=== PATIENT | female | born 1940 | race Caucasian/White ===

== ENCOUNTER 2020-05-12 09:59 | Outpatient (CLI) | payer MEDICARE, SELFPAY ==
--- NOTE | 2020-05-12 | ECG_ITS ---
Measurements Intervals [place] Rate: 66 P: 72 DE: 160 QRS: 68 QRSD: 89 T: 61 QT: 402 QTc: 423 Interpretive Statements SINUS RHYTHM WITH MARKED SINUS ARRHYTHMIA BASELINE ARTIFACT- I, II, AVR, AVL, AVF BORDERLINE ECG Electronically Signed On 05-12-2020 10:45:17 CDT by Domingo Chairez D.O.
== END 2020-05-12 10:00 | disposition home or self-care (01) ==
LOC: ANHLAB 10:06 → ANHCARD 10:06
PROVIDERS: PCP Internal Medicine
DX: G25.0 Essential tremor (principal); G20 Parkinson's disease
CPT/HCPCS: 93005

== ENCOUNTER 2020-07-19 22:09 | Emergency (ER) | payer MEDICARE, SELFPAY ==
[2020-07-19 22:12] VITALS: BP 148/67; PULSE 94; RESP 18; TEMP 36.7; O2SAT 98
[2020-07-19 22:59] LABS: Basophils Percent Auto 0.3 % (0.2-1.2); Eosinophils Absolute Auto 0.2 K/mm3 (0-0.3); Eosinophils Percent Auto 3.1 % (0-4.4); Hematocrit 36.3 % (37.0-47.0); Hemoglobin 11.8 g/dL (12.0-15.0); Immature Granulocyte Absolute 0.01 K/mm3 (0.00-0.031); Immature Granulocyte Percent A 0.1 % (0-0.5); Lymphocytes Absolute Auto 2.59 K/mm3 (0.9-3.2); Lymphocytes Percent Auto 38.8 % (18.3-44.2); Mean Corpuscular HGB Conc 32.5 g/dl (32-36); Mean Corpuscular Hemoglobin 31.4 pg (26-34); Mean Corpuscular Volume 96.5 fl (80-100); Mean Platelet Volume 9.8 fl (7.4-10.4); Monocytes Absolute Auto 0.7 K/mm3 (0.1-0.6); Monocytes Percent Auto 11.1 % (2.6-8.5); Neutrophils Absolute Auto 3.1 K/mm3 (1.3-6.7); Neutrophils Percent Auto 46.6 % (45.5-73.1); Platelet Count Result 225 k/mm3 (150-375); Red Blood Count 3.76 M/mm3 (4.2-5.4); Red Cell Distribution Width 12.9 % (11.5-14.5); White Blood Count 6.7 K/mm3 (4.5-10.0)
[2020-07-19 23:14] LABS: INR 1.1; Prothrombin Time 13.4 Seconds (11.1-14.7)
[2020-07-19 23:15] LABS: Anion Gap 6 mmol/L (8-16); Blood Urea Nitrogen 24 mg/dL (7-17); Carbon Dioxide 28 mmol/L (22-30); Chloride 104 mmol/L (98-107); Estimated CRCL calculation 38 ml/min; Estimated Glomerular Filt Rate 60; Glucose 109 mg/dL (65-105); Partial Thromboplastin Time 41.7 SECONDS (22.3-36.8); Potassium 4.4 mmol/L (3.4-5.0); Sodium 138 mmol/L (137-145)
[2020-07-19 23:20] LABS: CRP < 0.5 mg/dL (<1.0)
[2020-07-19 23:23] LABS: Erythrocyte Sedimentation Rate 21 mm/hr (0-20)
--- NOTE | 2020-07-19 23:53 | ED.SKABFB ---
HPI - Skin/Abscess/Foreign Bdy General Chief complaint: Skin/Abscess/Foreign Body Stated complaint: rash Time Seen by Provider: 07/19/20 22:18 Source: patient Mode of arrival: ambulatory Limitations: no limitations History of Present Illness HPI narrative: This patient is a 80 year old female who presents for evaluation of rash to her arms, legs and abdomen. She developed a red rash to her right upper arm 1 week ago. She reports this rash does not itch but it hall. She latered developed similar rash to right abdomen and left thigh. She also noticed some bruising to her hands. She denies fever, nausea, vomiting or abdominal pain. Related Data Home Medications Medication Instructions Recorded Confirmed cefdinir mg 11/02/19 estradiol [Estrace] VAGINAL 11/02/19 fosinopril 11/02/19 lovastatin mg 11/02/19 sertraline mg 11/02/19 aspirin 81 mg PO DAILY 11/04/19 hydroxychloroquine [Plaquenil] 200 mg PO DAILY 11/04/19 11/04/19 Allergies Allergy/AdvReac Type Severity Reaction Status Date / Time ciprofloxacin Allergy Mild Unknown Verified 11/04/19 15:14 gentamicin Allergy Mild Unknown Verified 11/04/19 15:14 losartan Allergy Unknown Unknown Verified 11/04/19 15:14 Sulfa (Sulfonamide Allergy Unknown Unknown Verified 11/04/19 15:14 Antibiotics) Review of Systems Review of Systems: All systems reviewed & are unremarkable except as noted in HPI and below Constitutional: Constitutional: Denies chills and Denies fever(s) Cardiovascular: Cardiovascular: Denies chest pain Respiratory: Respiratory: Denies cough and Denies dyspnea Gastrointestinal: Gastrointestinal: Denies abdominal pain, Denies nausea and Denies vomiting Genitourinary: Genitourinary: Denies hematuria Integumentary/Breasts: Skin/Breast: Reports rash Neurologic: Denies dizziness PMFSH Past Medical History Medical History Anxiety Arthritis Back pain Bowel obstruction CAD (coronary artery disease) Cataracts, bilateral Depression Fibromyalgia History of angina History of rectal polyps HLD (hyperlipidemia) HTN (hypertension) Neuropathy Pelvic abscess in female Raynaud's syndrome Systemic lupus erythematosus UTI (urinary tract infection) Surgical History Surgical History History of intestinal surgery History of left knee replacement Hx of appendectomy Hx of cardiac catheterization Hx of cataract surgery Hx of section Hx of cholecystectomy Hx of heart artery stent x3 Social History Social History (Updated 11/04/19 @ 15:56 by Vinicius Mamhood) Smoking status: Never smoker Gender identity (if verbalized by the patient): Female Exam Const: General: alert Orientation/consciousness: patient oriented x3 Eyes: Pupils: Equal, round and reactive pupils present EOM: EOMs intact bilaterally Neck: Neck: no lymphadenopathy Resp: Effort & Inspection: normal respiratory effort and no retractions Auscultation: clear to auscultation bilaterally Cardio: Rate: regular rate Rhythm: regular rhythm Heart sounds: no murmurs GI: GI Palp: Yes Soft to palpation, No Tenderness to palpation present (GI), No Guarding due to palpation present (GI) and No Rigid due to palpation Skin: General skin exam: no petechiae Other: to right arm - mostly singular flesh color papules with intermittent clusters, left inner thigh with similar lesions. Neuro: General: patient oriented x3 and moves all extremities Course Reevaluation(s) Reevaluation #1: I Discussed with patient labs are unremarkable. It does not appear to be drug or viral rash. This may be insect bites in vasculitis. She will follow up with pCP Date: 07/20/20 Time: 00:37 Vital Signs Vital signs: Vital Signs Temperature 98.1 F 07/19/20 22:12 Pulse Rate 94 07/19/20 22:12 Respiratory Rate 18 07/19/20 22:12 Blood Pressure 148/67 H 07/19/20 22
[2020-07-20 00:46] VITALS: BP 138/86; PULSE 84; RESP 16; TEMP 36.7; O2SAT 99
== END 2020-07-20 00:47 | disposition home or self-care (01) ==
PROVIDERS: Emergency Provider General Practice
DX: R21 Rash and other nonspecific skin eruption (principal); F41.9 Anxiety disorder, unspecified; M19.90 Unspecified osteoarthritis, unspecified site; I25.10 Atherosclerotic heart disease of native coronary artery without angina pectoris; F32.9 Major depressive disorder, single episode, unspecified; E78.5 Hyperlipidemia, unspecified; I10 Essential (primary) hypertension; G62.9 Polyneuropathy, unspecified; I73.00 Raynaud's syndrome without gangrene; M32.9 Systemic lupus erythematosus, unspecified; Z87.440 Personal history of urinary (tract) infections; Z98.42 Cataract extraction status, left eye; Z98.41 Cataract extraction status, right eye; Z96.652 Presence of left artificial knee joint; Z95.5 Presence of coronary angioplasty implant and graft; Z79.82 Long term (current) use of aspirin
CPT/HCPCS: 36415; 80048; 85025; 85610; 85652; 85730; 86140; 99283

== ENCOUNTER 2021-01-19 11:00 | Outpatient (RCR) | payer MEDICARE, SELFPAY ==
--- NOTE | 2020-12-15 11:13 | PTOPEVAL ---
PHYSICAL THERAPY EVALUATION AND PLAN OF CARE Thank you for referring Cheri Castaneda to [facility].? The patient is scheduled to be seen for therapy? 1x/week for 4 weeks. Please review, sign, date and return this plan of care DORINDA. I agree with and certify that the following plan of care is medically necessary. Referring Physician Date Attending Provider: Danyelle Brambila Evaluation Diagnosis neck pain Onset chronic Subjective Information Reports chronic neck pain. She Query Text:As Reported By Patient/ was treated for this same Family pain in the past with good success, but the last 3-4 months the pain in the neck increased significantly and she was having difficulty sleeping. States that more recently symptoms are somewhat less severe. Also reports that she is experiencing symptoms in middle back region which is different from her chronic lower back pain. Self Report Pain Assessment Bilateral Spine, Cervical Reported Pain Level 4 Pain Frequency Chronic Other Pain Description stiffness Pain Score Pain Score 4: Self Report Interventions Used Interventions Used By Clinicians Exercise Pain Relief Interventions Used By Exercise,Heat,Ice,Medication Patient Cervical and Lumbar ROM Cervical ROM Cervical Flexion (0-60) 45 Query Text:Active in Degrees Cervical Lateral Flexion Right (0-50) 10 Query Text:Passive in Degrees Cervical Lateral Flexion Left (0-50) 8 Query Text:Active in Degrees Cervical Rotation Right (0-90) 51 Query Text:Active in Degrees Cervical Rotation Left (0-90) 62 Query Text:Active in Degrees Lumbar ROM Lumbar Flexion Active Knee Query Text:Hands to: Lumbar Extension (0-40) 7 Query Text:Active in Degrees Upper Extremity Range of Motion General Upper Extremity Range of Motion Reason Not Measured WFL/Left,WFL/Right Upper Extremity Muscle Strength Testing Scapular/Shoulder Bilateral Shoulder Flexion Strength 4+ Good + Shoulder Extension Strength 4+ Good + Shoulder Abduction Strength 4+ Good + Shoulder Medial Rotation Strength 4+ Good + Shoulder Lateral Rotation Strength 4+ Good + Muscle Length Testing Muscle Length Testing Scalene Group Muscle Length (R) Mild Tightness,(L) Mild Query Text: Tightness Upper Trapezius Muscle Length (R) Severe Tightness,(L) Severe Tightness Pectoralis Johann
--- NOTE | 2021-01-19 11:22 | PCPTNOTE ---
PHYSICAL THERAPY DISCHARGE NOTE Admitting Provider: Attending Provider: Daynelle Brambila Patient:Cheri Castaneda Date of :1940 Cheri has not returned for any further treatments since 01/07/2021, therefore she will be discharged at this time. Patient?s initial visit was on 12/15/2020 10:00 and she has had a total of 3 visits. She rescheduled her re-evaluation from last week until today and she did not show up for today's re-evaluation. The goals have been partially met. Thank you for referring Cheri to [facility]. Please review, sign, date and return this discharge summary DORINDA. I have been updated about Cheri's current status and I agree with discharge from the above service at this time. Referring Physician Date
== END 2021-01-19 12:49 | disposition home or self-care (01) ==
LOC: ANHPT 11:00
DX: M54.2 Cervicalgia (principal)
CPT/HCPCS: 97110; 97140; 97162

== ENCOUNTER 2021-02-07 13:52 | Emergency (ER) | payer MEDICARE, SELFPAY ==
[2021-02-07 13:54] VITALS: BP 187/73; PULSE 91; RESP 20; TEMP 36.6; O2SAT 99
--- NOTE | 2021-02-07 15:06 | ED.GENADULT ---
HPI - General Adult General Chief complaint: Extremity Injury, Lower Stated complaint: tingling in legs and feet Time Seen by Provider: 02/07/21 13:59 Source: patient Mode of arrival: ambulatory Limitations: no limitations History of Present Illness HPI narrative: Patient is an 80-year-old female who presents to emergency department for evaluation of tingling to the bilateral feet plantar surface that began today patient notes on arrival minimal tingling denies any swelling injury or deformity. Patient notes she had cardiac catheterization at [facility] on . Access was in the right groin. Patient denies any pain in the right groin swelling or deformity. Patient presents per private vehicle in no distress with normal gait Related Data Home Medications Medication Instructions Recorded Confirmed cefdinir mg 11/02/19 estradiol [Estrace] VAGINAL 11/02/19 fosinopril 11/02/19 lovastatin mg 11/02/19 sertraline mg 11/02/19 aspirin 81 mg PO DAILY 11/04/19 hydroxychloroquine [Plaquenil] 200 mg PO DAILY 11/04/19 11/04/19 Allergies Allergy/AdvReac Type Severity Reaction Status Date / Time ciprofloxacin Allergy Mild Unknown Verified 02/07/21 13:57 gentamicin Allergy Mild Unknown Verified 02/07/21 13:57 losartan Allergy Unknown Unknown Verified 02/07/21 13:57 Sulfa (Sulfonamide Allergy Unknown Verified 02/07/21 14:15 Antibiotics) Review of Systems Review of Systems: All systems reviewed & are unremarkable except as noted in HPI and below PMFSH Past Medical History Medical History (Updated 02/07/21 @ 15:10 by Angelo Lee PA-C) Anxiety Arthritis Back pain Bowel obstruction CAD (coronary artery disease) Cataracts, bilateral Depression Fibromyalgia History of angina History of rectal polyps HLD (hyperlipidemia) HTN (hypertension) Neuropathy Pelvic abscess in female Raynaud's syndrome Systemic lupus erythematosus UTI (urinary tract infection) Surgical History Surgical History History of intestinal surgery History of left knee replacement Hx of appendectomy Hx of cardiac catheterization Hx of cataract surgery Hx of section Hx of cholecystectomy Hx of heart artery stent x3 Social History Social History Smoking status: Never smoker Gender identity (if verbalized by the patient): Female Exam Narrative: Exam Narrative: GENERAL: Well-appearing, well-nourished, and in no acute distress. HEAD: Normocephalic, atraumatic. EYES: PERRLA and EOMI. ENT: Nares clear, no rhinorrhea or epistaxis. Mucous membranes moist. CHEST: Clear to auscultation. No respiratory distress. No wheezes rales or rhonchi HEART: Regular rate and rhythm. No murmur heard. Normal peripheral pulses. ABDOMEN: Soft, nontender, nondistended EXTREMITIES: Normal range of motion. No edema. Slight bruising no swelling or other abnormality in the right groin SKIN: Warm, dry, no rash. NEURO: No focal deficits. Alert and oriented x3. Cranial nerves II through XII grossly intact. Normal speech and gait. Neurovascularly intact. Capillary refill less than 2 seconds PSYCH: Normal mood and affect. Course Course Emergency Course: Patient on arrival to emergency department notes that her symptoms are minimal at this time and is actually requesting to be discharged feeling as though she overreacted was offered further evaluation with potential for blood work or imaging however she does not wish for this and notes that she would like to be discharged and will follow with her specialist Vital Signs Vital signs: Vital Signs Temperature 97.9 F 02/07/21 13:54 Pulse Rate 91 02/07/21 13:54 Respiratory Rate 20 02/07/21 13:54 Blood Pressure 187/73 H 02/07/21 13:54 Pulse Oximetry 99 02/07/21 13:54 Temperature 97.9 F 02/07/21 13:54 Pulse Rate 91 02/07/21 13:54 Respiratory Rate 20 03
[2021-02-07 15:17] VITALS: BP 150/82; PULSE 99; RESP 20; O2SAT 97
== END 2021-02-07 15:19 | disposition home or self-care (01) ==
PROVIDERS: Emergency Provider Emergency Medicine
DX: R20.2 Paresthesia of skin (principal); I25.10 Atherosclerotic heart disease of native coronary artery without angina pectoris; E78.5 Hyperlipidemia, unspecified; I10 Essential (primary) hypertension; I73.00 Raynaud's syndrome without gangrene; M32.9 Systemic lupus erythematosus, unspecified; G62.9 Polyneuropathy, unspecified; M79.7 Fibromyalgia; M19.90 Unspecified osteoarthritis, unspecified site; F32.9 Major depressive disorder, single episode, unspecified; F41.9 Anxiety disorder, unspecified; Z87.19 Personal history of other diseases of the digestive system; Z98.42 Cataract extraction status, left eye; Z98.41 Cataract extraction status, right eye; Z96.652 Presence of left artificial knee joint; Z95.5 Presence of coronary angioplasty implant and graft; Z87.440 Personal history of urinary (tract) infections
CPT/HCPCS: 99283

== ENCOUNTER 2021-05-06 10:30 | Outpatient (RCR) | payer MEDICARE, SELFPAY ==
[2021-03-22 12:18] VITALS: PULSE 65
--- NOTE | 2021-04-12 09:12 | PCCPR ---
pt [facility] today due to having a rash. She has an apt tomorrow and plans to return wed.
--- NOTE | 2021-04-15 10:48 | PCCPR ---
Absent again today, Cheri stated that her rash was not clearing and did not feel comfortable coming in.
--- NOTE | 2021-05-10 13:45 | PCCPR ---
Absent due to low back pain Cheri called today states her low back has been bothering her. Encouraged her to rest and call her PCP and discuss more.
--- NOTE | 2021-06-30 16:23 | PCCPR ---
Spoke with Cheri today to discuss possibility of returning to cardiac rehab. She stated that her back was doing better but hesitant to start exercise again. Cheri requested discharge from program. Information given regarding [facility] Steps program at [facility].
== END 2021-06-30 16:39 | disposition home or self-care (01) ==
LOC: ANHCPREHAB 10:30
PROVIDERS: Visit Provider Internal Medicine Cardiovascular Disease
DX: Z95.5 Presence of coronary angioplasty implant and graft (principal)
CPT/HCPCS: 93798

== ENCOUNTER 2021-06-25 14:45 | Emergency (ER) | payer MEDICARE, SELFPAY ==
--- NOTE | ~2021-06-25 | CT_ITS ---
EXAMINATION: CT abdomen pelvis w con DATE: 06/25/2021 16:36 INDICATION: Abdominal pain for 4 months. Nausea. TECHNIQUE: Computed tomography (CT) of the abdomen and pelvis was performed with 100 cc Omnipaque 350 intravenous contrast. Automated exposure control and iterative reconstruction technique were employe d. Exam dose: 322.10 mGy-cm total exam DLP. COMPARISON: None. FINDINGS: There is minimal atelectasis or scarring at the lung bases. Heart size is upper limits of n ormal. No pericardial or pleural effusion. Approximately 7.5 mm hypoenhancing lesion is noted in the peripheral anterolateral right hepatic lobe (series 3 image 53). Some possible peripheral puddling of contrast suggest possible hemangioma. Ther e is some focal fatty change of the left hepatic lobe near the fissure for the ligamentum teres. The gallbladder is absent. No bile duct dilatation. No pancreatic mass lesion, calcification or ducta l dilatation. Normal splenic size. No adrenal mass lesion. Probable 7.5 mm upper pole left renal cyst. The kidneys otherwise are unremarkable. No urinary tract calculus or hydroureteronephrosis. The urinary bladder is unremarkable. Status post hysterectomy. There is atherosclerotic calcification of the abdominal aorta and origins of the renal arteries and c eliac artery. No abdominal aortic aneurysm. No intraperitoneal or retroperitoneal or pelvic mass lesi on or adenopathy or ascites. There are numerous diverticula of the sigmoid colon; no CT evidence of diverticulitis. No bowel obstr uction, bowel wall thickening, pneumatosis or intraperitoneal free air is detected. 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 IMPRESSION: Probable 7.5 mm hepatic hemangioma 7.5 mm probable cyst of the left renal upper pole Status post hysterectomy Diverticulosis of the colon; no CT evidence of diverticulitis Reviewed, dictated and finalized at [facility]. Reviewed, dictated and finalized at [facility].
[2021-06-25 14:47] VITALS: BP 153/74; PULSE 90; RESP 16; TEMP 37.2; O2SAT 100
[2021-06-25 15:13] LABS: Basophils Percent Auto 0.5 % (0.2-1.2); Eosinophils Absolute Auto 0.1 K/mm3 (0-0.3); Eosinophils Percent Auto 1.8 % (0-4.4); Hematocrit 39.4 % (37.0-47.0); Hemoglobin 12.4 g/dL (12.0-15.0); Immature Granulocyte Absolute 0.01 K/mm3 (0.00-0.031); Immature Granulocyte Percent A 0.2 % (0-0.5); Lymphocytes Absolute Auto 2.67 K/mm3 (0.9-3.2); Lymphocytes Percent Auto 40.6 % (18.3-44.2); Mean Corpuscular HGB Conc 31.5 g/dl (32-36); Mean Corpuscular Hemoglobin 30.8 pg (26-34); Mean Corpuscular Volume 97.8 fl (80-100); Mean Platelet Volume 9.6 fl (7.4-10.4); Monocytes Absolute Auto 0.7 K/mm3 (0.1-0.6); Monocytes Percent Auto 10.4 % (2.6-8.5); Neutrophils Absolute Auto 3.1 K/mm3 (1.3-6.7); Neutrophils Percent Auto 46.5 % (45.5-73.1); Platelet Count Result 233 k/mm3 (150-375); Red Blood Count 4.03 M/mm3 (4.2-5.4); Red Cell Distribution Width 12.9 % (11.5-14.5); White Blood Count 6.6 K/mm3 (4.5-10.0)
[2021-06-25 15:28] LABS: Alanine Aminotransferase 12 U/L (4-35); Albumin Level 4.9 g/dL (3.5-5.1); Alkaline Phosphatase 59 U/L (38-126); Anion Gap 11 mmol/L (8-16); Aspartate Amino Transferase 34 U/L (14-36); Bilirubin,Total 0.5 mg/dL (0.2-1.3); Blood Urea Nitrogen 17 mg/dL (7-17); Calcium 9.6 mg/dL (8.4-10.2); Carbon Dioxide 25 mmol/L (22-30); Chloride 103 mmol/L (98-107); Estimated CRCL calculation 41 ml/min; Estimated Glomerular Filt Rate > 60; Glucose 97 mg/dL (65-110); Lipase 119 U/L (23-300); Potassium 3.9 mmol/L (3.4-5.0); Sodium 139 mmol/L (137-145)
--- NOTE | 2021-06-25 15:45 | ED.GENADULT ---
HPI - General Adult General Chief complaint: Abdominal Pain Stated complaint: stomach pain, nausea Time Seen by Provider: 06/25/21 15:42 Source: RN notes reviewed History of Present Illness HPI narrative: Patient presents emergency department from home for abdominal pain. Patient states she has been having intermittent abdominal pain for the past 4 months worsened last night. The pain is located across the upper abdomen described as sharp and stabbing in nature is associated with nausea and vomiting and diarrhea. Patient denies having fever chills states she supposed to be having an appointment for evaluation next week was had no previous evaluation states the pain right now is aching but was more severe last night states she is taken no medication for the symptoms Related Data Home Medications Medication Instructions Recorded Confirmed estradiol [Estrace] VAGINAL 11/02/19 fosinopril 11/02/19 lovastatin mg 11/02/19 sertraline mg 11/02/19 aspirin 81 mg PO DAILY 11/04/19 hydroxychloroquine [Plaquenil] 200 mg PO DAILY 11/04/19 11/04/19 Restasis 03/22/21 carbidopa-levodopa 1 tablet PO TID 03/22/21 03/22/21 clopidogrel [Plavix] 03/22/21 methenamine hippurate 1 g PO 03/22/21 Allergies Allergy/AdvReac Type Severity Reaction Status Date / Time ciprofloxacin Allergy Mild Unknown Verified 02/07/21 13:57 gentamicin Allergy Mild Unknown Verified 02/07/21 13:57 losartan Allergy Unknown Unknown Verified 02/07/21 13:57 Sulfa (Sulfonamide Allergy Unknown Verified 02/07/21 14:15 Antibiotics) Review of Systems Review of Systems: Gen.: Denies fevers or chills ENT: Denies congestion Respiratory: Denies shortness of breath or cough CV: Denies chest pain or palpitations GI: See HPI denies burning, urgency, frequency or hematuria Musculoskeletal: Denies back pain or muscle pain Neuro: Denies numbness, tingling, weakness or focal weakness Skin: Denies rash Except as documented, all other systems reviewed and negative [facility] Past Medical History Medical History (Updated 06/25/21 @ 16:54 by Navjot Brito DO) Anxiety Arthritis Back pain Bowel obstruction CAD (coronary artery disease) Cataracts, bilateral Depression Fibromyalgia History of angina History of rectal polyps HLD (hyperlipidemia) HTN (hypertension) Neuropathy Pelvic abscess in female Raynaud's syndrome Systemic lupus erythematosus UTI (urinary tract infection) Surgical History Surgical History History of intestinal surgery History of left knee replacement Hx of appendectomy Hx of cardiac catheterization Hx of cataract surgery Hx of section Hx of cholecystectomy Hx of heart artery stent x3 Family History Family History (Updated 03/22/21 @ 12:04 by Tiffanie Arciniega RN) Sibling Coronary artery disease Hyperlipidemia Hypertension Diabetes mellitus Cancer Sibling Hypertension Cancer Social History Social History Smoking status: Never smoker Gender identity (if verbalized by the patient): Female Exam Narrative: APPEARANCE: No acute distress, nontoxic, resting in bed HEENT: Normocephalic, atraumatic, OMM RESPIRATORY: No respiratory distress, clear to auscultation bilaterally with no rhonchi wheezing or rales CARDIOVASCULAR: RRR s murmur ABDOMINAL: Soft nondistended tender palpation right upper quadrant no tenderness in right lower quadrant, left lower quadrant left upper quadrant no rebound or guarding MUSCULOSKELETAl: Moves all extremities. No clubbing, cyanosis or edema. NEURO: Awake and alert. Following commands, speech normal, no focal deficits SKIN:: Warm, dry. Normal Color PSYCHIATRIC: Normal affect/mood Course Course Emergency Course: Patient states that they are feeling much better at this time. States abdominal pain has resolved. Repeat abdominal exam shows the patient's abdomen to be
[2021-06-25 16:18] LABS: Add Urine Microscopic? YES; Appearance Urine Clear (Clear); Bilirubin Urine Negative (Negative); Blood Urine 1+ (Negative); Color Urine Yellow (Yellow); Glucose Urine UA Negative (Negative); Ketones Urine Negative (Negative); Leukocyte Esterase Ur 2+ LEU/UL (Negative); Mucus Urine Rare /lpf; Nitrate Urine Positive (Negative); Protein Urine Negative (Negative); RBC Urine 0-2 /hpf (0-2); Specific Grav Ur 1.012 (1.001-1.035); Squamous Epithelial Cell Urine Rare /hpf (Few); Urobilinogen Urine Negative mg/dL (<2.0)
[2021-06-25] MEDS: NITROFURANTOIN MONOHYD MACROCR 100 MG CAP PO (16:58)
[2021-06-25 17:15] VITALS: BP 132/59; PULSE 64; RESP 16; O2SAT 97
== END 2021-06-25 17:15 | disposition home or self-care (01) ==
PROVIDERS: Emergency Provider Emergency Medicine
DX: N39.0 Urinary tract infection, site not specified (principal); R10.10 Upper abdominal pain, unspecified; I25.10 Atherosclerotic heart disease of native coronary artery without angina pectoris; E78.5 Hyperlipidemia, unspecified; I10 Essential (primary) hypertension; I73.00 Raynaud's syndrome without gangrene; M32.9 Systemic lupus erythematosus, unspecified; G62.9 Polyneuropathy, unspecified; M79.7 Fibromyalgia; F41.9 Anxiety disorder, unspecified; F32.9 Major depressive disorder, single episode, unspecified; Z87.19 Personal history of other diseases of the digestive system; Z98.42 Cataract extraction status, left eye; Z98.41 Cataract extraction status, right eye; Z96.652 Presence of left artificial knee joint; Z95.5 Presence of coronary angioplasty implant and graft; Z79.82 Long term (current) use of aspirin; K57.90 Diverticulosis of intestine, part unspecified, without perforation or abscess without bleeding; R93.422 Abnormal radiologic findings on diagnostic imaging of left kidney; R93.2 Abnormal findings on diagnostic imaging of liver and biliary tract
CPT/HCPCS: 36415; 74177; 80053; 81001; 83690; 85025; 87077; 87086; 87186; 99284; A9270; Q9967

== ENCOUNTER 2021-11-08 11:59 | Emergency (ER) | payer MEDICARE, SELFPAY ==
[2021-11-08 12:18] VITALS: BP 151/82; PULSE 90; RESP 16; TEMP 36.4; O2SAT 98
== END 2021-11-09 04:07 | disposition left against medical advice (07) ==
DX: R51.9 Headache, unspecified (principal)
CPT/HCPCS: 99199

== ENCOUNTER 2021-11-30 00:41 | Emergency (ER) | payer MEDICARE, SELFPAY ==
--- NOTE | ~2021-11-30 | CT_ITS ---
EXAMINATION: CT brain wo con DATE: 11/30/2021 01:36 INDICATION: Frontal headache. TECHNIQUE: Computed tomography (CT) of the head was performed without intravenous contrast. The mA wa s adjusted according to patient size. Iterative reconstruction technique was employed. The dose-lengt h product was 681.00 mGy-cm. COMPARISON: Head CT 05/01/2017 FINDINGS: There are scattered areas of low attenuation in the cerebral white matter. There is no intr acranial hemorrhage, acute infarction, or abnormal intracranial mass lesion. The ventricles are zoila l in size. There are likely changes of ocular lens replacement surgeries. The paranasal sinuses are c lear. The mastoid air cells are normal. IMPRESSION: 1. Extensive nonspecific cerebral white matter disease with mild interval worsening, which likely rep resents chronic small vessel ischemic disease. Reviewed, dictated and finalized at location D. L GEOTECHNICAL ENGINEER IMPRESSION: 1. Extensive nonspecific cerebral white matter disease with mild interval worse angelina, which likely represents chronic small vessel ischemic disease.
--- NOTE | ~2021-11-30 | XR_ITS ---
EXAMINATION: XR chest 1V DATE: 11/30/2021 01:38 INDICATION: Hypertension TECHNIQUE: frontal view of the chest was obtained. COMPARISON: Chest radiograph dated 11/04/2019 FINDINGS: Calcified nodule at the right lower lung zones consistent with old granulomatous disease. No other ai rspace opacities, pulmonary edema, pleural effusion or pneumothorax. The cardiomediastinal silhouette is normal. Coronary artery stenting. Mild thoracic dextrocurvature. IMPRESSION: 1. No acute cardiopulmonary disease. Reviewed, dictated and finalized at location A. R REVERSE ENGINEER
[2021-11-30 01:17] VITALS: BP 170/86; PULSE 78; RESP 14; TEMP 36.8; O2SAT 100
--- NOTE | 2021-11-30 01:23 | ED.GENADULT ---
HPI - General Adult General Chief complaint: Headache Stated complaint: headache Time Seen by Provider: 11/30/21 01:16 History of Present Illness HPI narrative: Patient is a 81-year-old female who presents the emergency department with chief complaint of hypertension. The patient states she has been noticing her blood pressures been running on the higher side patient also reports that she has had chronic headaches for some time and states that tonight it got worse but by the time she is arrived to the emergency department her headache is mild currently the patient denies any focal neurological deficits denies vomiting does report that she had a little bit of nausea with this. The patient denies chest pain denies shortness of breath denies blood in her stool denies diarrhea. Related Data Home Medications Medication Instructions Recorded Confirmed estradiol [Estrace] VAGINAL 11/02/19 fosinopril 11/02/19 lovastatin mg 11/02/19 sertraline mg 11/02/19 aspirin 81 mg PO DAILY 11/04/19 hydroxychloroquine [Plaquenil] 200 mg PO DAILY 11/04/19 11/04/19 Restasis 03/22/21 carbidopa-levodopa 1 tablet PO TID 03/22/21 03/22/21 clopidogrel [Plavix] 03/22/21 methenamine hippurate 1 g PO 03/22/21 Allergies Allergy/AdvReac Type Severity Reaction Status Date / Time ciprofloxacin Allergy Mild Unknown Verified 11/30/21 01:46 gentamicin Allergy Mild Unknown Verified 11/30/21 01:46 losartan Allergy Unknown Unknown Verified 11/30/21 01:46 Sulfa (Sulfonamide Allergy Unknown Verified 11/30/21 01:46 Antibiotics) Review of Systems Review of Systems: A 10 system review of systems was completed on the patient and is negative except for what is stated in the HPI. Nursing and ancillary documentation was reviewed. [facility] Past Medical History Medical History (Updated 11/30/21 @ 02:08 by Filipe Ferguson MD) Anxiety Arthritis Back pain Bowel obstruction CAD (coronary artery disease) Cataracts, bilateral Depression Fibromyalgia History of angina History of rectal polyps HLD (hyperlipidemia) HTN (hypertension) Neuropathy Pelvic abscess in female Raynaud's syndrome Systemic lupus erythematosus UTI (urinary tract infection) Surgical History Surgical History History of intestinal surgery History of left knee replacement Hx of appendectomy Hx of cardiac catheterization Hx of cataract surgery Hx of section Hx of cholecystectomy Hx of heart artery stent x3 Family History Family History Sibling Coronary artery disease Hyperlipidemia Hypertension Diabetes mellitus Cancer Sibling Hypertension Cancer Social History Social History Smoking status: Never smoker Gender identity (if verbalized by the patient): Female Exam Narrative: GENERAL: Well-appearing, well-nourished, and in no acute distress. HEAD: Normocephalic, atraumatic. EYES: PERRLA and EOMI. ENT: Nares clear, no rhinorrhea or epistaxis. Mucous membranes moist. NECK: Supple. CHEST: Clear to auscultation. No respiratory distress. HEART: Regular rate and rhythm. No murmur heard. Normal peripheral pulses. ABDOMEN: Soft, nontender, nondistended, normal active bowel sounds. EXTREMITIES: Normal range of motion. No edema. SKIN: Warm, dry, no rash. NEURO: No focal deficits. Alert and oriented x3. PSYCH: Normal mood and affect. Course Course Emergency Course: Chest x-ray shows no evidence of focal infiltrate CT head shows no acute findings by stat rad EKG sinus rhythm rate of [address] elevation or ST depression Vital Signs Vital signs: Vital Signs Temperature 36.8 C 11/30/21 01:17 Pulse Rate 78 11/30/21 01:17 Respiratory Rate 14 11/30/21 01:17 Blood Pressure 170/86 H 11/30/21 01:17 Pulse Oximetry 100 11/30/21 01:17 Tem
--- NOTE | 2021-11-30 01:24 | ECG_ITS ---
Measurements Intervals [place] Rate: 63 P: 61 MA: 133 QRS: 53 QRSD: 91 T: 55 QT: 403 QTc: 415 Interpretive Statements SINUS RHYTHM BASELINE ARTIFACT- I, II, AVR, AVL, AVF, V5 NORMAL ECG Electronically Signed On 11-30-2021 6:02:12 [employer] by Domingo Chairez D.O.
--- NOTE | 2021-11-30 01:33 | PC.NURSE ---
Pt to CT scan at this time.
[2021-11-30] MEDS: ONDANSETRON INJ 4 MG/2 ML VIAL IV PUSH (01:47)
[2021-11-30 01:58] LABS: Basophils Percent Auto 0.6 % (0.2-1.2); Eosinophils Absolute Auto 0.2 K/mm3 (0-0.3); Eosinophils Percent Auto 3.2 % (0-4.4); Hematocrit 39.3 % (37.0-47.0); Hemoglobin 12.5 g/dL (12.0-15.0); Immature Granulocyte Absolute 0.01 K/mm3 (0.00-0.031); Immature Granulocyte Percent A 0.2 % (0-0.5); Lymphocytes Absolute Auto 2.78 K/mm3 (0.9-3.2); Lymphocytes Percent Auto 42.9 % (18.3-44.2); Mean Corpuscular HGB Conc 31.8 g/dl (32-36); Mean Corpuscular Hemoglobin 31.3 pg (26-34); Mean Corpuscular Volume 98.5 fl (80-100); Mean Platelet Volume 10.2 fl (7.4-10.4); Monocytes Absolute Auto 0.7 K/mm3 (0.1-0.6); Monocytes Percent Auto 11.1 % (2.6-8.5); Neutrophils Absolute Auto 2.7 K/mm3 (1.3-6.7); Platelet Count Result 223 k/mm3 (150-375); Red Blood Count 3.99 M/mm3 (4.2-5.4); Red Cell Distribution Width 12.8 % (11.5-14.5); White Blood Count 6.5 K/mm3 (4.5-10.0)
[2021-11-30 02:01] LABS: Alanine Aminotransferase 6 U/L (4-35); Albumin Level 4.4 g/dL (3.5-5.1); Alkaline Phosphatase 69 U/L (38-126); Anion Gap 9 mmol/L (8-16); Aspartate Amino Transferase 24 U/L (14-36); Bilirubin,Total 0.6 mg/dL (0.2-1.3); Blood Urea Nitrogen 18 mg/dL (7-17); Calcium 9.5 mg/dL (8.4-10.2); Carbon Dioxide 29 mmol/L (22-30); Chloride 99 mmol/L (98-107); Estimated Glomerular Filt Rate > 60; Glucose 107 mg/dL (65-110); Sodium 137 mmol/L (137-145)
[2021-11-30 02:07] LABS: Add Urine Microscopic? NO; Appearance Urine Clear (Clear); Bilirubin Urine Negative (Negative); Blood Urine Negative (Negative); Color Urine Yellow (Yellow); Glucose Urine UA Negative (Negative); Ketones Urine Negative (Negative); Leukocyte Esterase Ur Negative LEU/UL (Negative); Nitrate Urine Negative (Negative); Protein Urine Negative (Negative); Urobilinogen Urine Negative mg/dL (<2.0)
[2021-11-30 02:13] LABS: Specific Grav Ur 1.004 (1.001-1.035)
[2021-11-30 02:23] VITALS: BP 148/81; PULSE 91; RESP 23; O2SAT 100
[2021-11-30 02:24] VITALS: BP 148/81; PULSE 91; RESP 18; O2SAT 100
== END 2021-11-30 02:25 | disposition home or self-care (01) ==
PROVIDERS: Emergency Provider Emergency Medicine; PCP Internal Medicine
DX: I10 Essential (primary) hypertension (principal); R51.9 Headache, unspecified; I25.10 Atherosclerotic heart disease of native coronary artery without angina pectoris; M79.7 Fibromyalgia; E78.5 Hyperlipidemia, unspecified; G62.9 Polyneuropathy, unspecified; M32.9 Systemic lupus erythematosus, unspecified; Z87.19 Personal history of other diseases of the digestive system; Z87.442 Personal history of urinary calculi; Z98.49 Cataract extraction status, unspecified eye; Z96.652 Presence of left artificial knee joint; Z79.82 Long term (current) use of aspirin; R90.82 White matter disease, unspecified
CPT/HCPCS: 36415; 51701; 70450; 71045; 80053; 81003; 85025; 93005; 96374; 99284; J2405

== ENCOUNTER 2021-12-07 12:30 | Outpatient (RCR) | payer MEDICARE, SELFPAY ==
--- NOTE | 2021-11-09 15:43 | PTOPEVAL ---
Thank you for referring Cheri Castaneda to [facility].? The patient is scheduled to be seen for therapy? 2 x/week for 4-6 weeks. Please review, sign, date and return this plan of care DORINDA. I agree with and certify that the following plan of care is medically necessary. Referring Physician Date Attending Provider: Alvina Smith MD Neurological History Hx Migraine Yes Hx Parkinson's Disease Yes Hx Other Neurological Disorders Yes: NEUROPATHY HANDS/FEET Cardiovascular History Hx Cardiac Catheterization Yes: JANUARY 2021 Hx Coronary Artery Disease Yes Hx Coronary Stent Yes: X3 2004, X2 2020 Hx Hypercholesterolemia Yes Gastrointestinal History Hx Appendectomy Yes Hx Cholecystectomy Yes: 1971 Hx Gastroesophageal Reflux Disease Yes Hx Other Gastrointestinal Disorders Yes: O 2019 Genitourinary History Hx Urinary Tract Infection Yes: chronic uti Musculoskeletal History Hx Arthritis Yes Hx Back Pain Yes: BULGING DISC Hx Fibromyalgia Yes Hx Joint Replacement Yes: LEFT KNEE Endocrine History Hx Systemic Lupus Erythematosus Yes HEENT History Hx Cataracts Yes: REMOVED BOTH EYES Reproductive History Hx Section Yes: 1968 Hx Other Reproductive Disorders Yes Evaluation Information Problem Diagnosis chronic back and neck pain Additional Evaluation Detail Sits with legs crossed with trunk leaning to right side with twisted position Parkinson's disease- no HEP or group program attended Subjective Information She has had chronic back pain Query Text:As Reported By Patient/ with DDD. She reports Family limitations with bending, prolonged sitting/standing, grocery shopping. Reports limitations with sleeping, but is able to sleep 8 hr with stiffness in the morning. Reports her neck pain is intermittent with radiating pain from neck into head with c/o TREJO. c/o radiating symptoms into back of arms into hands. Increased pain with pain with prolonged neck flex position with reading or on the phone. C/o UE weakness, but she has not lift anything heavy for years. She does not perform her HEP
--- NOTE | 2021-11-25 07:51 | PCPTNOTE ---
Patient called & cancelled scheduled appointment this date due to going out of town.
--- NOTE | 2021-11-29 14:50 | PCPTNOTE ---
Patient did not show up for scheduled appointment this date; called reminded patient about missed appointment, with adjustments made to next appointment 12/01/2021 for 14:15.
--- NOTE | 2021-12-07 13:23 | PTOPEVAL ---
Physical Therapy Discharge Note Thank you for referring Cheri Castaneda to [facility] [place] [facility] [place] Cheri has received 6 therapy visits to address her chronic neck and back pain. She has improved symptoms, improved trunk motion and improved LE strength. She has been provided a HEP. She has partially achieved her therapy goals. She has reached maximal potential with skilled therapy services at this time. Will DC PT services. Please review, sign, date and return this discharge summary DORINDA. I agree with and certify that the following plan of care is medically necessary. Referring Physician Date Attending Provider: Alvina Smith Problem Diagnosis chronic back and neck pain Additional Evaluation Detail Sits with legs crossed with trunk leaning to right side with twisted position Parkinson's disease- no HEP or group program attended She has had chronic back pain with DDD. Subjective Information She feel her neck is better as Query Text:As Reported By Patient/ a result of therapy. Her back Family is slightly better. She is performing her HEP 2-3x/wk. She c/o tightness of neck with turning. Denies any radiating symptoms into UE, but radiating tightness into back of head. Improved diogo with talking on the phone. She has sharp pain with lifting at times and walking, but usually soreness with dull pain. She reports improved diogo with trunk bending. Reports sores with prolonged sitting/ standing. Intermittent radiating symptoms into LE, unable to note when symptoms increase. Pain Assessment Neck Reported Pain Level 3 Pain Description Aching,Pulling,Tightness Pain Frequency Continuous Lowest Pain Intensity 3 Greatest Pain Intensity 3 Pain Aggravating Factors Other Pain Aggravating Factors Other Pain Aggravating Factors neck movement Lower Back Reported Pain Level 4 Pain Description Dull,Sharp,Soreness Lowest Pain Intensity 3 Greatest Pain Intensity 5 Pain Aggravating Factors Lifting,Walking Cervical and Lumbar ROM Cervical ROM Cervical Flexion (0-60) 60:Active in Degrees Cervical Extension (0-70) 60:Active in Degrees
== END 2021-12-08 13:28 | disposition home or self-care (01) ==
LOC: ANHPT 12:30
DX: M54.16 Radiculopathy, lumbar region (principal); M54.2 Cervicalgia
CPT/HCPCS: 97110; 97162; 97530

== ENCOUNTER 2022-01-23 01:13 | Emergency (ER) | payer MEDICARE, SELFPAY ==
--- NOTE | ~2022-01-23 | CT_ITS ---
EXAMINATION: CT brain wo con DATE: 01/23/2022 02:17 INDICATION: Headache. Dizziness. TECHNIQUE: Computed tomography (CT) of the head was performed without intravenous contrast. The mA wa s adjusted according to patient size. Iterative reconstruction technique was employed. The dose-lengt h product was 605.33 mGy-cm. COMPARISON: Head CT 11/30/2021 FINDINGS: There are scattered areas of low attenuation in the cerebral white matter. There is no intr acranial hemorrhage, acute infarction, or abnormal intracranial mass lesion. The ventricles are zoila l in size. There is mild mucosal thickening in the ethmoid sinuses. The mastoid air cells are normal. IMPRESSION: 1. Stable extensive nonspecific cerebral white matter disease, which likely represents chronic small vessel ischemic disease. Reviewed, dictated and finalized at location A. OPERATOR IMPRESSION: 1. Stable extensive nonspecific cerebral white matter disease, which likely rep resents chronic small vessel ischemic disease.
--- NOTE | ~2022-01-23 | XR_ITS ---
EXAMINATION: XR chest 2V DATE: 01/23/2022 02:21 INDICATION: Headache. TECHNIQUE: Frontal and lateral views of the chest were obtained. COMPARISON: Chest single view 11/30/2021, CT abdomen and pelvis 06/25/2021 FINDINGS: A calcified right lung nodule is consistent with old granulomatous disease. There is mild s carring at the lung apices. No pleural effusion or pneumothorax. The heart size is normal. IMPRESSION: 1. Mild scarring at the lung apices. Reviewed, dictated and finalized at location A. STRIAL CLEANING TECHNICIAN
[2022-01-23 01:16] VITALS: BP 194/91; PULSE 87; RESP 19; TEMP 36.6; O2SAT 99
[2022-01-23 01:32] VITALS: BP 166/86
--- NOTE | 2022-01-23 02:02 | PC.NURSE ---
This RN attempted x2 for IV access. No success. 2nd RN to try
--- NOTE | 2022-01-23 02:05 | PC.NURSE ---
Pt to CT via stretcher at this time.
[2022-01-23 02:41] LABS: Basophils Percent Auto 0.6 % (0.2-1.2); Eosinophils Absolute Auto 0.2 K/mm3 (0-0.3); Eosinophils Percent Auto 3.1 % (0-4.4); Hematocrit 38.7 % (37.0-47.0); Hemoglobin 12.1 g/dL (12.0-15.0); Immature Granulocyte Absolute 0.01 K/mm3 (0.00-0.031); Immature Granulocyte Percent A 0.1 % (0-0.5); Lymphocytes Absolute Auto 2.56 K/mm3 (0.9-3.2); Lymphocytes Percent Auto 36.3 % (18.3-44.2); Mean Corpuscular HGB Conc 31.3 g/dl (32-36); Mean Corpuscular Hemoglobin 31.3 pg (26-34); Mean Platelet Volume 9.6 fl (7.4-10.4); Monocytes Absolute Auto 0.8 K/mm3 (0.1-0.6); Monocytes Percent Auto 11.3 % (2.6-8.5); Neutrophils Absolute Auto 3.4 K/mm3 (1.3-6.7); Neutrophils Percent Auto 48.6 % (45.5-73.1); Platelet Count Result 189 k/mm3 (150-375); Red Blood Count 3.87 M/mm3 (4.2-5.4); Red Cell Distribution Width 13.2 % (11.5-14.5); White Blood Count 7.1 K/mm3 (4.5-10.0)
[2022-01-23] MEDS: MORPHINE SULFATE (*CRX) 4 MG/ML INJ IM (02:41)
[2022-01-23 02:51] LABS: INR 1.1; Prothrombin Time 13.6 Seconds (11.1-14.7)
[2022-01-23 02:52] LABS: Partial Thromboplastin Time 48.4 SECONDS (22.3-36.8)
[2022-01-23 02:53] LABS: Anion Gap 6 mmol/L (8-16); Blood Urea Nitrogen 15 mg/dL (7-17); Carbon Dioxide 28 mmol/L (22-30); Chloride 104 mmol/L (98-107); Estimated CRCL calculation 54 ml/min; Estimated Glomerular Filt Rate > 60; Glucose 101 mg/dL (65-110); Potassium 3.8 mmol/L (3.4-5.0); Sodium 138 mmol/L (137-145)
[2022-01-23 03:05] LABS: Troponin I < 0.012 ng/mL (0.000-0.034)
[2022-01-23 03:09] VITALS: BP 145/67; PULSE 72; RESP 12; O2SAT 99
[2022-01-23 03:29] VITALS: BP 136/71
--- NOTE | 2022-01-23 04:14 | ED.GENADULT ---
HPI - General Adult General Chief complaint: Recheck/Abnormal Lab/Rx Stated complaint: High bp, visual change Time Seen by Provider: 01/23/22 01:34 History of Present Illness HPI narrative: Patient is an 81-year-old female who presents ER with reports of hypertension and headache. Patient has history of migraine headaches and underwent Botox injection to help treat headache in the last 24 hours. Patient keeps a blood pressure diary for which she often documents that she is having dizziness or headache. Blood pressures are not typically high. Patient woke up this evening and felt some lightheadedness and not to take her blood pressure and she reports her systolic pressure was in the 200s. She then opted to come to the ER for further evaluation. She reports no chest pain or chest pressure or difficulty breathing. She says she has some sensation that her left thigh is thick. She reports she also gets the same feeling anytime she is on her exercise bike. No difficulty with ambulation. Headache is generalized and throbbing. No thunderclap. Related Data Home Medications Medication Instructions Recorded Confirmed estradiol [Estrace] VAGINAL 11/02/19 fosinopril 11/02/19 lovastatin mg 11/02/19 sertraline mg 11/02/19 aspirin 81 mg PO DAILY 11/04/19 hydroxychloroquine [Plaquenil] 200 mg PO DAILY 11/04/19 11/04/19 Restasis 03/22/21 carbidopa-levodopa 1 tablet PO TID 03/22/21 03/22/21 clopidogrel [Plavix] 03/22/21 methenamine hippurate 1 g PO 03/22/21 Allergies Allergy/AdvReac Type Severity Reaction Status Date / Time ciprofloxacin Allergy Mild Unknown Verified 01/23/22 01:23 gentamicin Allergy Mild Unknown Verified 01/23/22 01:23 losartan Allergy Unknown Unknown Verified 01/23/22 01:23 Sulfa (Sulfonamide Allergy Unknown Verified 01/23/22 01:23 Antibiotics) Review of Systems Review of Systems: All systems reviewed & are unremarkable except as noted in HPI and below Constitutional: Constitutional: Denies chills, Denies fever(s) and Denies weakness ENT: Denies nasal congestion and Denies sore throat Cardiovascular: Cardiovascular: Denies chest pain, Denies rapid heart rate and Denies radiating jaw, neck or arm pain Respiratory: Respiratory: Denies cough and Denies dyspnea Gastrointestinal: Gastrointestinal: Denies abdominal pain, Denies nausea and Denies vomiting Musculoskeletal: Musculoskeletal: Denies arthralgias and Denies joint swelling Neurologic: Denies syncope, Reports headache(s), Denies focal weakness and Denies numbness PMFSH Past Medical History Medical History (Updated 01/23/22 @ 04:16 by Grabiel Calderon MD) Anxiety Arthritis Back pain Bowel obstruction CAD (coronary artery disease) Cataracts, bilateral Depression Fibromyalgia History of angina History of rectal polyps HLD (hyperlipidemia) HTN (hypertension) Neuropathy Pelvic abscess in female Raynaud's syndrome Systemic lupus erythematosus UTI (urinary tract infection) Surgical History Surgical History History of intestinal surgery History of left knee replacement Hx of appendectomy Hx of cardiac catheterization Hx of cataract surgery Hx of section Hx of cholecystectomy Hx of heart artery stent x3 Family History Family History Sibling Coronary artery disease Hyperlipidemia Hypertension Diabetes mellitus Cancer Sibling Hypertension Cancer Social History Social History Smoking status: Never smoker Gender identity (if verbalized by the patient): Female Exam Narrative: GENERAL: Well-appearing, well-nourished, and in no acute distress. HEAD: Normocephalic, atraumatic. EYES: PERRL and EOMI. NECK: Supple. CHEST: Clear to auscultation. No respiratory distress. HEART: Regular rate and rhythm. Normal periphera
== END 2022-01-23 04:25 | disposition home or self-care (01) ==
PROVIDERS: Emergency Provider Emergency Medicine
DX: I10 Essential (primary) hypertension (principal); R51.9 Headache, unspecified; F41.9 Anxiety disorder, unspecified; I25.10 Atherosclerotic heart disease of native coronary artery without angina pectoris; E78.5 Hyperlipidemia, unspecified; G62.9 Polyneuropathy, unspecified; I73.00 Raynaud's syndrome without gangrene; M32.9 Systemic lupus erythematosus, unspecified; M19.90 Unspecified osteoarthritis, unspecified site; M79.7 Fibromyalgia; F32.A Depression, unspecified; Z95.5 Presence of coronary angioplasty implant and graft; Z87.440 Personal history of urinary (tract) infections; Z96.652 Presence of left artificial knee joint; Z98.49 Cataract extraction status, unspecified eye; Z87.19 Personal history of other diseases of the digestive system; Z79.02 Long term (current) use of antithrombotics/antiplatelets; Z79.82 Long term (current) use of aspirin; R90.82 White matter disease, unspecified
CPT/HCPCS: 36415; 70450; 71046; 80048; 84484; 85025; 85610; 85730; 96374; 99284; J2270

== ENCOUNTER 2022-11-07 11:37 | Outpatient (CLI) | payer MEDICARE, SELFPAY ==
--- NOTE | ~2022-11-07 | CT_ITS ---
EXAMINATION: CT abdomen pelvis wo con DATE: 11/07/2022 12:09 INDICATION: Escherichia coli as cause of disease classified elsewhere. TECHNIQUE: Computed tomography (CT) of the abdomen and pelvis was performed without intravenous contr ast. Automated exposure control and iterative reconstruction technique were employed. The dose-length product was 225.89 mGy-cm. COMPARISON: CT abdomen and pelvis 06/25/2021 FINDINGS: The visualized portions of the lung bases demonstrate mild atelectasis. There is mild scarr ing in paraspinal right lower lobe. No pleural effusion. The heart size is normal. There are coronary artery calcifications. No pericardial effusion. There is a chronic 12 mm mass in the liver, likely b enign. The spleen is normal. There are changes of cholecystectomy. The pancreas, adrenal glands, and right kidney are normal. There is an 11 mm mass of fat in left kidney, consistent with an angiomyolip kapil. There is no urolithiasis. There is diverticulosis of the colon without evidence of diverticuliti s. There is a large volume of stool in the colon. The appendix is normal. There are no pathologically enlarged lymph nodes. There is no free intraperitoneal fluid. There is a chronic benign bone island in left femoral head. There is severe lumbar spondylosis. IMPRESSION: 1. No specific evidence of infection. Reviewed, dictated and finalized at location A. TY GLASS INSTALLER
--- NOTE | ~2022-11-07 | XR_ITS ---
Supine view of the abdomen Clinical history: Abdominal pain, Escherichia coli infection Findings: Bowel gas pattern is nonspecific. Large amount of stool present. No evidence for obstructio n or free air. No abnormal mass lesion or calcification is seen. Degenerative disc changes in the lum bar spine noted. Impression: Large amount of stool suggests constipation. Reviewed, dictated and finalized at location [] R BAG MAKING MACHINIST Impression: Large amount of stool suggests constipation.
== END 2022-11-07 11:38 | disposition home or self-care (01) ==
PROVIDERS: Visit Provider Nurse Practitioner Adult Health
DX: R10.9 Unspecified abdominal pain (principal); B96.20 Unspecified Escherichia coli [E. coli] as the cause of diseases classified elsewhere
CPT/HCPCS: 74018; 74176

== ENCOUNTER 2022-12-17 06:58 | Emergency (ER) | payer MEDICARE, SELFPAY ==
[2022-12-17] VITALS (21 sets, daily range): BP systolic 110–151; BP diastolic 59–87; PULSE 68–83; RESP 12–21; TEMP 36.6; O2SAT 95–100
--- NOTE | ~2022-12-17 | CT_ITS ---
EXAMINATION: CT brain wo con DATE: 12/17/2022 07:41 INDICATION: Headache TECHNIQUE: Computed tomography (CT) of the head was performed without intravenous contrast. The dose- length product was 605.33 mGy-cm. Automated exposure control and iterative reconstruction technique w ere employed. COMPARISON: CT dated 01/24/2020 FINDINGS: There are scattered moderate-severe periventricular and subcortical white matter changes, m ost likely related to small vessel ischemic disease (microangiopathy). No acute intracranial hemorrha ge, infarction, mass or mass effect. No ventriculomegaly or midline shift. Basilar cisterns are paten t. Paranasal sinuses and mastoids are pneumatized. No depressed skull fractures. IMPRESSION: 1. No acute intracranial abnormality. Reviewed, dictated and finalized at location A. ESTATE FINANCIAL ANALYST
--- NOTE | ~2022-12-17 | CT_ITS ---
EXAMINATION: CTA brain carotid DATE: 12/17/2022 08:51 NOVELTIES SALES REPRESENTATIVE INDICATION: CVA TECHNIQUE: Computed tomographic angiography (CTA) of the head was performed with 100 mL Omnipaque-350 intravenous contrast. CTA of the neck was performed with intravenous contrast. The dose-length produ ct was 1045.58 mGy-cm. Maximum intensity projection and volume rendered 3D-reconstructions were creat ed by the technologist on a separate workstation. COMPARISON: CT head dated 12/17/2022. FINDINGS: HEAD CTA: The anterior, middle and posterior cerebral arteries are symmetric without significant sten osis, occlusion or aneurysm. There is mild atherosclerosis of the cavernous segments of the carotid a rteries. NECK CTA: There is mild atherosclerosis of the carotid bifurcation bilaterally. No significant lumina l narrowing. Lung apices are unremarkable. Small subcentimeter hypodensities of the thyroid gland, mo st likely benign. No significant soft tissue abnormality. There is 0% stenosis of the proximal right internal carotid artery relative to normal distal artery l umen diameter (NASCET criteria). There is 0% stenosis of the proximal left internal carotid artery re lative to normal distal artery lumen diameter. IMPRESSION: 1.: No significant abnormality of the arteries of the head or neck. Reviewed, dictated and finalized at location A. LTIES SALES REPRESENTATIVE
--- NOTE | ~2022-12-17 | XR_ITS ---
EXAMINATION: XR chest 1V portable 12/17/2022 07:43 INDICATION: CVA. Left-sided weakness. History of hypertension. PROCEDURE: AP portable chest COMPARISON: 01/23/2022 FINDINGS: The lungs are clear. The cardiomediastinal silhouette is within normal limits. There are no pleural effusions. There is no pneumothorax suspected. There is a coronary artery stent. IMPRESSION: 1: NO ACUTE CARDIOPULMONARY DISEASE. Reviewed, dictated and finalized at location A. AL PRESIDENT
--- NOTE | 2022-12-17 07:26 | ECG_ITS ---
Measurements Intervals Tracy Rate: 70 P: 70 MS: 147 QRS: 56 QRSD: 93 T: 55 QT: 400 QTc: 433 Interpretive Statements SINUS RHYTHM WITH SINUS ARRHYTHMIA POSSIBLE LEFT ATRIAL ENLARGEMENT BASELINE ARTIFACT- I, II, AVR, AVL, AVF BORDERLINE ECG COMPARED TO ECG 11/30/2021 01:48:02 SINUS ARRHYTHMIA NOW PRESENT Electronically Signed On 12-17-2022 8:03:11 CUSHION INSTALLER by Domingo Chairez D.O.
[2022-12-17 07:46] LABS: Basophils Percent Auto 0.6 % (0.2-1.2); Eosinophils Absolute Auto 0.3 K/mm3 (0-0.3); Eosinophils Percent Auto 5.6 % (0-4.4); Hematocrit 40.4 % (37.0-47.0); Hemoglobin 13.1 g/dL (12.0-15.0); Immature Granulocyte Absolute 0.01 K/mm3 (0.00-0.031); Immature Granulocyte Percent A 0.2 % (0-0.5); Lymphocytes Absolute Auto 2.17 K/mm3 (0.9-3.2); Lymphocytes Percent Auto 40.3 % (18.3-44.2); Mean Corpuscular HGB Conc 32.4 g/dl (32-36); Mean Corpuscular Hemoglobin 30.8 pg (26-34); Mean Corpuscular Volume 94.8 fl (80-100); Mean Platelet Volume 9.6 fl (7.4-10.4); Monocytes Absolute Auto 0.8 K/mm3 (0.1-0.6); Monocytes Percent Auto 14.1 % (2.6-8.5); Neutrophils Absolute Auto 2.1 K/mm3 (1.3-6.7); Neutrophils Percent Auto 39.2 % (45.5-73.1); Platelet Count Result 245 k/mm3 (150-375); Red Blood Count 4.26 M/mm3 (4.2-5.4); White Blood Count 5.4 K/mm3 (4.5-10.0)
[2022-12-17 08:06] LABS: Alanine Aminotransferase 8 U/L (6-35); Albumin Level 4.3 g/dL (3.5-5.1); Alkaline Phosphatase 76 U/L (38-126); Anion Gap 7 mmol/L (8-16); Aspartate Amino Transferase 19 U/L (14-36); Bilirubin,Total 0.6 mg/dL (0.2-1.3); Blood Urea Nitrogen 18 mg/dL (7-17); Calcium 9.1 mg/dL (8.4-10.2); Carbon Dioxide 30 mmol/L (22-30); Chloride 102 mmol/L (98-107); Estimated CRCL calculation 33 ml/min; Estimated Glomerular Filt Rate 53; Glucose 89 mg/dL (65-110); Potassium 4.1 mmol/L (3.4-5.0); Sodium 139 mmol/L (137-145)
[2022-12-17 08:18] LABS: Troponin I < 0.012 ng/mL (0.000-0.034)
--- NOTE | 2022-12-17 08:24 | ED.GENADULT ---
HPI - General Adult General Chief complaint: Headache Stated complaint: headaches, changes in vision Time Seen by Provider: 12/17/22 07:11 Source: RN notes reviewed History of Present Illness HPI narrative: Patient presents emergency room from home for vision changes. Patient states approximately 3 days ago she had a pain in her left jewish states the pain is described as aching in nature and since resolved but just felt mildly achy in this region she states that then last night she had approximately 5-minute episode where the vision in her bilateral eyes became wavy states she was seeing a curtain and the curtain appeared wavy she states after 5 minutes that resolved and she is had no symptoms since that time she had no problem speaking during that time states she has had no unilateral numbness or weakness chest pain shortness of breath abdominal pain nausea vomiting or other symptoms. The patient does take a Plavix daily Related Data Home Medications Medication Instructions Recorded Confirmed estradiol 0.01% (0.1 mg/gram) vaginal 11/02/19 vaginal cream (Estrace) fosinopril 20 mg tablet 11/02/19 lovastatin 20 mg tablet mg 11/02/19 sertraline 50 mg tablet mg 11/02/19 aspirin 81 mg chewable tablet 81 mg PO DAILY 11/04/19 hydroxychloroquine 200 mg tablet 200 mg PO DAILY 11/04/19 11/04/19 (Plaquenil) Restasis 03/22/21 carbidopa 25 mg-levodopa 100 mg 1 tablet PO TID 03/22/21 03/22/21 tablet clopidogrel 75 mg tablet (Plavix) 03/22/21 methenamine hippurate 1 gram tablet 1 g PO 03/22/21 Allergies Allergy/AdvReac Type Severity Reaction Status Date / Time ciprofloxacin Allergy Mild Unknown Verified 01/23/22 01:23 gentamicin Allergy Mild Unknown Verified 01/23/22 01:23 losartan Allergy Unknown Unknown Verified 01/23/22 01:23 Sulfa (Sulfonamide Allergy Unknown Verified 01/23/22 01:23 Antibiotics) Review of Systems Review of Systems: Gen.: Denies fevers or chills Eyes: See HPI ENT: Denies congestion Respiratory: Denies shortness of breath or cough CV: Denies chest pain or palpitations GI: Denies abdominal pain nausea, emesis or diarrhea Musculoskeletal: Denies back pain or muscle pain Neuro: D reports headache now resolved Skin: Denies rash Except as documented, all other systems reviewed and negative [facility] Past Medical History Medical History (Updated 12/17/22 @ 10:28 by Navjot Brito DO) Anxiety Arthritis Back pain Bowel obstruction CAD (coronary artery disease) Cataracts, bilateral Depression Fibromyalgia History of angina History of rectal polyps HLD (hyperlipidemia) HTN (hypertension) Neuropathy Pelvic abscess in female Raynaud's syndrome Systemic lupus erythematosus UTI (urinary tract infection) Surgical History Surgical History History of intestinal surgery History of left knee replacement Hx of appendectomy Hx of cardiac catheterization Hx of cataract surgery Hx of section Hx of cholecystectomy Hx of heart artery stent x3 Family History Family History Sibling Coronary artery disease Hyperlipidemia Hypertension Diabetes mellitus Cancer Sibling Hypertension Cancer Social History Social History Smoking status: Never smoker Gender identity (if verbalized by the patient): Female Exam Narrative: APPEARANCE: No acute distress, nontoxic, resting in bed HEENT: Normocephalic, atraumatic, OMM, TMs clear bilaterally EYES: PERRL, EOMI no conjunctival erythema RESPIRATORY: No respiratory distress, clear to auscultation bilaterally with no rhonchi wheezing or rales CARDIOVASCULAR: RRR s murmur ABDOMINAL: Soft, nontender, nondistended MUSCULOSKELETAL: Moves all extremities. No clubbing, cyanosis or edema. NEURO: A and O ?3, following commands, speech normal, cranial nerves II
[2022-12-17 08:29] LABS: INR 1.1; Prothrombin Time 13.4 Seconds (11.1-14.7)
[2022-12-17 08:30] LABS: Partial Thromboplastin Time 51.1 SECONDS (22.3-36.8)
--- NOTE | 2022-12-17 09:34 | PC.NURSE ---
both eyes= 20/40 L eye= 20/40 R eye= 20/40
== END 2022-12-17 10:38 | disposition home or self-care (01) ==
PROVIDERS: Emergency Provider Emergency Medicine
DX: H53.8 Other visual disturbances (principal); R51.9 Headache, unspecified; I25.10 Atherosclerotic heart disease of native coronary artery without angina pectoris; E78.5 Hyperlipidemia, unspecified; I10 Essential (primary) hypertension; G62.9 Polyneuropathy, unspecified; I73.00 Raynaud's syndrome without gangrene; M79.7 Fibromyalgia; M32.9 Systemic lupus erythematosus, unspecified; F32.A Depression, unspecified; F41.9 Anxiety disorder, unspecified; Z95.5 Presence of coronary angioplasty implant and graft; Z96.652 Presence of left artificial knee joint; Z87.440 Personal history of urinary (tract) infections; Z87.19 Personal history of other diseases of the digestive system; Z98.49 Cataract extraction status, unspecified eye; Z79.02 Long term (current) use of antithrombotics/antiplatelets; Z79.82 Long term (current) use of aspirin; R94.31 Abnormal electrocardiogram [ECG] [EKG]
CPT/HCPCS: 36415; 70450; 70496; 70498; 71045; 80053; 84484; 85025; 85610; 85730; 93005; 99284; Q9967

== ENCOUNTER 2023-05-26 15:34 | Emergency (ER) | payer MEDICARE, SELFPAY ==
--- NOTE | 2023-05-26 15:43 | ED.GENADULT ---
HPI - General Adult General Chief complaint: Skin/Abscess/Foreign Body Stated complaint: Right Breast Pain Time Seen by Provider: 05/26/23 15:43 Source: patient Mode of arrival: ambulatory Limitations: no limitations History of Present Illness HPI narrative: Patient is an 82-year-old female who presents with right breast redness and pain since yesterday. Patient states breast was more red yesterday than it is today but is slide forming machine tender to touch. States last mammogram was within the last year. Patient was diagnosed with shingles 2 days ago and is currently taking antivirals. Patient denies any discharge from breast. Reports it is warm to touch and was swollen. Related Data Home Medications Medication Instructions Recorded Confirmed estradiol 0.01% (0.1 mg/gram) 1 applic vaginal DIRECTED 11/02/19 05/26/23 vaginal cream (Estrace) fosinopril 20 mg tablet 20 mg PO DIRECTED 11/02/19 05/26/23 lovastatin 20 mg tablet 20 mg PO DAILY 11/02/19 05/26/23 sertraline 50 mg tablet 50 mg PO DAILY 11/02/19 05/26/23 aspirin 81 mg chewable tablet 81 mg PO DAILY 11/04/19 05/26/23 hydroxychloroquine 200 mg tablet 200 mg PO DAILY 11/04/19 05/26/23 (Plaquenil) Restasis 1 amp ophthalmic (eye) DIRECTED 03/22/21 05/26/23 carbidopa 25 mg-levodopa 100 mg 1 tablet PO TID 03/22/21 05/26/23 tablet clopidogrel 75 mg tablet (Plavix) 75 mg PO DAILY 03/22/21 05/26/23 methenamine hippurate 1 gram tablet 1 g PO DIRECTED 03/22/21 05/26/23 valacyclovir 1 gram tablet 1,000 mg PO DIRECTED 05/26/23 05/26/23 Allergies Allergy/AdvReac Type Severity Reaction Status Date / Time ciprofloxacin Allergy Mild Unknown Verified 05/26/23 15:36 gentamicin Allergy Mild Unknown Verified 05/26/23 15:36 losartan Allergy Unknown Unknown Verified 05/26/23 15:36 Sulfa (Sulfonamide Allergy Unknown Verified 05/26/23 15:36 Antibiotics) Review of Systems Review of Systems: All systems reviewed & are unremarkable except as noted in HPI and below Constitutional: Constitutional: Denies body ache(s), Denies chills, Denies fatigue, Denies fever(s), Denies headache(s), Denies malaise and Denies weakness Eyes: Eyes: Denies blurry vision, Denies irritation and Denies loss of vision ENT: Denies otalgia, Denies headache(s), Denies nasal discharge, Denies sinus pain and Denies sore throat Cardiovascular: Cardiovascular: Denies chest pain, Denies irregular heart rhythm and Denies dyspnea Respiratory: Respiratory: Denies dyspnea Gastrointestinal: Gastrointestinal: Denies abdominal pain, Denies melena, Denies hematochezia, Denies diarrhea, Denies nausea and Denies vomiting Musculoskeletal: Musculoskeletal: Denies back pain, Denies myalgias and Denies arthralgias Integumentary/Breasts: Skin/Breast: Reports breast skin changes, Reports breast pain, Denies pruritus and Denies rash Neurologic: Denies headache(s), Denies loss of vision and Denies weakness Psychiatric: Psychiatric: Reports no additional psychiatric complaints Endocrine: Endocrine: Denies fatigue PMF Past Medical History Medical History (Updated 05/26/23 @ 16:10 by Mikaela Ash, GILBERTO) Anxiety Arthritis Back pain Bowel obstruction CAD (coronary artery disease) Cataracts, bilateral Depression Fibromyalgia History of angina History of rectal polyps HLD (hyperlipidemia) HTN (hypertension) Neuropathy Pelvic abscess in female Raynaud's syndrome Systemic lupus erythematosus UTI (urinary tract infection) Surgical History Surgical History History of intestinal surgery History of left knee replacement Hx of appendectomy Hx of cardiac catheterization Hx of cataract surgery Hx of section Hx of cholecystectomy Hx of heart artery stent x3 Family History Family History Sibling Coronary artery disease Hyperlipidemia Hypertension Diabetes mellitus Can
[2023-05-26 15:54] VITALS: BP 106/51; PULSE 88; RESP 18; TEMP 36.8; O2SAT 98
== END 2023-05-26 16:15 | disposition home or self-care (01) ==
PROVIDERS: Emergency Provider Nurse Practitioner Family
DX: L03.313 Cellulitis of chest wall (principal); M79.7 Fibromyalgia; I25.110 Atherosclerotic heart disease of native coronary artery with unstable angina pectoris; E78.5 Hyperlipidemia, unspecified; I10 Essential (primary) hypertension; I73.00 Raynaud's syndrome without gangrene; M32.9 Systemic lupus erythematosus, unspecified; Z96.652 Presence of left artificial knee joint; G62.9 Polyneuropathy, unspecified; M19.90 Unspecified osteoarthritis, unspecified site; Z95.5 Presence of coronary angioplasty implant and graft; F41.9 Anxiety disorder, unspecified; F32.A Depression, unspecified; Z79.82 Long term (current) use of aspirin
CPT/HCPCS: 99213; G0463

== ENCOUNTER 2023-11-10 19:09 | Emergency (ER) | payer MEDICARE, SELFPAY ==
[2023-11-10 19:26] VITALS: BP 133/63; PULSE 74; RESP 16; TEMP 36.9; O2SAT 100
--- NOTE | 2023-11-10 19:53 | ED.FEMALEGU ---
HPI - Female Genitourinary General Chief complaint: Urogenital-Female Stated complaint: UTI Time Seen by Provider: 11/10/23 19:37 Source: patient, RN notes reviewed and old records reviewed Mode of arrival: ambulatory Limitations: no limitations History of Present Illness HPI Narrative: Patient presents today complaining of 2 day history of dysuria, suprapubic pressure, and incontinence. Reports history of frequent UTIs. Per her pharmacy history she was on Augmentin in September and August, cefuroxime in October, and was placed on cephalexin 250 mg daily on 10/31/2023 by her PCP for for prophylaxis. She was also recently on fosfomycin in July. Patient does have a urologist, but states she does not feel that the listen to her. Denies nausea or vomiting, fever, back pain. Related Data Home Medications Medication Instructions Recorded Confirmed estradiol 0.01% (0.1 mg/gram) 1 applic vaginal DIRECTED 11/02/19 05/26/23 vaginal cream (Estrace) fosinopril 20 mg tablet 20 mg PO DIRECTED 11/02/19 05/26/23 lovastatin 20 mg tablet 20 mg PO DAILY 11/02/19 05/26/23 sertraline 50 mg tablet 50 mg PO DAILY 11/02/19 05/26/23 aspirin 81 mg chewable tablet 81 mg PO DAILY 11/04/19 05/26/23 hydroxychloroquine 200 mg tablet 200 mg PO DAILY 11/04/19 05/26/23 (Plaquenil) Restasis 1 amp ophthalmic (eye) DIRECTED 03/22/21 05/26/23 carbidopa 25 mg-levodopa 100 mg 1 tablet PO TID 03/22/21 05/26/23 tablet clopidogrel 75 mg tablet (Plavix) 75 mg PO DAILY 03/22/21 05/26/23 methenamine hippurate 1 gram tablet 1 g PO DIRECTED 03/22/21 05/26/23 valacyclovir 1 gram tablet 1,000 mg PO DIRECTED 05/26/23 05/26/23 Allergies Allergy/AdvReac Type Severity Reaction Status Date / Time ciprofloxacin Allergy Mild Unknown Verified 11/10/23 19:59 gentamicin Allergy Mild Unknown Verified 11/10/23 19:59 losartan Allergy Unknown Unknown Verified 11/10/23 19:59 Sulfa (Sulfonamide Allergy Unknown Verified 11/10/23 19:59 Antibiotics) Review of Systems Review of Systems: CONSTITUTIONAL: Denies body aches, fever, chills, or sweats. EYES: Denies visual changes, redness, or discharge. ENT: Denies rhinorrhea, congestion, sore throat, or otalgia. CARDIOVASCULAR: Denies chest pain, palpitations, or edema. RESPIRATORY: Denies cough or dyspnea. GASTROINTESTINAL: Denies abdominal pain, nausea, vomiting, or diarrhea. GENITOURINARY: + dysuria, suprapubic pressure, incontinence SKIN: Denies rash, itching, or wounds. MUSCULOSKELETAL: Denies back pain, joint pain, or myalgia. NEUROLOGIC: Denies headache, numbness, tingling, or weakness. PSYCH: Denies depression or anxiety. [facility] Past Medical History Medical History Anxiety Arthritis Back pain Bowel obstruction CAD (coronary artery disease) Cataracts, bilateral Depression Fibromyalgia History of angina History of rectal polyps HLD (hyperlipidemia) HTN (hypertension) Neuropathy Pelvic abscess in female Raynaud's syndrome Systemic lupus erythematosus UTI (urinary tract infection) Surgical History Surgical History History of intestinal surgery History of left knee replacement Hx of appendectomy Hx of cardiac catheterization Hx of cataract surgery Hx of section Hx of cholecystectomy Hx of heart artery stent x3 Family History Family History Sibling Coronary artery disease Hyperlipidemia Hypertension Diabetes mellitus Cancer Sibling Hypertension Cancer Social History Social History Smoking status: Never smoker Gender identity (if verbalized by the patient): Female Comments At time of signature, I have reviewed and agree with nursing past medical, surgical, social and family history unless otherwise noted. Jaimie
== END 2023-11-10 19:58 | disposition home or self-care (01) ==
PROVIDERS: Emergency Provider Nurse Practitioner
DX: N30.01 Acute cystitis with hematuria (principal); I25.10 Atherosclerotic heart disease of native coronary artery without angina pectoris; E78.5 Hyperlipidemia, unspecified; I10 Essential (primary) hypertension
CPT/HCPCS: 81003; 87086; 99213; G0463

== ENCOUNTER 2023-11-17 13:54 | Inpatient (IN) | payer MEDICARE, SELFPAY ==
[2023-11-17] VITALS (9 sets, daily range): BP systolic 123–189; BP diastolic 64–86; PULSE 70–88; RESP 16–20; TEMP 36.3–36.8; O2SAT 96–100
--- NOTE | ~2023-11-17 | XR_ITS ---
EXAMINATION: XR chest 2V DATE: 11/17/2023 16:30 INDICATION: Chest pain TECHNIQUE: Frontal and lateral views of the chest are obtained COMPARISON: 12/17/2022 FINDINGS: The lungs are free of acute opacities. No pleural effusion or pneumothorax. The cardiomedia stinal silhouette is normal. There is moderate thoracic spondylosis. A coronary artery stent is noted . IMPRESSION: 1. No acute cardiopulmonary abnormality. Reviewed, dictated and finalized at location B. RE ENGINEER
--- NOTE | ~2023-11-17 | CT_ITS ---
EXAMINATION: CT abdomen pelvis w con DATE: 11/17/2023 16:26 INDICATION: Lower abdominal pain and nausea TECHNIQUE: Computed tomography (CT) of the abdomen and pelvis was performed with 100 mL Omnipaque-350 intravenous contrast. Automated exposure control and iterative reconstruction technique were employe d. The dose-length product was 283.96 mGy-cm. COMPARISON: 11/07/2022 and 06/25/2021 FINDINGS: Lung bases are clear. Heart size is normal. No pericardial or pleural effusion. Gallbladder is not vi sualized and likely surgically absent. 9 mm avidly enhancing lesion in the inferior right hepatic lob e and 8 mm low-attenuation lesion in segment 3 of the liver, both which are unchanged in size since consistent with a benign etiology most likely a flash filling hemangioma and hepatic cyst respe ctively. Spleen, pancreas, bilateral adrenal glands and right kidney are normal. 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 There are multiple f luid-filled but not frankly dilated loops of small bowel in the right abdomen extending to a transiti on point with pseudo feces sign in the inferior right pelvis which could represent an early/partial s mall bowel obstruction or focal ileus. There are some associated mesenteric edema and small amount of ascites in the abdomen and pelvis. Edematous-appearing wall thickening along the sigmoid colon where there are numerous diverticula without focal infiltrate stranding surrounding any of the diverticula to suggest diverticulitis and this more likely related to a distal colitis. Normal appendix. The kely maegan is not identified and has likely been surgically resected. Bladder is unremarkable. No pathologic ally enlarged abdominal or pelvic lymphadenopathy. There is calcified atherosclerosis of the aorta an d many of the other arteries. No hemodynamically significant stenosis at the celiac, superior mesente robby or inferior mesenteric arteries. The superior mesenteric and inferior mesenteric veins are well o pacified with contrast. Severe lumbar spondylosis. IMPRESSION: 1. Wall thickening in the distal colon consistent with colitis which could be infectious, inflammator y or less likely ischemic in etiology. 2. Fluid-filled but not frankly dilated loops of small bowel in the right abdomen both pseudo feces s ign at a transition point in the right pelvis which could represent an early/partial small bowel obst ruction or localized ileus. 3. Likely reactive mild mesenteric edema and small amount of ascites. Reviewed, dictated and finalized at location A. BUCKER IMPRESSION: 1. Wall thickening in the distal colon consistent with colitis which could be i nfectious, inflammatory or less likely ischemic in etiology. 2. Fluid-filled but not frankly dilated loops of small bowel in the right abdom en both pseudo feces sign at a transition point in the right pelvis which could represent an early/partial small bowel obstruction or localized ileus. 3. Likely reactive mild mesenteric edema and small amount of ascites.
[2023-11-17 14:37] LABS: Basophils Percent Auto 0.4 % (0.2-1.2); Eosinophils Absolute Auto 0.2 K/mm3 (0-0.3); Eosinophils Percent Auto 2.1 % (0-4.4); Hemoglobin 13.4 g/dL (12.0-15.0); Immature Granulocyte Absolute 0.02 K/mm3 (0.00-0.031); Immature Granulocyte Percent A 0.3 % (0-0.5); Lymphocytes Absolute Auto 2.09 K/mm3 (0.9-3.2); Lymphocytes Percent Auto 26.4 % (18.3-44.2); Mean Corpuscular HGB Conc 31.2 g/dl (32-36); Mean Corpuscular Hemoglobin 30.9 pg (26-34); Mean Corpuscular Volume 99.1 fl (80-100); Mean Platelet Volume 9.8 fl (7.4-10.4); Monocytes Absolute Auto 0.6 K/mm3 (0.1-0.6); Monocytes Percent Auto 7.8 % (2.6-8.5); Platelet Count Result 228 k/mm3 (150-375); Red Blood Count 4.34 M/mm3 (4.2-5.4); Red Cell Distribution Width 12.7 % (11.5-14.5); White Blood Count 7.9 K/mm3 (4.5-10.0)
[2023-11-17 14:48] LABS: Alanine Aminotransferase 12 U/L (6-35); Albumin Level 4.5 g/dL (3.5-5.1); Alkaline Phosphatase 78 U/L (38-126); Anion Gap 10 mmol/L (8-16); Aspartate Amino Transferase 24 U/L (14-36); Bilirubin,Total 0.6 mg/dL (0.2-1.3); Blood Urea Nitrogen 14 mg/dL (7-17); Calcium 9.5 mg/dL (8.4-10.2); Carbon Dioxide 25 mmol/L (22-30); Chloride 101 mmol/L (98-107); Estimated CRCL calculation 45 ml/min; Estimated Glomerular Filt Rate > 60; Glucose 92 mg/dL (65-110); Lipase 80 U/L (23-300); Potassium 4.3 mmol/L (3.4-5.0); Sodium 136 mmol/L (137-145)
--- NOTE | 2023-11-17 15:28 | ED.ABDPAIN ---
HPI - Abdominal Pain General Chief Complaint: Abdominal Pain Stated Complaint: abdominal pain Time Seen by Provider: 11/17/23 15:28 History of Present Illness HPI narrative: Patient is an 83-year-old female with history of CAD status post PCI x5, multiple prior abdominal surgeries in the 1960s here with abdominal pain. She states that she began having some dysuria and increased urinary frequency about 1 week ago. She went into an urgent care and they prescribed her Keflex. She notes she has been taking this without any improvement of her urinary symptoms. This morning she woke up and started experiencing some periumbilical abdominal pain which then moved to her lower abdomen. She notes that she had a normal bowel movement yesterday with no blood in her stool. She does have some associated nausea, no episodes of vomiting. She is unsure when her last latching once was. She does note some associated abdominal distention and difficulty buttoning her pants. She denies any fever chills. Denies any cough or congestion. She endorses some vague diffuse chest pain which seems to be pressure from her abdomen pushing upwards, no diaphoresis or shortness of breath. Related Data Home Medications Medication Instructions Recorded Confirmed estradiol 0.01% (0.1 mg/gram) 1 applic vaginal DIRECTED 11/02/19 05/26/23 vaginal cream (Estrace) fosinopril 20 mg tablet 20 mg PO DIRECTED 11/02/19 05/26/23 lovastatin 20 mg tablet 20 mg PO DAILY 11/02/19 05/26/23 sertraline 50 mg tablet 50 mg PO DAILY 11/02/19 05/26/23 aspirin 81 mg chewable tablet 81 mg PO DAILY 11/04/19 11/17/23 hydroxychloroquine 200 mg tablet 200 mg PO DAILY 11/04/19 05/26/23 (Plaquenil) Restasis 1 amp ophthalmic (eye) DIRECTED 03/22/21 05/26/23 carbidopa 25 mg-levodopa 100 mg 1 tablet PO TID 03/22/21 11/17/23 tablet clopidogrel 75 mg tablet (Plavix) 75 mg PO DAILY 03/22/21 05/26/23 dicyclomine 20 mg tablet 20 mg PO TID Abdominal cramping 11/10/23 Allergies Allergy/AdvReac Type Severity Reaction Status Date / Time ciprofloxacin Allergy Mild Unknown Verified 11/17/23 13:54 gentamicin Allergy Mild Unknown Verified 11/17/23 13:54 losartan Allergy Unknown Unknown Verified 11/17/23 13:54 Sulfa (Sulfonamide Allergy Unknown Verified 11/17/23 13:54 Antibiotics) Review of Systems Review of Systems: All systems reviewed & are unremarkable except as noted in HPI and below PMFSH Past Medical History Medical History (Updated 11/17/23 @ 17:58 by Kim Soliman MD) Anxiety Arthritis Back pain Bowel obstruction CAD (coronary artery disease) Cataracts, bilateral Depression Fibromyalgia History of angina History of rectal polyps HLD (hyperlipidemia) HTN (hypertension) Neuropathy Pelvic abscess in female Raynaud's syndrome Systemic lupus erythematosus UTI (urinary tract infection) Surgical History Surgical History History of intestinal surgery History of left knee replacement Hx of appendectomy Hx of cardiac catheterization Hx of cataract surgery Hx of section Hx of cholecystectomy Hx of heart artery stent x3 Family History Family History Sibling Coronary artery disease Hyperlipidemia Hypertension Diabetes mellitus Cancer Sibling Hypertension Cancer Social History Social History Smoking status: Never smoker Gender identity (if verbalized by the patient): Female Exam Narrative: GENERAL: Well-appearing, well-nourished, and in no acute distress. HEAD: Normocephalic, atraumatic. EYES: PERRLA and EOMI. ENT: Nares clear. Mucous membranes moist. NECK: Supple. CHEST: Clear to auscultation. No respiratory distress. HEART: Regular rate and rhythm. Normal peripheral pulses. ABDOMEN: Soft, diffusely tender, voluntary guarding in the bilateral l
[2023-11-17 15:31] LABS: Appearance Urine Clear (Clear); Bacteria Urine None Seen /hpf; Bilirubin Urine Negative (Negative); Blood Urine Trace (Negative); Color Urine Yellow (Yellow); Glucose Urine UA Negative (Negative); Ketones Urine Negative (Negative); Leukocyte Esterase Ur 1+ LEU/UL (Negative); Nitrate Urine Negative (Negative); Non Pathogenic Casts 0-2; Protein Urine Negative (Negative); Specific Grav Ur 1.008 (1.001-1.035); Squamous Epithelial Cell Urine None seen /hpf (Few); Urobilinogen Urine 0.2 mg/dL (<2.0)
--- NOTE | 2023-11-17 15:40 | ECG_ITS ---
Measurements Intervals [place] Rate: 66 P: 74 WA: 154 QRS: 75 QRSD: 90 T: 75 QT: 401 QTc: 421 Interpretive Statements SINUS RHYTHM COMPARED TO ECG 12/17/2022 07:48:22 NO SIGNIFICANT CHANGES Electronically Signed On 11-17-2023 16:44:37 B[employer] M[employer] OPERATOR by Diann Alfaro M.D.
[2023-11-17 15:43] LABS: Add Urine Microscopic? YES
[2023-11-17 16:10] LABS: CRP < 0.5 mg/dL (<1.0)
[2023-11-17 16:18] LABS: NT Pro B Type Natriuretic Pept 310 pg/mL (19.9-100); Troponin I < 0.012 ng/mL (0.000-0.034)
[2023-11-17] MEDS: ONDANSETRON INJ 4 MG/2 ML VIAL IV PUSH ×2 (17:04→20:53)
[2023-11-17] MEDS: MORPHINE SULFATE (*CRX) 4 MG/ML INJ IV PUSH ×2 (17:05→20:53)
[2023-11-17 17:42] LABS: Lactic Acid Reflex 0.9 mmol/L (0.7-2.0)
--- NOTE | 2023-11-17 18:41 | PC.NURSE ---
pt reports electrodes to surveillance monitor cause her skin to break out
--- NOTE | 2023-11-17 19:14 | ECG_ITS ---
Measurements Intervals [place] Rate: 67 P: 71 AR: 148 QRS: 57 QRSD: 94 T: 72 QT: 398 QTc: 423 Interpretive Statements SINUS RHYTHM COMPARED TO ECG 11/17/2023 16:01:54 NO SIGNIFICANT CHANGES Electronically Signed On 11-19-2023 14:20:40 [employer] by Diann Alfaro M.D.
[2023-11-17 19:38] LABS: Troponin I < 0.012 ng/mL (0.000-0.034)
--- NOTE | 2023-11-17 22:25 | ADMGEN ---
This patient, Cheri Castaneda, was admitted to Medical Room 343-01. Patient/family oriented to hospital policies and general routines including ID bracelet, bed and alarms, visiting hours, pain management, procedures, bathroom and other care routines, personal items, smoking policy, room service/diet, and visiting hours. Information on how to activate the Rapid Response Team has been discussed. Patient/Family are encouraged to report perceived risks to care and to ask questions if they do not understand what they are told or what they should do.
[2023-11-17 23:36] LABS: Troponin I < 0.012 ng/mL (0.000-0.034)
[2023-11-18] VITALS (10 sets, daily range): BP systolic 124–129; BP diastolic 59–68; PULSE 69–90; RESP 16–18; TEMP 36.6–36.7; O2SAT 97–98
--- NOTE | 2023-11-18 00:16 | PM.IMHP ---
H&P: HPI History of Present Illness Date/Time: 11/18/23 00:16 Chief Complaint: Abdominal Pain Narrative: 83 y/o F presents here with abdominal pain, nausea, and vomiting with PMH of bowel obstruction (), CAD s/p PCI x5, HLD, HTN, SLE, Raynaud's, appendectomy, bowel surgery, and cholecystectomy. Patient presented here with lower abdominal pain with mild radiation into her back that started this morning (11/17) when she woke up. Reports the pain worsened throughout the day and began to extend into her upper abdomen in the began to wrap around to the sides of her abdomen. She described the pain as spasms and constant with intermittent periods of intensity/sharpness. patient reports her abdomen appeared distended and swollen . Abdominal discomfort was accompanied by mild to moderate nausea with 5 small episodes of emesis. reports hx of SBO post-op from appendectomy in the . Has had multiple abdominal surgeries previously. LBM was this morning - described it as small, loose, and darker brown . Was previously regular and stool was light colored then had one episode of hard stool yesterday preceding the loose stool today. Of note, was seen for dysuria on 11-10 and finishing course of Keflex. ED workup revealed normal WBC, no anemia, unremarkable chemistries, normal BNP for age, negative trop x3, UA showed leuks, RBCs, and WBCs. CT of abd/pelvis showed wall thickening of the distal colon consistent with colitis, fluid filled but not frankly dilated loops of small bowel with possible early /partial SBO or localized ileus, and likely reactive mild mesenteric edema and small amount of ascites. Review of Systems Review of Systems: All systems reviewed & are unremarkable except as noted in HPI and below [facility] Past Medical History Medical History (Updated 11/18/23 @ 01:17 by Eva Vaughan APRN) Anxiety Arthritis Back pain Bowel obstruction CAD (coronary artery disease) Cataracts, bilateral Dementia Depression Fibromyalgia History of angina History of rectal polyps HLD (hyperlipidemia) HTN (hypertension) Neuropathy Pelvic abscess in female Raynaud's syndrome Systemic lupus erythematosus UTI (urinary tract infection) Surgical History Surgical History History of intestinal surgery History of left knee replacement Hx of appendectomy Hx of cardiac catheterization Hx of cataract surgery Hx of section Hx of cholecystectomy Hx of heart artery stent x3 Family History Family History Sibling Coronary artery disease Hyperlipidemia Hypertension Diabetes mellitus Cancer Sibling Hypertension Cancer Social History Social History Smoking status: Never smoker Alcohol intake: never Substance use: never Do You Feel Safe in your Home?: Yes Lack of Transportation: No Lack of Food: Never True Current Housing: I Have Housing Concerned About Future Housing: No Difficulty Paying Gas/Electric Bills: No Difficulty Paying for Meds: No Currently Unemployed: No Education: High School Diploma/GED Difficulty w/ Childcare or Family Care: No Gender identity (if verbalized by the patient): Female Spiritual care concerns: No Meds Home Medications and Allergies Home Medications Medication Instructions Recorded Confirmed Type estradiol 0.01% (0.1 mg/gram) 1 applic vaginal DAILY 11/02/19 11/17/23 History vaginal cream (Estrace) sertraline 50 mg tablet 100 mg PO DAILY 11/02/19 11/17/23 History aspirin 81 mg chewable tablet 81 mg PO DAILY 11/04/19 11/17/23 History carbidopa 25 mg-levodopa 100 mg 2 tablet PO BID 03/22/21 11/17/23 History tablet clopidogrel 75 mg tablet (Plavix) 75 mg PO DAILY 03/22/21 11/17/23 History cephalexin 500 mg capsule 500 mg PO Q6H 7 days #28 caps 11/10/23 11/17/23 Rx rosuvastatin 40
[2023-11-18] MEDS: LACTATED RINGERS 1,000 ML 999 ML IV CONT (02:14)
[2023-11-18] MEDS: metroNIDAZOLE 500 MG/ISO 100ML 500 MG/100 ML BAG 100 MG IVPB ×4 (02:17→21:59)
[2023-11-18] MEDS: MORPHINE SULFATE (*CRX) 4 MG/ML INJ IV PUSH (02:21)
[2023-11-18] MEDS: LACTATED RINGERS 1,000 ML 100 ML IV CONT ×2 (04:14→17:18)
[2023-11-18 05:58] LABS: INR 1.1; Prothrombin Time 14.4 Seconds (11.1-14.7)
[2023-11-18 05:59] LABS: Partial Thromboplastin Time 48.1 SECONDS (22.3-36.8)
[2023-11-18 06:00] LABS: Basophils Percent Auto 0.2 % (0.2-1.2); Eosinophils Absolute Auto 0.1 K/mm3 (0-0.3); Eosinophils Percent Auto 0.7 % (0-4.4); Hematocrit 39.4 % (37.0-47.0); Hemoglobin 12.3 g/dL (12.0-15.0); Immature Granulocyte Absolute 0.05 K/mm3 (0.00-0.031); Immature Granulocyte Percent A 0.5 % (0-0.5); Lymphocytes Absolute Auto 1.76 K/mm3 (0.9-3.2); Lymphocytes Percent Auto 17.2 % (18.3-44.2); Mean Corpuscular HGB Conc 31.2 g/dl (32-36); Mean Corpuscular Hemoglobin 30.9 pg (26-34); Mean Platelet Volume 9.7 fl (7.4-10.4); Monocytes Absolute Auto 0.8 K/mm3 (0.1-0.6); Monocytes Percent Auto 8.1 % (2.6-8.5); Neutrophils Absolute Auto 7.5 K/mm3 (1.3-6.7); Neutrophils Percent Auto 73.3 % (45.5-73.1); Platelet Count Result 226 k/mm3 (150-375); Red Blood Count 3.98 M/mm3 (4.2-5.4); Red Cell Distribution Width 12.9 % (11.5-14.5); White Blood Count 10.2 K/mm3 (4.5-10.0)
[2023-11-18 06:14] LABS: Alanine Aminotransferase 11 U/L (6-35); Albumin Level 3.6 g/dL (3.5-5.1); Alkaline Phosphatase 63 U/L (38-126); Anion Gap 7 mmol/L (8-16); Aspartate Amino Transferase 21 U/L (14-36); Bilirubin,Total 0.5 mg/dL (0.2-1.3); Blood Urea Nitrogen 13 mg/dL (7-17); Calcium 8.5 mg/dL (8.4-10.2); Carbon Dioxide 26 mmol/L (22-30); Chloride 104 mmol/L (98-107); Estimated CRCL calculation 45 ml/min; Estimated Glomerular Filt Rate > 60; Glucose 105 mg/dL (65-110); Potassium 4.3 mmol/L (3.4-5.0); Sodium 137 mmol/L (137-145)
--- NOTE | 2023-11-18 10:48 | PM.CNGS ---
Assessment and Plan Assessment and plan (1) Partial bowel obstruction: Qualifiers: Intestinal obstruction type: unspecified Qualified Code(s): K56.600 - Partial intestinal obstruction, unspecified as to cause Code(s): K56.600 - Partial intestinal obstruction, unspecified as to cause Status: Acute Assessment and Plan: Exam this morning benign, we will start clear liquid diet, encourage patient to be out of bed (2) Colitis: Code(s): K52.9 - Noninfective gastroenteritis and colitis, unspecified Status: Acute Assessment and Plan: exam benign, continue antibiotics, serial exams and labs History of Present Illness Consult details Consult date: 11/18/23 Reason for consult: abdominal pain Requesting physician: Augusto Hoffman MD Narrative: The patient is a 83-year-old female presenting to the emergency department complaining of severe, diffuse abdominal pain. The patient reports the pain started yesterday morning and progressively worsened throughout the day. The patient reports the pain was diffuse in nature, and came in waves. The patient reports associated nausea and vomiting. The patient also reports abdominal bloating. Patient reports she has a remote history of surgery, including previous laparotomy for small bowel obstruction. The patient reports this morning she feels much improved. The patient reports that she some small bowel movements yesterday. Review of Systems Review of Systems: All systems reviewed & are unremarkable except as noted in HPI and below PMFSH Past Medical History Medical History Anxiety Arthritis Back pain Bowel obstruction CAD (coronary artery disease) Cataracts, bilateral Dementia Depression Fibromyalgia History of angina History of rectal polyps HLD (hyperlipidemia) HTN (hypertension) Neuropathy Pelvic abscess in female Raynaud's syndrome Systemic lupus erythematosus UTI (urinary tract infection) Surgical History Surgical History History of intestinal surgery History of left knee replacement Hx of appendectomy Hx of cardiac catheterization Hx of cataract surgery Hx of section Hx of cholecystectomy Hx of heart artery stent x3 Family History Family History Sibling Coronary artery disease Hyperlipidemia Hypertension Diabetes mellitus Cancer Sibling Hypertension Cancer Social History Social History Smoking status: Never smoker Alcohol intake: never Substance use: never Do You Feel Safe in your Home?: Yes Lack of Transportation: No Lack of Food: Never True Current Housing: I Have Housing Concerned About Future Housing: No Difficulty Paying Gas/Electric Bills: No Difficulty Paying for Meds: No Currently Unemployed: No Education: High School Diploma/GED Difficulty w/ Childcare or Family Care: No Gender identity (if verbalized by the patient): Female Spiritual care concerns: No Meds Home Medications and Allergies Home Medications Medication Instructions Recorded Confirmed Type estradiol 0.01% (0.1 mg/gram) 1 applic vaginal DAILY 11/02/19 11/17/23 History vaginal cream (Estrace) sertraline 50 mg tablet 100 mg PO DAILY 11/02/19 11/17/23 History aspirin 81 mg chewable tablet 81 mg PO DAILY 11/04/19 11/17/23 History carbidopa 25 mg-levodopa 100 mg 2 tablet PO BID 03/22/21 11/17/23 History tablet clopidogrel 75 mg tablet (Plavix) 75 mg PO DAILY 03/22/21 11/17/23 History cephalexin 500 mg capsule 500 mg PO Q6H 7 days #28 caps 11/10/23 11/17/23 Rx rosuvastatin 40 mg tablet 40 mg PO DAILY 11/17/23 11/17/23 History Allergies Allergy/AdvReac Type Severity Reaction Status Date / Time ciprofloxacin Allergy Mild Unknown Verified 11/17/23 13:54 gentamicin Allergy Mi
[2023-11-18] MEDS: CARBIDOPA/LEVODOPA 25/100 MG TABLET 2 TABLET PO ×2 (11:00→17:16)
[2023-11-18] MEDS: ROSUVASTATIN 20 MG TABLET 40 MG BY MOUTH (11:05)
[2023-11-18] MEDS: SERTRALINE HCL 50 MG TABLET 100 MG PO (11:05)
--- NOTE | 2023-11-18 18:14 | PM.IMPN ---
Progress Note: A&P Assessment and Plan (1) Partial bowel obstruction: Qualifiers: Intestinal obstruction type: unspecified Qualified Code(s): K56.600 - Partial intestinal obstruction, unspecified as to cause Code(s): K56.600 - Partial intestinal obstruction, unspecified as to cause Status: Acute Assessment and Plan: CT Abd/Pelvis: 1. Wall thickening in the distal colon consistent with colitis which could be infectious, inflammatory or less likely ischemic in etiology. 2. Fluid-filled but not frankly dilated loops of small bowel in the right abdomen both pseudo feces sign at a transition point in the right pelvis which could represent an early/partial small bowel obstruction or localized ileus. 3. Likely reactive mild mesenteric edema and small amount of ascites. Patient seen and evaluated by Cardiology Started patient on clear liquid diet Encouraged out of bed and ambulate by surgery Advance diet that tolerated DC planning once cleared by surgery (2) Colitis: Code(s): K52.9 - Noninfective gastroenteritis and colitis, unspecified Status: Acute Assessment and Plan: Patient started on IV Rocephin and Metronidazole ... Day #1 Monitor WBC count closely Patient would need close follow-up with GI as an outpatient Plan Home Meds/Chronic Conditions - hold aspirin and Plavix until further recs from General Surgery - continue Sinemet - continue estradiol cream - continue rosuvastatin - continue sertraline Diet: Clear liquids GI Prophylaxis: not currently indicated DVT Prophylaxis: SCDs, hold on pharmacological Lines: pIV Code Status: Full Code ? Patient seen and examined at bedside during my morning rounds ? Collaborated with patient's nurse at the bedside in detail and addressed all concerns ? Labs, electrolytes, radiology, investigations and test results reviewed ? Consult/Nursing/Ancilliary notes on the chart reviewed and appreciated ? Spoke with patient/ at the bedside and answered all the questions that they had Repeat labs in a.m. Electrolyte replacement as per protocol. Patient will be monitored very closely on the floor. Further recommendations as per the hospital course. Time Spent With Patient Time with patient: 25 - 35 minutes Subjective Date/time seen: 11/18/23 18:14 Interval history: Patient seen and evaluated at bedside. Patient started on clears by surgery. Abdominal pain is slowly improving. Review of Systems Review of Systems: 14 systems were reviewed with pertinent positives and negatives per HPI. Except as documented in the HPI/progress notes, all other systems were reviewed and are negative. All systems reviewed & are unremarkable except as noted in HPI and below Exam Narrative: PHYSICAL EXAMINATION: Vital signs: Please see the chart General physical exam: Patient lying in bed, pleasant cooperative, appears in no acute distress Head/eyes: Atraumatic, EOMI, PERRLA ENT: Moist mucous membranes, nasal passages clear Neck: Supple, full range of motion, trachea midline CVS: S1 + S2, regular rate and rhythm, no murmurs Respiratory: Bilaterally fair air entry in both lung vila, mild B/L crackles, symmetric chest expansion, no distress Abdomen: Soft, + mild tenderness on palpation, bowel sounds +ve, no organomegaly Extremities: No clubbing, no cyanosis, no edema, no calf tenderness Musculoskeletal: Moves all, adequate range of motion, no muscle spasms Skin: Warm, dry, no jaundice, no cyanosis Neurological: Awake, alert, oriented x 3, cranial nerves II-XII intact, no focal neurological deficits Psychiatric: Normal mood, non suicidal Objective Data Vital Signs Vital Signs: Vital Signs - 24 hr 11/17/23 18:40 11/17/23 20:54 11/17/23 22:26 Temperature 36.7 C Pulse Rate 72 88 72 Respiratory Rate 16 16 Blood Pressure 123/85 136/72 Pulse Oximetry 98 100 Oxygen Delivery 11/17/23 22:00 11/17/23 23:
[2023-11-18] MEDS: ACETAMINOPHEN 325 MG TABLET 650 MG PO (22:00)
[2023-11-19] VITALS (9 sets, daily range): BP systolic 136–167; BP diastolic 61–74; PULSE 67–81; RESP 16–20; TEMP 36.4–36.8; O2SAT 98–99
[2023-11-19] MEDS: LACTATED RINGERS 1,000 ML 100 ML IV CONT ×2 (04:07→14:40)
[2023-11-19] MEDS: metroNIDAZOLE 500 MG/ISO 100ML 500 MG/100 ML BAG 100 MG IVPB ×3 (05:32→20:42)
[2023-11-19 05:56] LABS: Basophils Percent Auto 0.4 % (0.2-1.2); Eosinophils Absolute Auto 0.2 K/mm3 (0-0.3); Eosinophils Percent Auto 4.6 % (0-4.4); Hematocrit 34.1 % (37.0-47.0); Hemoglobin 10.7 g/dL (12.0-15.0); Immature Granulocyte Absolute 0.01 K/mm3 (0.00-0.031); Immature Granulocyte Percent A 0.2 % (0-0.5); Lymphocytes Absolute Auto 2.11 K/mm3 (0.9-3.2); Lymphocytes Percent Auto 40.3 % (18.3-44.2); Mean Corpuscular HGB Conc 31.4 g/dl (32-36); Mean Corpuscular Hemoglobin 30.9 pg (26-34); Mean Corpuscular Volume 98.6 fl (80-100); Mean Platelet Volume 9.9 fl (7.4-10.4); Monocytes Absolute Auto 0.5 K/mm3 (0.1-0.6); Monocytes Percent Auto 10.1 % (2.6-8.5); Neutrophils Absolute Auto 2.3 K/mm3 (1.3-6.7); Neutrophils Percent Auto 44.4 % (45.5-73.1); Platelet Count Result 193 k/mm3 (150-375); Red Blood Count 3.46 M/mm3 (4.2-5.4); Red Cell Distribution Width 12.7 % (11.5-14.5); White Blood Count 5.2 K/mm3 (4.5-10.0)
[2023-11-19 06:24] LABS: Anion Gap 6 mmol/L (8-16); Blood Urea Nitrogen 9 mg/dL (7-17); Calcium 8.1 mg/dL (8.4-10.2); Carbon Dioxide 29 mmol/L (22-30); Chloride 104 mmol/L (98-107); Estimated CRCL calculation 52 ml/min; Estimated Glomerular Filt Rate > 60; Glucose 98 mg/dL (65-110); Magnesium 1.8 mg/dL (1.6-2.3); Phosphorus 3.3 mg/dL (2.5-4.5); Potassium 3.7 mmol/L (3.4-5.0); Sodium 139 mmol/L (137-145)
[2023-11-19] MEDS: CARBIDOPA/LEVODOPA 25/100 MG TABLET 2 TABLET PO ×2 (09:09→17:23)
[2023-11-19] MEDS: ROSUVASTATIN 20 MG TABLET 40 MG BY MOUTH (09:09)
[2023-11-19] MEDS: SERTRALINE HCL 50 MG TABLET 100 MG PO (09:09)
[2023-11-19] MEDS: CEFEPIME 1 GM/NS 50 ML 1 GM/50 ML BAG IVPB ×2 (09:10→20:42)
--- NOTE | 2023-11-19 10:48 | PM.PNGS ---
Progress Note: A&P Assessment and Plan (1) Partial bowel obstruction: Qualifiers: Intestinal obstruction type: unspecified Qualified Code(s): K56.600 - Partial intestinal obstruction, unspecified as to cause Code(s): K56.600 - Partial intestinal obstruction, unspecified as to cause Status: Acute Assessment and Plan: resolved, will ADAT, if diogo diet ok to dc home from surgical standpoint, no acute surgical issues will sign off (2) Colitis: Code(s): K52.9 - Noninfective gastroenteritis and colitis, unspecified Status: Acute Assessment and Plan: exam benign, cont abx Subjective Subjective Date/Time Seen: 11/19/23 10:48 Interval history: doing well, +bowel fxn, no further abd pain, diogo clears Review of Systems Review of Systems: All systems reviewed & are unremarkable except as noted in HPI and below Exam Const: General: cooperative, comfortable and no acute distress Resp: Auscultation: clear to auscultation bilaterally Cardio: Rate: regular rate Rhythm: regular rhythm GI: Inspection: normal to inspection and non-distended GI Palp: No abdominal tenderness, Yes Soft to palpation, No Tenderness to palpation present (GI), No Guarding due to palpation present (GI) and No Rigid due to palpation Objective Data Vital Signs Vital Signs: Vital Signs - 24 hr 11/18/23 12:00 11/18/23 14:00 11/18/23 16:00 Temperature 36.6 C Pulse Rate 90 79 70 Respiratory Rate 16 Blood Pressure 126/61 Pulse Oximetry 98 Oxygen Delivery 11/18/23 19:27 11/18/23 20:00 11/18/23 22:00 Temperature Pulse Rate 70 76 69 Respiratory Rate 16 18 Blood Pressure 129/68 Pulse Oximetry 98 97 Oxygen Delivery Room Air 11/19/23 00:00 11/19/23 04:00 11/19/23 05:33 Temperature 36.4 C L Pulse Rate 73 68 67 Respiratory Rate 16 Blood Pressure 147/74 H Pulse Oximetry 99 Oxygen Delivery 11/19/23 08:00 Temperature Pulse Rate 70 Respiratory Rate Blood Pressure Pulse Oximetry Oxygen Delivery Intake/Output Intake/Output: Intake & Output 11/16/23 11/17/23 11/18/23 11/19/23 23:59 23:59 23:59 23:59 Intake Total 4290 1240 Balance 4290 1240 Meds/Results Medications: Active Medications Generic Name Dose Route Start Last Admin Trade Name Lokeshq PRN Reason Stop Dose Admin Acetaminophen 650 mg 11/18/23 01:07 11/18/23 22:00 Acetaminophen 325 Mg Tablet PO 650 mg Q4H PRN Administration Mild Pain (1-3) or Fever Carbidopa/Levodopa 2 tablet 11/18/23 08:00 11/19/23 09:09 Carbidopa/Levodopa 25/100 Mg Tablet PO 2 tablet BIDWM MITRA Administration Estradiol 1 applic 11/20/23 21:00 Estradiol Vaginal Cream 42.5 Gm VAGINAL Mo@2100 MITRA Lactated Ringer's 1,000 mls @ 100 mls/hr 11/18/23 01:10 11/19/23 04:07 Lr - Lactated Ringers Iv IV CONT 100 mls/hr .Q10H MITRA Administration Metronidazole 500 mg in 100 mls @ 100 mls/hr 11/18/23 02:00 11/19/23 05:32 Flagyl 500 Mg/Iso Soln 100 Ml IVPB 100 mls/hr Q8HR MITRA Administration Cefepime HCl 1 gm in 50 mls @ 100 mls/hr 11/19/23 09:00 11/19/23 09:10 Maxipime 1 Gm/Ns 50 Ml IVPB 100 mls/hr Q12H MITRA Administration Morphine Sulfate 2 mg 11/18/23 01:07 Morphine Sulfate (*Crx) 2 Mg/Ml Inj IV PUSH Q4H PRN Pain Rated 4-6 Morphine Sulfate 4 mg 11/18/23 01:07 11/18/23 02:21 Morphine Sulfate (*Crx) 4 Mg/Ml Inj IV PUSH 4 mg Q4H PRN Administration Pain Rated 7-10 Rosuvastatin Calcium 40 mg 11/18/23 09:00 11/19/23 09:09 Rosuvastatin 20 Mg Tablet BY MOUTH 20 mg DAILY MITRA Administration Sertraline HCl 100 mg 11/18/23 09:00 11/19/23 09:09 Sertraline Hcl 50 Mg Tablet PO 100 mg DAILY MITRA Administration Radiology Results: ITS Impressions Abdomen/Pelvis CT 11/17/23 16:27 IMPRESSION: 1. Wall thickening in the distal colon consistent with colitis which could be infectious, inflammatory or less likel
--- NOTE | 2023-11-19 10:53 | PM.IMPN ---
Progress Note: A&P Assessment and Plan (1) Partial bowel obstruction: Qualifiers: Intestinal obstruction type: unspecified Qualified Code(s): K56.600 - Partial intestinal obstruction, unspecified as to cause Code(s): K56.600 - Partial intestinal obstruction, unspecified as to cause Status: Acute Assessment and Plan: CT Abd/Pelvis: 1. Wall thickening in the distal colon consistent with colitis which could be infectious, inflammatory or less likely ischemic in etiology. 2. Fluid-filled but not frankly dilated loops of small bowel in the right abdomen both pseudo feces sign at a transition point in the right pelvis which could represent an early/partial small bowel obstruction or localized ileus. 3. Likely reactive mild mesenteric edema and small amount of ascites. Nausea and abdominal cramps with solids 11/19/23 PRN anti-emetic Continue antibx, ivf, reassess in AM Consider discharge when diet tolerated (2) Colitis: Code(s): K52.9 - Noninfective gastroenteritis and colitis, unspecified Status: Acute Assessment and Plan: IV cephalosporin and metronidazole Day #2 WBC normalized (3) UTI (urinary tract infection): Code(s): N39.0 - Urinary tract infection, site not specified Status: Acute Assessment and Plan: Pseudomonas aeruginosa in urine 11/19/23 switched from IV ceftriaxone to cefepime (4) Parkinson disease: Code(s): G20.A1 - Parkinson's disease without dyskinesia, without mention of fluctuations Status: Acute Assessment and Plan: Continue carbidopa-levodopa (5) CAD (coronary artery disease): Code(s): I25.10 - Atherosclerotic heart disease of [place] coronary artery without angina pectoris Status: Acute Assessment and Plan: Resume clopidogrel Hold ASA due to nausea Subjective Date/time seen: 11/19/23 10:53 Review of Systems Review of Systems: All systems reviewed & are unremarkable except as noted in HPI and below Objective Data Vital Signs Vital Signs: Vital Signs - 24 hr 11/18/23 12:00 11/18/23 14:00 11/18/23 16:00 Temperature 97.9 F Pulse Rate 90 79 70 Respiratory Rate 16 Blood Pressure 126/61 Pulse Oximetry 98 Oxygen Delivery 11/18/23 19:27 11/18/23 20:00 11/18/23 22:00 Temperature Pulse Rate 70 76 69 Respiratory Rate 16 18 Blood Pressure 129/68 Pulse Oximetry 98 97 Oxygen Delivery Room Air 11/19/23 00:00 11/19/23 04:00 11/19/23 05:33 Temperature 97.5 F L Pulse Rate 73 68 67 Respiratory Rate 16 Blood Pressure 147/74 H Pulse Oximetry 99 Oxygen Delivery 11/19/23 08:00 Temperature Pulse Rate 70 Respiratory Rate Blood Pressure Pulse Oximetry Oxygen Delivery Intake/Output Intake/Output: Intake & Output 11/16/23 11/17/23 11/18/23 11/19/23 23:59 23:59 23:59 23:59 Intake Total 4290 1240 Balance 4290 1240 Meds/Results Medications: Active Medications Generic Name Dose Route Start Last Admin Trade Name Freq PRN Reason Stop Dose Admin Acetaminophen 650 mg 11/18/23 01:07 11/18/23 22:00 Acetaminophen 325 Mg Tablet PO 650 mg Q4H PRN Administration Mild Pain (1-3) or Fever Carbidopa/Levodopa 2 tablet 11/18/23 08:00 11/19/23 09:09 Carbidopa/Levodopa 25/100 Mg Tablet PO 2 tablet BIDWM MITRA Administration Estradiol 1 applic 11/20/23 21:00 Estradiol Vaginal Cream 42.5 Gm VAGINAL Mo@2100 MITRA Lactated Ringer's 1,000 mls @ 100 mls/hr 11/18/23 01:10 11/19/23 04:07 Lr - Lactated Ringers Iv IV CONT 100 mls/hr .Q10H MITRA Administration Metronidazole 500 mg in 100 mls @ 100 mls/hr 11/18/23 02:00 11/19/23 05:32 Flagyl 500 Mg/Iso Soln 100 Ml IVPB 100 mls/hr Q8HR MITRA Administration Cefepime HCl 1 gm in 50 mls @ 100 mls/hr 11/19/23 09:00 11/19/23 09:10 Maxipime 1 Gm/Ns 50 Ml IVPB 100 mls/hr Q12H MITRA Administration Morphine Sulfate 2 mg
[2023-11-19] MEDS: ONDANSETRON INJ 4 MG/2 ML VIAL IV PUSH (14:56)
[2023-11-20] VITALS: PULSE 66
[2023-11-20 04:00] VITALS: PULSE 72
[2023-11-20] MEDS: metroNIDAZOLE 500 MG/ISO 100ML 500 MG/100 ML BAG 100 MG IVPB ×3 (05:15→20:56)
[2023-11-20 05:46] LABS: Basophils Percent Auto 0.5 % (0.2-1.2); Eosinophils Absolute Auto 0.2 K/mm3 (0-0.3); Eosinophils Percent Auto 3.7 % (0-4.4); Hematocrit 33.7 % (37.0-47.0); Hemoglobin 10.7 g/dL (12.0-15.0); Immature Granulocyte Absolute 0.02 K/mm3 (0.00-0.031); Immature Granulocyte Percent A 0.3 % (0-0.5); Lymphocytes Absolute Auto 2.06 K/mm3 (0.9-3.2); Lymphocytes Percent Auto 32.8 % (18.3-44.2); Mean Corpuscular HGB Conc 31.8 g/dl (32-36); Mean Corpuscular Hemoglobin 31.2 pg (26-34); Mean Corpuscular Volume 98.3 fl (80-100); Mean Platelet Volume 9.9 fl (7.4-10.4); Monocytes Absolute Auto 0.7 K/mm3 (0.1-0.6); Monocytes Percent Auto 11.8 % (2.6-8.5); Neutrophils Absolute Auto 3.2 K/mm3 (1.3-6.7); Neutrophils Percent Auto 50.9 % (45.5-73.1); Platelet Count Result 189 k/mm3 (150-375); Red Blood Count 3.43 M/mm3 (4.2-5.4); Red Cell Distribution Width 12.5 % (11.5-14.5); White Blood Count 6.3 K/mm3 (4.5-10.0)
[2023-11-20 05:59] LABS: Anion Gap 4 mmol/L (8-16); Blood Urea Nitrogen 6 mg/dL (7-17); Calcium 8.8 mg/dL (8.4-10.2); Carbon Dioxide 29 mmol/L (22-30); Chloride 104 mmol/L (98-107); Estimated CRCL calculation 61 ml/min; Estimated Glomerular Filt Rate > 60; Glucose 98 mg/dL (65-110); Potassium 3.3 mmol/L (3.4-5.0); Sodium 137 mmol/L (137-145)
[2023-11-20 06:00] VITALS: BP 171/76; PULSE 80; RESP 20; TEMP 37; O2SAT 99
[2023-11-20 08:00] VITALS: PULSE 71
[2023-11-20] MEDS: CARBIDOPA/LEVODOPA 25/100 MG TABLET 2 TABLET PO ×2 (09:07→17:24)
[2023-11-20] MEDS: SERTRALINE HCL 50 MG TABLET 100 MG PO (09:07)
[2023-11-20] MEDS: ROSUVASTATIN 20 MG TABLET 40 MG BY MOUTH (09:07)
[2023-11-20] MEDS: CLOPIDOGREL BISULFATE 75 MG TABLET PO (09:08)
[2023-11-20] MEDS: CEFEPIME 1 GM/NS 50 ML 1 GM/50 ML BAG IVPB ×2 (09:08→20:55)
--- NOTE | 2023-11-20 11:10 | PM.DS ---
DS: Admitting Diagnosis Discharge Date 11/20/23 Admitting Diagnosis Colitis DS: Summary Time Spent with Patient Time attestation: Total time spent providing and/or coordinating discharge services: DS: Data Data Completed and Pending Labs on day of discharge: Labs from last 24 hours 11/20/23 05:20 WBC 6.3 RBC 3.43 L Hgb 10.7 L Hct 33.7 L MCV 98.3 MCH 31.2 MCHC 31.8 L RDW 12.5 Plt Count 189 MPV 9.9 Immature Gran % (Auto) 0.3 Neut % (Auto) 50.9 Lymph % (Auto) 32.8 [place] % (Auto) 11.8 H Eos % (Auto) 3.7 Baso % (Auto) 0.5 Lymph # (Auto) 2.06 [place] # (Auto) 0.7 H Eos # (Auto) 0.2 Baso # (Auto) 0.0 Abs Immat Gran (auto) 0.02 Absolute Neuts (auto) 3.2 Absolute Nucleated RBC 0.0 Nucleated RBC % 0.0 Sodium 137 Potassium 3.3 L Chloride 104 Carbon Dioxide 29 Anion Gap 4 L BUN 6 L Creatinine 0.50 L Estim Creat Clear Calc 61 Estimated GFR > 60 Glucose 98 Calcium 8.8 Discharge Plan Discharge Attending physician on discharge: Wendi Scherer Consulting providers: Piedad Rosenberg Discharging Clinician: Wendi Scherer Anticipated Discharge Date/Time: 11/20/23 11:08 Patient Disposition: Home, Self-Care Activity: as tolerated Diet: as tolerated Patient Instructions: Antibiotic Form, Clopidogrel (By mouth), Hypercoagulation (DC), Infectious Colitis (GEN), Colitis (ED) Stand Alone Forms: General Discharge Information Follow-up/Referrals: PHYSICIAN NOT ON STAFF,NONSTAFF [Primary Care Provider] - (f/u with PCP in 3-5 days ) Discharge Medications: New lisinopril 5 mg tablet 5 mg PO DAILY Qty: 30 1RF No Action estradiol [Estrace] 0.01 % (0.1 mg/gram) cream 1 applic VAGINAL DAILY sertraline 50 mg tablet 100 mg PO DAILY cephalexin 500 mg capsule 500 mg PO Q6H 7 Days Qty: 28 0RF Rx Instructions: STARTED 1 WEEK AGO, NEEDS 3 MORE DOSES rosuvastatin 40 mg tablet 40 mg PO DAILY aspirin 81 mg Tablet,Chewable 81 mg PO DAILY clopidogrel [Plavix] 75 mg Tablet 75 mg PO DAILY carbidopa-levodopa 25-100 mg Tablet 2 tablet PO BID Date of admission: 11/17/23 18:16 Primary Care Provider: PHYSICIAN NOT ON STAFF,NONSTAFF Admitting Provider: Augusto Hoffman Attending physician on admission: Augusto Hoffman Condition: Stable
--- NOTE | 2023-11-20 13:29 | PM.IMPN ---
Progress Note: A&P Assessment and Plan (1) Partial bowel obstruction: Qualifiers: Intestinal obstruction type: unspecified Qualified Code(s): K56.600 - Partial intestinal obstruction, unspecified as to cause Code(s): K56.600 - Partial intestinal obstruction, unspecified as to cause Status: Acute Assessment and Plan: CT Abd/Pelvis: 1. Wall thickening in the distal colon consistent with colitis which could be infectious, inflammatory or less likely ischemic in etiology. 2. Fluid-filled but not frankly dilated loops of small bowel in the right abdomen both pseudo feces sign at a transition point in the right pelvis which could represent an early/partial small bowel obstruction or localized ileus. 3. Likely reactive mild mesenteric edema and small amount of ascites. Nausea and abdominal cramps with solids 11/19/23 PRN anti-emetic Continue antibx, ivf, reassess in AM Consider discharge when diet tolerated (2) Colitis: Code(s): K52.9 - Noninfective gastroenteritis and colitis, unspecified Status: Acute Assessment and Plan: IV cefepime and metronidazole Day #2 WBC normalized (3) UTI (urinary tract infection): Code(s): N39.0 - Urinary tract infection, site not specified Status: Acute Assessment and Plan: Pseudomonas aeruginosa in urine 11/19/23 switched from IV ceftriaxone to cefepime Patient is allergic Cipro and thus has to complete abx IV inpatient (4) Parkinson disease: Code(s): G20.A1 - Parkinson's disease without dyskinesia, without mention of fluctuations Status: Acute Assessment and Plan: Continue carbidopa-levodopa (5) CAD (coronary artery disease): Code(s): I25.10 - Atherosclerotic heart disease of [place] coronary artery without angina pectoris Status: Acute Assessment and Plan: Resume clopidogrel Hold ASA due to nausea Subjective Date/time seen: 11/20/23 13:29 Interval history: Patient seen and evaluated at bedside. Patient started on clears by surgery. Abdominal pain is slowly improving. Review of Systems Review of Systems: 14 systems were reviewed with pertinent positives and negatives per HPI. Except as documented in the HPI/progress notes, all other systems were reviewed and are negative. All systems reviewed & are unremarkable except as noted in HPI and below Exam Narrative: PHYSICAL EXAMINATION: Vital signs: Please see the chart General physical exam: Patient lying in bed, pleasant cooperative, appears in no acute distress Head/eyes: Atraumatic, EOMI, PERRLA ENT: Moist mucous membranes, nasal passages clear Neck: Supple, full range of motion, trachea midline CVS: S1 + S2, regular rate and rhythm, no murmurs Respiratory: Bilaterally fair air entry in both lung vila, mild B/L crackles, symmetric chest expansion, no distress Abdomen: Soft, + mild tenderness on palpation, bowel sounds +ve, no organomegaly Extremities: No clubbing, no cyanosis, no edema, no calf tenderness Musculoskeletal: Moves all, adequate range of motion, no muscle spasms Skin: Warm, dry, no jaundice, no cyanosis Neurological: Awake, alert, oriented x 3, cranial nerves II-XII intact, no focal neurological deficits Psychiatric: Normal mood, non suicidal Const: General: comfortable and no acute distress HENMT: Face/Nose/Sinus: Normal nares present Mouth: Yes dry mucous membranes Eyes: General: appearance normal, both eyes and all related structures Sclera: sclerae normal Pupils: Equal, round and reactive pupils present EOM: EOMs intact bilaterally Resp: Effort & Inspection: normal respiratory effort Auscultation: clear to auscultation bilaterally Cardio: Rate: regular rate Rhythm: regular rhythm Other: S1-S2 present without murmur, rub, ectopy GI: Auscultation: normal bowel sounds Other: Nondistended, tenderness to mid lower quadrant and right lower quadrant primarily,
[2023-11-20 13:39] VITALS: BP 135/83; PULSE 81; RESP 16; TEMP 36.8; O2SAT 99
[2023-11-20 21:33] VITALS: BP 148/73; PULSE 70; RESP 20; TEMP 36.9; O2SAT 100
[2023-11-21 05:49] LABS: Basophils Percent Auto 0.5 % (0.2-1.2); Eosinophils Absolute Auto 0.2 K/mm3 (0-0.3); Eosinophils Percent Auto 3.9 % (0-4.4); Hematocrit 35.3 % (37.0-47.0); Hemoglobin 11.2 g/dL (12.0-15.0); Immature Granulocyte Absolute 0.02 K/mm3 (0.00-0.031); Immature Granulocyte Percent A 0.3 % (0-0.5); Lymphocytes Absolute Auto 2.13 K/mm3 (0.9-3.2); Mean Corpuscular HGB Conc 31.7 g/dl (32-36); Mean Corpuscular Hemoglobin 31.2 pg (26-34); Mean Corpuscular Volume 98.3 fl (80-100); Monocytes Absolute Auto 0.8 K/mm3 (0.1-0.6); Monocytes Percent Auto 13.9 % (2.6-8.5); Neutrophils Absolute Auto 2.7 K/mm3 (1.3-6.7); Neutrophils Percent Auto 45.4 % (45.5-73.1); Platelet Count Result 206 k/mm3 (150-375); Red Blood Count 3.59 M/mm3 (4.2-5.4); Red Cell Distribution Width 12.5 % (11.5-14.5); White Blood Count 5.9 K/mm3 (4.5-10.0)
[2023-11-21 05:59] LABS: Alanine Aminotransferase 8 U/L (6-35); Albumin Level 3.5 g/dL (3.5-5.1); Alkaline Phosphatase 57 U/L (38-126); Anion Gap 7 mmol/L (8-16); Aspartate Amino Transferase 23 U/L (14-36); Bilirubin,Total 0.5 mg/dL (0.2-1.3); Blood Urea Nitrogen 7 mg/dL (7-17); Calcium 8.8 mg/dL (8.4-10.2); Carbon Dioxide 28 mmol/L (22-30); Chloride 103 mmol/L (98-107); Estimated CRCL calculation 52 ml/min; Estimated Glomerular Filt Rate > 60; Glucose 96 mg/dL (65-110); Potassium 3.5 mmol/L (3.4-5.0); Sodium 138 mmol/L (137-145)
[2023-11-21 06:00] VITALS: BP 160/66; PULSE 68; RESP 18; TEMP 36.9; O2SAT 97
[2023-11-21] MEDS: metroNIDAZOLE 500 MG/ISO 100ML 500 MG/100 ML BAG 100 MG IVPB ×2 (06:33→13:31)
[2023-11-21] MEDS: CARBIDOPA/LEVODOPA 25/100 MG TABLET 2 TABLET PO (09:13)
[2023-11-21] MEDS: ROSUVASTATIN 20 MG TABLET 40 MG BY MOUTH (09:13)
[2023-11-21] MEDS: CLOPIDOGREL BISULFATE 75 MG TABLET PO (09:13)
[2023-11-21] MEDS: CEFEPIME 1 GM/NS 50 ML 1 GM/50 ML BAG IVPB ×2 (09:14→16:00)
[2023-11-21] MEDS: lisinopriL 5 MG TABLET PO (09:14)
[2023-11-21] MEDS: SERTRALINE HCL 50 MG TABLET 100 MG PO (09:25)
[2023-11-21] MEDS: ACETAMINOPHEN 325 MG TABLET 650 MG PO (09:25)
[2023-11-21] MEDS: polyethylene glycoL 3350 17 GM POWD.PACK PO (11:16)
[2023-11-21 13:54] VITALS: BP 121/66; PULSE 68; RESP 18; TEMP 36.8; O2SAT 100
--- NOTE | 2023-11-21 15:00 | PM.DS ---
DS: Admitting Diagnosis Discharge Date 11/21/23 Admitting Diagnosis Colitis Pseudoonas UTi DS: Discharge Diagnosis Discharge Diagnosis (1) Colitis: Code(s): K52.9 - Noninfective gastroenteritis and colitis, unspecified Status: Acute (2) UTI (urinary tract infection): Code(s): N39.0 - Urinary tract infection, site not specified Status: Acute DS: Summary Hospital Course Hospital Course: 83 y/o F presents here with abdominal pain, nausea, and vomiting with PMH of bowel obstruction (), CAD s/p PCI x5, HLD, HTN, SLE, Raynaud's, appendectomy, bowel surgery, and cholecystectomy. Patient presented here with lower abdominal pain with mild radiation into her back that started this morning (11/17) when she woke up. Reports the? pain worsened throughout the day and began to extend into her upper abdomen in the began to wrap around to the sides of her abdomen.? She described the pain as spasms and constant with intermittent periods of intensity/sharpness.? patient reports her abdomen appeared distended and swollen . Abdominal discomfort was accompanied by mild to moderate nausea with 5 small episodes of emesis.? reports hx of SBO post-op from appendectomy in the . Has had multiple abdominal surgeries previously. LBM was this morning - described it as small, loose, and darker brown . Was previously regular and stool was light colored then had one episode of hard stool yesterday preceding the loose stool today. Of note, was seen for dysuria on 11-10 and finishing course of Keflex. ED workup revealed normal WBC, no anemia, unremarkable chemistries, normal BNP for age, negative trop x3, UA showed leuks, RBCs, and WBCs. CT of abd/pelvis? showed wall thickening of the distal colon consistent with colitis, fluid filled but not frankly dilated loops of small bowel with possible early /partial SBO or localized ileus, and likely reactive mild mesenteric edema and small amount of ascites. Patient has not any diarrhea and she is tolerating PO intake. completed 3 days of Cefepime and flagyl, discharged on Omnicef adn flagyl for additional 4 days Urine culture positive for Pseudomonas sensitive to Cefepime, completed 3 days of Cefepime F/u with PCp in 3-5 days. Time Spent with Patient Time attestation: Total time spent providing and/or coordinating discharge services: DS: Data Data Completed and Pending Labs on day of discharge: Labs from last 24 hours 11/21/23 05:20 WBC 5.9 RBC 3.59 L Hgb 11.2 L Hct 35.3 L MCV 98.3 MCH 31.2 MCHC 31.7 L RDW 12.5 Plt Count 206 MPV 10.0 Immature Gran % (Auto) 0.3 Neut % (Auto) 45.4 L Lymph % (Auto) 36.0 [place] % (Auto) 13.9 H Eos % (Auto) 3.9 Baso % (Auto) 0.5 Lymph # (Auto) 2.13 [place] # (Auto) 0.8 H Eos # (Auto) 0.2 Baso # (Auto) 0.0 Abs Immat Gran (auto) 0.02 Absolute Neuts (auto) 2.7 Absolute Nucleated RBC 0.0 Nucleated RBC % 0.0 Sodium 138 Potassium 3.5 Chloride 103 Carbon Dioxide 28 Anion Gap 7 L BUN 7 Creatinine 0.60 L Estim Creat Clear Calc 52 Estimated GFR > 60 Glucose 96 Calcium 8.8 Total Bilirubin 0.5 AST 23 ALT 8 Alkaline Phosphatase 57 Total Protein 6.0 L Albumin 3.5 Discharge Plan Discharge Attending physician on discharge: Wendi Scherer Consulting providers: Piedad Rosenberg Discharging Clinician: Wendi Scherer Anticipated Discharge Date/Time: 11/20/23 11:08 Patient Disposition: Home, Self-Care Activity: as tolerated Diet: as tolerated Patient Instructions: Antibiotic Form, Clopidogrel (By mouth), Hypercoagulation (DC), Infectious Colitis (GEN), Colitis (ED) Stand Alone Forms: General Discharge Information Follow-up/Referrals: PHYSICIAN NOT ON STAFF,NONSTAFF [Primary Care Provider] - (f/u with PCP in 3-5 days ) Discharge Medications: New lisinopril 5 mg tablet 5 mg PO DAILY Qty: 30 1RF cefdinir 300 mg capsule 300 mg PO Q12H 4 Days Qty: 8 0RF metr
== END 2023-11-21 17:36 | disposition home or self-care (01) | DRG 389 ==
LOC: ANHED 21:38 → ANH3MED 21:42
PROVIDERS: Emergency Medicine; Student in an Organized Health Care Education/Training Program; Admitting Provider Family Medicine; Emergency Provider Student in an Organized Health Care Education/Training Program; Visit Provider Internal Medicine
DX: K56.600 Partial intestinal obstruction, unspecified as to cause (principal); N39.0 Urinary tract infection, site not specified; K52.9 Noninfective gastroenteritis and colitis, unspecified; I25.10 Atherosclerotic heart disease of native coronary artery without angina pectoris; E78.5 Hyperlipidemia, unspecified; I10 Essential (primary) hypertension; I73.00 Raynaud's syndrome without gangrene; M32.9 Systemic lupus erythematosus, unspecified; M79.7 Fibromyalgia; M19.90 Unspecified osteoarthritis, unspecified site; G62.9 Polyneuropathy, unspecified; F32.A Depression, unspecified; Z96.652 Presence of left artificial knee joint; Z79.02 Long term (current) use of antithrombotics/antiplatelets; Z95.5 Presence of coronary angioplasty implant and graft; Z79.82 Long term (current) use of aspirin; Z87.19 Personal history of other diseases of the digestive system; G20.A1 Parkinson's disease without dyskinesia, without mention of fluctuations
CPT/HCPCS: 36415; 71046; 74177; 80048; 80053; 81001; 83605; 83690; 83735; 83880; 84100; 84484; 85025; 85610; 85730; 86140; 87077; 87086; 87186; 93005; 96374; 96375; 99285; A9270; J0692; J0696; J1836; J2270; J2405; J7120; Q9967

== ENCOUNTER 2024-02-13 13:30 | Outpatient (RCR) | payer MEDICARE, SELFPAY ==
--- NOTE | 2023-12-07 10:23 | OPREHPOC ---
Outpatient Therapy Plan of Care This is a Multidisciplinary Plan of Care that may contain components documented by all disciplines (PT, OT, and ST.) PT Problem 1 PT Problem #1 Knowledge Deficit PT Goal 1 Goal 1* indep with HEP 2* good safety awareness with transfers and mobility PT Problem 2 PT Problem #2 Impaired Strength PT Goal 1 Goal improve strength of LE's to improve balance and mobility: 1* sitting ankle circles 20 reps R and L with good control 2* sit/stand transfer without use of UE's x 5 reps without use of UE's 3* standing bilateral ankle PF x 20 reps without use of UE and good control PT Problem 3 PT Problem #3 Impaired Functional Mobil PT Goal 1 Goal 1* 5 reps sit/stand time of 15 seconds 2* [place] balance/gait score of 52/56, to improve balance skills 3* alternate toe tap R/L x 10 reps without catch of toe 4* pt report NO falls 5* with walking 150'- pt walk straight path/ no veer R-L
--- NOTE | 2023-12-07 10:23 | PTOPEVAL1 ---
Assessment and note entered by Nadira Holden, PT Evaluation Information Assessment Status Evaluation Diagnosis Parkinson's Disease Onset May 2023 Subjective Information more problems with balance lately-- veer to side and wobbly; have fallen 1x in past 6 months, going down the stairs; have lightheadedness when going from sitting to standing; Activity: live with , she can do everything she needs to do OK but feel off balance with walking; have eccliptical machine at home, have not done for awhile; Reported Pain Level Pain Score Self Report Additional Pain Score Comments have pain in low back also pain L knee/previous TKR--to discuss with her general dr; surgeon has moved away. Assessment PT Clinical Summary Cheri has the diagnosis of Parkinson's Disease. She reports problems with balance and walking; has had one fall on stairs. At home, she has not been doing any exercises. Her medical history includes LBP, LE neuropathy, L knee pain, hand tremors, HTN, cardiac stents. She has dizziness with sit to stand transfer. With the evaluation: decreased BP with initial standing--educated on safety; [place] balance score of 46/56; 2 minute walking distance of 430'; with 5 reps sit/stand transfer, time was 18 sec with 3 loss of balance and plopping into chair. poor walking pattern; decreased standing LE exercise tolerance/balance, decreased ankle coordination and strength with ankle circles. Educated pt on safety with sit/stand transfer with dizziness, drop in BP and work on slow motion and control motions. Increase base of support with walking. Skilled PT services are indicated for therapeutic exercises to increase LE strength, gait and balance skills, to improve mobility and safety, with decreased risk for falls. Plan of Care Interventions Gait Training,Neuro Re-education,Patient Education,Therapeutic Activities,Therapeutic Exercise PT Services Indicated Yes
--- NOTE | 2023-12-14 11:11 | PCPTNOTE ---
Pt. cancelled scheduled physical therapy session this date.
--- NOTE | 2023-12-29 10:04 | PCPTNOTE ---
pt canceled today's reeval due to illness.
--- NOTE | 2024-01-15 13:48 | PTOPPROG ---
Assessment and note entered by Grady Velasquez, PT Evaluation Information Assessment Status Progress Diagnosis Parkinson's Disease Onset May 2023 Subjective Information Reports that overall she does feel she is doing better. She has noted improved walking but still feels a little hesitant with turning and long strides. Feels therapy has really helped and denies any falls since initiating therapy. Assessment PT Clinical Summary Patient has seen improvement in balance, strength, and gait speed with therapy. She has seen overall great progress with reduction in number of falls having none since starting therapy. Will continue to benefit form skilled intervention to address deficits and continue to promote functional strength. Plan of Care Interventions Gait Training,Neuro Re-education,Patient/Caregiver Educati,Therapeutic Activities,Therapeutic Exercise PT Services Indicated Yes Treatment Frequency and 1-2x/week for 8 visits Duration These treatments will address the objective and functional deficits as defined above. The patient will be advanced safely and appropriately in order for the patient to progress towards his/her prior level of function. Additional exercises will be introduced and as well as a comprehensive home exercise program upon discharge, if needed, ?to ensure carryover of functional gains achieved in the clinic. This treatment plan has been reviewed and agreement upon by the patient.
--- NOTE | 2024-01-15 13:48 | OPREHPOC ---
Outpatient Therapy Plan of Care This is a Multidisciplinary Plan of Care that may contain components documented by all disciplines (PT, OT, and ST.) PT Problem 1 PT Problem #1 Knowledge Deficit PT Goal 1 Goal 1* indep with HEP 2* good safety awareness with transfers and mobility Target Visit 13 Progress Met PT Problem 2 PT Problem #2 Impaired Strength PT Goal 1 Goal improve strength of LE's to improve balance and mobility: 1* sitting ankle circles 20 reps R and L with good control 2* sit/stand transfer without use of UE's x 5 reps without use of UE's 3* standing bilateral ankle PF x 20 reps without use of UE and good control Target Visit 13 Progress Partially Met PT Problem 3 PT Problem #3 Impaired Functional Mobil PT Goal 1 Goal 1* 5 reps sit/stand time of 15 seconds 2* [place] balance/gait score of 52/56, to improve balance skills 3* alternate toe tap R/L x 10 reps without catch of toe 4* pt report NO falls 5* with walking 150'- pt walk straight path/ no veer R-L Target Visit 13 Progress Partially Met
--- NOTE | 2024-01-29 14:41 | PCPTNOTE ---
pt called and canceled today's appt.
--- NOTE | 2024-02-21 14:00 | PCPTNOTE ---
Pt canceled appt. and did not give reason.
--- NOTE | 2024-05-08 08:40 | PCPTNOTE ---
DISCHARGE REPORT Mrs. Castaneda has received 8 PT sessions, from December 07 to February 12; she called and canceled 4 appointments, then stopped attending PT. She will be discharged. The goals were not addressed.
== END 2024-02-26 10:36 | disposition home or self-care (01) ==
LOC: ANHPT 13:30
DX: G20.A1 Parkinson's disease without dyskinesia, without mention of fluctuations (principal)
CPT/HCPCS: 97110; 97112; 97161; 97530

== ENCOUNTER 2024-02-23 21:02 | Emergency (ER) | payer MEDICARE, SELFPAY ==
--- NOTE | ~2024-02-23 | XR_ITS ---
EXAMINATION: XR chest 1V portable Exam Date/Time: 02/23/2024 22:00 CDT HISTORY: cough, chest pain, FEVER Comparison: 11/17/2023. RESULT: Lines, tubes, and devices: Coronary stent. Lungs and pleura: Clear. Granulomatous calcification. Cardiomediastinal silhouette: Stable. Other: No acute osseous or upper abdominal finding. IMPRESSION: No acute cardiopulmonary process. Reviewed, dictated and finalized at location K.
[2024-02-23 21:10] VITALS: BP 134/93; PULSE 101; RESP 17; TEMP 37.1; O2SAT 95
--- NOTE | 2024-02-23 21:54 | ECG_ITS ---
SEE SCANNED COPY FOR CONFIRMED REPORT MTDD
--- NOTE | 2024-02-23 21:55 | ED.FEVER ---
HPI - Fever General Chief Complaint: Fever <TRAV Pulido Last Filed: 02/24/24 02:19> Stated Complaint: fever, tested pos for covid yesterday <TRAV Pulido Last Filed: 02/24/24 02:19> Time Seen by Provider: 02/23/24 21:32 <TRAV Pulido Last Filed: 02/24/24 02:19> History of Present Illness HPI Narrative: 83 y/o F with ah hx of CAD presents to the ED for evaluation for chest tightness, cough, and fever that started yesterday. Pt states her tested positive for COVID recently and she tested positive for COVID yesterday. She is reporting chest tightness and points to the middle of her chest. She is also reporting pain to her left scapula and believes this is muscular. She reports a productive cough, states her fever was 101.5 earlier today. She then came to the ER and was found to be 98.8 upon arrival. She has not taken any antipyretics between now and then, however she does note that she took Tylenol earlier in the afternoon. She reports some shortness of breath. Denies history of asthma or COPD, denies lower extremity edema. Denies dysuria hematuria, abdominal pain, vomiting or diarrhea. She is endorsing some nausea. <Michelle Thornton PA-C - Last Filed: 02/24/24 02:19> Related Data Home Medications: Home Medications Medication Instructions Recorded Confirmed estradiol 0.01% (0.1 mg/gram) 1 applic vaginal DAILY 11/02/19 11/17/23 vaginal cream (Estrace) sertraline 50 mg tablet 100 mg PO DAILY 11/02/19 11/17/23 aspirin 81 mg chewable tablet 81 mg PO DAILY 11/04/19 11/17/23 carbidopa 25 mg-levodopa 100 mg 2 tablet PO BID 03/22/21 11/17/23 tablet clopidogrel 75 mg tablet (Plavix) 75 mg PO DAILY 03/22/21 11/17/23 rosuvastatin 40 mg tablet 40 mg PO DAILY 11/17/23 11/17/23 <TRAV Pulido Last Filed: 02/24/24 02:19> Allergies/Adverse Reactions: Allergies Allergy/AdvReac Type Severity Reaction Status Date / Time ciprofloxacin Allergy Mild Unknown Verified 02/23/24 21:03 gentamicin Allergy Mild Unknown Verified 02/23/24 21:03 losartan Allergy Unknown Unknown Verified 02/23/24 21:03 Sulfa (Sulfonamide Allergy Unknown Verified 02/23/24 21:03 Antibiotics) <Michelle Thornton PA-C - Last Filed: 02/24/24 02:19> Review of Systems Review of Systems: CONSTITUTIONAL: See HPI EYES: Denies visual changes, redness, or discharge. ENT: See HPI CARDIOVASCULAR: See HPI RESPIRATORY: See HPI GASTROINTESTINAL: Denies abdominal pain, nausea, vomiting, or diarrhea. GENITOURINARY: Denies dysuria or hematuria. SKIN: Denies rash or itching. MUSCULOSKELETAL: Denies back pain, joint pain, or myalgia. NEUROLOGIC: Denies headache, numbness, or weakness. PSYCHIATRIC: Denies anxiety or depression. <Michelle Thornton PA-C - Last Filed: 02/24/24 02:19> [facility] Past Medical History Medical History: Medical History Anxiety Arthritis Back pain Bowel obstruction CAD (coronary artery disease) Cataracts, bilateral Dementia Depression Fibromyalgia History of angina History of rectal polyps HLD (hyperlipidemia) HTN (hypertension) Neuropathy Pelvic abscess in female Raynaud's syndrome Systemic lupus erythematosus UTI (urinary tract infection) <Michelle Thornton PA-C - Last Filed: 02/24/24 02:19> Surgical History Surgical History: Surgical History History of intestinal surgery History of left knee replacement Hx of appendectomy Hx of cardiac catheterization Hx of cataract surgery Hx of section Hx of cholecystectomy Hx of heart artery stent x3 <Michelle Thornton PA-C - Last Filed: 02/24/24 02:19> Family History Family History: Family History Sibling Coronary artery disease Hyperlipidemia Hypertension Diabetes mellitus Cancer
[2024-02-23] MEDS: SODIUM CHLORIDE 0.9% IV 1,000 ML 999 ML IV CONT (22:20)
[2024-02-23] MEDS: ONDANSETRON INJ 4 MG/2 ML VIAL IV PUSH (22:20)
[2024-02-23 22:27] LABS: Basophils Percent Auto 0.3 % (0.2-1.2); Eosinophils Absolute Auto 0.1 K/mm3 (0-0.3); Eosinophils Percent Auto 1.6 % (0-4.4); Hematocrit 39.7 % (37.0-47.0); Hemoglobin 12.6 g/dL (12.0-15.0); Immature Granulocyte Absolute 0.02 K/mm3 (0.00-0.031); Immature Granulocyte Percent A 0.3 % (0-0.5); Lymphocytes Absolute Auto 1.08 K/mm3 (0.9-3.2); Lymphocytes Percent Auto 14.5 % (18.3-44.2); Mean Corpuscular HGB Conc 31.7 g/dl (32-36); Mean Corpuscular Volume 97.5 fl (80-100); Mean Platelet Volume 9.9 fl (7.4-10.4); Monocytes Absolute Auto 0.9 K/mm3 (0.1-0.6); Monocytes Percent Auto 11.4 % (2.6-8.5); Neutrophils Absolute Auto 5.3 K/mm3 (1.3-6.7); Neutrophils Percent Auto 71.9 % (45.5-73.1); Platelet Count Result 205 k/mm3 (150-375); Red Blood Count 4.07 M/mm3 (4.2-5.4); Red Cell Distribution Width 13.1 % (11.5-14.5); White Blood Count 7.4 K/mm3 (4.5-10.0)
[2024-02-23 22:38] LABS: Alanine Aminotransferase 12 U/L (6-35); Albumin Level 4.3 g/dL (3.5-5.1); Alkaline Phosphatase 70 U/L (38-126); Anion Gap 5 mmol/L (4-12); Aspartate Amino Transferase 16 U/L (14-36); Bilirubin,Total 0.6 mg/dL (0.2-1.3); Blood Urea Nitrogen 14 mg/dL (7-17); Carbon Dioxide 27 mmol/L (22-30); Chloride 104 mmol/L (98-107); Estimated CRCL calculation 47 ml/min; Estimated Glomerular Filt Rate > 60; Glucose 119 mg/dL (65-110); Potassium 4.1 mmol/L (3.4-5.0); Sodium 136 mmol/L (137-145)
[2024-02-23 22:42] LABS: INR 1.1; Prothrombin Time 14.6 Seconds (11.1-14.7)
[2024-02-23 22:43] LABS: Partial Thromboplastin Time 54.5 Seconds (22.3-36.8)
[2024-02-23 22:49] LABS: NT Pro B Type Natriuretic Pept 414 pg/mL (19.9-100); Troponin I < 0.012 ng/mL (0.000-0.034)
[2024-02-23 23:58] LABS: Appearance Urine Clear (Clear); Bilirubin Urine Negative (Negative); Blood Urine Negative (Negative); Color Urine Yellow (Yellow); Glucose Urine UA Negative (Negative); Ketones Urine Trace mg/dL (Negative); Leukocyte Esterase Ur Negative LEU/UL (Negative); Nitrate Urine Negative (Negative); Protein Urine Negative (Negative); Specific Grav Ur 1.009 (1.001-1.035); Urobilinogen Urine 0.2 mg/dL (<2.0); pH Urine 7.5 (5.0-9.0)
[2024-02-24] LABS: Add Urine Microscopic? NO
[2024-02-24 00:02] VITALS: RESP 16
[2024-02-24 00:50] LABS: Influenza A QL RT-PCR Negative (Negative); Influenza B QL RT-PCR Negative (Negative); RSV RNA, RT-PCR Negative (Negative); SARS-CoV-2 RNA PCR Positive (Negative)
[2024-02-24 01:36] LABS: Troponin I < 0.012 ng/mL (0.000-0.034)
[2024-02-24 02:11] VITALS: PULSE 97; RESP 17; O2SAT 95
[2024-02-24 02:39] VITALS: BP 140/76; PULSE 90; RESP 15; O2SAT 97
== END 2024-02-24 02:39 | disposition home or self-care (01) ==
PROVIDERS: Emergency Medicine; Emergency Provider Physician Assistant
DX: U07.1 COVID-19 (principal); I25.10 Atherosclerotic heart disease of native coronary artery without angina pectoris; F03.90 Unspecified dementia, unspecified severity, without behavioral disturbance, psychotic disturbance, mood disturbance, and anxiety; E78.5 Hyperlipidemia, unspecified; I10 Essential (primary) hypertension; M32.9 Systemic lupus erythematosus, unspecified
CPT/HCPCS: 36415; 71045; 80053; 81003; 83880; 84484; 85025; 85610; 85730; 87637; 93005; 96361; 96374; 99284; J2405; J7030

== ENCOUNTER 2024-03-07 12:43 | Outpatient (CLI) | payer MEDICARE, SELFPAY ==
--- NOTE | ~2024-03-07 | MR_ITS ---
MRI of the cervical spine Clinical History: Cervicalgia Technique: Axial T2-weighted and gradient images, and sagittal T1-weighted, T2-weighted, and STIR gege ges were acquired. Findings: There is no acute fracture or subluxation of cervical spine. Vertebral bodies maintain norm al height and alignment. No suspicious bone marrow signal abnormality seen. At C2-C3, there is no disc bulge or herniation. There is mild degenerative disc change. There is mild facet arthropathy. No central canal stenosis or cord compression. No definite neural foraminal narro wing. At C3-C4, there is degenerative disc narrowing with minimal disc osteophyte complex. There is severe left facet arthropathy and mild right facet arthropathy. There is mild canal stenosis without saw c ord compression. There is severe left neural foraminal narrowing. Right neural foramen preserved. At C4-C5, there is severe degenerative disc narrowing. There is mild disc osteophyte complex with can al stenosis and possible minimal ventral cord flattening. There is bilateral facet arthropathy, sever e in the right side, with mild bilateral neural foraminal narrowing. At C5-C6, there is severe degenerative disc narrowing. There is mild disc osteophyte complex, with mi ld canal stenosis but no saw cord compression. There is probable mild right neural foraminal narrow ing with bilateral facet arthropathy, right worse than left. At C6-C7, there is advanced degenerative disc narrowing. There is mild disc osteophyte complex, with minimal canal stenosis but no saw cord compression. Bilateral neural foramina appear preserved. No abnormal signal seen in the spinal cord. Paravertebral soft tissues are unremarkable. Impression: Moderate degenerative spondylosis, especially through the mid cervical spine, as detailed above. Reviewed, dictated and finalized at location M. Impression: Moderate degenerative spondylosis, especially through the mid cervical spine, a s detailed above.
== END 2024-03-07 12:44 ==
LOC: MICIMG 12:44
PROVIDERS: PCP Psychiatry & Neurology Neurology; Visit Provider Psychiatry & Neurology Neurology
DX: M54.2 Cervicalgia (principal); G44.86 Cervicogenic headache; M43.02 Spondylolysis, cervical region
CPT/HCPCS: 72141

== ENCOUNTER 2024-06-30 16:02 | Emergency (ER) | payer MEDICARE, SELFPAY ==
--- NOTE | 2024-06-30 16:05 | ED.SKABFB ---
HPI - Skin/Abscess/Foreign Bdy General Chief complaint: Skin/Abscess/Foreign Body Stated complaint: rash,swelling right cheek/right eye Time Seen by Provider: 06/30/24 16:04 Source: patient Mode of arrival: ambulatory Limitations: no limitations History of Present Illness HPI narrative: Cheri is an 84-year-old female patient presenting to the clinic today with complaints of right cheek swelling/itchy rash. She reports the area is now painful. This has been going on for the past 2-3 days. Thought initially she may have been bit by an insect when she was recently outside prior to developing a rash. Also reports a rash to the left anterior shoulder and left lower abdomen that her also itchy. She denies any fever, chills, or body aches. No visual changes-no obvious swelling around the eye. No environmental changes. Related Data Home Medications Medication Instructions Recorded Confirmed estradiol 0.01% (0.1 mg/gram) 1 applic vaginal DAILY 11/02/19 06/30/24 vaginal cream (Estrace) sertraline 50 mg tablet 100 mg PO DAILY 11/02/19 06/30/24 aspirin 81 mg chewable tablet 81 mg PO DAILY 11/04/19 06/30/24 carbidopa 25 mg-levodopa 100 mg 2 tablet PO BID 03/22/21 06/30/24 tablet clopidogrel 75 mg tablet (Plavix) 75 mg PO DAILY 03/22/21 06/30/24 rosuvastatin 40 mg tablet 40 mg PO DAILY 11/17/23 06/30/24 methenamine hippurate 1 gram tablet 1 g PO BID 06/30/24 06/30/24 Allergies Allergy/AdvReac Type Severity Reaction Status Date / Time ciprofloxacin Allergy Unknown Unknown Verified 06/30/24 16:07 gentamicin Allergy Unknown Unknown Verified 06/30/24 16:07 losartan Allergy Unknown Unknown Verified 06/30/24 16:07 Sulfa (Sulfonamide Allergy Unknown Unknown Verified 06/30/24 16:07 Antibiotics) Review of Systems Review of Systems: Pertinent positives per HPI. Patient denies any fever, chills, headache, visual changes, dizziness, cough, runny nose, sore throat, shortness of breath, chest pain, palpitations, nausea, vomiting, diarrhea, constipation, abdominal pain, or any urinary issues. [facility] Past Medical History Medical History Anxiety Arthritis Back pain Bowel obstruction CAD (coronary artery disease) Cataracts, bilateral Dementia Depression Fibromyalgia History of angina History of rectal polyps HLD (hyperlipidemia) HTN (hypertension) Neuropathy Pelvic abscess in female Raynaud's syndrome Systemic lupus erythematosus UTI (urinary tract infection) Surgical History Surgical History History of intestinal surgery History of left knee replacement Hx of appendectomy Hx of cardiac catheterization Hx of cataract surgery Hx of section Hx of cholecystectomy Hx of heart artery stent x3 Family History Family History Sibling Coronary artery disease Hyperlipidemia Hypertension Diabetes mellitus Cancer Sibling Hypertension Cancer Social History Social History Smoking status: Never smoker Alcohol intake: never Substance use: never Do You Feel Safe in your Home?: Yes Lack of Transportation: No Lack of Food: Never True Current Housing: I Have Housing Concerned About Future Housing: No Difficulty Paying Gas/Electric Bills: No Difficulty Paying for Meds: No Currently Unemployed: No Education: High School Diploma/GED Difficulty w/ Childcare or Family Care: No Gender identity (if verbalized by the patient): Female Spiritual care concerns: No Comments At the time of my signature, I reviewed and agree with the nursing past medical, surgical, social, and family history. There is no relevant family history pertinent to the patient complaint. Exam Narrative: General: Well-developed, well nourished, in no apparent distress Head: Norm
[2024-06-30 16:17] VITALS: BP 130/55; PULSE 80; RESP 16; TEMP 36.7; O2SAT 99
== END 2024-06-30 16:36 | disposition home or self-care (01) ==
PROVIDERS: Emergency Provider Nurse Practitioner Family
DX: L03.211 Cellulitis of face (principal); L25.9 Unspecified contact dermatitis, unspecified cause; F41.9 Anxiety disorder, unspecified; F32.A Depression, unspecified; F03.90 Unspecified dementia, unspecified severity, without behavioral disturbance, psychotic disturbance, mood disturbance, and anxiety; M79.7 Fibromyalgia; I25.110 Atherosclerotic heart disease of native coronary artery with unstable angina pectoris; E78.5 Hyperlipidemia, unspecified; I10 Essential (primary) hypertension; G62.9 Polyneuropathy, unspecified; I73.00 Raynaud's syndrome without gangrene; M32.9 Systemic lupus erythematosus, unspecified; Z96.652 Presence of left artificial knee joint; Z95.5 Presence of coronary angioplasty implant and graft
CPT/HCPCS: 99213; G0463

== ENCOUNTER 2024-10-10 10:22 | Outpatient (CLI) | payer MEDICARE, SELFPAY ==
--- NOTE | ~2024-10-10 | XR_ITS ---
Left Hand Technique: PA, oblique, and lateral views were obtained. Clinical History: Injury Findings: No acute fracture or dislocation is seen. There is advanced degenerative change of the seco nd and third DIP joints, with moderate degenerative change in the remainder of the interphalangeal babak ints of the fingers. There is also advanced degenerative change of the interphalangeal joint of the t humb.. Soft tissues are unremarkable. 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 Reviewed, dictated and finalized at location M. 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
== END 2024-10-10 10:23 | disposition home or self-care (01) ==
PROVIDERS: PCP Physician Assistant; Visit Provider Physician Assistant
DX: M19.042 Primary osteoarthritis, left hand (principal); S69.92XA Unspecified injury of left wrist, hand and finger(s), initial encounter; X58.XXXA Exposure to other specified factors, initial encounter
CPT/HCPCS: 73130

== ENCOUNTER 2024-10-18 16:50 | Emergency (ER) | payer MEDICARE, SELFPAY ==
[2024-10-18 17:08] VITALS: BP 149/66; PULSE 101; RESP 16; TEMP 36; O2SAT 97
[2024-10-18 17:11] LABS: EDUAAPPEAR Clear; EDUABILI Negative (Negative); EDUABLOOD Trace (Negative); EDUACOLOR1 Yellow; EDUAGLUCOSE Negative (Negative); EDUAKETONE Negative (Negative); EDUALEUKO 3+ (Negative); EDUANITRATE Positive (Negative); EDUAPROTEIN Negative (Negative); EDUASPGRAVITY 1.015; EDUAUROBILI 0.2
--- NOTE | 2024-10-18 17:58 | ED_ITS ---
HPI - Female Genitourinary General Chief complaint: Urogenital-Female Stated complaint: Urinary Problems Time Seen by Provider: 10/18/24 17:58 Source: patient, RN notes reviewed and old records reviewed Mode of arrival: ambulatory Limitations: no limitations History of Present Illness HPI Narrative: The patient presents with complaints urinary frequency and burning that has been present for about 1 week. She does report some mild back pain. She denies any injury or trauma. She denies any fever, chills, sweats. She denies any abdominal pain. She voices no other concerns or complaints at this time. Related Data Home Medications Medication Instructions Recorded Confirmed estradiol 0.01% (0.1 mg/gram) 1 applic vaginal DAILY 11/02/19 06/30/24 vaginal cream (Estrace) sertraline 50 mg tablet 100 mg PO DAILY 11/02/19 06/30/24 aspirin 81 mg chewable tablet 81 mg PO DAILY 11/04/19 06/30/24 carbidopa 25 mg-levodopa 100 mg 2 tablet PO BID 03/22/21 06/30/24 tablet clopidogrel 75 mg tablet (Plavix) 75 mg PO DAILY 03/22/21 06/30/24 rosuvastatin 40 mg tablet 40 mg PO DAILY 11/17/23 06/30/24 methenamine hippurate 1 gram tablet 1 g PO BID 06/30/24 06/30/24 Allergies Allergy/AdvReac Type Severity Reaction Status Date / Time ciprofloxacin Allergy Unknown Unknown Verified 10/18/24 16:52 gentamicin Allergy Unknown Unknown Verified 10/18/24 16:52 losartan Allergy Unknown Unknown Verified 10/18/24 16:52 Sulfa (Sulfonamide Allergy Unknown Unknown Verified 10/18/24 16:52 Antibiotics) Review of Systems Review of Systems: All systems reviewed & are unremarkable except as noted in HPI and below Constitutional: Constitutional: Reports no additional constitutional complaints ENT: Reports system reviewed and no additional complaints, except as documented Cardiovascular: Cardiovascular: Reports no additional cardiovascular complaints Respiratory: Respiratory: Reports no additional respiratory complaints Gastrointestinal: Gastrointestinal: Reports no additional gastrointestinal complaints Genitourinary: Genitourinary: Reports no additional female genitourinary complaints, Reports as per HPI, Reports dysuria and Reports urinary urgency PMFSH Past Medical History Medical History Anxiety Arthritis Back pain Bowel obstruction CAD (coronary artery disease) Cataracts, bilateral Dementia Depression Fibromyalgia History of angina History of rectal polyps HLD (hyperlipidemia) HTN (hypertension) Neuropathy Pelvic abscess in female Raynaud's syndrome Systemic lupus erythematosus UTI (urinary tract infection) Surgical History Surgical History History of intestinal surgery History of left knee replacement Hx of appendectomy Hx of cardiac catheterization Hx of cataract surgery Hx of section Hx of cholecystectomy Hx of heart artery stent x3 Family History Family History Sibling Coronary artery disease Hyperlipidemia Hypertension Diabetes mellitus Cancer Sibling Hypertension Cancer Social History Social History Smoking status: Never smoker Alcohol intake: never Substance use: never Do You Feel Safe in your Home?: Yes Lack of Transportation: No Lack of Food: Never True Current Housing: I Have Housing Concerned About Future Housing: No Difficulty Paying Gas/Electric Bills: No Difficulty Paying for Meds: No Currently Unemployed: No Education: High School Diploma/GED Difficulty w/ Childcare or Family Care: No Gender identity (if verbalized by the patient): Female Spiritual care concerns: No Comments At the time of my signature, I reviewed and agree with the nursing past medical, surgical, social, and family history. There is no relevant family h istory pertinent to the patient complaint. Exam Const: General: cooperative, no acute distress, alert and awake Orientation/consciousness: oriented to person, oriented to place and oriented to time HENMT: Head: normal to inspection Resp: Effort & Inspection: normal respiratory effort and able to speak in complete sentences Auscultation: clear to auscultation bilaterally, no crackles, no rales, no rhonchi and no wheezes Cardio: Palpation: normal PMI Rate: regular rate Rhythm: regular rhythm Heart sounds: S1 normal heart sound present and S2 normal heart sound present : General: Yes bladder normal to palpation and Yes no CVA tenderness Back/Spine/Pelvis: Back: no CVA tenderness Neuro: General: oriented to person, oriented to place and oriented to time Cranial nerves: Yes CN's II-XII intact bilaterally Psych: Appearance: grossly normal Thought process: Normal thought process present Insight: Good insight present (Psych) Judgement: Good judgement present (Psych) Course Course Level of Care: Express Care Visit Vital Signs Vital signs: Vital Signs Temperature 96.8 F L 10/18/24 17:08 Pulse Rate 101 H 10/18/24 17:08 Respiratory Rate 16 10/18/24 17:08 Blood Pressure 149/66 H 10/18/24 17:08 Pulse Oximetry 97 10/18/24 17:08 Oxygen Delivery Room Air 10/18/24 17:08 Temperature 96.8 F L 10/18/24 17:08 Pulse Rate 101 H 10/18/24 17:08 Respiratory Rate 16 10/18/24 17:08 Blood Pressure 149/66 H 10/18/24 17:08 Pulse Oximetry 97 10/18/24 17:08 Oxygen Delivery Room Air 10/18/24 17:08 Reviewed MDM - Female Genitourinary MDM Narrative Medical decision making narrative: UA, history, exam consistent with UTI. Treated same. Culture sent. Patient advised to follow with primary care provider. Emergency department for any new or worse symptoms. Discharge instructions reviewed with patient, as well as provided in writing per nursing staff. The instructions also include specific and strict return/GO TO THE ER as well as f/u information. All questions have been answered, and the patient deny any further questions with discharge and discharge plan. Some parts of this dictation were generated by voice recognition software and may contain typographical and/or grammatical inaccuracies. Differential Diagnosis Differential diagnosis: Likely urinary tract infection and cystitis Medical Records Attestation: I reviewed the patient's medical records. Lab Data Attestation: I reviewed the patient's lab results. Labs: Lab Results 10/18/24 Range/Units 17:08 POC Urine Color Yellow POC Urine Clarity Clear POC Urine pH 7.0 POC Ur Specif [place] 1.015 POC Urine Protein Negative (Negative) POC Ur Glucose (UA) Negative (Negative) POC Urine Ketones Negative (Negative) POC Urine Blood Trace (Negative) POC Urine Nitrite Positive (Negative) POC Urine Bilirubin Negative (Negative) POC Urine Urobilinogen 0.2 POC U Leukocyte Esteras 3+ (Negative) Discharge Plan Discharge Clinical Impression: UTI (urinary tract infection) Qualifiers: Urinary tract infection type: site unspecified Hematuria presence: with hematuria Qualified Code(s): N39.0 - Urinary tract infection, site not specified Patient Disposition: Home, Self-Care Condition: Stable Instructions: Antibiotic Form, Urinary Tract Infection in Women (ED) Additional Instructions: One take medications as prescribed. Follow-up with primary care provider. Emergency department for any new or worse symptoms Patient Language: Iranian Prescriptions: New nitrofurantoin monohyd/m-cryst [Macrobid] 100 mg capsule 100 mg PO Q12H 5 Days Qty: 10 0RF Rx Instructions: must administer with a meal/food No Action estradiol [Estrace] 0.01 % (0.1 mg/gram) cream 1 applic VAGINAL DAILY sertraline 50 mg tablet 100 mg PO DAILY methenamine hippurate 1 gram tablet 1 g PO BID doxycycline monohydrate 100 mg capsule 100 mg PO BID 7 Days Qty: 14 0RF cephalexin 500 mg capsule 500 mg PO Q8H 7 Days Qty: 21 0RF rosuvastatin 40 mg tablet 40 mg PO DAILY lisinopril 5 mg tablet 5 mg PO DAILY Qty: 30 1RF aspirin 81 mg Tablet,Chewable 81 mg PO DAILY clopidogrel [Plavix] 75 mg Tablet 75 mg PO DAILY carbidopa-levodopa 25-100 mg Tablet 2 tablet PO BID Follow-up/Referrals: Miko,TRAV Bone [Primary Care Provider] - 1 Week Time of Disposition: 18:08
== END 2024-10-18 18:10 | disposition home or self-care (01) ==
PROVIDERS: Emergency Provider Nurse Practitioner Family; PCP Physician Assistant
DX: N39.0 Urinary tract infection, site not specified (principal); B96.20 Unspecified Escherichia coli [E. coli] as the cause of diseases classified elsewhere; I25.110 Atherosclerotic heart disease of native coronary artery with unstable angina pectoris; F03.90 Unspecified dementia, unspecified severity, without behavioral disturbance, psychotic disturbance, mood disturbance, and anxiety; M79.7 Fibromyalgia; I10 Essential (primary) hypertension; E78.5 Hyperlipidemia, unspecified; M32.9 Systemic lupus erythematosus, unspecified; I73.00 Raynaud's syndrome without gangrene; G62.9 Polyneuropathy, unspecified; F41.9 Anxiety disorder, unspecified; F32.A Depression, unspecified; Z96.652 Presence of left artificial knee joint; Z95.5 Presence of coronary angioplasty implant and graft; Z79.82 Long term (current) use of aspirin; Z79.01 Long term (current) use of anticoagulants
CPT/HCPCS: 81003; 87077; 87086; 87186; 99213; G0463

== ENCOUNTER 2024-11-22 15:30 | Outpatient (CLI) | payer MEDICARE, SELFPAY ==
--- NOTE | ~2024-11-22 | XR_ITS ---
XR abdomen/kub 1V Ordering provider: Smitha Crouch, TRAV History: . Constipation . Comparison: None. FINDINGS: BOWEL: Fecal material seen in the right and left side of the colon. Nonobstructive bowel gas pattern. ORGANOMEGALY: None. SIGNIFICANT PATHOLOGIC CALCIFICATIONS: None. OTHER: No free air is seen under the diaphragm. Degenerative the spine. Bilateral hip osteoarthritic changes. IMPRESSION: NO ACUTE ABDOMINAL FINDINGS. Constipation. Reviewed, dictated and finalized at location A. EAR CONTROL OPERATOR
--- NOTE | ~2024-11-22 | XR_ITS ---
XR knee LT min 4V Ordering provider: Smitha Crouch, TRAV History: . Pain in left knee . Comparison: None. FINDINGS: BONES: No acute fracture or dislocation. JOINT SPACES: Total knee arthroplasty. SOFT TISSUES: Normal. IMPRESSION: No acute osseous abnormality left knee. Total knee arthroplasty. Reviewed, dictated and finalized at location A. 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
== END 2024-11-22 15:31 | disposition home or self-care (01) ==
LOC: MICIMG 15:32
PROVIDERS: PCP Physician Assistant; Visit Provider Physician Assistant
DX: R19.7 Diarrhea, unspecified (principal); Z96.652 Presence of left artificial knee joint; K59.00 Constipation, unspecified; M25.562 Pain in left knee
CPT/HCPCS: 73564; 74018

== ENCOUNTER 2025-05-19 09:53 | Outpatient (CLI) | payer MEDICARE, SELFPAY ==
[2025-05-19 10:34] LABS: Basophils Percent Auto 0.5 % (0.2-1.2); Eosinophils Absolute Auto 0.3 K/mm3 (0-0.3); Eosinophils Percent Auto 4.5 % (0-4.4); Hematocrit 40.4 % (37.0-47.0); Hemoglobin 12.7 g/dL (12.0-15.0); Immature Granulocyte Absolute 0.02 K/mm3 (0.00-0.031); Immature Granulocyte Percent A 0.4 % (0-0.5); Lymphocytes Absolute Auto 1.93 K/mm3 (0.9-3.2); Lymphocytes Percent Auto 34.8 % (18.3-44.2); Mean Corpuscular HGB Conc 31.4 g/dl (32-36); Mean Corpuscular Hemoglobin 30.8 pg (26-34); Mean Corpuscular Volume 97.8 fl (80-100); Mean Platelet Volume 10.3 fl (7.4-10.4); Monocytes Absolute Auto 0.5 K/mm3 (0.1-0.6); Monocytes Percent Auto 9.7 % (2.6-8.5); Neutrophils Absolute Auto 2.8 K/mm3 (1.3-6.7); Neutrophils Percent Auto 50.1 % (45.5-73.1); Platelet Count Result 240 k/mm3 (150-375); Red Blood Count 4.13 M/mm3 (4.2-5.4); Red Cell Distribution Width 13.2 % (11.5-14.5); White Blood Count 5.5 K/mm3 (4.5-10.0)
[2025-05-19 10:41] LABS: Add Urine Microscopic? YES; Appearance Urine Clear (Clear); Bacteria Urine None Seen /hpf; Bilirubin Urine Negative (Negative); Blood Urine Negative (Negative); Color Urine Yellow (Yellow); Glucose Urine UA Negative (Negative); Ketones Urine Negative (Negative); Leukocyte Esterase Ur Trace LEU/UL (Negative); Nitrate Urine Negative (Negative); Non Pathogenic Casts 0-2; Protein Urine Negative (Negative); RBC Urine 0-2 /hpf (0-2); Specific Grav Ur 1.012 (1.001-1.035); Squamous Epithelial Cell Urine None Seen /hpf (Few); Urobilinogen Urine 0.2 mg/dL (<2.0); WBC Urine 0-5 /hpf (0-3)
[2025-05-19 10:50] LABS: Alanine Aminotransferase 11 U/L (6-35); Albumin Level 4.5 g/dL (3.5-5.1); Alkaline Phosphatase 65 U/L (38-126); Amylase 145 U/L (30-110); Anion Gap 6 mmol/L (4-12); Aspartate Amino Transferase 20 U/L (14-36); Bilirubin,Total 0.6 mg/dL (0.2-1.3); Blood Urea Nitrogen 13 mg/dL (7-17); Calcium 9.5 mg/dL (8.4-10.2); Carbon Dioxide 32 mmol/L (22-30); Chloride 105 mmol/L (98-107); Estimated Glomerular Filt Rate > 60; Glucose 95 mg/dL (65-110); Lipase 472 U/L (23-300); Potassium 4.4 mmol/L (3.4-5.0); Sodium 143 mmol/L (137-145); Total Protein 7.9 g/dL (6.3-8.2)
== END 2025-05-19 09:54 | disposition home or self-care (01) ==
LOC: ANHLAB 09:57
PROVIDERS: PCP Physician Assistant; Visit Provider Physician Assistant
DX: R10.13 Epigastric pain (principal)
CPT/HCPCS: 36415; 80048; 80076; 81001; 82150; 83690; 85025; 87086

== ENCOUNTER 2025-05-19 11:10 | Outpatient (CLI) | payer MEDICARE, SELFPAY ==
--- NOTE | ~2025-05-19 | XR_ITS ---
EXAMINATION: XR UGIAC wo kub DATE: 05/19/2025 12:11 INDICATION: Epigastric pain TECHNIQUE: The patient drank thick barium, gas-producing crystals, and thin barium. A total of 663 fl uoroscopic images of the esophagus, stomach, and proximal small bowel were obtained. Fluoroscopy expo sure time was 2.0 minutes. Total DAP was 3.688 Gycm^2. COMPARISON: None. FINDINGS: The esophagus is normal without mass or stricture. Esophageal motility is normal. There is no hiatal hernia. There was no gastroesophageal reflux with provocative maneuvers. The stomach and pr oximal small bowel are normal. Incidentally noted is recurrent laryngeal penetration with one episode of silent aspiration which was cleared within a prompted cough. IMPRESSION: 1. Laryngeal penetration with one episode of silent aspiration. With consider further evaluation with dedicated modified swallow study performed by the department of speech pathology. 2. Otherwise unremarkable upper GI study with no hiatal hernia or evident gastroesophageal reflux wit h provocative maneuvers. Reviewed, dictated and finalized at location B. IMPRESSION: 1. Laryngeal penetration with one episode of silent aspiration. With consider f urther evaluation with dedicated modified swallow study performed by the depart ment of speech pathology. 2. Otherwise unremarkable upper GI study with no hiatal hernia or evident gastr oesophageal reflux with provocative maneuvers.
== END 2025-05-19 11:11 | disposition home or self-care (01) ==
LOC: MICIMG 11:11
PROVIDERS: PCP Physician Assistant; Visit Provider Physician Assistant
DX: R10.13 Epigastric pain (principal)
CPT/HCPCS: 74246

== ENCOUNTER 2025-05-26 16:39 | Emergency (ER) | payer MEDICARE, SELFPAY ==
--- NOTE | ~2025-05-26 | CT_ITS ---
EXAMINATION: CT abdomen pelvis w con DATE: 05/26/2025 21:19 INDICATION: abd pain generalized x 2 weeks TECHNIQUE: Computed tomography (CT) of the abdomen and pelvis was performed with 100 mL Omnipaque-350 intravenous contrast. Automated exposure control and iterative reconstruction technique were employe d. The dose-length product was 225.41 mGy-cm. COMPARISON: 11/17/2023. FINDINGS: Lower thorax: Bibasilar scar/atelectasis. Coronary calcifications. Liver: Subcentimeter left lobe cyst. Subcentimeter right lobe hemangioma. Biliary/Gallbladder: Gallbladder is absent. Mild intra and extrahepatic bile duct dilation, presumabl y secondary to cholecystectomy. Pancreas: No mass or duct dilation. Spleen: Normal. Adrenals:No mass. Kidneys: No suspicious mass, obstructing stone, or hydronephrosis. Multiple subcentimeter hypodensiti es in the left kidney, too small to characterize but most likely represent cysts. GI tract: Moderate distal esophageal and gastric wall edema. No small or large bowel dilation. Append ix not confidently visualized. Severe diverticulosis without diverticulitis. Mesentery/Peritoneum: No ascites, mass, or free air. Retroperitoneum: No mass. Atherosclerotic calcifications of intra-abdominal arterial vessels. Pelvis: Mild urinary bladder wall thickening. Absent uterus. Bilateral ovaries not confidently identi fied. Soft Tissues: Soft tissues and body wall unremarkable. Bones: No acute osseous finding. IMPRESSION: Moderate esophagitis/gastritis. Bladder wall thickening as can be seen with cystitis. Reviewed, dictated and finalized at location K.
[2025-05-26 16:40] VITALS: BP 168/62; PULSE 70; RESP 18; TEMP 36.5; O2SAT 97
--- NOTE | 2025-05-26 16:41 | ED_ITS ---
HPI - Abdominal Pain General Chief Complaint: Abdominal Pain <Izzy Valenzuela PA-C - Last Filed: 05/27/25 12:31> Stated Complaint: possible pancreatitis <Izzy Valenzuela PA-C - Last Filed: 05/27/25 12:31> Time Seen by Provider: 05/26/25 16:42 <Izzy Valenzuela PA-C - Last Filed: 05/27/25 12:31> Focused HPI: This is a 84 year old female that presents to the ER for abdominal pain, nausea. Ongoing over the last several weeks. She believes she may have pancreatitis. GENERAL: Elderly, well-nourished, and in no acute distress. HEAD: Normocephalic, atraumatic. CHEST: Clear to auscultation. ?No respiratory distress. HEART: Regular rate and rhythm.? NEURO: ?Alert and oriented x3. Patient screened in triage and initial orders placed.? ?Additional care and disposition to be based upon?diagnostic testing and treatment. <Izzy Valenzuela PA-C - Last Filed: 05/27/25 12:31> Focused HPI: This is a 84 year old female that presents to the ER for abdominal pain, nausea. Ongoing over the last several weeks. She believes she may have pancreatitis. GENERAL: Elderly, well-nourished, and in no acute distress. HEAD: Normocephalic, atraumatic. CHEST: Clear to auscultation. ?No respiratory distress. HEART: Regular rate and rhythm.? NEURO: ?Alert and oriented x3. Patient screened in triage and initial orders placed.? ?Additional care and disposition to be based upon?diagnostic testing and treatment. Agree with triage assessment. Patient states that the pain has actually been going on for 6 months but has been worsening for the past month. She has not seen a physician regarding this pain. Has been having regular bowel movements and passing gas. Admits to mild nausea but denies any vomiting episodes, denies any constipation or diarrhea. Noted the symptoms or concerns at this time. <Donnell Kennedy MD - Last Filed: 05/26/25 21:46> Related Data Home Medications: Home Medications ?Medication ?Instructions ?Recorded ?Confirmed ?Last Taken ?Type estradiol 0.01% (0.1 mg/gram) 1 applic vaginal DAILY 11/02/19 06/30/24 Unknown History vaginal cream (Estrace) sertraline 50 mg tablet 100 mg PO DAILY 11/02/19 06/30/24 03/22/21 History aspirin 81 mg chewable tablet 81 mg PO DAILY 11/04/19 06/30/24 03/22/21 History carbidopa 25 mg-levodopa 100 mg 2 tablet PO BID 03/22/21 06/30/24 03/22/21 History tablet clopidogrel 75 mg tablet (Plavix) 75 mg PO DAILY 03/22/21 06/30/24 03/22/21 History rosuvastatin 40 mg tablet 40 mg PO DAILY 11/17/23 06/30/24 Unknown History methenamine hippurate 1 gram tablet 1 g PO BID 06/30/24 06/30/24 Unknown History <Izzy Valenzuela PA-C - Last Filed: 05/27/25 12:31> Allergies/Adverse Reactions: Allergies Allergy/AdvReac Type Severity Reaction Status Date / Time ciprofloxacin Allergy Unknown Unknown Verified 05/26/25 16:44 gentamicin Allergy Unknown Unknown Verified 05/26/25 16:44 losartan Allergy Unknown Unknown Verified 05/26/25 16:44 Sulfa (Sulfonamide Allergy Unknown Unknown Verified 05/26/25 16:44 Antibiotics) <Izzy Valenzuela PA-C - Last Filed: 05/27/25 12:31> Review of Systems 2 Review of Systems: All systems are reviewed and are negative unless stated otherwise in the HPI. <Donnell Kennedy MD - Last Filed: 05/26/25 21:46> PMFSH Past Medical History Medical History: Medical History Dementia Pelvic abscess in female Bowel obstruction Depression Anxiety Systemic lupus erythematosus Back pain Arthritis Fibromyalgia UTI (urinary tract infection) History of rectal polyps HTN (hypertension) HLD (hyperlipidemia) CAD (coronary artery disease) Raynaud's syndrome Neuropathy History of angina Cataracts, bilateral <Izzy Valenzuela PA-C - Last Filed: 05/27/25 12:31> Surgical History Surgical History: Surgical History History of left knee replacement Hx of section Hx of cholecystectomy Hx of appendectomy History of intestinal surgery Hx of heart artery stent x3 Hx of cardiac catheterization Hx of cataract surgery <Izzy Valenzuela PA-C - Last Filed: 05/27/25 12:31> Family History Family History: Family History Sibling Coronary artery disease Hyperlipidemia Hypertension Diabetes mellitus Cancer Sibling Hypertension Cancer <Izzy Valenzuela PA-C - Last Filed: 05/27/25 12:31> Social History Social History: Social History Smoking status: Never smoker Alcohol intake: never Substance use: never Do You Feel Safe in your Home?: Yes Lack of Transportation: No Lack of Food: Never True Current Housing: I Have Housing Concerned About Future Housing: No Difficulty Paying Gas/Electric Bills: No Difficulty Paying for Meds: No Currently Unemployed: No Education: High School Diploma/GED Difficulty w/ Childcare or Family Care: No Gender identity (if verbalized by the patient): Female Spiritual care concerns: No <Izzy Valenzuela PA-C - Last Filed: 05/27/25 12:31> Exam 2 Narrative: General: Alert, awake, afebrile, in no acute distress. HEENT: PERRL, no rhinorrhea, no post nasal drip, oropharynx clear. Neck: Trachea midline, no JVD, no lymphadenopathy. Cardiovascular: Regular rate and rhythm, no murmurs, rubs or gallops, no peripheral edema. Respiratory: Clear to auscultation bilaterally, no tachypnea, no wheezing, no rhonchi, no rubs, no respiratory distress. Abdomen: Soft, nontender, nondistended, no rebound, no guarding, no peritoneal signs. Musculoskeletal: No joint swelling or deformity, normal muscle tone. Skin: No rashes or petechia, no signs of infection. Psychiatric: Alert and oriented, normal behavior and judgment for situation. Neurological: Alert and oriented to person, place, and time. Follows all commands. No focal deficits, speech is clear and fluent. <Donnell Kennedy MD - Last Filed: 05/26/25 21:46> Course Vital Signs Vital signs: Vital Signs Temperature 97.7 F 05/26/25 16:40 Pulse Rate 70 05/26/25 16:40 Respiratory Rate 18 05/26/25 16:40 Blood Pressure 168/62 H 05/26/25 16:40 Pulse Oximetry 97 05/26/25 16:40 Oxygen Delivery Room Air 05/26/25 16:40 Temperature 97.9 F 05/26/25 18:30 Pulse Rate 69 05/26/25 22:39 Respiratory Rate 16 05/26/25 22:39 Blood Pressure 132/80 05/26/25 22:39 Pulse Oximetry 99 05/26/25 22:39 Oxygen Delivery Room Air 05/26/25 16:40 <Izzy Valenzuela PA-C - Last Filed: 05/27/25 12:31> Vital Signs Temperature 97.7 F 05/26/25 16:40 Pulse Rate 70 05/26/25 16:40 Respiratory Rate 18 05/26/25 16:40 Blood Pressure 168/62 H 05/26/25 16:40 Pulse Oximetry 97 05/26/25 16:40 Oxygen Delivery Room Air 05/26/25 16:40 Temperature 97.9 F 05/26/25 18:30 Pulse Rate 69 05/26/25 22:39 Respiratory Rate 16 05/26/25 22:39 Blood Pressure 132/80 05/26/25 22:39 Pulse Oximetry 99 05/26/25 22:39 Oxygen Delivery Room Air 05/26/25 16:40 <Donnell Kennedy MD - Last Filed: 05/26/25 21:46> MDM - Abdominal Pain MDM Narrative Medical decision making narrative: The patient was evaluated by myself in the emergency department. History is obtained from patient who is an independent historian and physical exam was performed. External medical records were reviewed at this time. IV was established and pertinent tests were ordered. Patient was administered 20 mg of IV Pepcid and 1 L IV fluid bolus with normal saline. Laboratory results obtained revealing no acute process. Urinalysis unremarkable. Imaging studies obtained included CT abdomen pelvis with IV contrast which was independently interpreted by me revealing: IMPRESSION: Moderate esophagitis/gastritis. Bladder wall thickening as can be seen with cystitis. Differential diagnosis considerations include peptic ulcer disease, gastritis, pancreatitis, constipation. Comorbidities impacting this visit include none. I have evaluated and discussed social determinants of health with the patient that could potentially impact subsequent diagnosis and treatment plans. On repeat assessment of the patient, reevaluation revealed that the patient is doing well and is in no acute distress. Patient symptoms have improved since she arrived to our emergency department. Repeat vital signs were all reviewed and noted to be stable. Differential diagnosis and treatment plan were discussed with the patient at bedside. Patient agrees with discussion and after shared medical decision making agrees with discharge. All questions were answered to the patient's satisfaction. Patient will follow up with GI in 3-5 days. Patient was provided with strict return precautions and instructed to return to the emergency department if any new or worsening symptoms develop. The patient was discharged in stable condition. <Donnell Kennedy MD - Last Filed: 05/26/25 21:46> Lab Data Result diagrams: 05/26/25 19:48 05/26/25 19:48 <Izzy Valenzuela PA-C - Last Filed: 05/27/25 12:31> Labs: Lab Results 05/26/25 05/26/25 Range/Units 19:48 20:51 WBC 6.1 (4.5-10.0) K/mm3 RBC 3.99 L (4.2-5.4) M/mm3 Hgb 12.3 (12.0-15.0) g/dL Hct 38.9 (37.0-47.0) % MCV 97.5 (80-100) fl MCH 30.8 (26-34) pg MCHC 31.6 L (32-36) g/dl RDW 13.1 (11.5-14.5) % Plt Count 210 (150-375) k/mm3 MPV 9.9 (7.4-10.4) fl Immature Gran % (Auto) 0.2 (0-0.5) % Neut % (Auto) 41.4 L (45.5-73.1) % Lymph % (Auto) 41.6 (18.3-44.2) % [place] % (Auto) 11.2 H (2.6-8.5) % Eos % (Auto) 4.9 H (0-4.4) % Baso % (Auto) 0.7 (0.2-1.2) % Lymph # (Auto) 2.53 (0.9-3.2) K/mm3 [place] # (Auto) 0.7 H (0.1-0.6) K/mm3 Eos # (Auto) 0.3 (0-0.3) K/mm3 Baso # (Auto) 0.0 (0.0-0.1) K/mm3 Abs Immat Gran (auto) 0.01 (0.00-0.031) K/mm3 Absolute Neuts (auto) 2.5 (1.3-6.7) K/mm3 Absolute Nucleated RBC 0.000 (0.0-0.012) K/mm3 Nucleated RBC % 0.0 (0.0-0.2) % Sodium 141 (137-145) mmol/L Potassium 4.3 (3.4-5.0) mmol/L Chloride 103 (98-107) mmol/L Carbon Dioxide 32 H (22-30) mmol/L Anion Gap 6 (4-12) mmol/L BUN 15 (7-17) mg/dL Creatinine 0.70 (0.7-1.0) mg/dL Estim Creat Clear Calc 45 ml/min Estimated GFR > 60 (59 - ) Glucose 89 (65-110) mg/dL Calcium 9.4 (8.4-10.2) mg/dL Total Bilirubin 0.3 (0.2-1.3) mg/dL AST 15 (14-36) U/L ALT 12 (6-35) U/L Alkaline Phosphatase 68 (38-126) U/L Total Protein 7.8 (6.3-8.2) g/dL Albumin 4.5 (3.5-5.1) g/dL Lipase 161 (23-300) U/L Urine Color Yellow (Yellow) Urine Appearance Clear (Clear) Urine pH 6.5 (5.0-9.0) Ur Specific [place] 1.007 (1.001-1.035) Urine Protein Negative (Negative) mg/dL Urine Glucose (UA) Negative (Negative) mg/dL Urine Ketones Negative (Negative) mg/dL Ur Blood (Man) Negative (Negative) Urine Nitrate Negative (Negative) Urine Bilirubin Negative (Negative) Urine Urobilinogen 0.2 (<2.0) mg/dL Leukocyte Esterase Rfl Trace H (Negative) TONG/UL Urine RBC 0-2 (0-2) /hpf Urine WBC 0-5 (0-3) /hpf Ur Squamous Epith Cells None seen (Few) /hpf Urine Bacteria None seen /hpf Urine Casts 0-2 <Izzy Valenzuela PA-C - Last Filed: 05/27/25 12:31> Lab Results 05/26/25 05/26/25 Range/Units 19:48 20:51 WBC 6.1 (4.5-10.0) K/mm3 RBC 3.99 L (4.2-5.4) M/mm3 Hgb 12.3 (12.0-15.0) g/dL Hct 38.9 (37.0-47.0) % MCV 97.5 (80-100) fl MCH 30.8 (26-34) pg MCHC 31.6 L (32-36) g/dl RDW 13.1 (11.5-14.5) % Plt Count 210 (150-375) k/mm3 MPV 9.9 (7.4-10.4) fl Immature Gran % (Auto) 0.2 (0-0.5) % Neut % (Auto) 41.4 L (45.5-73.1) % Lymph % (Auto) 41.6 (18.3-44.2) % [place] % (Auto) 11.2 H (2.6-8.5) % Eos % (Auto) 4.9 H (0-4.4) % Baso % (Auto) 0.7 (0.2-1.2) % Lymph # (Auto) 2.53 (0.9-3.2) K/mm3 [place] # (Auto) 0.7 H (0.1-0.6) K/mm3 Eos # (Auto) 0.3 (0-0.3) K/mm3 Baso # (Auto) 0.0 (0.0-0.1) K/mm3 Abs Immat Gran (auto) 0.01 (0.00-0.031) K/mm3 Absolute Neuts (auto) 2.5 (1.3-6.7) K/mm3 Absolute Nucleated RBC 0.000 (0.0-0.012) K/mm3 Nucleated RBC % 0.0 (0.0-0.2) % Sodium 141 (137-145) mmol/L Potassium 4.3 (3.4-5.0) mmol/L Chloride 103 (98-107) mmol/L Carbon Dioxide 32 H (22-30) mmol/L Anion Gap 6 (4-12) mmol/L BUN 15 (7-17) mg/dL Creatinine 0.70 (0.7-1.0) mg/dL Estim Creat Clear Calc 45 ml/min Estimated GFR > 60 (59 - ) Glucose 89 (65-110) mg/dL Calcium 9.4 (8.4-10.2) mg/dL Total Bilirubin 0.3 (0.2-1.3) mg/dL AST 15 (14-36) U/L ALT 12 (6-35) U/L Alkaline Phosphatase 68 (38-126) U/L Total Protein 7.8 (6.3-8.2) g/dL Albumin 4.5 (3.5-5.1) g/dL Lipase 161 (23-300) U/L Urine Color Yellow (Yellow) Urine Appearance Clear (Clear) Urine pH 6.5 (5.0-9.0) Ur Specific [place] 1.007 (1.001-1.035) Urine Protein Negative (Negative) mg/dL Urine Glucose (UA) Negative (Negative) mg/dL Urine Ketones Negative (Negative) mg/dL Ur Blood (Man) Negative (Negative) Urine Nitrate Negative (Negative) Urine Bilirubin Negative (Negative) Urine Urobilinogen 0.2 (<2.0) mg/dL Leukocyte Esterase Rfl Trace H (Negative) TONG/UL Urine RBC 0-2 (0-2) /hpf Urine WBC 0-5 (0-3) /hpf Ur Squamous Epith Cells None seen (Few) /hpf Urine Bacteria None seen /hpf Urine Casts 0-2 <Donnell Kennedy MD - Last Filed: 05/26/25 21:46> Imaging Data Radiologist's impression: ITS Impressions Abdomen/Pelvis CT 05/26/25 21:30 IMPRESSION: Moderate esophagitis/gastritis. Bladder wall thickening as can be seen with cystitis. <Izzy Valenzuela PA-C - Last Filed: 05/27/25 12:31> ITS Impressions Abdomen/Pelvis CT 05/26/25 21:30 IMPRESSION: Moderate esophagitis/gastritis. Bladder wall thickening as can be seen with cystitis. <Donnell Kennedy MD - Last Filed: 05/26/25 21:46> Discharge Plan Discharge Clinical Impression: Abdominal pain, chronic, epigastric Gastritis Qualifiers: Gastritis type: unspecified gastritis Chronicity: acute Gastritis bleeding: w ithout bleeding Qualified Code(s): K29.00 - Acute gastritis without bleeding <Izzy Valenzuela PA-C - Last Filed: 05/27/25 12:31> Patient Disposition: Home <Izzy Valenzuela PA-C - Last Filed: 05/27/25 12:31> Condition: Improved <Izzy Valenzuela PA-C - Last Filed: 05/27/25 12:31> Instructions: Antibiotic Form, Gastritis (DC), Abdominal Pain (ED) <Izzy Valenzuela PA-C - Last Filed: 05/27/25 12:31> Additional Instructions: Please follow-up with the GI doctor you were provided with today within the next 3 to 5 days. Return to the emergency department if any new or worsening symptoms develop. <Izzy Valenzuela PA-C - Last Filed: 05/27/25 12:31> Patient Language: Brazilian <Izzy Valenzuela PA-C - Last Filed: 05/27/25 12:31> Prescriptions: No Action estradiol [Estrace] 0.01 % (0.1 mg/gram) cream 1 applic VAGINAL DAILY sertraline 50 mg tablet 100 mg PO DAILY methenamine hippurate 1 gram tablet 1 g PO BID doxycycline monohydrate 100 mg capsule 100 mg PO BID 7 Days Qty: 14 0RF cephalexin 500 mg capsule 500 mg PO Q8H 7 Days Qty: 21 0RF nitrofurantoin monohyd/m-cryst [Macrobid] 100 mg capsule 100 mg PO Q12H 5 Days Qty: 10 0RF Rx Instructions: must administer with a meal/food rosuvastatin 40 mg tablet 40 mg PO DAILY lisinopril 5 mg tablet 5 mg PO DAILY Qty: 30 1RF aspirin 81 mg Tablet,Chewable 81 mg PO DAILY clopidogrel [Plavix] 75 mg Tablet 75 mg PO DAILY carbidopa-levodopa 25-100 mg Tablet 2 tablet PO BID <Izzy Valenzuela PA-C - Last Filed: 05/27/25 12:31> Follow-up/Referrals: Amadai,TRAV Bone [Primary Care Provider] - Robel Mitchell MD [Physician] - 3 Days <Izzy Valenzuela PA-C - Last Filed: 05/27/25 12:31> Time of Disposition: 21:45 <Izzy Valenzuela PA-C - Last Filed: 05/27/25 12:31> 21:45 <Donnell Kennedy MD - Last Filed: 05/26/25 21:46>
--- OUTSIDE RECORDS SUMMARY | 2025-05-26 16:42 | XMS_ITS | Encounter Summary ---
Author Organization [facility] Address [address] [place] [address] Phone Care Team Providers Care Maintenance And Engineering Manager Name Role Phone Henrique Bah MD Primary Care Provider Tosha Small MD Unavailable Grabiel Carolina MD Unavailable [phone] Richard Fontaine MD Unavailable Navjot Barron MD Unavailable [phone] La Nena Leyva MD Unavailable [phone] Goldie Suh MD Unavailable Kaleb Carrillo MD Unavailable [phone] Danyelle Brambila MD Primary Care Provi makayla Danyell Alford BENCH PRESS OPERATOR Unavailable [phone] Brenda Bhat MD Unavailable [phone] SonIsrael DPT Unavailable [phone] Odalis Palmer ACCOUNTANCY PROFESSOR Unavailable [phone] Bill Paris MD Primary Care Provider + Ssui Magaña BENCH PRESS OPERATOR Unavailable [phone] Danyelle Brambila MD Unavailable [phone] Smitha Crouch Primary Care Pr [facility] Encounter Details Date Type Department Care Team (Latest Contact Info) Description 05/12/2020 Orders Only PRAJAPATI NL MOVEMENT Scanning, Provider Social History Tobacco Use Types Packs/Day Years Used Date Smoking Tobacco: Never Smokeless Tobacco: Never Alcohol Use Standard Drinks/Week Comments No 0 (1 standard drink = 0.6 oz pur e alcohol) PHQ-2 Answer Date Recorded PHQ-2 Total Score (If total score is 3 or more points, staff should administer the PHQ-9) 0 05/14/2020 Comments Unknown Sex and Gender Information Value Date Recorded Sex Assigned at Not on file 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 Gender Identity Not on file Sexual Orientation Not on file 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 Not on file Not on file documented as of this encounter Plan of Treatment Not on file documented as of this encounter Procedures Procedure Name Priority Date/Time Associated Diagnosis Comments CARDIOLOGY DOCUMENT SCAN 05/12/2020 documented in this encounter Results * SCAN - CARDIOLOGY (05/12/2020) Anatomical Region Laterality Modality Other Provider Scanning CV CARDIAC SERVICES PROCEDURES Final Result documented in this encounter Visit Diagnoses Not on filedocumented in this encounter Additional Health Concerns Infection Onset Date Last Indicated Resolved Time COVID: Suspected 06/06/2022 06/06/2022 06/06/2022 6:31 PM CDT documented as of this encounter Care Teams Maintenance And Engineering Manager Relationship Specialty Start Date End Date Henrique Bah MD PCP - General 01/18/17 05/13/20 Danyelle Brambila MD [address] [place] [address] PCP - General Internal Medicine 05/14/20 09/19/22 Bill Paris MD [facility] [address] Carolee MATAMOROS [address] [place] [id number] PCP - General Internal Medicine 09/20/22 10/01/24 Smihta Crouch PA [address] [place] [address] PCP - General Physician Investigator 10/02/24 Tosha Small MD Referring Physician Dermatology 04/11/19 05/16/21 Grabiel Carolina MD Referring Physician Cardiology 04/11/19 Richard Fontaine MD Surgeon Orthopedic Surgery 04/11/19 Navjot Barron MD Surgeon Orthopedic Surgery 04/11/19 05/16/21 La Nena Leyva MD Consulting Physician Rheumatology 04/11/19 Goldie Suh MD Consulting Physician Urology 04/11/19 Kaleb Carrillo MD [address] [place] [address] Referring Physician Ophthalmology 04/11/19 Danyell Alford SLP [address] [place] [address] Speech Language Pathologist Speech Therapy 11/21/20 11/23/20 Brenda Bhat MD [address] [place] [address] Referring Physician Dermatology 05/17/21 SonIsrael, DPT [address] [place] [address] Physical Therapist Physical Therapy 03/28/22 Odalis Palmer, ACCOUNTANCY PROFESSOR [address] [facility] [address] [place] [address] Superintendent Stations 06/09/22 06/09/22 Susi Magaña, ALBINA [address] [facility] [address] [facility] [address] [place] [address] Speech Language Pathologist Speech Therapy 10/04/22 12/28/22 Danyelle Brambila MD [address] [facility], [facility] [address] [place] [address] Consulting Physician Internal Medicine 11/23/22 05/23/23 documented as of this encounter
--- OUTSIDE RECORDS SUMMARY | 2025-05-26 16:42 | XMS_ITS | Data Portability ---
Author Organization [facility] HETALAugie Address [address] [place] [address] Care Team Providers Care Interventional Neuroradiologist Name Role Phone CESAR FORTE Primary Care Provider Unavailab le Assessment No assessment recorded. Plan of Treatment Reminders Order Date Submit Date Provider Last Modified By Organization Details Last Modified Time Details Appointments ANY 15 2024 10:30A M EVELYN Blackmon Not available Not available Not available Lab amylas e + lipase , serum 2024 025 DOM[place] Labdagoberto, [address], [place], [address], 05/22/2025 17:03:48 CBC w/ auto diff 2024 025 DOM[place] Kumar, [address]22 [address], [place], [address], 05/16/2025 17:09:49 hepati c functi on panel, serum 2024 025 [place] Kumar, [address], [address], [place], [address], 05/16/2025 17:09:48 BMP, serum or plasma 2024 025 DOMINGO Kumar, 2022 [address], [address], [place], [address], 05/16/2025 17:09:48 cultur e, urine 2024 025 DOMINGO Kumar, 2022 [address], [address], [place], [address], 05/16/2025 17:10:35 urinal ysis, comple te 2024 025 [place] Joshua, [address]22 [address], [place], [address], 05/16/2025 17:10:36 CBC w/ auto diff 2024 025 [facility], [address]22 Russ [address], [address], [place], [address], 11/23/2024 09:07:53 hepati c functi on panel, serum 2024 025 [place] [facility], [address], [address], [place], [address], 11/23/2024 09:07:50 BMP, serum or plasma 2024 025 [facility], [address], [address], [place], [address], 11/23/2024 09:07:51 unlist ed lab - T4, free 2024 025 [place] Joshua, 20[address], [address], [place], [address], 11/23/2024 09:07:49 TSH, ultra- sensit charleen, serum 2024 025 [facility], [address], [address], [place], [address], 11/23/2024 09:07:52 Referral None record ed. Procedures None record ed. Surgeries None record ed. Imaging RF, upper gastro intest inal tract, w/ contra st PO 2024 025 [facility], [address], [address], [place], [address], 05/26/2025 04:16:33 CT, abdome n + pelvis , w/ contra st 2024 025 [facility], [address], [address], [place], [address], 05/26/2025 04:16:32 MAMMO, screen ing, digita l, bilate ral 2024 025 [email or web address] [facility] ([facility]), [address] [place], [address], 05/14/2025 15:01:26 XR, knee 2024 025 nimisha [facility], [address], [address], [place], [address], 11/27/2024 14:55:17 XR, abdome n 2024 025 [facility], [address], [facility] [address], [place], [address], 11/23/2024 09:12:08 Medication Orders famoti dine 20 mg tablet 2024 025 [place] [id number], [address] , [place], [place], [id number], 05/16/2025 17:09:47 Linzes s 145 mcg capsul e 2024 025 [place] [id number], [address] , [place], [place], [id number], 04/07/2025 18:29:23 memant ine 5 mg tablet 2023 025 [place] [id number], [address] , [place], [place], [id number], 03/19/2025 12:00:56 Patient TargetsNo targets recorded. Patient InstructionsNo instructions recorded. Reason for Referral None Reported. Results Created Date Observation Date Name Description Value Unit Range Abnormal Flag Note LastModifiedBy Organization Detail LastModifiedTime 11/22/1911/23/2024 T4, FREE T4,free(dire ct) 0.98 NG/dL 0.82-1 .77 Not Available [facility] ([facility]) [address] [place], [address], 11/23/2024 09:07:49 11/22/1911/23/2024 HEPAT IC FUNCT ION PANEL (7) protein, total 6.8 g/dL 6.0-8. 5 Not Available [facility] ([facility]) [address] [place], [address], 11/23/2024 09:07:50 11/22/1911/23/2024 HEPAT IC FUNCT ION PANEL (7) albumin 4.5 g/dL 3.7-4. 7 Not Available [facility] ([facility]) [address] [place] [place], [address], 11/23/2024 09:07:50 11/22/1911/23/2024 HEPAT IC FUNCT ION PANEL (7) bilirubin, total 0.4 mg/dL 0.0-1. 2 Not Available [facility] ([facility]) [address] [place], [address], 11/23/2024 09:07:50 11/22/1911/23/2024 HEPAT IC FUNCT ION PANEL (7) bilirubin, direct 0.16 mg/dL 0.00-0 .40 Not Available [facility] ([facility]) [address] [place], [address], 11/23/2024 09:07:50 11/22/1911/23/2024 HEPAT IC FUNCT ION PANEL (7) alkaline phosphatase 81 IU/L 44-121 Not Available [facility] ([facility]) [address] [place], [address], 11/23/2024 09:07:50 11/22/19 25 11/23/2024 HEPAT IC FUNCT ION PANEL (7) AST (SGOT) 6 IU/L 0-40 Not Available [facility] ([facility]) [address] [place], [address], 11/23/2024 09:07:50 11/22/19 25 11/23/2024 HEPAT IC FUNCT ION PANEL (7) ALT (SGPT) 4 IU/L 0-32 Not Available [facility] ([facility]) [address] [place], [address], 11/23/2024 09:07:50 11/22/19 25 11/23/2024 BMP7+ EGFR glucose 85 mg/dL 70-99 Not Available [facility] ([facility]) [address] [place], [address], 11/23/2024 09:07:51 11/22/19 25 11/23/2024 BMP7+ EGFR BUN 14 mg/dL 8-27 Not Available [facility] ([facility]) [address] [place], [address], 11/23/2024 09:07:51 11/22/19 25 11/23/2024 BMP7+ EGFR creatinine 0.80 mg/dL 0.57-1 .00 Not Available [facility] ([facility]) [address] [place], [address], 11/23/2024 09:07:51 11/22/19 25 11/23/2024 BMP7+ EGFR eGFR 73 mL/mi n/1.7 3 >59 Not Available [facility] ([facility]) [address] [place] [place], [address], 11/23/2024 09:07:51 11/22/19 25 11/23/2024 BMP7+ EGFR sodium 145 mmol/ L 134-14 4 above high normal Not Available [facility] ([facility]) [address] [facility], [place], [address], 11/23/2024 09:07:51 11/22/19 25 11/23/2024 BMP7+ EGFR potassium 4.6 mmol/ L 3.5-5. 2 Not Available [facility] ([facility]) [address] [facility], [place], [address], 11/23/2024 09:07:51 11/22/19 25 11/23/2024 BMP7+ EGFR chloride 106 mmol/ L 96-106 Not Available [facility] ([facility]) [address] [facility], [place], [address], 11/23/2024 09:07:51 11/22/19 25 11/23/2024 BMP7+ EGFR carbon dioxide, total 27 mmol/ L 20-29 Not Available [facility] ([facility]) [address] [facility], [place], [address], 11/23/2024 09:07:51 11/22/1911/23/2024 TSH TSH 1.430 uIU/m L 0.450- 4.500 Not Available [facility] ([facility]) [address] [facility], [place], [address], 11/23/2024 09:07:52 11/22/19 25 11/23/2024 CBC WITH DIFFE RENTI AL/PL ATELE T WBC 5.2 x10e3 /uL 3.4-10 .8 Not Available [facility] ([facility]) [address] [facility], [place], [address], 11/23/2024 09:07:53 11/22/1911/23/2024 CBC WITH DIFFE RENTI AL/PL ATELE T RBC 4.04 x10e6 /uL 3.77-5 .28 Not Available [facility] ([facility]) [address] [facility] [place], [address], 11/23/2024 09:07:53 01/03/20 25 11/23/2024 CBC WITH DIFFE RENTI AL/PL ATELE T hemoglobin 12.8 g/dL 11.1-1 5.9 Not Available [facility] ([facility]) [address] [facility], [place], [address], 11/23/2024 09:07:53 11/22/1911/23/2024 CBC WITH DIFFE RENTI AL/PL ATELE T hematocrit 39.1 % 34.0-4 6.6 Not Available [facility] ([facility]) [address] [facility], [place], [address], 11/23/2024 09:07:53 11/22/1911/23/2024 CBC WITH DIFFE RENTI AL/PL ATELE T MCV 97 fL 79-97 Not Available [facility] ([facility]) [address] [facility], [place], [address], 11/23/2024 09:07:53 11/22/1911/23/2024 CBC WITH DIFFE RENTI AL/PL ATELE T MCH 31.7 pg 26.6-3 3.0 Not Available [facility] ([facility]) [address] [facility], [place], [address], 11/23/2024 09:07:53 11/22/1911/23/2024 CBC WITH DIFFE RENTI AL/PL ATELE T MCHC 32.7 g/dL 31.5-3 5.7 Not Available [facility] ([facility]) [address] [facility], [place], [address], 11/23/2024 09:07:53 11/22/1911/23/2024 CBC WITH DIFFE RENTI AL/PL ATELE T RDW 11.8 % 11.7-1 5.4 Not Available [facility] ([facility]) [address] [place], [address], 11/23/2024 09:07:53 11/22/19 25 11/23/2024 CBC WITH DIFFE RENTI AL/PL ATELE T platelets 236 x10e3 /uL 150-45 0 Not Available [facility] ([facility]) [address] [facility], [place], [address], 11/23/2024 09:07:53 11/22/19 25 11/23/2024 CBC WITH DIFFE RENTI AL/PL ATELE T neutrophils 45 % notest ab. Not Available [facility] ([facility]) [address] [facility], [place], [address], 11/23/2024 09:07:53 11/22/19 25 11/23/2024 CBC WITH DIFFE RENTI AL/PL ATELE T lymphs 37 % notest ab. Not Available [facility] ([facility]) [address] [facility], [place], [address], 11/23/2024 09:07:53 11/22/19 25 11/23/2024 CBC WITH DIFFE RENTI AL/PL ATELE T monocytes 11 % notest ab. Not Available [facility] ([facility]) [address] [facility], [place], [address], 11/23/2024 09:07:53 11/22/19 25 11/23/2024 CBC WITH DIFFE RENTI AL/PL ATELE T eos 6 % notest ab. Not Available [facility] ([facility]) [address] [facility], [place], [address], 11/23/2024 09:07:53 11/22/19 25 11/23/2024 CBC WITH DIFFE RENTI AL/PL ATELE T basos 1 % notest ab. Not Available [facility] ([facility]) [address] [facility], [place], [address], 11/23/2024 09:07:53 11/22/19 25 11/23/2024 CBC WITH DIFFE RENTI AL/PL ATELE T neutrophils (absolute) 2.4 x10e3 /uL 1.4-7. 0 Not Available [facility] ([facility]) [address] [facility], [place], [address], 11/23/2024 09:07:53 11/22/19 25 11/23/2024 CBC WITH DIFFE RENTI AL/PL ATELE T lymphs (absolute) 1.9 x10e3 /uL 0.7-3. 1 Not Available [facility] ([facility]) [address] [facility], [place], [address], 11/23/2024 09:07:53 11/22/1911/23/2024 CBC WITH DIFFE RENTI AL/PL ATELE T monocytes(ab solute) 0.6 x10e3 /uL 0.1-0. 9 Not Available [facility] ([facility]) [address] [facility], [place], [address], 11/23/2024 09:07:53 11/22/1911/23/2024 CBC WITH DIFFE RENTI AL/PL ATELE T eos (absolute) 0.3 x10e3 /uL 0.0-0. 4 Not Available [facility] ([facility]) [address] [facility], [place], [address], 11/23/2024 09:07:53 11/22/1911/23/2024 CBC WITH DIFFE RENTI AL/PL ATELE T baso (absolute) 0.0 x10e3 /uL 0.0-0. 2 Not Available [facility] ([facility]) [address] [facility], [place], [address], 11/23/2024 09:07:53 11/22/1911/23/2024 CBC WITH DIFFE RENTI AL/PL ATELE T immature granulocytes 0 % notest ab. Not Available [facility] ([facility]) [address] [facility], [place], [address], 11/23/2024 09:07:53 11/22/19 25 11/23/2024 CBC WITH DIFFE RENTI AL/PL ATELE T immature grans (abs) 0.0 x10e3 /uL 0.0-0. 1 Not Available [facility] ([facility]) [address] [facility], [place], [address], 11/23/2024 09:07:53 10/10/20 24 10/10/2024 XR, hand, 3 or more view No observ ation record ed. [facility] [address], [place], [address], 10/10/2024 18:04:47 11/23/19 25 11/22/2024 XR, abdom en No observ ation record ed. [facility] [address], [place], [address], 11/27/2024 14:55:05 05/19/20 25 05/19/2025 XR, abdom en No observ ation record ed. [facility] [address], [place], [address], 05/22/2025 10:42:32 Result Notes None recorded. Problems Name Problem SNOMED Code Status Onset Date Resolution Date Notes Provider Name and Address Organization Details Recorded Time Body mass index 20-24 - normal 812508886 Active 2023 Edna Rowe [place] null, [place] - [facility] 4 10:24:00 Parkinson's disease 39275897 Active 2023 EVELYN Blackmon Attn: Nico g,[address] [facility], [place], [address], [place] [facility] 4 10:33:01 Hyperlipide jacqueline 98886918 Active 2023 EVELYN Blackmon Attn: Nico g,[address] [facility], [place], [address], [place] [facility] 4 10:33:01 Coronary atheroscler osis 588533362 Active 2023 EVELYN Blackmon Attn: Accountin g,[address] [facility], [place], [place], [address] [place] [address] 2, [place] [facility] 4 10:33:02 Long-term drug therapy Active 2023 EVELYN Blackmon Attn: Accountin g,[address] [facility], [place], [place], [address] [place] [address] 2, [place] [facility] 4 10:33:04 Overactive urinary bladder 339992410 Active 2023 EVELYN Blackmon Attn: Accountin g,[address] [facility], [place], [place], [address] [place] [address] 2, [place] [facility] 4 10:33:24 Stented coronary artery 059744161 Active 2023 EVELYN Blackmon Attn: Accountin g,[address] [facility], [place], [place], [address] [place] [address] 2, [place] [facility] 4 10:36:30 Generalized anxiety disorder 96254463 Active 2023 EVELYN Blackmon Attn: Accountin g,[address] 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, [place], [place], [address] [place] [address] 2, [place] [facility] 4 10:37:32 Chronic headache disorder 550376435 Active 2023 EVELYN Blackmon Attn: Accountin g,[address] [place], [place], [address] [place] [address] 2, [place] - [facility] 4 10:39:37 Raynaud's disease 961900608 Active 2023 Mar[place], [place] [facility] 4 10:39:56 Neuropathy 132251268 Active 2023 hands/ feet Mara [place] [facility] 4 10:40:22 Fibromyalgi a 668740394 Active 2023 Mar[place] [facility] 4 10:40:44 Postural orthostatic tachycardia syndrome 561791478 Active 2023 Mar[place] [facility] 4 10:41:41 Poor short-term memory 296523402 Active 2023 EVELYN Blackmon Attn: Nico carver,[address] [place], [address], [place] [facility] 4 10:59:38 Constipatio n 25652857 Active 2024 EVELYN Blackmon Attn: Accountin g,[address] [place], [address], [place] [facility] 5 19:49:19 Pain of left knee joint 4536755929372 07 Active 2024 EVELYN Blackmon Attn: Accountin g,[address] [place], [address], [place] [facility] 5 19:50:02 Irritable bowel syndrome characteriz ed by constipterrence n 316345263 Active 2024 EVELYN Blackmon Attn: Accountin g,[address] [place], [address], [place] [facility] 5 00:52:06 Problem Notes None recorded. Procedures Surgical History Date Name Laterality Status Provider Name and Address Organization Details Recorded Time 11/20/19 22 colonoscopy completed Mara Gonzalez [place] [facility] 09/18/2024 10:42:28 09/16/20 13 Knee Surgery [place] Mara [place] [facility] 09/18/2024 10:42:46 06/04/20 08 [address] Mara Gonzalez [facility] 09/18/2024 10:44:05 11/20/18 [address] [facility] 09/18/2024 10:43:22 11/20/18 71 [address]ole[address]ectomy [address] Gonzalez [facility] 09/18/2024 10:43:34 Angioplasty With Stent completed Mara Gonzalez [facility] 09/18/2024 10:39:32 Imaging Results None recorded. Procedure Notes None recorded. Medical Equipment None Reported. Allergies Allergen ID Allergen Name Allergen Category Reaction Reaction Severity Criticality Documentation Date Start Date Code Code System Note Provider Name and Address Organization Details Recorded Time Cipro medicatio n Not available Not available Not available 09/18/202481598 3 RxNorm BENSON Fernandes, [facility] 10:17:10 [id number] Substance with sulfonami de structure and antibacte rial mechanism of action (substanc e) medicatio n Not available Not available Not available 09/18/2024 30583 8003 SNOMED BENSON [place]es, [place] - [facility] 10:17:15 Medications Name Sig Start Date Stop Date Status Note LastModified by Organization Details LastModified Time cephalexi n 250 mg capsule TAKE 1 CAPSULE BY MOUTH DAILY 09/18 completed Not Available Not Available Not Available donepezil 10 mg tablet Take by oral route for 90 days. active 1.2 half tab for the first week Not Available Not Available Not Available sertralin e 100 mg tablet Take 1 tablet every day by oral route. active pt is taking 50 mg now, not 100 Not Available Not Available Not Available metronida zole 500 mg tablet TAKE 1 TABLET BY MOUTH EVERY 8 HOURS FOR 4 DAYS 09/18 completed Not Available Not Available Not Available Plavix 75 mg tablet Take 1 tablet every day by oral route. active Not Available Not Available No t Available methenami ne hippurate 1 gram tablet Take 1 tablet twice a day by oral route for 30 days. active Not Available Not Available No t Available famotidin e 20 mg tablet TAKE 1 TABLET BY MOUTH TWICE DAILY WITH MEALS 2024 active Not Available Not Available Not Avai lable doxycycli ne monohydra te 100 mg capsule TAKE 1 CAPSULE BY MOUTH TWICE DAILY FOR 7 DAYS 09/18 completed Not Available Not Available Not Available cephalexi n 500 mg capsule TAKE 1 CAPSULE BY MOUTH EVERY 8 HOURS FOR 7 DAYS 09/18 completed Not Available Not Available Not Available triamcino lone acetonide 0.1 % topical ointment APPLY TOPICALL Y TO THE AFFECTED AREA TWICE DAILY active Not Available Not Available No t Available fluoromet holone 0.1 % eye drops,jazmin pension INSTILL 1 DROP INTO BOTH EYES TWICE DAILY FOR 2 WEEKS THEN ONCE A DAY FOR 1 WEEK. active Not Available Not Available No t Available cefuroxim e axetil 500 mg tablet TAKE 1 TABLET BY MOUTH EVERY 12 HOURS FOR 7 DAYS 09/18 completed Not Available Not Available Not Available methylpre dnisolone 4 mg tablets in a dose pack FOLLOW PACKAGE DIRECTIO NS 09/18 completed Not Available Not Available Not Available carbidopa 25 mg-levodo pa 100 mg tablet Take 2 tablets twice a day by oral route for 100 days. active 6x a day Not Available Not Available No t Available cefdinir 300 mg capsule TAKE 1 CAPSULE BY MOUTH TWICE DAILY 09/18 completed Not Available Not Available Not Available amoxicill in 875 mg-potass ium clavulana te 125 mg tablet TAKE 1 TABLET BY MOUTH TWICE DAILY UNTIL ALL TAKEN 09/18 completed Not Available Not Available Not Available amoxicill in 500 mg-potass ium clavulana te 125 mg tablet TAKE 1 TABLET BY MOUTH TWICE DAILY 09/18 completed Not Available Not Available Not Available Restasis 0.05 % eye drops in a dropperet te INSTILL 1 DROP BOTH EYES TWICE DAILY active Not Available Not Available No t Available rosuvasta tin 40 mg tablet TAKE 1 TABLET EVERY DAY BY ORAL ROUTE 2024 active Not Available Not Available Not Avai lable memantine 5 mg tablet TAKE 1 TABLET BY MOUTH TWICE DAILY FOR MEMORY 03/19 completed Not Available Not Available Not Available nitrofura ntoin monohydra te/macroc rystals 100 mg capsule TAKE 1 CAPSULE BY MOUTH TWICE DAILY 09/18 completed Not Available Not Available Not Available magnesium 05/16 completed otc Not Available Not Available Not Available Vitamin C 05/16 completed Not Available Not Available Not Available calcium 05/16 completed otc Not Available Not Available Not Available Fish Oil 05/16 completed Not Available Not Available Not Available Vitamin D3 05/16 completed pt stopped Not Available Not Available Not Available Zyrtec active Not Available Not Availa ble Not Available butalbita l-acetami nophen-ca ffeine 50 mg-300 mg-40 mg capsule 09/18 completed Not Available Not Available Not Available Myrbetriq 25 mg tablet,ex tended release TAKE 1 TABLET BY MOUTH DAILY 09/18 completed Not Available Not Available Not Available Linzess 145 mcg capsule TAKE 1 CAPSULE BY MOUTH EVERY DAY 04/07 completed Not Available Not Available Not Available Linzess 72 mcg capsule TAKE 1 CAPSULE BY MOUTH EVERY DAY 05/16 completed Not Available Not Available Not Available Miebo (PF) 100 % eye drops INSTILL 1 DROP INTO AFFECTED EYE(S) BY OPHTHALM IC ROUTE 4 TIMES PER DAY active Not Available Not Available No t Available Vitals Date Recorded Body height Body mass index (BMI) Body weight Respiratory rate Heart rate Systolic And Diastolic Provider Name and Address Organization Details Last Updated DateTime 162.56 cm 22 kg/m2 13301.8 2 g 20 /min 72 /min 126/82 mm[Hg] Edna Rowe MA [facility] 5 15:48:31 Date Recorded Oxygen saturation Oxygen saturation in Arterial blood by Pulse oximetry Heart rate Systolic And Diastolic Provider Name and Address Organization Details Last Updated DateTime 03/19/2025 97 % 97 % 78 /min 128/84 mm[Hg] EVELYN Blackmon Attn: Accounting ,[address] [place], [address] , [place] - [facility] 5 12:06:37 Date Recorded Body height Body mass index (BMI) Body weight Respiratory rate Systolic And Diastolic Provider Name and Address Organization Details Last Updated DateTime 03/19/2025 162.56 cm 21.3 kg/m2 08788.4 5 g 20 /min 142/82 mm[Hg] Edna Rowe MA [facility] 5 11:46:21 Date Recorded Systolic And Diastolic Provider Name and Address Organization Details Last Updated DateTime 05/16/2025 110/80 mm[Hg] EVELYN Blackmon Attn: Accounting,[address] [place], [address], [facility] 05/16/2025 17:10:10 Date Recorded Body height Body mass index (BMI) Body weight Heart rate Respiratory rate Systolic And Diastolic Provider Name and Address Organization Details Last Updated DateTime 5 162.56 cm 20.9 kg/m2 36648.2 7 g 63 /min 20 /min 136/82 mm[Hg] Edna Rowe MA [facility] 5 16:51:26 Date Recorded Oxygen saturation Oxygen saturation in Arterial blood by Pulse oximetry Heart rate Systolic And Diastolic Provider Name and Address Organization Details Last Updated DateTime 09/18/2024 97 % 97 % 67 /min 144/80 mm[Hg] EVELYN Blackmon Attn: Accounting ,[address] [place], [address] , [facility] 4 10:58:07 Date Recorded Body height Body mass index (BMI) Body weight Respiratory rate Heart rate Oxygen saturation Oxygen saturation in Arterial blood by Pulse oximetry Systolic And Diastolic Provider Name and Address Organization Details Last Updated DateTime 4 162.56 cm 21.3 kg/m2 87369.4 5 g 20 /min 79 /min 73 % 73 % 140/82 mm[Hg] Edna Rowe MA [facility] 4 10:29:09 Social History Question Answer Notes LastModified by Organizat ion Details LastModified Time Tobacco Smoking Status Never Smoker Edna Rowe MA null, [facility] 11/22/2024 15:39:37 Do You Have An Advance Directive? Yes Information not available 09/18/2024 Are You Blind Or Do You Have Difficulty Seeing? No Information not available 09/18/2024 What Is Your Level Of Caffeine Consumption? Occasional Tea/decaf Information not available 09/18/2024 In The 14 Days Before Symptom Onset, Have You Had Close Contact With A Laboratory-confir med COVID-19 While That Case Was Ill? No Information not available 09/18/2024 In The 14 Days Before Symptom Onset, Have You Had Close Contact With A Person Who Is Under Investigation For COVID-19 While That Person Was Ill? No Information not available 09/18/2024 Have You Been To An Area Known To Be High Risk For COVID-19? No Information not available 09/18/2024 Are You Deaf Or Do You Have Serious Difficulty Hearing? No Information not available 09/18/2024 What Type Of Diet Are You Following? REGULAR Information not available 09/18/2024 Are There Any Guns Present In Your Home? No Information not available 09/18/2024 What Was The Date Of Your Most Recent Tobacco Screening? 05/16/2025 Information not available 05/16/2025 What Is Your Relationship Status? Information not available 09/18/2024 Do You Use Your Seat Belt Or Car Seat Routinely? Yes Information not available 09/18/2024 Do You Have Smoke And Carbon Monoxide Detectors In Your Home? Yes Information not available 09/18/2024 Do You Use Sunscreen Routinely? No Sometimes Information not available 09/18/2024 Has Tobacco Cessation Counseling Been Provided? No Information not available 11/22/2024 Sex: Female Functional Status Question Answer Note LastModified by Organizat ion Details LastModified Time Do you use any illicit or recreational drugs? No Information not available 09/18/2024 Do you or have you ever used any other forms of tobacco or nicotine? No Information not available 11/22/2024 What is your level of alcohol consumption? None Information not available 03/19/2025 Are you currently employed? No Information not available 09/18/2024 Are you able to care for yourself? Yes Information n ot available 09/18/2024 What is your exercise level? Occasional Information not available 09/18/2024 Mental Status Question Answer Note LastModified by Organization D etails LastModified Time Do you feel stressed (tense, restless, nervous, or anxious, or unable to sleep at night)? [id number] Information not available 09/18/2024 Family History Nothing Reported. Medical History Condition Response Coronary Artery Disease Y Other Gynecological History Statement/Question Response Menses Monthly N Current Control Method None Obstetrics History GPAL:G 0 P 0 0 0 0 Immunizations Vaccine Type Date Status Note Provider Nam e and Address Organization Details Recorded Time Influenza, recombinant, quadrivalent, PF 9 completed Edna Row[place], [place] [facility] 09/18/2024 10:18:15 zoster recombinant 2 completed Edna Row[place] [facility] 09/18/2024 10:18:15 zoster recombinant 2 completed Edna Row[place] [facility] 09/18/2024 10:18:15 Influenza, high-dose, quadrivalent, PF 0 completed Edna Row[place] [facility] 09/18/2024 10:18:15 Influenza, adjuvanted, quadrivalent, PF 3 completed Edna Row[place] [facility] 09/18/2024 10:18:15 COVID-19, mRNA, LNP-S, PF, 30 mcg/0.3 mL dose 1 completed Edna [place] [facility] 09/18/2024 10:18:15 COVID-19, mRNA, LNP-S, PF, 30 mcg/0.3 mL dose 1 [place] Edna Row[place] [facility] 09/18/2024 10:18:15 COVID-19, mRNA, LNP-S, PF, 30 mcg/0.3 mL dose 1 completed Edna [place] [facility] 09/18/2024 10:18:15 COVID-19, mRNA, LNP-S, PF, 30 mcg/0.3 mL dose, radha-sucrose 2 completed Edna [place] [facility] 09/18/2024 10:18:15 COVID-19, mRNA, LNP-S, bivalent, PF, 30 mcg/0.3 mL dose 2 completed BENSON [place] [facility] 09/18/2024 10:18:15 RSV, recombinant, protein subunit RSVpreF, adjuvant reconstituted, 0.5 mL, PF 3 [place] B[place] [facility] 09/18/2024 10:18:15 COVID-19, mRNA, LNP-S, PF, radha-sucrose, 30 mcg/0.3 mL 3 [place] [facility] 09/18/2024 10:18:15 Tdap 3 [place] [facility] 09/18/2024 10:18:15 Pneumococcal conjugate PCV 13 8 [place] [facility] 09/18/2024 10:18:15 Influenza, high-dose, trivalent, PF 8 [place] [facility] 09/18/2024 10:18:15 Influenza, split virus, trivalent, PF 5 [place] [facility] 09/18/2024 10:18:15 COVID-19, mRNA, LNP-S, PF, 50 mcg/0.5 mL 4 completed Not Available [facility] 05/16/2025 16:28:00 Influenza, high-dose, trivalent, PF 4 completed Not Available [facility] 05/16/2025 16:28:00 Past Encounters Encounter ID Performer Location Encounter Start Date Encounter Closed Date Diagnosis/Indication Diagnosis SNOMED-CT Code Diagnosis ICD10 Code Diagnosis Note [id number] Kaleb Cabello MD [facility] [place] [address] [place] [address] 09/18/2024 09:45:30 09/18/2024 11:12:55 Body mass index 20-24 - normal 331669822 Z68.21 BMI is 21.3 Parkinson's disease [address] Lukasz Rodriguez. Hyperlipidemia 91800009 E78.5 stable on rosuvastat in 40mg daily. labs viewed in portal of care shows lipids panel may 2024 was normal. we will provide those refills in future. Coronary atherosclerosis 155722682 I25.10 Per cardiology last note:1. Normal myocardial perfusion during pharmacolo gic-stress .2. 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 Nuclear stress test from 04/12/24 with normal myocardial perfusion and ECG changes appreciate d. As symptoms were stable medical management pursued. Reports stable symptoms that have been present for many years. Denies any further intense discomfort .Continue ASA and rosuvastat in.Discuss ed anti-angin al therapy. Declined at this time as symptoms have improved.P ure hyperchole sterolemia Continue rosuvastat in.6 month f/u [facility] cardio Long-term drug therapy 024925264 Z79.891 Most labs are up-to-date at this time from specialist s Overactive urinary bladder 421227082 N32.[address] Jasen Patterson, managed with Myrbetriq daily Stented co ronary artery 583787631 Z95.5 x 5 stents total. Generalize d anxiety disorder 44835632 F41.1 stable on sertraline 100mg daily. we can provide that refill as well. 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 Leyva. ? lupus with medication for years. Osteopenia 664662064 M85 .80 Continue vitamin-D and calcium supplement ation Chronic he adache disorder 462718740 G44.89 No acute changes at this time with her headache disorder. She has a couple of headaches per month. Poor short -term memory 950472458 R41.3 I have asked her to discuss this with her neurologis t when she sees them again but we will start her on a trial of memantine 5 mg twice daily to see if she tolerates this well if she does we will plan to boost 10 mg twice a day [id number] Kaleb Cabello MD [facility] [employer] [facility] [address] [place] [address] 11/22/2024 15:14:50 11/22/2024 16:31:12 Constipation 20744177 K59.00 Check plain film of the abdomen to evaluate for constipati on severity. Encouraged increased fiber options in the diet as well as hydration and may take over-the-c ounter MiraLax or stool softener Long-term drug therapy 216614178 Z79.891 Full lab panel is due Pain of le ft knee joint 8306193086 66238 M25.562 Check plain film x-ray of the left knee for persistent discomfort after she had a fall in her basement [id number] Kaleb Cabello MD [facility] [employer] [facility] [address] [place] [address] 03/19/2025 11:23:10 03/19/2025 12:13:43 Body mass index 20-24 - normal 617605792 Z68.21 BMI is 21.3 Parkinson's disease [address] Lukasz Rodriguez is following and managing her Parkinson' s disease which is certainly progressiv e in nature. She is on carbidopa levodopa 2 tablets twice daily. Hyperlipidemia 55775316 E78.5 stable on rosuvastat in 40mg daily. labs viewed in portal of care shows lipids panel may 2024 was normal. we will provide those refills in future. Coronary atherosclerosis 430123651 I25.10 Per cardiology last note:1. Normal myocardial perfusion during pharmacolo gic-stress .2. 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 Nuclear stress test from 04/12/24 with normal myocardial perfusion and ECG changes appreciate d. As symptoms were stable medical management pursued. Reports stable symptoms that have been present for many years. Denies any further intense discomfort .Continue ASA and rosuvastat in.Discuss ed anti-angin al therapy. Declined at this time as symptoms have improved.P ure hyperchole sterolemia Continue rosuvastat in. tomorrow she sees dr. ayala for cardiology . Stented co ronary artery 031731748 Z95.5 x 5 stents total. Generalize d anxiety disorder 41819472 F41.1 stable on sertraline 100mg daily Sj gren's syndrome 69710000 M35.[address] Leyva. ? lupus with medication for years. Chronic he adache disorder 504306196 G44.89 No acute changes at this time with her headache disorder. She has a couple of headaches per month. Osteopenia 798444832 M85 .80 Continue vitamin-D and calcium supplement ation Poor short -term memory 335062721 R41.3 memory pet caregiver is stopping the namenda and starting aricept. Irritable bowel syndrome characterized by constipation 914680894 K58.1 Trial of Linzess 145 mcg daily for chronic constipati on issues related to her Parkinson' s Screening mammography 24 226678 Z12.31 Routine mammogram due [id number] Kaleb Cabello MD [facility] [place] [address] [place] [address] 05/16/2025 16:27:37 05/19/2025 11:30:55 Epigastric pain 70774577 R10.13 Refer for upper GI series testing check amylase, lipase, CBC, metabolic panel, start famotidine 20 mg twice daily Left sided abdominal pain 786347617 R10.[address] scan abdomen and pelvis with contrast and check urinalysis with culture Weight decreased 4266989 01 R63.4 Check workup as ordered above Decrease in appetite 643 64118 R63.0 Continue to monitor Health Concerns Section Related Observation LastModified by Organization Detai ls LastModified Time None Recorded Concern Status LastModified by Organization Details LastModified Time None Recorded Advance Directives Directive Y: Payers Insurance Date Sequence Insurance Name Policy Number Policy Coker Covered Member ID Coker Member ID Guarantor Name 05/21/2025 1 [facility] (MEDICARE REPLACEMENT/A DVANTAGE - HMO) [id number] Cheri Castaneda [id number] Cheri Castaneda Notes Date Note Type Note Provider Name and Address Organization Details Recorded Time 4 text/html Anxiety/DepressionReported bypatient.Notes:Patient is stable on sertraline 100 mg dailyCoronary Artery Disease F/UReported bypatient.Notes:Patient has a remote history of 5 cardiac stents and does take Plavix and rosuvastatin 40 mg dailyHyperlipidemiaReported bypatient.Notes:Patient is stable on rosuvastatin 40 mg daily Patient has a history of Parkinson's disease and follows with neurology in [place], managed on carbidopa levodopa but does remain fairly symptomatic. Patient has a history of Sjogren syndrome and used to follow with Dr. Leyva in the past but she is no longer on medication. Chronic headache disorder--patient is not taking anything specific for headaches at this time Short-term memory loss-patient does know that her parkinsonism probably contributes to this but she feels as though in the last 6 months her short-term memory has declined. Osteopenia history-patient is on vitamin-D and does get some calcium in the diet EVELYN Blackmon Attn: Accounting,[address] [facility], [place], [address], [facility] 09/18/2024 17:49:03 5 text/html ConstipationReported bypatient.Notes:f/u on stomach issues, states that she is having bowel movement issues and pain, States that it happens a lot more in the morning some nausea no vomiting. Constipation is present and not improving with hydration, fiber and OTC options. KneeReported bypatient.Notes:pt. states that she had a fall in the basement and her knee has been hurting a lot since then, states that she had the fall about the middle of September. no redness or warmth. range of motion is normal. walking normal, but with discomfort. EVELYN Blackmon Attn: Accounting,[address] [facility], [place], [address], [facility] 12/15/2024 19:51:32 5 text/html Anxiety/DepressionReported bypatient.Notes:Patient is stable on sertraline 100 mg dailyCoronary Artery Disease F/UReported bypatient.Notes:Patient has a remote history of 5 cardiac stents and does take Plavix and rosuvastatin 40 mg dailyHyperlipidemiaReported bypatient.Notes:Patient is stable on rosuvastatin 40 mg daily Patient has a history of Parkinson's disease and follows with neurology in [place], managed on carbidopa levodopa but does remain fairly symptomatic. Patient has a history of Sjogren syndrome and used to follow with Dr. Leyva in the past but she is no longer on medication. Chronic headache disorder--patient is not taking anything specific for headaches at this time Short-term memory loss-patient does know that her parkinsonism probably contributes to this but she feels as though in the last 6 months her short-term memory has declined. Osteopenia history-patient is on vitamin-D and does get some calcium in the diet EVELYN Blackmon Attn: Accounting,[address] [facility], [place], [address], [facility] 03/31/2025 00:53:31 5 text/html Patient has a history of Parkinson's disease and follows with neurology in [place], managed on carbidopa levodopa but does remain fairly symptomatic. Patient has a history of Sjogren syndrome and used to follow with Dr. Leyva in the past but she is no longer on medication. Patient presents with more of an upper abdominal discomfort that is exacerbated by food and when she is not moving her bowels well. She also has a bit of left-sided abdominal pain that happens at times on and off. She has also had a decreased appetite and a little bit of weight loss. The Linzess tablets were too much as far as causing extreme loose stool and fecal incontinence. So she had to stop that. She is back to having some constipation mixed with some diarrhea. No fevers no chills no vomiting. No blood in the stool. EVELYN Blackmon Attn: Accounting,[address] [facility], [place], [address], [facility] 05/21/2025 08:39:58 OBGyn Episode No OBEpisode recorded.
--- OUTSIDE RECORDS SUMMARY | 2025-05-26 16:42 | XMS_ITS | Encounter Summary ---
Author Organization [facility] Address [address] [place] [address] Care Team Providers Care Back Pad Inspector Name Role Phone Grabiel Carolina MD Unavailable [phone] Richard Fontaine MD Unavailable La Nena Leyva MD Unavailable [phone] Goldie Suh MD Unavailable Kaleb Carrillo MD Unavailable [phone] Danyelle Brambila MD Primary Care Provi makayla Brenda Bhat MD Unavailable [phone] SonIsrael DPT Unavailable Odalis Palmer LPN Unavailable [phone] Bill Paris MD Primary Care Provider + Susi Magaña PERSONALIZED LIVING ASSISTANT Unavailable [phone] Danyelle Brambila MD Unavailable [phone] Smitha Crouch Primary Care Pr ovider Encounter Details Date Type Department Care Team (Late st Contact Info) Description 02/18/2022 Telephone [facility] [place] [address] Danyelle Brambila MD [address] [facility] [address] [place] [address] Social History Tobacco Use Types Packs/Day Years Used Date Smoking Tobacco: Never Smokeless Tobacco: Never Alcohol Use Standard Drinks/Week Comments No 0 (1 standard drink = 0.6 oz pur e alcohol) AUDIT-C Answer Date Recorded Q1: How often do you have a drink containing alc ohol? 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 Not on file Not on file documented as of this encounter Plan of Treatment Not on file documented as of this encounter Visit Diagnoses Not on filedocumented in this encounter Additional Health Concerns Infection Onset Date Last Indicated Resolved Time COVID: Suspected 06/06/2022 06/06/2022 06/06/2022 6:31 PM CDT documented as of this encounter Care Teams Back Pad Inspector Relationship Specialty Start Date End Date Danyelle Brambila MD [address] [place] [address] PCP - General Internal Medicine 05/14/20 09/19/22 Bill Paris MD [address] [place] [address] [address] [place] [address] PCP - General Internal Medicine 09/20/22 10/01/24 Smitha Crouch PA [address] [place] [address] PCP - General Physician Control Integration Engineer 10/02/24 Grabiel Carolina MD Referring Physician Cardiology 04/11/19 Richard Fontaine MD Surgeon Orthopedic Surgery 04/11/19 La Nena Leyva MD Consulting Physician Rheumatology 04/11/19 Goldie Suh MD Consulting Physician Urology 04/11/19 Kaleb Carrillo MD [address] [place] [address] Referring Physician Ophthalmology 04/11/19 Brenda Bhat MD [address] [place] [address] Referring Physician Dermatology 05/17/21 SonIsrael, DPT [address] [place] [address] Physical Therapist Physical Therapy 03/28/22 Odalis Palmer, GRADES 9 THRU 12 VISITING TEACHER [address] [place] [address] [facility] [address] [place] [address] Sword Swallower 06/09/22 06/09/22 Susi Magaña, ALBINA [address] [facility] [address] [facility] [address] [place] [address] Speech Language Pathologist Speech Therapy 10/04/22 12/28/22 Danyelle Brambila MD [address] [facility], [facility] [address] [place] [address] Consulting Physician Internal Medicine 11/23/22 05/23/23 documented as of this encounter
--- OUTSIDE RECORDS SUMMARY | 2025-05-26 16:42 | XMS_ITS | Patient Health Record ---
Author Organization [facility] Address [address] [place] [address] Care Team Providers Care Shear Setter Name Role Phone Bill Paris Primary Care Provider Ronald Jacinto Unavailable [phone] Allergies Allergen (clinical drug ingredient) Drug/Non Drug Allergy documented on EMR Reaction Allergy Type Onset Date Status gentamicin Gentamicin (uncoded) Unknown Allergy Active ciprofloxacin Cipro Unknown Drug Allergy Act charleen sulfacetamide Sulfacetamide Sodium Unknown Drug Allergy Active aspirin Aspirin stomach upset Drug Allergy act charleen Substance with sulfonamide structure and antibacterial mechanism of action (substance) Sulfa Antibiotics stomach upset Drug Allergy active Results Component Value Reference Range Notes Pathology Report Reviewed date:08/25/2024 01:09:01 PM Interpretation: Performing Lab: Notes/Report: DIAGNOSES A. GE Junction , Biopsy: -Squamous mucosa with focal reflux associated changes. -Alcian blue/PAS stain highlights a focally thickened squamous basal layer; no fungal organisms seen. -No glandular mucosa seen. -No significant eosinophils seen. -Negative for dysplasia or malignancy. CLINICAL HISTORY Heartburn. GROSSING DESCRIPTION A. The specimen is received in a Formalin-filled container labeled with the patient's name and designated GE Junction It contains 2 fragments of abrams tissue that measure 1x1x1 and 2x1x1 mm. The specimen was entirely submitted into a single cassette for processing. MICROSCOPIC DESCRIPTION Complete 100 microscopic examination is performed. The findings are included in the diagnosis rendered. Specimen A was evaluated with H&E stain. Specimen A was evaluated with Alcian Blue PAS stain. Textual Pathology Report SEE NOTES Reason For Referral No Information Medications Medication SIG (Take, Route, Frequency, Duration) Notes Start Date End Date Status Atrantil - 2 tablets PO TID for 10 days 10/01/2020 Active OTC/Vitamins Vit C, Vit E Acti ve Methenamine Hippurate 1 GM Once a day Active Plaquenil 200 MG Orally Three times a week Active Zoloft 25 MG Orally Once a day Active Carbidopa-Levodopa A ctive Social History Tobacco Use: Social History Observation Description Date Details (start date - stop date) Never Smoker NA - NA Tobacco Use/Smoking Question Answer Notes Are you a nonsmoker Problems Problem Type SNOMED Code ICD Code Onset Dates Problem Status W/U Status Risk Notes Problem 563578549 Irritable bowel syndrome with diarrhea (K58.0) Active confirmed Problem 45680392 Heartburn (R12) Active confirmed Problem Irritable bowel syndrome (72226594) IBS (irritable bowel syndrome) (K58.9) Active confirmed Problem 576739924 Bloating (R14.0) Active confirmed She has noticed significant gas and bloating. Differential diagnosis include SIBO, food sensitivities, celiac disease, IBS, or others. Problem 183655820 History of colon polyps (Z86.010) Active confirmed Problem 32306930 Epigastric abdominal pain (R10.13) Active confirmed Problem 957995054 Change in bowel habits (R19.4) Active confirmed Problem 960379508 Colon, diverticulosis (K57.30) Active confirmed Problem 708808832 Periumbilical abdominal pain (R10.33) Active confirmed Problem 141513131 Left lower quadrant abdominal tenderness without rebound tenderness (R10.814) Active confirmed Problem 9104573 Antritis (stomach) (K29.60) Active confirmed Problem 578276021 Irregular bowel habits (R19.8) Active confirmed Problem 651678903 Non-cardiac chest pain (R07.89) Active confirmed Problem Abdominal discomfort (35256329) Abdominal discomfort (R10.9) Active confirmed Problem 101510449 Benign colon polyp (K63.5) Active confirmed Problem 31611198 Esophageal dysphagia (R13.10) Active confirmed Problem 43564075 Periumbilical discomfort (R10.33) Active confirmed About 3 months ago she started having periumbilical discomfort, which she describes as a dull pressure. It seems to be worse in the morning when waking up. She does get relief after having a bowel movement and has been passing a lot more gas. She was seen by her PCP and had blood work and an ultrasound, which by her report was normal. It is of note that she has had multiple abdominal surgeries in the past. Differential diagnosis includes SIBO, IBS, scar tissue, or others. Encounters Encounter Location Date Provider Diagnosis [facility] [address] [place] [address] 08/01/2024 Ronald Singletary Heartburn R12 [facility], [facility] [address] [place] [id number] 07/30/2024 [facility] [address] [place] [id number] 08/25/2024 Ronald Singletary Assessments Encounter Date Diagnosis (ICD Code) Assessment Notes Treatment Notes Treatment Clinical Notes Section Notes 08/01/2024 Heartburn (ICD-10 - R12) Plan Of Treatment Pending Test Test Name Order Date CT Scan : Abd & Pelvis with IV and oral contrast 05/08/2018 EGD 12/24/2020 Colonoscopy 08/19/2021 Colonoscopy 05/11/2018 Insurance Providers Payer Name Payer Address Payer Phone Subscriber Number Group Number Insured Name Patient Relationship to Insured Coverage Start Date Coverage End Date [facility] Medicare Advantage HMO-POS [address] [address] [place] [address] [id number] Cheri Castaneda Self - patient is the insured Medical (General) History Medical History History ICD Code Colon Polyps Diverticulosis Cardiac Stents Raynaud's Syndrome Migraines Anxiety Coronary Artery Disease Parkinson's Disease Migraine Headaches Heart Disease/Stents Surgical History Surgery Date(Month/Year) EGD 12/2020 Colonoscopy 07/2018 Bowel Obstruction Cholecystectomy Cardiac stent X3 Lumpectomy: Benign Hysterectomy Rectocele Total Knee Replacement Cataract Surgery Bladder Suspension Hospitalization History Reason Date(Month/Year) Chest Pain Child X4
--- OUTSIDE RECORDS SUMMARY | 2025-05-26 16:43 | XMS_ITS | Clinical Summary ---
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 Gender Identity Not on file Sexual Orientation Not on file Plan of Treatment Health Maintenance Due Date Last Done Comments Hepatitis C Virus (HCV) Screening 1940 TdaP Immunization 1940 Zoster Immunization (1 of 2) 1990 Respiratory Syncytial Virus (RSV) Immunization (Adult) (1 - 1-dose 75+ series) 2015 Pneumococcal Immunization (5 0+ years) (2 of 2 - PPSV23) 09/20/2019 09/20/2018 SARS-COV-2 Immunization ( season) 2024 10/09/2021, 01/13/2021, 12/23/2020 Influenza Immunization (#1) 07/21/202507/21, 09/17/2018, 09/08/2015 Pneumococcal Immunization Combined Discontinued 09/20/2018 Hepatitis B Immunization Aged Out No longer eligible based on patient's age to complete this topic Human Papillomavirus (HPV) Immunization Aged Out No longer eligible based on patient's age to complete this topic Meningococcal Immunization (ACWY) Aged Out No longer eligible based on patient's age to complete this topic Rotavirus Immunization Aged Out No lo nger eligible based on patient's age to complete this topic
--- OUTSIDE RECORDS SUMMARY | 2025-05-26 16:43 | XMS_ITS ---
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 Role Phone Bill Paris Primary Care Provider UnavailDemi Rothman Unavailable [phone] ZZ-Migration, Provider Unavailable Unavailab le Allergies Allergen (clinical drug ingredient) Drug/Non Drug Allergy documented on EMR Reaction Allergy Type Onset Date Status Substance with sulfonamide structure and antibacterial mechanism of action (substance) SULFA (uncoded) rash Allergy Active Ciprofloxacin hives Drug Allergy Act charleen Kiwi throat tightness Allergy Active REASON FOR VISIT [facility] To [facility] Conversion Encounter Medications Medication SIG (Take, Route, Frequency, Duration) Notes Start Date End Date Status Ambien 5 MG 1 tab(s) orally once a day (at bedtime) Active Fluticasone Propionate 50 MCG/ACT 1 spray(s) intranasally once a day; Duration: 30 day(s) Active Ventolin HFA 108 (90 Base) MCG/ACT 2 puff(s) inhaled Q4-6 hours, PRN and per the asthma action plan; Duration: 30 day(s) Active Ele Allergy 180 MG 1 tab(s) orally once a day Active Ele Allergy 180 MG 1 tab(s) orally once a day Active Aspirin 81 MG 1 tab(s) chewed once a day Active Lovastatin 20 MG 1 tab(s) orally once a day Active Plaquenil 200 MG 1 tab(s) orally once a day Active Restasis 0.05 % 1 gtt in each affected eye every 12 hours Active Fioricet 50-300-40 MG 1 cap orally once, can repeat x1 after 2-4 hours; Duration: 30 days 03/28/2024 Active Sertraline HCl 100 MG 1 tab(s) orally once a day Active Fosinopril Sodium 20 MG 1 tab(s) orally once a day Active Plavix 75 MG 1 tab(s) orally once a day Active Carbidopa-Levodopa 25-100 MG 1 tab(s) orally 2 times a day Active Rosuvastatin Calcium 20 MG 1 tab(s) orally once a day Active Fish Oil 500 MG 1 cap(s) orally once a day Active Vitamin C 1000 MG 1 tab(s) orally once a day Active Calcium 600 + D 600 MG-5 MCG 1 TAB(S) ORALLY 3 TIMES A DAY *Please review and pick correct strength-formulat ion from Loku options. If intended option is not shown, discontinue and re-order from Quick Search* Active Claritin 10 MG 1 tab(s) orally once a day Active Methenamine Hippurate 1 GM 1 tab(s) orally once a day Active Montelukast Sodium 10 MG 1 tab(s) orally once a day; Duration: 30 day(s) Active MAGNESIUM AMINO ACIDS CHELATE 300 MG 1 CAP(S) ORALLY ONCE A DAY *Please review for potential replacement for e-prescription and drug interaction check* Not-Taking Encounters Encounter Location Date Provider Diagnosis [address] [address] 05/04/2024 Provider Natalia Migraine without aura, not intractable, without status migrainosus G43.009 Assessments Encounter Date Diagnosis (ICD Code) Assessment Notes Treatment Notes Treatment Clinical Notes Section Notes 05/04/2024 Migraine without aura, not intractable, without status migrainosus (ICD-10 - G43.009) Plan Of Treatment Medication Medication Name Sig Start Date Stop Date Notes Fioricet 50-300-40 MG 1 cap orally once, can repeat x1 after 2-4 hours; Duration: 30 days 03/28/2024 Progress Notes * Cheri DRAKEDOB:1940 ( 84 yo F)Acc No.[id number]:05/04/2024 Patient: Cheri CAMP Provider: Dang Harris :1940 A ge:83 Y S ex:Female Date:05/04/2024 Address:[address] [place] [address] [id number] Pcp:Bill Paris Subjective: * Chief Complaints: * 1 . Multum To Medispan Conversion Encounter. * Medical History: * Medications: T aking Fish Oil 500 MG Capsule 1 cap(s) orally once a day , Taking Vitamin C 1000 MG Tablet 1 tab(s) orally once a day , Taking Calcium 600 + D 600 MG-5 MCG TABLET 1 TAB(S) ORALLY 3 TIMES A DAY , Notes to Pharmacist: *Please review and pick correct strength-formulation from [facility] options. If intended option is not shown, discontinue and re-order from Quick Search*, Taking Claritin 10 MG Tablet 1 tab(s) orally once a day , Taking Methenamine Hippurate 1 GM Tablet 1 tab(s) orally once a day , Taking Rosuvastatin Calcium 20 MG Tablet 1 tab(s) orally once a day , Taking Plavix 75 MG Tablet 1 tab(s) orally once a day , Taking Carbidopa-Levodopa 25- 100 MG Tablet 1 tab(s) orally 2 times a day , Taking Sertraline HCl 100 MG Tablet 1 tab(s) orally once a day , Taking Fosinopril Sodium 20 MG Tablet 1 tab(s) orally once a day , Taking Aspirin 81 MG Tablet Chewable 1 tab(s) chewed once a day , Taking Lovastatin 20 MG Tablet 1 tab(s) orally once a day , Taking Plaquenil 200 MG Tablet 1 tab(s) orally once a day , Taking Restasis 0.05 % Emulsion 1 gtt in each affected eye every 12 hours , Taking Ambien 5 MG Tablet 1 tab(s) orally once a day (at bedtime) , Taking Ele Allergy 180 MG Tablet 1 tab(s) orally once a day , Taking Ele Allergy 180 MG Tablet 1 tab(s) orally once a day , Taking Fluticasone Propionate 50 MCG/ACT Suspension 1 spray(s) intranasally once a day , Taking Ventolin HFA 108 (90 Base) MCG/ACT Aerosol Solution 2 puff(s) inhaled Q4-6 hours, PRN and per the asthma action plan , Taking Montelukast Sodium 10 MG Tablet 1 tab(s) orally once a day , Not-Taking/PRN MAGNESIUM AMINO ACIDS CHELATE 300 MG CAPSULE 1 CAP(S) ORALLY ONCE A DAY , Notes to Pharmacist: *Please review for potential replacement for e-prescription and drug interaction check* * Allergies: S ULFA: rash, Kiwi: throat tightness, Ciprofloxacin: hives. Objective: * Vitals: Assessment: * Assessment: 1. M igraine without aura, not intractable, without status migrainosus - G43.009 (Primary) Plan: * Treatment: * Billing Information: * Visit Code: * Procedure Codes: * Electronic signature of Robinson MALIK-Migration on 05/26/2025 at 07:42 AM CDT Sign off status: Pending * Provider: Dang parra Migration Date: 0 05/04/2024 Generated for Eleazar olivares/Klever/Ezio on: 0 05/26/2025 07:42 AM CDT
--- OUTSIDE RECORDS SUMMARY | 2025-05-26 16:43 | XMS_ITS ---
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 Kaleb Perez Unavailable [phone] Allergies Allergen (clinical drug ingredient) Drug/Non Drug Allergy documented on EMR Reaction Allergy Type Onset Date Status Substance with sulfonamide structure and antibacterial mechanism of action (substance) SULFA (uncoded) rash Allergy Active Ciprofloxacin hives Drug Allergy Act charleen Kiwi throat tightness Allergy Active REASON FOR VISIT NO SHOW Medications Medication SIG (Take, Route, Frequency, Duration) Notes Start Date End Date Status Ventolin HFA 108 (90 Base) MCG/ACT 2 puff(s) inhaled Q4-6 hours, PRN and per the asthma action plan; Duration: 30 day(s) Active Fluticasone Propionate 50 MCG/ACT 1 spray(s) intranasally once a day; Duration: 30 day(s) Active Fioricet 50-300-40 MG 1 cap orally once, can repeat x1 after 2-4 hours; Duration: 30 days 03/28/2024 Active Montelukast Sodium 10 MG 1 tab(s) orally once a day; Duration: 30 day(s) Active MAGNESIUM AMINO ACIDS CHELATE 300 MG 1 CAP(S) ORALLY ONCE A DAY *Please review for potential replacement for e-prescription and drug interaction check* Not-Taking Ambien 5 MG 1 tab(s) orally once a day (at bedtime) Active Restasis 0.05 % 1 gtt in each affected eye every 12 hours Active Ele Allergy 180 MG 1 tab(s) orally once a day Active Ele Allergy 180 MG 1 tab(s) orally once a day Active Plaquenil 200 MG 1 tab(s) orally once a day Active Carbidopa-Levodopa 25-100 MG 1 tab(s) orally 2 times a day Active Fosinopril Sodium 20 MG 1 tab(s) orally once a day Active Sertraline HCl 100 MG 1 tab(s) orally once a day Active Lovastatin 20 MG 1 tab(s) orally once a day Active Aspirin 81 MG 1 tab(s) chewed once a day Active Claritin 10 MG 1 tab(s) orally once a day Active Calcium 600 + D 600 MG-5 MCG 1 TAB(S) ORALLY 3 TIMES A DAY *Please review and pick correct strength-formulat ion from Berggi options. If intended option is not shown, discontinue and re-order from Quick Search* Active Rosuvastatin Calcium 20 MG 1 tab(s) orally once a day Active Methenamine Hippurate 1 GM 1 tab(s) orally once a day Active Plavix 75 MG 1 tab(s) orally once a day Active Fish Oil 500 MG 1 cap(s) orally once a day Active Vitamin C 1000 MG 1 tab(s) orally once a day Active Social History Tobacco Use: Social History Observation Description Date Details (start date - stop date) Never Smoker NA - NA Tobacco Control (Standard) Question Answer Notes Tobacco use: Nonsmoker Encounters Encounter Location Date Provider Diagnosis [facility] [address] [facility] [address] [place] [id number] 05/30/2024 Kaleb Perez Plan Of Treatment Next Appt Details Follow Up: 4 Weeks, Reason: Evaluation and Management Progress Notes * Cheri DRAKEDOB:1940 ( 84 yo F)Acc No.[id number]:05/30/2024 Neuro follow-up Patient: Cheri CAMP Provider: Agnes Perez MD :1940 A ge:83 Y S ex:Female Date:05/30/2024 Address:[address] [place], [place] [id number] Pcp:Bill Paris Subjective: * Chief Complaints: * 1 . NO SHOW. * ROS: C ONSTITUTIONAL: Positive for P atient denies fevers, chills, sweats, unintended weight loss, loss of appetite, or chronic fatigue. E NT: Positive P atient denies ear fullness or pain or sinus pain. R ESPIRATORY: Positive for P atient denies shortness of breath or wheezing. O PHTHALMOLOGY: Positive for R eviewed and except as mentioned above in the HPI is negative. E NDOCRINOLOGY: Positive for P atient denies heat intolerance, cold intolerance, polyuria, elevated blood sugar, chronic fatigue. C ARDIOLOGY: Positive for P atient denies dizziness, palpitations, or chest pain. G ASTROENTEROLOGY: Positive for P atient denies diarrhea, melena, bloody stools, or abdominal pain. U ROLOGY: Positive for P atient denies urinary incontinence or urinary dysfunction. D ERMATOLOGY: Positive for P atient denies rash or hives. ? N EUROLOGY: Positive for R eviewed and except as mentioned above in the HPI is negative. H EMATOLOGY/LYMPH: Positive for P atient denies history of excessive bruising or bleeding diasthesis. M USCULOSKELETAL: Positive for P atient denies extremity joint pain or swelling. P SYCHOLOGY: Positive for R eviewed and except as discussed above in the HPI is otherwise negative. * Medical History: S ystemic lupus erythematosus, unspecified, Essential (primary) hypertension, Hyperlipidemia, unspecified, Atherosclerotic heart disease of [place] coronary artery with unspecified angina pectoris, Raynaud's Phenomenon, Neuropathy, Fibromyalgia, Coronary artery disease, Benign breast lump, Parkinson's Disease, Cervical DDD, Lumbar DDD, Migraine. * Surgical History: u rethral suspension , bowel obstruction , section , hysterectomy , cholecystectomy , rectocele/enterocele , total knee replacement . * Hospitalization/Major Diagno stic Procedure: S britton as above . * Family History: F ather: , Yes. M other: , Yes, diagnosed with Allergic rhinitis due to allergen. P aternal Grand Father: . P aternal Grand Mother: . M aternal Grand Father: . M aternal Grand Mother: . S iblings: alive, Yes, diagnosed with Cancer, Diabetes, Hypertension, Allergic rhinitis due to allergen, Heart Disease, Atopic asthma w/o mention of status asthmaticus or acute exacerbation. Sujatha lopez: alive, Yes. 5 brother(s) , 3 sister(s) . 1 son(s) , 2 daughter(s) . . Patient didn't know her grandparents. * Social History: D etails on consumption of certain products? Do you regularly consume products with aspartame; Equal or NutraSweet? N o Do you regularly consume products with artificial coloring??Yes E xercise What kind(s) of exercise do you perform regularly? a ge-appropriate participation in physical activites How often do you perform this exercise? d aily A re any of the following personal care products containing fragrance, dye or preservatives used regularly? Soap: N o Laundry Detergent: Y es Deodorant: Y es Air freshners or other scented products: Y es Hair coloring dyes or rinses: Y es O ccupation Are you currenly employed? N o Have you had any job with high exposure to fumes, chemicals, dust or other noxious substances? Y es E nvironmental History Living environment: p rivate home Where is the home located? r ural Age of home: 2 0 How long have you lived there? 5 years or more How many people live in the home? 2 H ome description Basement: Y es Any water damage in basement? N o Smokers in the home? N o Smokers outside the home? N o Air Conditioning? Y es Central Air? Y es Forced air heating? Y es Gas or electric? g as Fireplace? N o Wood burning stove? N o Do you vacuum the home? Y es Air purification systems? N o Pillow and mattress dust-proof encasings? N o Do you use a humidifier? Y es Whole house or room? w hole house humidifier Is it used year-round, seasonal, or as needed? y ear-round Is the humidifier cleaned regularly? Y es Do you own any pets? N o Fabric softeners used? N o Plants in the home? N o Is there carpeting in your bedroom? N o Do you have caws-ly-ouuk carpeting? N o What is the age of your mattress (years)? 5 What material(s) are used to manufacture your bedding and pillow? s ynthetic What is the age of your pillow (years)? 2 Do you sleep with quilts or blankets or a duvet? Y es What material? n atural fiber (e.g. cotton) T obacco Control (Standard) Tobacco use: N onsmoker * Medications: T aking Fish Oil 500 MG Capsule 1 cap(s) orally once a day , Taking Vitamin C 1000 MG Tablet 1 tab(s) orally once a day , Taking Calcium 600 + D 600 MG-5 MCG TABLET 1 TAB(S) ORALLY 3 TIMES A DAY , Notes to Pharmacist: *Please review and pick correct strength-formulation from Berggi options. If intended option is not shown, [...] tab(s) orally once a day , Taking Fioricet 50-300-40 MG Capsule 1 cap orally once, can repeat x1 after 2-4 hours , Not-Taking/PRN MAGNESIUM AMINO ACIDS CHELATE 300 MG CAPSULE 1 CAP(S) ORALLY ONCE A DAY , Notes to Pharmacist: *Please review for potential replacement for e-prescription and drug interaction check* * Allergies: S ULFA: rash, Kiwi: throat tightness, Ciprofloxacin: hives. Objective: * Vitals: * Examination: G eneral examination: General appearance: P leasant, well-developed, no distress.? HEENT: R estricted cervical ROM. Pain with deep palpation over bilateral upper cervical facets. Bilateral parascapular myofascial trigger points.? Neurologic exam: A lert and oriented x 4. Fluent speech. Mild cognitive impairment. CN II-XII. Motor 5/5 strength in all extremities. R > L UE rest tremor. R > L bradykinesia. R > L rigidity, as well as bradykinesia. Reflexes 2+/2 and symmetric in all extremities. Bilateral flexor plantar responses. Sensory exam intact to light touch in all extremities. Cerebellar testing no ataxia. Slow, cautious gait. Back: S ignificantly reduced cervicogenic ROM. Bilateral periscapular myofascial trigger points. Assessment: Plan: * Treatment: * Follow Up: 4 Weeks (Reason: Evaluation and Management) * Billing Information: * Visit Code: * Procedure Codes: * Electronic signature of Dr. Kaleb Perez MD on 05/26/2025 at 07:42 AM CDT Sign off status: Pending * Provider: Agnes Perez MD Date: 05/30/2024 Generated for Eleazar olivares/Klever/Lucienitting on: 05/26/2025 07:42 AM CDT History and Physical Notes * Examination Category Sub-Category Detail Notes Category Not es General examination HEENT: Restricted c ervical ROM. Pain with deep palpation over bilateral upper cervical facets. Bilateral parascapular myofascial trigger points General appearance: Pleasant, well-devel oped, no distress Neurologic exam: Alert and oriented x 4. Fluent speech. Mild cognitive impairment. CN II-XII. Motor 5/5 strength in all extremities. R > L UE rest tremor. R > L bradykinesia. R > L rigidity, as well as bradykinesia. Reflexes 2+/2 and symmetric in all extremities. Bilateral flexor plantar responses. Sensory exam intact to light touch in all extremities. Cerebellar testing no ataxia. Slow, cautious gait Back: Significantly reduce d cervicogenic ROM. Bilateral periscapular myofascial trigger points
--- OUTSIDE RECORDS SUMMARY | 2025-05-26 16:43 | XMS_ITS | Referral Summary ---
Author Organization [facility] Address [address] [place] [address] Care Team Providers Care Endoscopy Technican Name Role Phone Grabiel Carolina MD Unavailable Richard Fontaine MD Unavailable La Nena Leyva MD Unavailable Goldie Suh MD Unavailable Kaleb Carrillo MD Unavailable Brenda Bhat MD Unavailable [phone] SonIsrael DPT Unavailable Smitha [facility] Pr ovider Encounters Date Type Department Care Team Description 05/26/2025 7:39 AM CDT Hospital Encounter [facility] ([facility]) [address] [place] [address] Screening mammogram, encounter for 03/21/2025 Results Follow-Up [facility] [address] [facility] [address] [place] [address] [place] [address] Grabiel Carolina MD Protein electrophoresis with reflex, serum with interpretation, Immunoglobulin free light chains, Immunofixation, urine with interpretation 03/20/2025 2:35 PM CDT Lab [facility] [address] [place] [address] Abnormal echocardiogram 03/20/2025 2:00 PM CDT Office Visit [facility] [address] [facility] [address] [place] [address] [place] [address] Grabiel Carolina MD 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 (Primary Dx); Abnormal echocardiogram; Pure hypercholesterolemia 03/12/2025 2:30 PM CDT Office Visit [facility] [facility] [address] [place] [address] January Issa NP Neuropathy (Primary Dx); Parkinson's disease, unspecified whether dyskinesia present, unspecified whether manifestations fluctuate (HCC); Mild cognitive impairment; Constipation, unspecified constipation type; Orthostatic hypotension; Generalized anxiety disorder from Last 3 Months Allergies Active Allergy Reactions Criticality Noted Date Comments Nifedipine Rash Medium 01/06/2010 Adhesive Tape-Silicones Rash Medium Sulfamethoxazole-Trim ethoprim Rash Medium 04/14/2021 Drug hypersensitivity reaction March 2403/2021 Ciprofloxacin Rash Medium 11/06/2009 Gentamicin Rash Medium 10/29/2009 Kiwi Other (See comments) Low 05/29/2024 Medications cyanocobalamin (Vitamin B-12) 100 mcg tabletIndications:Preve ntion of Vitamin B12 Deficiency Take 1 tablet (100 mcg total) by mouth daily Active rosuvastatin (CRESTOR) 40 mg tabletIndications:Pure hypercholesterolemia TAKE 1 TABLET BY MOUTH DAILY 90 tablet 3 023 Active Bifidobacterium infantis (ALIGN) 4 mg capsule 1 capsule (4 mg total) Active sertraline (ZOLOFT) 100 mg tablet Take 1 tablet (100 mg total) by mouth daily 90 tablet 3 023 Active Additional Information Patient taking differently: 50 mgoral Daily, Reported on 03/12/2025 aspirin 81 mg enteric coated tablet Take 1 tablet (81 mg total) by mouth daily 30 tablet 11 023 Active methenamine (HIPREX) 1 gram tablet Take 1 tablet (1,000 mg total) by mouth 2 (two) times a day 024 Active calcium carbonate-vitamin D3 1500 mg (600 mg elemental) -200 units per tablet Take 1 tablet by mouth daily Active magnesium oxide 400 mg magnesium capsule Take 400 mg by mouth daily Active ascorbic acid (vitamin C) 100 mg tablet Take 1 tablet (100 mg total) by mouth daily Active omega 3-vhg-kvt-fish oil 60-90-500 mg capsule daily Active cetirizine (ZyrTEC) 10 mg tablet Take 1 tablet (10 mg total) by mouth daily Active clopidogreL (PLAVIX) 75 mg tablet TAKE 1 TABLET BY MOUTH DAILY 100 tablet 2 024 Active carbidopa-levodopa (SINEMET) 25-100 mg per tablet Take 2 tablets by mouth 3 (three) times a day 540 tablet 3 025 2025 Active Additional Information Patient taking differently:2 tablet oral2 times daily, Morning and bedtime., Reported on 03/20/2025 Restasis 0.05 % ophthalmic emulsion INSTILL 1 DROP BOTH EYES TWICE DAILY 025 Active cholecalciferol 400 unit capsule Active donepeziL (ARICEPT) 10 mg tablet Take 1/2 tab at bedtime for one week then increase to 1 tab at bedtime thereafter. 30 tablet 11 025 Active Linzess 145 mcg capsule 02/20 025 Active Active Problems Problem Noted Date Diagnosed Date Overactive bladder 09/18/2024 Raynaud's disease 09/18/2024 Stented coronary artery 09/18/2024 Fibromyalgia 09/18/2024 Acute irritant contact dermatitis 07/02/2024 Assessment & Plan (07/02/2024 4:10 PM CDT): Exam c/w irritant poison oak/sumac rash No concern of infectious etiology- D/C ABX + medrol pk (SER), cnt TC 0.1% ointment prn, hypoallergenic products & OTC symp relief therapies, antihistamines prn; RX precautions, S/Es reviewed Counseled of expectations w/ tx course, expected sx resolution, reportable red flags & further avoidance RTC prn Axillary lymphadenopathy 07/02/2024 Assessment & Plan (07/02/2024 4:06 PM CDT): Unilateral, reactive from localized irritant dermatitis per exam, HPI +medrol pk;SER Counseled of anticipatory self resolution in next 7-10 days as dermatitis resolves Supportive measures, therapies & reportable sx reviewed Update in 1-2 wks arrange US if ongoing Orthostatic hypotension 12/19/2022 Assessment & Plan (03/13/2024 10:25 AM CDT): Notes having continued orthostatics at home, with mild lightheadedness, denies any syncope or falls. Off antihypertensive currently. Has follow up with cardiology next week, discussed supportive therapies, and will refer to PT as well to help with balance given Parkinsons as well. Hypophonia 12/18/2022 Viral URI 08/17/2022 Assessment & Plan (08/17/2022 10:34 AM CDT): Discussed that her constellation of symptoms is most consistent with viral URI and that supportive measures are appropriate at this point (to including Flonase, saline rinses, OTC cough suppressants, analgesics) Consider more sensitive COVID test or repeat home testing in 2 days If symptoms persist >10 days or worsen, she knows to reach out for further eval and/or consideration of antibiotics Mouth symptom 08/17/2022 Assessment & Plan (08/17/2022 10:26 AM CDT): Unclear etiology. Encouraged to use Biotene daily, continue drinking lots of water and will trial nystatin swish and swallow in case she has very mild thrush Constipation 06/13/2022 Assessment & Plan (05/29/2024 3:53 PM CDT): Will have patient trial miralax to see if any improvement, if not, could consider GI evaluation. Assessment & Plan (11/28/2023 1:01 PM FUR MATCHER): Recent hospitalization for ?bowel obstruction - records being sent. Patient reports normal BM since being home. Completed antibiotics for ?colitis as well. Assessment & Plan (06/13/2022 11:43 AM CDT): No BM since Monday. Just taking colace so far- add Miralax BID, increase colace to BID PRN, can add senna if needed. NSTEMI (non-ST elevated myocardial infarction) 0 06/06/2022 Generalized abdominal pain 05/18/2022 Assessment & Plan (05/18/2022 10:50 AM CDT): She will establish with Dr Smith next week so defer further workup for now. Given her weight loss, repeat EGd/c-scope and imaging may be indicated. Finger injury 03/30/2022 Assessment & Plan (03/30/2022 8:58 AM CDT): Mild crush injury of 2-4 left fingers Neurovascularly intact. She does have preexisting Raynaud's and I think her injury and mild soft tissue injury have exacerbated her paresthesias but I have no concerns about neurovascular compromise today. 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 Assessment & Plan (10/06/2024 11:16 AM FUR MATCHER): She and her have both noted decline in memory and thinking that appear to involve multiple cognitive domains including memory and executive function and maybe visuospatial function. These changes are persistent and represent a clear decline from baseline, and could be viewed as mostly a nuisance but may represent a more problematic decline. The etiology is not clear but could relate to underlying Parkinson disease. She was previously evaluated [facility] 2018 at which time her cognition was normal for age. It is reasonable to pursue a follow up evaluation at this time to gather additional interval history, compare objective psychometric testing to prior baseline, and coordinate ongoing care recommendations. Assessment & Plan (05/21/2024 9:37 AM CDT): >>ASSESSMENT AND PLAN FOR COGNITIVE CHANGE WRITTEN ON 02/02/2022 11:31 PM BY HEATHER RODRIGUEZ MD PHD She describes some changes in cognition that are likely related to executive function and visuospatial ability. The etiology is not exactly clear but may be related to parkinsonism as part of an underlying neurodegenerative disease. The severity of these symptoms is not quite clear to me - specifically, I am not convinced that these necessarily represent a sufficient impairment in ability to carry out ADLs that they would meet criteria for dementia, although if they did this could very well be consistent with PD dementia. The pattern of cognitive symptoms seems quite consistent with those seen in PD but her ability to articulate specific symptoms, follow along, interject, and interpret subtle meanings in our discussion, and her apparent insight are all relatively reassuring to me, and I discussed this with her and her . I had a long discussion with her and her about the approach to evaluation and management of cognitive symptoms in individuals with Parkinson disease, including the lack of disease-modifying therapies, the limitation in effective symptomatic therapies, and the positive role that occupational therapy can play. I encouraged her to pursue OT for cognitive stimulation therapy. I think it is appropriate to repeat neuropsychological testing in April (as planned) and we can compare to prior results. Assessment & Plan (05/21/2024 9:37 AM CDT): >>ASSESSMENT AND PLAN FOR COGNITIVE CHANGE WRITTEN ON 03/08/2023 11:36 PM BY HEATHER RODRIGUEZ MD PHD She describes some changes in cognition that are likely related to executive function and visuospatial ability. The etiology is not exactly clear but are probably related to parkinsonism as part of an underlying neurodegenerative disease especially given recent neuropsych testing results. I had a long discussion with her and her again today about the approach to evaluation and management of cognitive symptoms in individuals with Parkinson disease, including the lack of disease-modifying therapies, the limitation in effective symptomatic therapies, and the positive role that occupational and speech therapy can play. I encouraged her to pursue OT for cognitive stimulation therapy. Assessment & Plan (05/18/2022 10:56 AM CDT): May have MCI but encouraged to try higher dose of sertraline to see if this improves things Assessment & Plan (01/21/2022 10:45 AM FUR MATCHER): She reports a significant sudden step-off in terms of memory and I do think MRI is reasonable to r/o a vascular event given her sig atherosclerotic dz. Will discuss with Dr Pérez Snoring 01/19/2022 Assessment & Plan (01/21/2022 10:43 AM FUR MATCHER): Encouraged to establish with sleep medicine as previously discussed to r/o VIC Sleep disturbance 01/19/2022 Loose stools 04/28/2021 Assessment & Plan (09/16/2021 12:49 PM CDT): Longstanding and worse recently I do think she probably has IBS. Will obtain CT report but reportedly normal and she has also had normal EGD C-scope may make sense to rule out something like microscopic colitis. Encouraged her to follow up with Dr Patino office re: SIBO test . She tried erythromycin but I don't think she has tried Xifaxin. Consider TCA or switching from sertraline to duloxetine Assessment & Plan (05/17/2021 10:30 AM CDT): Likely IBS. Encouraged to follow up with Dr Patino Assessment & Plan (04/28/2021 10:44 AM CDT): More consistent with IBS given intermittent nature of symptoms; Less likely SIBO or c diff Needs c-scope given her fecal incontinence- will request records from Dr Singletary Will try fiber supplementation and/or probiotic. Consider repeat course of Xifaxin. Encouraged to look for assoc with certain foods Trial hyoscyamine for abd pain Recurrent UTI 04/28/2021 Assessment & Plan (11/28/2023 1:01 PM FUR MATCHER): Noted while in hospital, completed treatment and follows with urology - planning on starting mirabegron. Assessment & Plan (05/29/2024 12:58 PM CDT): >>ASSESSMENT AND PLAN FOR RECURRENT UTI WRITTEN ON 09/01/2023 3:34 PM BY RUMA ALFORD NP Possible acute on chronic infection. New referral to Urology placed Await for urine culture. Encouraged to increase fluid intake. Red flag symptoms and when to seek emergent care discussed with patient. Patient verbalized understanding. If symptoms persist or worsen, might need further imaging to evaluate. >>ASSESSMENT AND PLAN FOR DYSURIA WRITTEN ON 09/01/2023 3:32 PM BY RUMA ALFORD, NETTIE Pt was advised increase fluids, genital hygiene, and frequent voiding to assist with clearance of infection. Assessment & Plan (05/17/2021 10:35 AM CDT): Now on trimethoprim which seems to be working - per Dr Suh Assessment & Plan (04/28/2021 10:34 AM CDT): Following with Dr Suh. Agree with ppx trimethoprim- she didn't have much time on this antibiotic before developing UTI but I encouraged her to give it another chance to see if this reduces symptoms long-term Fecal incontinence is surely contributing; will obtain records to see when last c-scope happened. Will try fiber supplements for increased fecal bulk. Gastroesophageal reflux disease without esophagi tis 01/11/2021 Assessment & Plan (11/23/2022 11:35 AM FUR MATCHER): Suspect this is worsening. Will have her trial short term PPI (discussed risks of cognitive impairment) 20 mg BID x 14 days. Also recommended famotidine trial and adding TUMs PRN. Since she has dysphagia, referred for EGD Counseled on cutting back on chocolates and other behavioral/lifestyle modifications Assessment & Plan (10/24/2022 2:41 PM FUR MATCHER): Worsening symptoms, will have patient trial famotidine and see if any improvement. Assessment & Plan (05/17/2021 10:36 AM CDT): Not currently on meds but seems to be doing OK Assessment & Plan (01/11/2021 11:57 AM FUR MATCHER): Will trial with pepcid 20 mg bid + PPI prn Counseled pt on diet and lifestyle modifications Encouraged to follow up with GI Other chest pain 11/23/2020 Assessment & Plan (04/28/2021 10:46 AM CDT): Occurs when she feels anxious rather than with exertion- will CTM for now but she knows to call Dr Carolina or present to ER if worsening Assessment & Plan (01/21/2021 11:47 AM FUR MATCHER): I am concerned this could represent unstable angina. Repeat EKG today. Will send trop and BNP. Will discuss with Dr Carolina. However, she also had gastritis on recent EGD and seemed to respond to PPI when symptoms first appeared. Esophageal spasm could also respond to NG. Will resume Dexilant and see if this improves her symptoms. Assessment & Plan (01/11/2021 11:57 AM FUR MATCHER): Atypical chest pain She has followed with Dr Carolina and I encouraged her to follow up sooner. Advised pt to not lift heavy objects as that seems to be triggering her sxs Will get an EKG and it was reassuring today EGD in 11/2020 was also reassuring She is not using PPI, but will start taking pepcid 20 mg bid (can add PPI, if not pepcid helping) Discussed US and CT as the next step but she defers today Consider GI referral/follow up Assessment & Plan (11/23/2020 1:42 PM FUR MATCHER): Low suspicion for angina but she will see Dr Carolina in the near future for re-assessment. Continue PPI for GERD. She will try Tums or Gaviscon PRN. Agree with EGD to eval further given her dysphagia. Small intestinal bacterial overgrowth 11/23/2020 Assessment & Plan (11/23/2020 1:48 PM FUR MATCHER): Improving on erythromycin Following with Dr Singletary for this Xerosis of skin 05/29/2020 Assessment & Plan (05/29/2020 4:13 PM CDT): Advised to use emollients like vaseline/aquaphor Hearing loss 05/14/2020 Assessment & Plan (05/14/2020 1:23 PM CDT): Age related. Will order audiogram next visit. Pt deferred today Chronic migraine without aur a without status migrainosus, not intractable 08/12/2019 Assessment & Plan (05/18/2022 10:59 AM CDT): She stopped botox and Aimovig because she didn't feel they were helping much Following with Dr Pérez for this Assessment & Plan (11/23/2020 1:47 PM FUR MATCHER): Pursuing Botox for these daily migraines Appreciate neurology care Sjogren's syndrome 06/18/2019 Assessment & Plan (05/29/2024 3:53 PM CDT): Follows with rheumatology, stable. Assessment & Plan (05/24/2023 2:04 PM CDT): Patient with worsening sicca symptoms, again encouraged her to follow up with rheumatology, and encouraged oral hygiene to help with dry mouth. Assessment & Plan (01/17/2023 2:54 PM FUR MATCHER): Patient with worsening sicca symptoms, will refer back to rheumatology for evaluation. Recommend she continue with biotene mouth wash, and consult with her dentist as well. Assessment & Plan (05/18/2022 10:58 AM CDT): Followed with Dr Leyva in the past, has been off HCQ for a year and doing well Assessment & Plan (06/03/2021 9:56 PM CDT): At this time, she has not developed any internal organ manifestations and no progression as we step down dosing of her HCQ.She no longer has any significant inflammatory component to her OA. I recommend we D/C HCQ at this time. She will reach out if has worsening sypmtoms but will coninue to treat locally. Her worse sx are at night and I recommend she use culinary coconut oil on her oral mucosa prior to Bedtime as well as humidifier during the winter. For her eyes, having a tight seal when wearing a mask. Assessment & Plan (06/18/2020 1:51 PM CDT): Clinically stable on her current regimen; will continue low-dose hydroxychloroquine with close ophthalmologic examination. I have reviewed her laboratories performed at her PCP and no evidence of internal organ involvement. Assessment & Plan (06/19/2019 8:04 AM CDT): Ongoing sicca symptoms that are slowly progressive. Her neurologic symptoms are fairly indolent and I doubt related. At this time, I recommend that we decrease her hydroxychloroquine to 3 x weekly. This is been tried previously several years ago and she had increase in arthralgias and I have asked her to advise if she has worsening symptoms but otherwise I will simply see her on an annual basis. We will check disease specific markers of complements, anti DS DNA and inflammatory markers. Parkinson disease 05/31/2019 Assessment & Plan (03/21/2025 2:55 PM CDT): She has parkinsonism stage 3 characterized by bilateral rest tremor, rigidity and bradykinesia, and postural instability without recovery on pull test. The pattern and progression over time, including potential benefit with levodopa suggests that the etiology may be idiopathic Parkinson disease. She tried tapering and stopping carbi/levo as she was not sure of benefit but all symptoms worsened and she restarted dosing at bid (morning and bedtime). Tremor is still bothersome throughout the day and she should try 2 tabs tid, morning, lunch and dinner. She had dose-limiting sleepiness with levodopa in the past; and occasional lightheadedness that improved when fosinipril was stopped. She still has migraines but has seen [facility] specialists. She is doing Pt and she should start APDA youtube channel exercises. She has dysphagia which is likely related to an underlying neurologic disorder but she had ST after last visit. She should also start Parkinson Voice Project exercises. She describes some changes in cognition that are likely related to executive function and visuospatial ability and now some changes that are more apparent in thinking and memory. The etiology is not exactly clear but may be related to parkinsonism as part of an underlying neurodegenerative disease. She did fairly well on cog testing in 2021 (MMSE 29 but MOCA 21) and they would like to try donepezil today, though they know there is not great likelihood that it will be helpful. She should continue B12 supplementation. She has quite a bit of anxiety, mainly related to perceived cognitive decline but she doesn't recognize this as anxiety and thinks this may have improved some with her current dose of sertraline and we will keep this dose the same today though it is a very low dose. She is bothered by what sounds like ADI and may try over the counter omeprazole but should continue to follow up with GI on this and her constipation. Recs: 1. Increase carbi/levo to 2 tabs tid.. 2. Same sertraline for now at 50 mg/day, could consider transitioning that to bupropion, which wouldn't cause weight gain and may help fatigue. 3. Start donepezil. 4. Same B12. 5. Start APDA [employer] channel exercise. 6. Start PD voice Project. 7. May try adding low scoops of Miralax but should see GI. 8. May try over the counter omeprazole for GERD. Assessment & Plan (10/06/2024 11:09 AM FUR MATCHER): She has parkinsonism stage 3 characterized by bilateral rest tremor, rigidity and mild bradykinesia with decrement only with one task on the left side, and postural instability. The pattern and progression over time, including potential benefit with levodopa suggests that the etiology may still be idiopathic Parkinson disease. She is not as convinced now that levodopa is providing any clear motor benefit. She preferred to gradually taper the dose to see if tremor or other symptoms get worse. I counseled her that if they do get worse, we can resume levodopa. She would also benefit from continuing PT exercises for Parkinson disease. Plan as phrased to the patient: Reduce sertraline to 50mg (cut 100mg tablet in half) and send an update on your mood in about 2-3 weeks. We can plan to adjust medications for mood until you feel comfortable and stable with mood. Then, we will likely plan to reduce carbidopa-levodopa to see if tremor gets worse. If no worse, we may eventually stop levodopa and then re-evaluate. If tremor does get worse, we can restart levodopa and adjust the dosage and timing to get the best tremor benefit. I will send a referral for you to see Christine Wayne NP in [facility]. I will ask study coordinators to call you about research you may be interested in. Assessment & Plan (05/29/2024 3:53 PM CDT): Follows with neurology, on sinemet Assessment & Plan (03/13/2024 10:29 AM CDT): Patient would like to restart PT, has not been doing it for some time will place referral. Assessment & Plan (09/11/2023 4:15 PM CDT): She has parkinsonism stage 3 characterized by bilateral rest tremor, rigidity and bradykinesia, and postural instability without recovery on pull test. The pattern and progression over time, including potential benefit with levodopa suggests that the etiology may be idiopathic Parkinson disease. She is not as convinced now that levodopa is providing clear motor benefit. She had dose-limiting sleepiness with levodopa and current lightheadedness and is taking fosinopril.We will have her check orthostatics and fosinopril may need to be cut back or eliminated. She still has migraines but has seen [facility] specialists. We will restart PT and she should start APDA youtube channel exercises. She has dysphagia which is likely related to an underlying neurologic disorder but she had ST after last visit. She should also start Parkinson Voice Project exercises. She describes some changes in cognition that are likely related to executive function and visuospatial ability. The etiology is not exactly clear but may be related to parkinsonism as part of an underlying neurodegenerative disease. She did fairly well on cog testing in 2021 (MMSE 29 but MOCA 21) so she may have some MCI and we will recheck this again at next visit. She should continue B12 supplementation. She has quite a bit of anxiety, mainly related to perceived cognitive decline but she doesn't recognize this as anxiety and thinks this may have improved some with her current dose of sertraline and we will try increasing the dose to 100 mg/day. Recs: 1. Same carbi/levo. 2. Increase sertraline to 100 mg/day. 3. Check orthostatics and report in one week. I would consider increasing to tid or increasing to 2.5 tabs bid once we regulate BPs. She is likely going to need to cut back or eliminate fosinopril given the lightheadedness. 4. Same B12. 5. Start APDA youtube channel exercise, we will order PT. 6. Start PD voice Project. Assessment & Plan (05/24/2023 2:05 PM CDT): Follows with neurology, alexis. Assessment & Plan (03/08/2023 11:34 PM CDT): She has parkinsonism stage 3 characterized by bilateral rest tremor, rigidity and bradykinesia, and postural instability. The pattern and progression over time, including potential benefit with levodopa suggests that the etiology may be idiopathic Parkinson disease. She is not as convinced now that levodopa is providing clear motor benefit. Her UPDRS III is essentially the same for me compared to last year but postural stability is a little worse. She is probably having good benefit from levodopa but we may be able to adjust the dosage or formulation to try to increase quality and consistency of benefit including tremor control and minimize side effects including lightheadedness. She would also benefit from doing some specific PT exercises for Parkinson disease. 1. Continue same carbidopa-levodopa for now. 2. Our office will mail you a copy of instructions and a table for checking blood pressure sitting and standing. Do this for about a week and send results. We will then decide whether to reduce the dose of levodopa by a little bit, to see if this improves lightheadedness without sacrificing tremor benefit. 3. COntinue exercise. 4. There is a [employer] channel with exercises from the [place] chapter of the APDA. You can find this by searching [employer] for [place] apda exercise or typing this address into your web browser. [email or web address]. Let me know if you ever want to repeat either OT or speech therapy for conversational talking. 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 The pattern and progression over time, including potential benefit with levodopa suggests that the etiology may be idiopathic Parkinson disease. She is not as convinced now that levodopa is providing clear motor benefit. We discussed the challenges and approach to diagnosis and management of Parkinson disease. She had dose-limiting sleepiness with levodopa and recently, she has been lightheaded. She should check orthostatics and report in a week. One major issue has been headache and she is currently having frequent migraines and no longer has a headache specialist. We will refer her to see one of our specialists. We will restart PT and she should start APDA youtube channel exercises. She has dysphagia which is likely related to an underlying neurologic disorder and we will refer to ST. She should also start Parkinson Voice Project exercises. She describes some changes in cognition that are likely related to executive function and visuospatial ability. The etiology is not exactly clear but may be related to parkinsonism as part of an underlying neurodegenerative disease. She did fairly well on cog testing today (MMSE 29 but MOCA 21) so she may have some MCI. She has been low on B12 in the past and needs to restart this supplement. She has quite a bit of anxiety, mainly related to perceived cognitive decline but she doesn't recognize this as anxiety and thinks this may have improved some with her current dose of sertraline. Recs: 1. Same carbi/levo, same sertraline. 2. Check orthostatics and report in one week. 3. Restart B12. 4. Start ST and we will rx. 5. Start APDA youtube channel exercise. 6. Start PD voice Project. 7. We will refer to headache specialist. Assessment & Plan (05/18/2022 10:53 AM CDT): Sinemet dose recently increased but she feels sleepier and more nauseated. 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 The pattern and progression over time, including potential benefit with levodopa suggests that the etiology may be idiopathic Parkinson disease. She is not as convinced now that levodopa is providing clear motor benefit. We discussed the challenges and approach to diagnosis and management of Parkinson disease. She had dose-limiting sleepiness with levodopa but when she tried to taper and stop this drug after last visit, her symptoms were clearly worse and today, she is willing to try a higher dose to see if provides better benefit, but will need to watch for side effects. She has recently completed PT but should start APDA youtube channel exercises. She has dysphagia which is likely related to an underlying neurologic disorder. She is starting ST next week and should also start Parkinson Voice Project exercises. She describes some changes in cognition that are likely related to executive function and visuospatial ability. The etiology is not exactly clear but may be related to parkinsonism as part of an underlying neurodegenerative disease. She did fairly well on cog testing today (MMSE 29 but MOCA 21) so she may have some MCI. She has been low on B12 in the past and needs to restart this supplement. She has quite a bit of anxiety, mainly related to perceived cognitive decline but she doesn't recognize this as anxiety. That said, she is willing to try an increase in sertraline to see if it is helpful. We discussed the relationship between cognitive symptoms and mood symptoms, including the importance of medication treatment of mood disorders including anxiety as well as the role of reassurance and longitudinal follow up. Recs: 1. Increase carbi/levo as directed. 2. Increase sertraline. 3. Restart B12. 4. Start ST as planned. 5. Start APDA youtube channel exercise. 6. Start PD voice Project. 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 The pattern and progression over time, including potential benefit with levodopa suggests that the etiology may be idiopathic Parkinson disease. She is not as convinced now that levodopa is providing clear motor benefit. We discussed the challenges and approach to diagnosis and management of Parkinson disease. She had dose-limiting sleepiness with levodopa and still may be having some cognitive side effects. Coupled with the lack of obvious motor benefit per her report, we discussed the potential role of further tapering and stopping levodopa for a trial period. She would benefit from both physical therapy for balance and gait training and exercise regimen. 1. Reduce carbidopa-levodopa from 1.5 tablets three times daily to 1 tablet three times daily for 1 week, then reduce to 0.5 tablets three times daily for 1 week, then stop. Wait another 2 weeks and send me an update. 2. I will send referral for occupational therapy for cognitive stimulation therapy. 3. I will send referral for speech therapy for swallowing evaluation. 4. I will send referral for physical therapy. 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 The pattern and progression over time, including recent benefit with levodopa trial suggests that the etiology may be idiopathic Parkinson disease. Overall she is doing well and it is reasonable to continue current dose of levodopa but she would likely benefit by moving doses to TID with meals schedule so that she gets benefit from the last dose of the day during waking hours. We may increase as needed after that but she has not always taken 3 doses daily so this will be the first step. She would benefit from both physical therapy for balance and gait training and exercise regimen, and from speech therapy for swallowing evaluation. 1. Continue carbidopa/levodopa 25/100mg but change schedule to 1 tablet three times daily with meals for 2 weeks, then call my office with an update. 2. I will send PT referral for balance and gait training. 3. I will send speech therapy referral for dysphagia. Assessment & Plan (05/14/2020 1:19 PM CDT): Per neurology. 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 The etiology remains unclear. She is starting to develop subjective complaints including stiffness and gait impairment that are typical for Parkinson disease, and she had mild but relatively specific signs on prior exam including rest tremor with walking, so this may simply represent early Parkinson disease. She is not sufficiently bothered by symptoms at this point to warrant treatment but this would be reasonable to consider should her symptoms progress or if she specifically wants to target rest tremor. She would benefit from regular exercise and physical therapy for balance and gait training. Assessment & Plan (05/31/2019 11:23 AM CDT): She as parkinsonism stage 2.5 characterized by right sided rest tremor, and bilateral but right greater than left rigidity and bradykinesia, and postural instability with recovery on pull test. The etiology is not clear. She does not have prominent subjective complaints of loss of dexterity or gait impairment that are typical for Parkinson disease, but does have mild but relatively specific signs on exam including rest tremor with walking, so this may simply represent early Parkinson disease. She is not sufficiently bothered by symptoms at this point to warrant treatment but this would be reasonable to consider should her symptoms progress or if she specifically wants to target rest tremor. She would benefit from regular exercise. Dizziness 08/21/2018 Assessment & Plan (12/19/2022 4:37 PM FUR MATCHER): Increase fluid intake EKG done in office; improved form 06/08/2022 CBC, CMP, UA ordered Follow up with Neuro and Cardiology Discussed symptom requiring emergent follow up Assessment & Plan (08/17/2022 10:33 AM CDT): She has had this complaint off and on over the years. May be worse recently. Encouraged to continue tracking Bps including orthostatic measurements and note when she is dizzy. If still persistent when her URI resolves, will bring her into the office for eval. Assessment & Plan (01/11/2021 11:58 AM FUR MATCHER): Discussed postural hypotension EKG today and it was reassuring Encouraged pt to follow up with Dr Ge SETH Discussed risks of avoiding testing Offered Event monitor but pt prefers to follow up with Dr Carolina Advised pt to be mindful when changing positions and also avoid lifting heavy weights Dysphagia 07/28/2017 Assessment & Plan (11/23/2022 11:28 AM FUR MATCHER): Since this is red flag sx referred for EGD. Scheduled to follow up with ENT and that will also be a good idea. Working with WEBFED OFFSET PRESS OPERATOR as well. Assessment & Plan (02/02/2022 11:16 PM CDT): She has dysphagia which is likely related to an underlying neurologic disorder. It is appropriate to have this evaluated by a speech language pathologist to minimize aspiration risk, with additional diagnostic testing to be ordered at the WEBFED OFFSET PRESS OPERATOR's discretion. Assessment & Plan (05/17/2021 10:29 AM CDT): Manometry in 2017 showed mildly abnormal esophageal motility Assessment & Plan (04/28/2021 10:37 AM CDT): EGD was unrevealing Dr Rodriguez recommended WEBFED OFFSET PRESS OPERATOR eval - will look into this Assessment & Plan (01/27/2021 8:02 PM FUR MATCHER): She has dysphagia which is likely related to an underlying neurologic disorder. It is appropriate to have this evaluated by a speech language pathologist to minimize aspiration risk, with additional diagnostic testing to be ordered at the WEBFED OFFSET PRESS OPERATOR's discretion. Osteopenia 04/11/2017 Assessment & Plan (05/29/2024 3:53 PM CDT): Due for DEXA, has deferred bisphosphonate in the past. Will continue with calcium/vitamin D and weight bearing exercises as tolerated. Assessment & Plan (05/24/2023 2:04 PM CDT): Due for DEXA, has deferred bisphosphonate in the past. Will continue with calcium/vitamin D and weight bearing exercises as tolerated. Assessment & Plan (05/18/2022 11:10 AM CDT): Bone density in osteopenic range but FRAX is high. Discussed indication for medications. She will discuss with her GI doc and her dentist given potential risks of bisphosphonate. Check vit D level- plan to continue supplementation Encouraged 1200mg calcium daily, preferably through diet but supplemental if needed Continue weight-bearing exercise and consider strength-training as well Assessment & Plan (06/03/2021 9:57 PM CDT): Given age, fall risk I encouraged her to initiate vit D supplementation and consider alendronate or alternative bisphosphonate. She is willing and will have Dr Cho prescribe. Assessment & Plan (05/17/2021 10:35 AM CDT): Update DEXA Check vit D level- plan to continue supplementation Encouraged 1200mg calcium daily, preferably through diet but supplemental if needed Continue weight-bearing exercise and consider strength-training as well Assessment & Plan (05/14/2020 1:20 PM CDT): Dexa due in 03/2021 Sensorineural hearing loss (SNHL) of both ears 0 01/15/2016 Osteoarthritis of knee 04/05/2014 Overview (05/29/2018): Osteoarthritis Assessment & Plan (05/14/2020 1:21 PM CDT): Follows with Dr. Leyva; declines to see ortho Fibrositis 04/05/2014 Overview (02/23/2017): Fibromyalgia Neuropathy 04/05/2014 Overview (03/11/2025): Peripheral neuropathy hands/feet Benign hypertension 04/05/2014 Overview (02/23/2017): BENIGN HYPERTENSION Assessment & Plan (05/29/2024 3:52 PM CDT): Stable well controlled on current regimen, will send in refills as needed Assessment & Plan (11/28/2023 1:00 PM FUR MATCHER): Patient was started back on fosinopril while in hospital, is now taking 10mg once daily. Will continue to monitor, follows with cardiology. Assessment & Plan (09/11/2023 9:07 AM CDT): Orthostatic. Stop fosinopril, compression stockings and hydration. Follows with neurology for parkinson's as well. Assessment & Plan (05/24/2023 2:02 PM CDT): Stable well controlled on current regimen, will send in refills as needed Assessment & Plan (11/23/2022 11:27 AM FUR MATCHER): Well controlled on current regimen. Reviewed BP goal. Encouraged pt to monitor BP intermittently at home and report back with values Advised lifestyle measures for improving BP inc regular exercise, healthy diet, salt restriction Bring BP cuff at next visit Will check labs per below Follow up in 3 months Assessment & Plan (06/13/2022 11:50 AM CDT): BP looks great today- low if anything- but she reports high blood pressures Encouraged to keep a log of Bps at home and report back Assessment & Plan (05/18/2022 10:57 AM CDT): Encouraged to monitor BP at home given her lightheadedness and to assess need for dose adjustment Assessment & Plan (01/19/2022 3:55 PM FUR MATCHER): BP has looked good recently Continue current regimen- could consider CCB given her Raynaud's but she does have listed allergy to Adalat Assessment & Plan (12/08/2021 8:07 PM FUR MATCHER): Bps have been high since mid-October but she hadn't been checking prior Elevated Bps seem to be tracking with her headaches so I wonder if the migraines are causing her transient elevated Bps. She will monitor her BP for the next week and make note of when she is having headaches to confirm. May discuss with her neurologist if this is the case Also consider Namenda as a contributor Assessment & Plan (11/09/2021 11:36 AM FUR MATCHER): Suspect home bp machine may be inaccurate Given h/o dizziness, would like her to check BPs more regularly before changing the dose Reviewed BP goal of 130/80 EKG today reassuring Encouraged pt to monitor BP intermittently at home and report back with values in 2 weeks Bring BP cuff at next visit Follow up in 4 weeks Assessment & Plan (05/17/2021 10:27 AM CDT): BP controlled on home measurements. No longer having lightheadedness. CTM Assessment & Plan (04/28/2021 10:35 AM CDT): She reports frequent lightheadedness; encouraged to keep log of Bps and report back Assessment & Plan (11/23/2020 3:33 PM FUR MATCHER): BP at goal on current regimen Polyp of colon 04/05/2014 Overview (02/24/2017): Colon polyp Assessment & Plan (05/14/2020 1:19 PM CDT): Staying upto with colonoscopy Urinary incontinence 07/06/2012 Degeneration of intervertebral disc of lumbar re gion 06/19/2011 Atherosclerosis of [place] co ronary artery of [place] heart with stable angina pectoris 06/07/2005 Overview (03/28/2022): CAD (coronary artery disease) Assessment & Plan (06/11/2024 12:53 PM CDT): Chest pain back to baseline. Nuclear stress test from 04/12/24 with normal myocardial perfusion and ECG changes appreciated. As symptoms were stable medical management pursued. Reports stable symptoms that have been present for many years. Denies any further intense discomfort. Continue ASA and rosuvastatin. Discussed anti-anginal therapy. Declined at this time as symptoms have improved. Assessment & Plan (09/11/2023 8:57 AM CDT): Atypical Chest pain, with unremarkable EKG in clinic. Continue current regimen with Plavix and statin currently holding Plavix and on ASA while awaiting MRI and spinal injection. Resume Plavix and stop ASA following procedure. LDL 78 in May. Assessment & Plan (05/24/2023 2:03 PM CDT): Follows with cardiology, stable. Assessment & Plan (06/13/2022 12:00 PM CDT): Recent NSTEMI with trops 98 -> 270 -> 266 Cath without intervenable lesion Clopidogral + Imdur were added. Currently just on 15mg Imdur; may be contributing to headaches but tolerable so far. Could consider transition to CCB but she feels better today. Scapula pain/indigestion symptoms have resolved and I suspect this is her anginal equivalent (different from her chronic chest pain) Continue ASA and rosuvastatin 40 (LDL at goal 68) Assessment & Plan (05/17/2021 10:38 AM CDT): S/p PCI earlier this year With chest pain in the mornings but never with exertion Continue current meds- following closely with Dr Carolina Assessment & Plan (01/21/2021 11:43 AM FUR MATCHER): Eval for ACS as above On ASA, statin. Will review history to see why not on BB Consider Ranexa as next step pending workup - she will follow up with Dr Carolina for this Assessment & Plan (11/23/2020 1:49 PM FUR MATCHER): On ASA and lovastatin per Dr Carolina She will follow up with him in near future to r/o ischemia as cause of chest pain Disorder of coccyx 01/27/2005 Chronic sinusitis 11/09/2004 Assessment & Plan (06/16/2023 3:20 PM CDT): Patient with worsening sinus pain/pressure. Will refer to ENT for evaluation, no signs/symptoms of acute infection currently. Will continue to monitor. Allergic rhinitis 06/14/2004 Pain in joint involving pelvic region and thigh 05/10/2002 Bursitis 10/17/2001 Joint pain 09/10/1999 Pure hypercholesterolemia 09/10/1999 Assessment & Plan (06/11/2024 12:53 PM CDT): Continue rosuvastatin. Assessment & Plan (05/29/2024 3:52 PM CDT): Stable well controlled on current regimen, will send in refills as needed Assessment & Plan (05/24/2023 2:03 PM CDT): Stable well controlled on current regimen, will send in refills as needed Assessment & Plan (11/23/2022 11:29 AM FUR MATCHER): On rosuva Update FLP and LFTs Continue rosuvastatin + Mediterranean diet and regular exercise Assessment & Plan (05/18/2022 11:00 AM CDT): Rosuvastatin was increased to 40mg daily LDL recently improved to 103 Generalized anxiety disorder 06/24/1999 Assessment & Plan (10/06/2024 11:04 AM FUR MATCHER): She continues to have mood symptoms including anxiety and likely depression also. Previously this was diagnosed as generalized anxiety disorder. These symptoms relate in part to her perceived decline in mobility and cognition. We discussed the relationship between cognitive symptoms and mood symptoms, including the importance of medication treatment of mood disorders including anxiety as well as the role of reassurance and longitudinal follow up. She was also concerned about the number of medications she takes and wondered if sertraline is providing good benefit. We discussed that it may be reasonable to adjust sertraline or consider changing to another medication. As a first step we can reduce the dose of sertraline from 100 to 50mg and re-evaluate. If mood symptoms are noticeably worse we may want to consider increasing even higher than 100mg. If mood is not noticeably worse we may reduce further and ultimately stop sertraline and try another medication. Assessment & Plan (05/29/2024 3:53 PM CDT): Stable well controlled on current regimen, will send in refills as needed Assessment & Plan (05/24/2023 2:03 PM CDT): Stable well controlled on current regimen, will send in refills as needed Assessment & Plan (05/24/2023 12:21 PM CDT): >>ASSESSMENT AND PLAN FOR ANXIETY STATE WRITTEN ON 05/18/2022 10:52 AM BY JASMIN CHO MD Encouraged to try higher dose of sertraline to see how she feels - we can always go back down in the dose if she doesn't feel like it's beneficial Assessment & Plan (02/02/2022 11:28 PM CDT): She seems to have quite a bit of anxiety, mainly related to perceived cognitive decline. We discussed the relationship between cognitive symptoms and mood symptoms, including the importance of medication treatment of mood disorders including anxiety as well as the role of reassurance and longitudinal follow up. She may benefit from adjustment of SSRI but we may wish to re-evaluate after obtaining repeat neuropsych testing and discussing those results. Assessment & Plan (12/08/2021 8:07 PM FUR MATCHER): I wonder if this could be contributing to her symptoms although she denies that this is any worse than her baseline Resolved Problems Problem Noted Date Diagnosed Date Resolved Date COVID-19 virus infection 12/20/2021 Assessment & Plan (12/20/2021 3:50 PM FUR MATCHER): Discussed CDC guidelines for isolation Given her age and HTN, she is high risk and within 5 day window for molnupiravir. EUA status reviewed. Will place order for COVID home monitoring. Discussed red flags like worsening chest pain, SOB, lethargy that should prompt her to present to ER. Continue Flonase, Mucinex, nasal rinses, analgesics and will RX riley mendosa Chronic headaches 11/09/2021 05/18/2022 Assessment & Plan (11/09/2021 12:06 PM FUR MATCHER): Trial with magnesium +riboflavin Hydration and stress management Use migraine christa to track sxs and identify triggers Consider eye exam If persistent, can discuss imaging with neuro Encouraged to follow up and get her botox injection as well Warnings reviewed Tingling of both feet 02/10/20212021 Assessment & Plan (02/10/2021 2:12 PM CDT): Exam was reassuring today and she is at her baseline Encouraged pt to work on posture (as she crosses her legs while sitting) Offered to check b12 levels, but she defers Will trial with OTC vitamin b supplementation Encouraged self foot exam since she does have h/o peripheral neuropathy and follow up with neuro Sunburn 05/29/2020 11/23/2020 Assessment & Plan (05/29/2020 4:07 PM CDT): Rash on the nape of the neck consistent with sunburn with mild flaking. Non tender. Superficial burn. Advised pt to stay indoors during peak summer hours. Wear sunscreen and long shirt, if possible. Can use soothing gels/cold compresses Tingling of both upper extremities 05/14/2020 05/18/2022 Assessment & Plan (05/14/2020 1:26 PM CDT): Ongoing for 2 months. Pt is established with neuro and will be contacting them. Will order labs - Declines imaging, ortho or PT consults today. She states her neurologist has these scheduled. Tremor 04/22/2020 05/18/2022 Assessment & Plan (05/14/2020 1:18 PM CDT): Parkinson's being managed by neuro Essential tremor 05/31/2019 11/23/2022 Assessment & Plan (01/11/2021 11:52 AM FUR MATCHER): Following with Dr Rodriguez Assessment & Plan (04/22/2020 1:22 PM CDT): She has a 10 year history of action and postural tremor that may be most consistent with essential tremor. She had dose limiting side effects with both propranolol and topiramate so it is unclear if either of these medications may have helped tremor at higher dose. Given the major type of tremor that bothers her is action/posture, it may be reasonable to try primidone to target this tremor type. If this is not effective or not tolerated, it would be reasonable to pursue a trial of levodopa, as she also has elements of parkinsonism (see separate assessment). 1. Start primidone 50mg 1/2 tablet at bedtime for tremor. Call in 2-3 weeks with update. 2. Start home exercises - I sent YouTube channel. 3. Our office to please send referral for PT at [facility] near [facility]. 4. Our office to please send a new referral to general neurology for headache management (she previously saw Dr. Lin but he left [facility] and she does not have follow up scheduled yet). 5. She remains concerned about her memory and thinking. Last note from Dr. Henry dated January 2018 indicated no objective deficit. I will discuss with Dr. Henry in [facility] to determine appropriate timing and type of follow up. Assessment & Plan (05/31/2019 11:33 AM CDT): She has a 10 year history of action and postural tremor that is most consistent with essential tremor. She has noticed minimal benefit so far from low dose propranolol and is tolerating it well so it is reasonable to increase the dose. 1. Consider increasing propranolol to 10mg twice daily, and then may increase by 10mg at each dose weekly, to a goal of 40mg twice daily. Call with lightheadedness or other side effects. Otalgia of left ear 08/21/2018 12/05/19 19 Pulsatile tinnitus, left ear 08/21/2018 05/18/2022 Rash 06/01/2018 11/23/2020 Assessment & Plan (05/29/2020 4:10 PM CDT): Secondary to insect bite Cool compresses. She will buy OTC calamine lotion for her forearms. Will order steroid cream. Use long shirt when outside. Reapply sunscreen. She has antihistamines - allergra at home, which she will take. She knows to go to the ER in case she has SOB/trouble breathing Assessment & Plan (06/01/2018 1:45 PM CDT): This rash appears different from the zoster form lesions and appears more consistent with a contact dermatitis. I recommended that she resume her usual detergent and I have given her triamcinolone cream and suggested that she use Dome Buro solution for the itching. Herpes zoster without complication 05/29/2018 05/18/2022 Assessment & Plan (05/29/2020 4:03 PM CDT): Rash on the chin is most consistent with shingles given past history and painful vesicular eruption. She does have one fluid filled vesicle on her chin and there are a total of 5 papules on the chin in a clustered pattern Assessment & Plan (05/29/2018 12:23 PM CDT): We will treat with Valtrex 1 g p.o. b.i.d. and she will be traveling to spend time with an in 5 days and would like to minimize risk of contagiousness Chest pain on exertion 05/24/201812/05 Assessment & Plan (05/24/2018 6:43 PM CDT): Patient with Hx of CAD with atypical chest pain presentation with negative troponins X2, no ECG changes from previous, and normal Echo stress test. Pain likely GI in nature, secondary to recent esophageal dilatation, which can now be presenting with GERD symptoms. Patient will be discharged on pantoprazole 40 mg daily for treatment of possible GERD. Patient will continue on home medications for her CAD and she will follow up with outpatient PCP for further management. Hay fever 04/28/2015 12/05/2018 Multiple-type hyperlipidemia 04/05/2014 05/18/2022 Overview (02/24/2017): MIXED HYPERLIPIDEMIA Asymmetrical sensorineural hearing loss 01/23/2014 12/05/2018 Stress incontinence in female 08/31/2012 12/05/2018 Lung mass 06/17/2012 05/18/2022 Systemic lupus erythematosus 08/09/2011 02/16/2024 Assessment & Plan (05/14/2020 1:18 PM CDT): Per Dr. Leyva Assessment & Plan (05/29/2018 9:02 PM CDT): Clinically she is doing well at this time and has no active symptoms of lupus. Her chest pain was nonpleuritic in no pericardial effusion or pulmonary embolus was noted on chest CT during her recent hospitalization. Immunizations Immunization Administration Dates Next Due Influenza, Quadrivalent, Hig h Dose, Preservative Free, Intrr 08/08/2020 Influenza, Quadrivalent, Rec ombinant, Egg Free, Preservative Free, Intramuscular 09/05/2019 Influenza, Trivalent, High D ose, Split, Preservative Free, Intramuscular 08/25/2021,09/17/2018,08/11/2017,09/14 Influenza, Trivalent, IM (MDV) 08/26/2013 Influenza, Trivalent, Preser vative Free, Intramuscular 09/08/2015,08/28/2014,08/09/2011 Influenza, Unspecified 09/18/2018 Pfizer SARS-CoV-2 Monovalent Vaccination (12+ Yrs) PURPLE 03/15/2022,08/30/2021,01/13/2021,12/23 Pneumococcal Conjugate PCV 13 09/21/2018 Pneumococcal Polysaccharide PPV23 11/02/2011 Tdap 07/29/2023,08/09/2011 ZOSTER LIVE 11/20/2010 ZOSTER Recombinant 07/07/2022,02/14/2022 Social History Tobacco Use Types Packs/Day Years Used Date Smoking Tobacco: Never Smokeless Tobacco: Never Tobacco Cessation:Counseling Given: Not Answered Alcohol Use Standard Drinks/Week Comments No 0 (1 standard drink = 0.6 oz pur e alcohol) AUDIT-C Answer Date Recorded Q1: How often do you have a drink containing alc ohol? 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 Not on file Not on file Last Filed Vital Signs Vital Sign Reading Time Taken Comments Blood Pressure 161/89 03/20/2025 1:46 PM CDT Pulse 75 03/20/2025 1:46 PM CDT Temperature 36.2 C (97.1 F) 10/02/2024 3:41 PM FUR MATCHER Respiratory Rate 20 09/14/2023 1:30 PM CDT Oxygen Saturation 98% 03/20/2025 1:46 PM CDT Inhaled Oxygen Concentration - - Weight 56.2 kg (124 lb) 05/26/2025 8:12 AM CDT Height 162.6 cm (5' 4) 05/26/2025 8:12 AM CDT Body Mass Index 21.28 05/26/2025 8:12 AM CDT Plan of Treatment Not on file Medical Devices Implanted Type Area Commercial Property Manager Device Identifier Shelf Expiration Date Model / Serial / Lot Daig Kyle[employer] [id number] Angio-Seal Evolution 6fr .035in Guidewire Bypass Tube Suture - [id number] Implanted:Qty: 1 on 02/11/2021 by Tera Denson MD at [facility] Collagen Right: Femoral Ter[employer] Kyle 11/19/2021 [id number] / / [id number] Medtronic [employer] X [id number] Resolute [place] 3mm 2.1-2.7fr 26mm 140cm Rapid Exchange Radiopaque - [id number] Implanted:Qty: 1 on 02/04/2021 by Tera Denson MD at [facility] Stent Right: Coronary Medtronic Inc 09/08/2022 [id number] / / [id number] [employer] Kyle [id number] Stent Drug Eluting S [facility] Mr [id number] - [id number] Implanted:Qty: 1 on 02/11/2021 by Tera Denson MD at [facility] Stent Left: Coronary [employer] Kyle 10/21/2021 [id number] / / [id number] Stent N/A: Heart Knee Replacement Knee Daig Kyle[employer] [id number] Angio-Seal Evolution 6fr .035in Guidewire Bypass Tube Suture - [id number] Implanted:Qty: 1 on 02/04/2021 by Tera Denson MD at [facility] Right: Femoral [employer] Kyle 10/19/2021 [id number] / / [id number] Procedures Procedure Name Priority Date/Time Associated Diagnosis Comments IMMUNOFIXATION, URINE Routine 03/20/2025 2:41 PM CDT Abnormal echocardiogram IMMUNOGLOBULIN FREE LIGHT CHAINS Routine 03/20/2025 2:41 PM CDT Abnormal echocardiogram PROTEIN ELECTROPHORESIS, WITH REFLEX, SERUM Routine 03/20/2025 2:41 PM CDT Abnormal echocardiogram DEXA AXIAL SKELETON BONE DENSITY 1 OR MORE SITES Schedule Routine, Read Routine (OP Routine) 05/18/2021 9:19 AM CDT Osteopenia, unspecified location Asymptomatic menopausal state from Last 3 Months or Most Recently Relevant to Health Maintenance Results * (ABNORMAL) Immunoglobulin free light chains (03/20/2025 2:41 PM CDT) Dieterich/Lambda ratio [facility] 1.49 0.26 - 1.65 Comment: Interpretive Data The Binding Site FreeLite assay procedure was used. Results from different manufacturers or methods may not be comparable. Serial testing should be performed using the same methods and instrumentation. Current Interpretive Data was last revised on 2024. Dieterich free light chain [facility] 2.46(H) 0.33 - 1.94 mg/dL [facility] Comment: Interpretive Data The Binding Site FreeLite assay procedure was used. Results from different manufacturers or methods may not be comparable. Serial testing should be performed using the same methods and instrumentation. Current Interpretive Data was last revised on 2024. Lambda free light chain [facility] 1.65 0.57 - 2.63 mg/dL [facility] Comment: Interpretive Data The Binding Site FreeLite assay procedure was used. Results from different manufacturers or methods may not be comparable. Serial testing should be performed using the same methods and instrumentation. Current Interpretive Data was last revised on 2024. Blood 03/20/2025 2:41 PM CDT 03/20/2025 3:36 PM CDT us Grabiel Carolina MD LAB BLOOD ORDERABLES Final Re sult [facility] Department [place] [address] * Immunofixation, urine with interpretation (03/20/2025 2:41 PM CDT) Pathologist [facility] Immunofixation, Ur Please see comment Comment: NO PARAPROTEIN DETECTED Reviewed and signed by Maximilian Esquivel MD 03/21/2025 Urine 03/20/2025 2:41 PM CDT 03/20/2025 3:36 PM CDT Grabiel Carolina MD LAB URINE ORDERABLES Final Re sult Performing Organization Address [facility] Co de Phone Number [facility] [place] [address] * Protein electrophoresis with reflex, serum with interpretation (03/20/2025 2:41 PM CDT) [facility] Protein, sr 6.9 6.2 - 8.2 g/dL Albumin 4.2 3.2 - 5.0 g/dL [facility] Alpha-1 globulin 0.3 0.2 - 0.4 g/dL [facility] Alpha-2 globulin 0.7 0.5 - 1.0 g/dL [facility] Beta-1 globulin 0.3 0.3 - 0.6 g/dL [facility] Beta-2 globulin 0.3 0.2 - 0.6 g/dL [facility] Gamma globulin 1.1 0.5 - 1.7 g/dL [facility] SPEP interp Please see comment [facility] Comment: No apparent monoclonal peak Electrophoretic pattern appears similar to previous sample 02/16/2024 Reviewed and signed by Maximilian Esquivel MD 03/21/2025 Blood 03/20/2025 2:41 PM CDT 03/20/2025 3:36 PM CDT Grabiel Carolina MD LAB BLOOD ORDERABLES Final Re sult Performing Organization Address [facility]/ZIP Co de Phone Number [facility] [place] [address] * Dexa Axial Skeleton Bone Density 1 or 2 Site (05/18/2021 9:19 AM CDT) Anatomical Region Laterality Modality Body N/A Digital Radiogra phy 05/18/2021 9:2 2 AM CDT Impressions 05/18/2021 11:56 AM CDT 1. The bone mineral density of the lumbar spine is normal. There has been a statistically significant decrease in bone mineral density since the baseline examination of 09/23/2005. Comparison with prior studies performed at this facility before July 2019 is less accurate because of a change in bone densitometry scanners. 2. The bone mineral density of the left femoral neck is mildly decreased. There has been a statistically significant decrease in bone mineral density since the baseline examination of 09/23/2005. Comparison with prior studies performed at this facility before July 2019 is less accurate because of a change in bone densitometry scanners. 3. The bone mineral density of the left total hip is mildly decreased. There has been a statistically significant decrease in bone mineral density since the baseline examination of 09/23/2005. Comparison with prior studies performed at this facility before July 2019 is less accurate because of a change in bone densitometry scanners. 4. Overall, the above findings are diagnostic of low bone mass (osteopenia) by WHO criteria. 5. Based on the FRAX fracture risk model, the 10-year probability for major osteoporotic fracture is 14% and that for hip fracture is 3.9%. This 10-year fracture risk estimate was calculated using the risk factors noted in the history above, along with the femoral neck bone density. FRAX is intended to help guide treatment decisions in men over age 50 and postmenopausal women with low bone mass (osteopenia). The National Osteoporosis Foundation (NOF) recommends that FDA-approved medical therapies be considered in postmenopausal women and men age 50 years and older with osteoporosis and those with low bone mass whose 10-year fracture probability by FRAX is >= 20% for major osteoporotic fracture or >= 3% for hip fracture. However, all treatment decisions require clinical judgment and consideration of individual patient factors, including patient preferences, comorbidities, previous drug use, risk factors not captured in the FRAX model (e.g., frailty, falls, vitamin D deficiency, increased bone turnover, interval significant decline in bone density) and possible under- or overestimation of fracture risk by FRAX. General comments regarding interpretation of bone density measurements: A) In children, premenopausal woman and males under age 50 not at increased risk for fractures only Z-scores, not T-scores are used to indicate risk. A Z-score above -2.0 is defined as within the expected range for age and Z-score at or less than -2.0 is below the expected range for age. A Z-score below the expected range for age in a patient with recent fractures and/or chronic corticosteroid treatment is consistent with a diagnosis of osteoporosis. B) In post menopausal women and males over 50, comparison of the measured bone mineral density with the average value in young normal subjects (the T-score) has been found to be useful in assessing fracture risk. Fracture risk approximately doubles for each 1.0 standard deviation (SD) in individual's hip or spine bone mineral density is below the average value of young normal subjects. The World Health Organization (WHO) has defined T-scores of -1.0 to -2.5 as diagnostic of low bone mass (OSTEOPENIA), and T-scores of -2.5 or lower to be diagnostic of OSTEOPOROSIS, based on the site of lowest bone density. Note that there will be a change in reporting format and reference databases as patients move from the younger population (group A) to the older population (group B) The National Osteoporosis Foundation (www.nof.org) recommends adequate intake of calcium and vitamin D and regular weight-bearing exercise in all patients. They recommend pharmacologic treatment in postmenopausal women and men age 50 and older presenting with any of the followin) Osteoporosis, after appropriate evaluation to exclude secondary causes. 2) A hip or vertebral (clinical or radiographic) fracture, regardless of the bone density. 3) Low bone mass (Osteopenia) and one or more of: other prior fractures, secondary causes associated with high risk of fracture (such as glucocorticoid use or total immobilization), or computed high risk of fracture (10-yr probability of hip fracture >= 3% or a 10-yr probability of any major osteoporosis-related fracture >= 20% based on the [place].-adapted WHO algorithm), available at http://www.shef.ac.uk/FRAX). Dictated by: Sabino Do M.D. The radiology attending physician has personally reviewed this study, and had reviewed and/or edited this written report and agrees with it. Electronically signed by: Belen Yoon M.D. Narrative 05/18/2021 11:56 AM CDT BONE DENSITOMETRY OF THE SPINE AND HIP DATE OF STUDY: 05/18/2021 HISTORY: 80-year-old postmenopausal woman with hysterectomy and oophorectomy at age 32. She is not currently being treated with bone density modifying medications. Evaluate bone mineral density. Additional risk factors for fracture: secondary osteoporosis (early menopause). FINDINGS (SPINE): The bone mineral density of L1, L2, L3 was assessed by dual-energy x-ray absorptiometry. The average bone mineral density within this region is 1.008 gm/sq-cm. This is 2.6 standard deviations above the mean of the average bone mineral density for age- and gender-matched subjects (the Z-score). It is 0.1 standard deviations below the mean peak bone mineral density in young adults (the T-score). The L4 vertebral body was excluded due to T score difference. FINDINGS (FEMORAL NECK): The bone mineral density of the left femoral neck was assessed by dual-energy x-ray absorptiometry. The average bone mineral density within the femoral neck region is 0.652 gm/sq-cm. This is 0.6 standard deviations above the mean of the average bone mineral density for age- and gender-matched subjects (the Z-score). It is 1.8 standard deviations below the mean peak bone mineral density in young adults (the T-score). FINDINGS (TOTAL HIP): The bone mineral density of the left hip was assessed by dual-energy x-ray absorptiometry. The average bone mineral density within the total hip region is 0.775 gm/sq-cm. This is 0.7 standard deviations above the mean of the average bone mineral density for age- and gender-matched subjects (the Z-score). It is 1.4 standard deviations below the mean peak bone mineral density in young adults (the T-score). SUMMARY OF CURRENT RESULTS: Region BMD T-score Z-score AP Spine (L1, L2, L3) 1.008 -0.1 2.6 Femoral Neck (Left) 0.652 -1.8 0.6 Total Hip (Left) 0.775 -1.4 0.7 COMPARISON WITH PREVIOUS RESULTS Region Age BMD T-score BMD Change BMD Change Exam Date g/cm2 vs Baseline vs Previous AP Spine (L1-L3) 05/18/2021 80 1.008 -0.1 -10.2%# -1.7%# 04/11/2019 78 1.025 0.1 -8.6%*! -0.7% 04/11/2017 76 1.032 0.1 -8.0%*! 4.1%* 04/09/2015 74 0.991 -0.2 -11.6%*! -3.1%# 04/03/2012 71 1.023 -8.8%#! -8.8%# 09/23/2005 65 1.122 0.9 Femoral Neck(Left) 05/18/2021 80 0.652 -1.8 -17.8%# 2.7%# 04/11/2019 78 0.635 -1.9 -20.0%# -3.0% 04/11/2017 76 0.655 -1.7 -17.5%# -1.3% 04/09/2015 74 0.664 -1.7 -16.4%# -10.9%* 04/03/2012 71 0.745 -0.9 -6.1%# -6.1%# 09/23/2005 65 0.794 -0.5 Total Hip(Left) 05/18/2021 80 0.775 -1.4 -16.6%# -4.0%# 04/11/2019 78 0.808 -1.1 -13.1%# -0.5% 04/11/2017 76 0.812 -1.1 -12.6%# -1.9% 04/09/2015 74 0.828 -0.9 -10.9%# -10.4%* 04/03/2012 71 0.924 -0.2 -0.6%# -0.6%# 09/23/2005 65 0.929 -0.1 *Denotes significance at 95% confidence level # Denotes dissimilar scan types or analysis methods Procedure Note Belen Yoon MD - 05/18/2021 BONE DENSITOMETRY OF THE SPINE AND HIP DATE OF STUDY: 05/18/2021 HISTORY: 80-year-old postmenopausal woman with hysterectomy and oophorectomy at age 32. She is not currently being treated with bone density modifying medications. Evaluate bone mineral density. Additional risk factors for fracture: secondary osteoporosis (early menopause). FINDINGS (SPINE): The bone mineral density of L1, L2, L3 was assessed by dual-energy x-ray absorptiometry. The average bone mineral density within this region is 1.008 gm/sq-cm. This is 2.6 standard deviations above the mean of the average bone mineral density for age- and gender-matched subjects (the Z-score). It is 0.1 standard deviations below the mean peak bone mineral density in young adults (the T-score). The L4 vertebral body was excluded due to T score difference. FINDINGS (FEMORAL NECK): The bone mineral density of the left femoral neck was assessed by dual-energy x-ray absorptiometry. The average bone mineral density within the femoral neck region is 0.652 gm/sq-cm. This is 0.6 standard deviations above the mean of the average bone mineral density for age- and gender-matched subjects (the Z-score). It is 1.8 standard deviations below the mean peak bone mineral density in young adults (the T-score). FINDINGS (TOTAL HIP): The bone mineral density of the left hip was assessed by dual-energy x-ray absorptiometry. The average bone mineral density within the total hip region is 0.775 gm/sq-cm. This is 0.7 standard deviations above the mean of the average bone mineral density for age- and gender-matched subjects (the Z-score). It is 1.4 standard deviations below the mean peak bone mineral density in young adults (the T-score). SUMMARY OF CURRENT RESULTS: Region BMD T-score Z-score AP Spine (L1, L2, L3) 1.008 -0.1 2.6 Femoral Neck (Left) 0.652 -1.8 0.6 Total Hip (Left) 0.775 -1.4 0.7 COMPARISON WITH PREVIOUS RESULTS Region Age BMD T-score BMD Change BMD Change Exam Date g/cm2 vs Baseline vs Previous AP Spine (L1-L3) 05/18/2021 80 1.008 -0.1 -10.2%# -1.7%# 04/11/2019 78 1.025 0.1 -8.6%*! -0.7% 04/11/2017 76 1.032 0.1 -8.0%*! 4.1%* 04/09/2015 74 0.991 -0.2 -11.6%*! -3.1%# 04/03/2012 71 1.023 -8.8%#! -8.8%# 09/23/2005 65 1.122 0.9 Femoral Neck(Left) 05/18/2021 80 0.652 -1.8 -17.8%# 2.7%# 04/11/2019 78 0.635 -1.9 -20.0%# -3.0% 04/11/2017 76 0.655 -1.7 -17.5%# -1.3% 04/09/2015 74 0.664 -1.7 -16.4%# -10.9%* 04/03/2012 71 0.745 -0.9 -6.1%# -6.1%# 09/23/2005 65 0.794 -0.5 Total Hip(Left) 05/18/2021 80 0.775 -1.4 -16.6%# -4.0%# 04/11/2019 78 0.808 -1.1 -13.1%# -0.5% 04/11/2017 76 0.812 -1.1 -12.6%# -1.9% 04/09/2015 74 0.828 -0.9 -10.9%# -10.4%* 04/03/2012 71 0.924 -0.2 -0.6%# -0.6%# 09/23/2005 65 0.929 -0.1 *Denotes significance at 95% confidence level # Denotes dissimilar scan types or analysis methods IMPRESSION: 1. The bone mineral density of the lumbar spine is normal. There has been a statistically significant decrease in bone mineral density since the baseline examination of 09/23/2005. Comparison with prior studies performed at this facility before July 2019 is less accurate because of a change in bone densitometry scanners. 2. The bone mineral density of the left femoral neck is mildly decreased. There has been a statistically significant decrease in bone mineral density since the baseline examination of 09/23/2005. Comparison with prior studies performed at this facility before July 2019 is less accurate because of a change in bone densitometry scanners. 3. The bone mineral density of the left total hip is mildly decreased. There has been a statistically significant decrease in bone mineral density since the baseline examination of 09/23/2005. Comparison with prior studies performed at this facility before July 2019 is less accurate because of a change in bone densitometry scanners. 4. Overall, the above findings are diagnostic of low bone mass (osteopenia) by WHO criteria. 5. Based on the FRAX fracture risk model, the 10-year probability for major osteoporotic fracture is 14% and that for hip fracture is 3.9%. This 10-year fracture risk estimate was calculated using the risk factors noted in the history above, along with the femoral neck bone density. FRAX is intended to help guide treatment decisions in men over age 50 and postmenopausal women with low bone mass (osteopenia). The National Osteoporosis Foundation (NOF) recommends that FDA-approved medical therapies be considered in postmenopausal women and men age 50 years and older with osteoporosis and those with low bone mass whose 10-year fracture probability by FRAX is >= 20% for major osteoporotic fracture or >= 3% for hip fracture. However, all treatment decisions require clinical judgment and consideration of individual patient factors, including patient preferences, comorbidities, previous drug use, risk factors not captured in the FRAX model (e.g., frailty, falls, vitamin D deficiency, increased bone turnover, interval significant decline in bone density) and possible under- or overestimation of fracture risk by FRAX. General comments regarding interpretation of bone density measurements: A) In children, premenopausal woman and males under age 50 not at increased risk for fractures only Z-scores, not T-scores are used to indicate risk. A Z-score above -2.0 is defined as within the expected range for age and Z-score at or less than -2.0 is below the expected range for age. A Z-score below the expected range for age in a patient with recent fractures and/or chronic corticosteroid treatment is consistent with a diagnosis of osteoporosis. B) In post menopausal women and males over 50, comparison of the measured bone mineral density with the average value in young normal subjects (the T-score) has been found to be useful in assessing fracture risk. Fracture risk approximately doubles for each 1.0 standard deviation (SD) in individual's hip or spine bone mineral density is below the average value of young normal subjects. The World Health Organization (WHO) has defined T-scores of -1.0 to -2.5 as diagnostic of low bone mass (OSTEOPENIA), and T-scores of -2.5 or lower to be diagnostic of OSTEOPOROSIS, based on the site of lowest bone density. Note that there will be a change in reporting format and reference databases as patients move from the younger population (group A) to the older population (group B) The National Osteoporosis Foundation (www.nof.org) recommends adequate intake of calcium and vitamin D and regular weight-bearing exercise in all patients. They recommend pharmacologic treatment in postmenopausal women and men age 50 and older presenting with any of the followin) Osteoporosis, after appropriate evaluation to exclude secondary causes. 2) A hip or vertebral (clinical or radiographic) fracture, regardless of the bone density. 3) Low bone mass (Osteopenia) and one or more of: other prior fractures, secondary causes associated with high risk of fracture (such as glucocorticoid use or total immobilization), or computed high risk of fracture (10-yr probability of hip fracture >= 3% or a 10-yr probability of any major osteoporosis-related fracture >= 20% based on the [place].-adapted WHO algorithm), available at http://www.shef.ac.uk/FRAX). Dictated by: Sabino Do M.D. The radiology attending physician has personally reviewed this study, and had reviewed and/or edited this written report and agrees with it. Electronically signed by: Belen Yoon M.D. Jasmin Cho MD IMG DXA PROCEDURES Final Result from Last 3 Months or Most Recently Relevant to Health Maintenance Insurance [facility] ADVANTAGE [facility] HMO REF [facility] MEDIC[facility] ADVANTAGE MEDICARE [employer] [facility] HMO REF [facility] MEDIC[facility] ADVANTAGE Advance Directives For more information, please contact: [phone] * Full Code (Latest Code Status on File) Date Activated Date Inactivated Comments 12/08/2022 12:29 PM 12/08/2022 5:05 PM * Full Code Date Activated Date Inactivated Comments 06/07/2022 1:54 PM 06/08/2022 8:28 PM * Full Code Date Activated Date Inactivated Comments 06/06/2022 8:56 PM 06/07/2022 1:54 PM * Full Code Date Activated Date Inactivated Comments 06/06/2022 5:53 PM 06/06/2022 8:56 PM * Full Code Date Activated Date Inactivated Comments 02/04/2021 5:11 PM 02/04/2021 10:50 PM Healthcare Agents on File Name Relationship Healthcare Agent Relationship Communication Edilberto Castaneda Spouse Health Care Agent [email or web address] Care Teams Endoscopy Technican Relationship Specialty Start Date End Date Smitha Crouch PA [address] [place] [address] PCP - General Physician Engraver Signature 10/02/24 Grabiel Carolina MD Referring Physician Cardiology 04/11/19 Richard Fontaine MD Surgeon Orthopedic Surgery 04/11/19 La Nena Leyva MD Consulting Physician Rheumatology 04/11/19 Goldie Suh MD Consulting Physician Urology 04/11/19 Kaleb Carrillo MD [address] [place] [address] Referring Physician Ophthalmology 04/11/19 Brenda Bhat MD [address] [place] [address] Referring Physician Dermatology 05/17/21 Son, Israel Cross, DPT [address] [place] [address] Physical Therapist Physical Therapy 03/28/22
--- OUTSIDE RECORDS SUMMARY | 2025-05-26 16:43 | XMS_ITS | Patient Health Record ---
Author Organization [facility] [employer] ([address]) Address [address] [place] [address] Care Team Providers Care Land Surveyor Name Role Phone Luannavis Bill Primary Care Provider Demi Chew Unavailable [phone] Dr. Kaleb Perez Unavailable [phone] Allergies Allergen (clinical drug ingredient) Drug/Non Drug Allergy documented on EMR Reaction Allergy Type Onset Date Status Substance with sulfonamide structure and antibacterial mechanism of action (substance) SULFA (uncoded) rash Allergy Active Ciprofloxacin hives Drug Allergy Act charleen Kiwi throat tightness Allergy Active Reason For Referral No Information Medications Medication SIG (Take, Route, Frequency, Duration) Notes Start Date End Date Status FISH OIL 500 mg 1 cap(s) orally once a day Active VITAMIN C 1000 mg 1 tab(s) orally once a day Active CALCIUM 600+D 600 mg-5 mcg 1 tab(s) orally 3 times a day Active CLARITIN 10 mg 1 tab(s) orally once a day Active Plaquenil 200 MG 1 tab(s) orally once a day Active METHENAMINE hippurate 1 g 1 tab(s) orally once a day Active Ambien 5 MG 1 tab(s) orally once a day (at bedtime) Active Restasis 0.05 % 1 gtt in each affected eye every 12 hours Active Hardeep Allergy 180 MG 1 tab(s) orally once a day Active Hardeep Allergy 180 MG 1 tab(s) orally once a day Active Ventolin HFA 108 (90 Base) MCG/ACT [...] once a day; Duration: 30 day(s) Active Fish Oil 500 MG 1 cap(s) orally once a day Active MAGNESIUM AMINO ACIDS CHELATE 300 MG 1 CAP(S) ORALLY ONCE A DAY *Please review for potential replacement for e-prescription and drug interaction check* Not-Taking Vitamin C 1000 MG 1 tab(s) orally once a day Active FIORICET 300 mg-50 mg-40 mg 1 cap orally once, can repeat x1 after 2-4 hours; Duration: 30 days As needed for migraine, max 2 caps/day, max 2 days/week 03/28/2024 Active HARDEEP 24 HOUR ALLERGY 180 mg 1 tab(s) orally once a day Active PLAVIX 75 mg 1 tab(s) orally once a day Active FLUTICASONE PROPIONATE 50 mcg/inh 1 spray(s) intranasally once a day; Duration: 30 day(s) Active CARBIDOPA-LEVODOPA 25 mg-100 mg 1 tab(s) orally 2 times a day Active VENTOLIN HFA 90 mcg/inh 2 puff(s) inhaled Q4-6 hours, PRN and per the asthma action plan; Duration: 30 day(s) Active SERTRALINE 100 mg 1 tab(s) orally once a day Active MONTELUKAST SODIUM 10 mg 1 tab(s) orally once a day; Duration: 30 day(s) Active FOSINOPRIL 20 mg 1 tab(s) orally once a day Active ASPIRIN 81 mg 1 tab(s) chewed once a day Active LOVASTATIN 20 mg 1 tab(s) orally once a day Active PLAQUENIL 200 mg 1 tab(s) orally once a day Active RESTASIS 0.05% 1 gtt in each affected eye every 12 hours Active AMBIEN 5 mg 1 tab(s) orally once a day (at bedtime) Active HARDEEP 24 HOUR ALLERGY 180 mg 1 tab(s) orally once a day Active ROSUVASTATIN 20 mg 1 tab(s) orally once a day Active Claritin 10 MG 1 tab(s) orally once a day Active Calcium 600 + D 600 MG-5 MCG 1 TAB(S) ORALLY 3 TIMES A DAY *Please review and pick correct strength-formulat ion from [employer] options. If intended option is not shown, discontinue and re-order from Quick Search* Active Rosuvastatin Calcium 20 MG 1 tab(s) orally once a day Active Methenamine Hippurate 1 GM 1 tab(s) orally once a day Active Carbidopa-Levodopa 25-100 MG 1 tab(s) orally 2 times a day Active Plavix 75 MG 1 tab(s) orally once a day Active Fosinopril Sodium 20 MG 1 tab(s) orally once a day Active Sertraline HCl 100 MG 1 tab(s) orally once a day Active Lovastatin 20 MG 1 tab(s) orally once a day Active Aspirin 81 MG 1 tab(s) chewed once a day Active Immunizations Vaccine Route Administration Date Status Comme nts Influenza Unknown 09/06/2017 Administered Social History Tobacco Use: Social History Observation Description Date Details (start date - stop date) Never Smoker NA - NA Tobacco Control (Standard) Question Answer Notes Tobacco use: Nonsmoker Problems Problem Type SNOMED Code ICD Code Onset Dates Problem Status W/U Status Risk Notes Problem Chronic migraine without aura, non-refractory (disorder) (132309684209990) Migraine without aura, not intractable, without status migrainosus (G43.009) Active confirmed Problem Migraine with aura (7011007) Migraine with aura, not intractable, without status migrainosus (G43.109) Active confirmed Problem Chronic migraine without aura, non-intractable (008258381718243) Chronic migraine without aura, not intractable, without status migrainosus (G43.709) Active confirmed Problem Chronic tension-type headache (544392588) Chronic tension-type headache, intractable (G44.221) Active confirmed Problem Chronic allergic conjunctivitis (16995952) Other chronic allergic conjunctivitis (H10.45) Active confirmed Problem Allergic rhinitis caused by pollen (disorder) (37719378) Allergic rhinitis due to pollen (J30.1) Active confirmed Problem Allergic rhinitis (55810853) Other allergic rhinitis (J30.89) Active confirmed Problem Degeneration of cervical intervertebral disc (02893428) Other cervical disc degeneration, unspecified cervical region (M50.30) Active confirmed Problem Cervicalgia (09357428) Cervicalgia (M54.2) Active confirmed Problem Occipital neuralgia (13629052) Occipital neuralgia (M54.81) Active confirmed Problem Adverse reaction caused by drug (10912260) Adverse effect of other drugs, medicaments and biological substances, initial encounter (T50.995A) Active confirmed Problem Allergic rhinitis caused by animal hair and dander (056864009325036) Allergic rhinitis due to animal (cat) (dog) hair and dander (J30.81) Active confirmed Problem Cough (11992266) Cough (R05) Active confirmed Problem Muscle pain (57367459) Myalgia, unspecified site (M79.10) Active confirmed Problem Cervicogenic headache (223305927) Cervicogenic headache (G44.86) Active confirmed Plan Of Treatment Pending Test Test Name Order Date MRI : Spine, Cervical (without gadoliniu m) 02/28/2024 Insurance Providers Payer Name Payer Address Payer Phone Subscriber Number Group Number Insured Name Patient Relationship to Insured Coverage Start Date Coverage End Date [employer] Medicare [address] [address] [place] [address] [id number] Cheri Castaneda Self - patient is the insured 4 Medical (General) History Medical History History ICD Code Systemic lupus erythematosus, unspecifie d M32.9 Essential (primary) hypertension I10 Hyperlipidemia, unspecified E78.5 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
--- OUTSIDE RECORDS SUMMARY | 2025-05-26 16:43 | XMS_ITS | Clinical Summary ---
Author Organization [facility] Address [address] [place] [address] Care Team Providers Care Chief Growth Officer Name Role Phone Grabiel Carolina MD Unavailable Richard Fontaine MD Unavailable La Nena Leyva MD Unavailable Goldie Suh MD Unavailable Kaleb Carrillo MD Unavailable [phone] Brenda Bhat MD Unavailable [phone] SonIsrael DPT Unavailable Smitha Crouch Primary Care Pr ovider Allergies Active Allergy Reactions Criticality Noted Date [...] mg total) by mouth daily Active omega 4-pcd-mgj-fish oil 60-90-500 mg capsule daily Active cetirizine [...] evaluation. Assessment & Plan (11/28/2023 1:01 PM WOODWORKING CRAFTSMAN): Recent hospitalization for ?bowel obstruction - records [...] well. Assessment & Plan (10/06/2024 11:16 AM WOODWORKING CRAFTSMAN): She and her have both noted decline [...] things Assessment & Plan (01/21/2022 10:45 AM WOODWORKING CRAFTSMAN): She reports a significant sudden step-off in terms of memory and I do think MRI is reasonable to r/o a vascular event given her sig atherosclerotic dz. Will discuss with Dr Pérez Snoring 01/19/2022 Assessment & Plan (01/21/2022 10:43 AM WOODWORKING CRAFTSMAN): Encouraged to establish with sleep medicine as [...] 04/28/2021 Assessment & Plan (11/28/2023 1:01 PM WOODWORKING CRAFTSMAN): Noted while in hospital, completed treatment and [...] WRITTEN ON 09/01/2023 3:32 PM BY RUMA ALFORD NP Pt was advised increase fluids, genital hygiene, [...] 01/11/2021 Assessment & Plan (11/23/2022 11:35 AM WOODWORKING CRAFTSMAN): Suspect this is worsening. Will have her trial short term PPI (discussed risks of cognitive impairment) 20 mg BID x 14 days. Also recommended famotidine trial and adding TUMs PRN. Since she has dysphagia, referred for EGD Counseled on cutting back on chocolates and other behavioral/lifestyle modifications Assessment & Plan (10/24/2022 2:41 PM WOODWORKING CRAFTSMAN): Worsening symptoms, will have patient trial famotidine and see if any improvement. Assessment & Plan (05/17/2021 10:36 AM CDT): Not currently on meds but seems to be doing OK Assessment & Plan (01/11/2021 11:57 AM WOODWORKING CRAFTSMAN): Will trial with pepcid 20 mg bid [...] worsening Assessment & Plan (01/21/2021 11:47 AM WOODWORKING CRAFTSMAN): I am concerned this could represent unstable angina. Repeat EKG today. Will send trop and BNP. Will discuss with Dr Carolina. However, she also had gastritis on recent EGD and seemed to respond to PPI when symptoms first appeared. Esophageal spasm could also respond to NG. Will resume Dexilant and see if this improves her symptoms. Assessment & Plan (01/11/2021 11:57 AM WOODWORKING CRAFTSMAN): Atypical chest pain She has followed with [...] up Assessment & Plan (11/23/2020 1:42 PM WOODWORKING CRAFTSMAN): Low suspicion for angina but she will see Dr Carolina in the near future for re-assessment. Continue PPI for GERD. She will try Tums or Gaviscon PRN. Agree with EGD to eval further given her dysphagia. 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 Assessment & Plan (05/24/2023 2:04 PM CDT): Patient with worsening sicca symptoms, again encouraged her to follow up with rheumatology, and encouraged oral hygiene to help with dry mouth. Assessment & Plan (01/17/2023 2:54 PM WOODWORKING CRAFTSMAN): Patient with worsening sicca symptoms, will refer [...] donepezil. 4. Same B12. 5. Start APDA youtube channel exercise. 6. Start PD voice Project. 7. May try adding low scoops of Miralax but should see GI. 8. May try over the counter omeprazole for GERD. Assessment & Plan (10/06/2024 11:09 AM WOODWORKING CRAFTSMAN): She has parkinsonism stage 3 characterized by [...] 3. COntinue exercise. 4. There is a YouTube channel with exercises from the [place] chapter of the APDA. You can find this by searching Jipio for [place] apda exercise or typing this address into your web browser. [email or web address] 5. Let me know if you ever want to repeat either OT or speech therapy for conversational talking. Assessment & Plan (11/23/2022 11:29 AM WOODWORKING CRAFTSMAN): Per neuro- Assessment & Plan (08/17/2022 2:51 [...] therapy. 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 Assessment & Plan (01/11/2021 11:58 AM WOODWORKING CRAFTSMAN): Discussed postural hypotension EKG today and it was reassuring Encouraged pt to follow up with Dr Ge SETH Discussed risks of avoiding testing Offered Event monitor but pt prefers to follow up with Dr Carolina Advised pt to be mindful when changing positions and also avoid lifting heavy weights Dysphagia 07/28/2017 Assessment & Plan (11/23/2022 11:28 AM WOODWORKING CRAFTSMAN): Since this is red flag sx referred for EGD. Scheduled to follow up with ENT and that will also be a good idea. Working with MANAGER OF SALES as well. Assessment & Plan (02/02/2022 11:16 PM CDT): She has dysphagia which is likely related to an underlying neurologic disorder. It is appropriate to have this evaluated by a speech language pathologist to minimize aspiration risk, with additional diagnostic testing to be ordered at the MANAGER OF SALES's discretion. Assessment & Plan (05/17/2021 10:29 AM CDT): Manometry in 2017 showed mildly abnormal esophageal motility Assessment & Plan (04/28/2021 10:37 AM CDT): EGD was unrevealing Dr Rodriguez recommended MANAGER OF SALES eval - will look into this Assessment & Plan (01/27/2021 8:02 PM WOODWORKING CRAFTSMAN): She has dysphagia which is likely related to an underlying neurologic disorder. It is appropriate to have this evaluated by a speech language pathologist to minimize aspiration risk, with additional diagnostic testing to be ordered at the MANAGER OF SALES's discretion. Osteopenia 04/11/2017 Assessment & Plan (05/29/2024 [...] needed Assessment & Plan (11/28/2023 1:00 PM WOODWORKING CRAFTSMAN): Patient was started back on fosinopril while [...] needed Assessment & Plan (11/23/2022 11:27 AM WOODWORKING CRAFTSMAN): Well controlled on current regimen. Reviewed BP [...] adjustment Assessment & Plan (01/19/2022 3:55 PM WOODWORKING CRAFTSMAN): BP has looked good recently Continue current regimen- could consider CCB given her Raynaud's but she does have listed allergy to Adalat Assessment & Plan (12/08/2021 8:07 PM WOODWORKING CRAFTSMAN): Bps have been high since mid-October but [...] if this is the case Also consider Roseanne as a contributor Assessment & Plan (11/09/2021 11:36 AM WOODWORKING CRAFTSMAN): Suspect home bp machine may be inaccurate [...] back Assessment & Plan (11/23/2020 3:33 PM WOODWORKING CRAFTSMAN): BP at goal on current regimen Polyp of colon 04/05/2014 Overview (02/24/2017): Colon polyp Assessment & Plan (05/14/2020 1:19 PM CDT): Staying upto with colonoscopy Urinary incontinence 07/06/2012 Degeneration of intervertebral disc of lumbar re gion 06/19/2011 Atherosclerosis of [place] co ronary artery of [place] heart with stable angina pectoris 06/07/2005 Overview [...] Plan (05/24/2023 2:03 PM CDT): Follows with cardiologyalexis. Assessment & Plan (06/13/2022 12:00 PM CDT): [...] Carolina Assessment & Plan (01/21/2021 11:43 AM WOODWORKING CRAFTSMAN): Eval for ACS as above On ASA, statin. Will review history to see why not on BB Consider Ranexa as next step pending workup - she will follow up with Dr Carolina for this Assessment & Plan (11/23/2020 1:49 PM WOODWORKING CRAFTSMAN): On ASA and lovastatin per Dr Carolina [...] needed Assessment & Plan (11/23/2022 11:29 AM WOODWORKING CRAFTSMAN): On rosuva Update FLP and LFTs Continue rosuvastatin + Mediterranean diet and regular exercise Assessment & Plan (05/18/2022 11:00 AM CDT): Rosuvastatin was increased to 40mg daily LDL recently improved to 103 Generalized anxiety disorder 06/24/1999 Assessment & Plan (10/06/2024 11:04 AM WOODWORKING CRAFTSMAN): She continues to have mood symptoms including [...] results. Assessment & Plan (12/08/2021 8:07 PM WOODWORKING CRAFTSMAN): I wonder if this could be contributing to her symptoms although she denies that this is any worse than her baseline Resolved Problems Problem Noted Date Diagnosed Date Resolved Date COVID-19 virus infection 12/20/2021 Assessment & Plan (12/20/2021 3:50 PM WOODWORKING CRAFTSMAN): Discussed CDC guidelines for isolation Given her [...] 05/18/2022 Assessment & Plan (11/09/2021 12:06 PM WOODWORKING CRAFTSMAN): Trial with magnesium +riboflavin Hydration and stress [...] 11/23/2022 Assessment & Plan (01/11/2021 11:52 AM WOODWORKING CRAFTSMAN): Following with Dr Rodriguez Assessment & Plan [...] 2. Start home exercises - I sent YouRock'n Roverube channel. 3. Our office to please send referral for PT at [facility] near [facility]. 4. Our office to please send a new referral to general neurology for headache management (she previously saw Dr. Lin but he left [facility] and she does not have follow up scheduled yet). 5. She remains concerned about her memory and thinking. Last note from Dr. Henry dated January 2018 indicated no objective deficit. I will discuss with Dr. Henry in [facility] to determine appropriate timing and type [...] be traveling to spend time with an infant in 5 days and would like to [...] on chest CT during her recent hospitalization. Encounters Date Type Department Care Team Description 05/26/2025 7:39 AM CDT Hospital Encounter [facility] Breast Imaging [facility] ([facility]) [address] [place] [address] Screening mammogram, encounter for 03/21/2025 Results Follow-Up [facility] [address] [place] [address] 8th [place] [address] [place] [address] Grabiel Carolina MD Protein electrophoresis with reflex, serum with interpretation, Immunoglobulin free light chains, Immunofixation, urine with interpretation 03/20/2025 2:35 PM CDT Lab [facility] Advanced [facility] ([facility]) [address] [place] [phone] Abnormal echocardiogram 03/20/2025 2:00 PM CDT Office Visit [facility] [address] [place] [address] 8th [place] [address] [place] [address] Grabiel Carolina MD Atherosclerosis of [place] coronary artery of [place] heart with stable angina pectoris (Primary Dx); Abnormal echocardiogram; Pure hypercholesterolemia 03/12/2025 2:30 PM CDT Office Visit [facility] [address] [place] [address] [address] [place] [address] January Issa NP Neuropathy (Primary Dx); Parkinson's disease, unspecified whether dyskinesia present, unspecified whether manifestations fluctuate (HCC); Mild cognitive impairment; Constipation, unspecified constipation type; Orthostatic hypotension; Generalized anxiety disorder from Last 3 Months Immunizations Immunization Administration Dates Next Due Influenza, [...] 07/29/2023,08/09/2011 ZOSTER LIVE 11/20/2010 ZOSTER Recombinant 07/07/2022,02/14/2022 Surgical History Surgery Date Site/Laterality Comments TOTAL ABDOMINAL HYSTERECTOMY W/ BILATERAL SALPINGOOPHORECTOMY 11/20/1971 - 11/19/1972 Hysterectomy, total abdominal, BSO CHOLECYSTECTOMY 11/20/1967 - 11/19/1968 Cholecystectomy BREAST BIOPSY 11/20/1986 - 11/19/1987 Breast biopsy EPIDURAL INJECTION LUMBOSACRAL 09/02/2015 N/A EPIDURAL INJECTION LUMBOSACRAL 01/09/2015 N/A COLONOSCOPY 07/26/2018 N/A Dr. Ronald Singletary, sigmoid large mouth diverticulosis, biopsies taken ABDOMINAL SURGERY SECTION CORONARY ANGIOPLASTY 11/20/2004 - 11/19/2005 LAD CARDIAC STENT PLACEMENT FL UPPER GI AIR CONTRAST W KUB 08/23/2021 Left IL ARTHRP KNE CONDYLE&PLATU MEDIAL&LAT COMPARTMENTS 08/20/2013 - 09/19/2013 Left Nam FL UPPER GI AIR CONTRAST W KUB 05/26/2022 Left FL UPPER GI AIR CONTRAST W KUB 09/22/2022 Left APPENDECTOMY UPPER GASTROINTESTINAL ENDOSCOPY FL UPPER GI AIR CONTRAST W KUB 09/14/2023 Left Medical History Medical History Date Comments Generalized anxiety disorder Primary osteoarthritis of one knee HL (hearing loss) Dizziness Fibromyalgia, primary Lupus Peripheral neuropathy Coronary artery disease Hypertension Hyperlipidemia Migraines Parkinson disease (HCC) Degenerative lumbar spinal stenosis Sjogren's syndrome Lupus Migraine headache Herpes zoster without complication 05/29/2018 COVID-19 virus infection 12/20/2021 Tinnitus Recurrent upper respiratory infection (URI) Colon polyp Cholelithiasis [place] (myocardial infarction) (HCC) Family History Medical History Relation Name Comments Arrhythmia Brother 1 Edward PM Coronary artery disease Brother 2 Nino sten t Arrhythmia Brother 3 Cecil Heart failure Brother 3 Cecil Suicide Completion Brother 4 Chapin Bladder Cancer Brother 5 Bobo Coronary artery disease Father Brain cancer Mother Coronary artery disease Sister 1 Cecilia Diabetes Sister 1 Cecilia No Known Problems Sister 2 Karishma Breast cancer Sister 3 Nallely Parkinsonism Sister 3 Nallely Relation Name Status Comments Brother 1 Edward Alive Brother 2 Nino Alive Brother 3 Cecil Alive Brother 4 Chapin Brother 5 Bobo Father (Age 72) Mother (Age 54) Sister 1 Cecilia Sister 2 Karishma Alive Sister 3 Nallely Social History Tobacco Use Types Packs/Day Years [...] on file Legal Sex Female 11:44 PM WOODWORKING CRAFTSMAN Gender Identity Not on file Sexual Orientation Not on file 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 Not on file Not on file Obstetrics History Para Term AB IAB SAB Ectopic Multiple Livin g Live Births 4 3 3 Date Outcome GA Total Labor Labor/2nd/3rd Weight Sex Type Anes PTL Dorinda A1 A5 Name Clin Term Term Term Last Filed Vital Signs Vital Sign Reading Time Taken Comments Blood Pressure 161/89 03/20/2025 1:46 PM CDT Pulse 75 03/20/2025 1:46 PM CDT Temperature 36.2 C (97.1 F) 10/02/2024 3:41 PM WOODWORKING CRAFTSMAN Respiratory Rate 20 09/14/2023 1:30 PM CDT Oxygen Saturation 98% 03/20/2025 1:46 PM CDT Inhaled Oxygen Concentration - - Weight 56.2 kg (124 lb) 05/26/2025 8:12 AM CDT Height 162.6 cm (5' 4) 05/26/2025 8:12 AM CDT Body Mass Index 21.28 05/26/2025 8:12 AM CDT Plan of Treatment Health Maintenance Due Date Last Done Comments Hepatitis B Screening 1958 Osteoporosis Screening-Bone Density Scan 05/18/2023 05/18/2021, 04/11/2019, 04/11/2017, Additional history exists Covid-19 Vaccine (2023-12 5 season) 2024 03/15/2022, 10/09/2021, 08/30/2021, Additional history exists Depression Screening 05/29/2025 05/29/2024, 05/24/2023, 05/18/2022, Additional history exists Fall Risk Assessment 05/29/2025 05/29/2024, 05/24/2023, 12/08/2022, Additional history exists Well Visit 65+ 05/29/2025 05/29/2024, 03/2023, 05/18/2022, Additional history exists Influenza Vaccine (#1) 2025 , 08/25/2021, 08/08/2020, Additional history exists DTaP/Tdap/Td Vaccine (3 - Td or Tdap) 07/29/2033 07/29/2023, 08/09/2011 Pneumococcal vaccine 65+ Completed 09/21/2018, 10/20 Zoster Vaccine Completed 07/07/2022, 01/19, 11/20/2010 Medical Devices Implanted Type Area Health Promotion Specialist Device Identifier Shelf Expiration Date Model / Serial / Lot Datacratic Kyle/St Deshaun Medical [id number] Angio-Seal Evolution 6fr .035in Guidewire Bypass Tube Suture - [id number] Implanted:Qty: 1 on 02/11/2021 by Tera Denson MD at [facility] Collagen Right: Femoral TerumEnroute [employer] Medical Kyle 11/19/2021 [id number] / / [id number] Medtronic Usa Inc X [id number] Resolute Raymond 3mm 2.1-2.7fr 26mm 140cm Rapid Exchange Radiopaque - [id number] Implanted:Qty: 1 on 02/04/2021 by Tera Denson MD at [facility] Stent Right: Coronary Medtronic Inc 09/08/2022 [id number] / / [id number] Ramona Scientific Kyle [id number] Stent Drug Eluting S Megacortez Us Mr 3.11r94me - [id number] Implanted:Qty: 1 on 02/11/2021 by Tera Denson MD at [facility] Stent Left: Coronary Ramona Scientific Kyel 10/21/2021 [id number] / / [id number] Stent N/A: Heart Knee Replacement Knee Defense Mobile/St Deshaun Medical [id number] Angio-Seal Evolution 6fr .035in Guidewire Bypass Tube Suture - [id number] Implanted:Qty: 1 on 02/04/2021 by Tera Denson MD at [facility] Right: Femoral Terumo Medical Kyle 10/19/2021 [id number] / / [id number] Procedures Procedure Name Priority Date/Time Associated Diagnosis [...] free light chains (03/20/2025 2:41 PM CDT) Pathologist [facility] Dortches/Lambda ratio [facility] 1.49 0.26 - 1.65 Comment: Interpretive Data The Binding Site FreeLite assay procedure was used. Results from different manufacturers or methods may not be comparable. Serial testing should be performed using the same methods and instrumentation. Current Interpretive Data was last revised on 2024. Dortches free light chain [facility] 2.46(H) 0.33 - 1.94 mg/dL [facility] Comment: Interpretive Data The Binding Site FreeLite assay procedure was used. Results from different manufacturers or methods may not be comparable. Serial testing should be performed using the same methods and instrumentation. Current Interpretive Data was last revised on 2024. Lambda free light chain BJ 1.65 0.57 - 2.63 mg/dL [facility] Comment: Interpretive Data The Binding Site FreeLite assay procedure was used. Results from different manufacturers or methods may not be comparable. Serial testing should be performed using the same methods and instrumentation. Current Interpretive Data was last revised on 2024. Blood 03/20/2025 2:41 PM CDT 03/20/2025 3:36 PM CDT Grabiel Carolina MD LAB BLOOD ORDERABLES Final Re sult Performing Organization Address City/[facility]/ZIP Co de Phone Number [facility] [place] [address] * Immunofixation, urine with interpretation (03/20/2025 2:41 PM CDT) Pathologist [facility] Immunofixation, Ur Please see comment Comment: NO PARAPROTEIN DETECTED Reviewed and signed by Maximilian Esquivel MD 03/21/2025 Urine 03/20/2025 2:41 PM CDT 03/20/2025 3:36 PM CDT Grabiel Carolina MD LAB URINE ORDERABLES Final Re sult [facility] [place] [address] * Protein electrophoresis with reflex, serum with interpretation (03/20/2025 2:41 PM CDT) Protein, sr 6.9 6.2 - 8.2 g/dL Albumin 4.2 3.2 - 5.0 g/dL [facility] Alpha-1 globulin 0.3 0.2 - 0.4 g/dL [facility] Alpha-2 globulin 0.7 0.5 - 1.0 g/dL [facility] Beta-1 globulin 0.3 0.3 - 0.6 g/dL [facility] Beta-2 globulin 0.3 0.2 - 0.6 g/dL [facility] Gamma globulin 1.1 0.5 - 1.7 g/dL [facility] SPEP interp Please see comment [facility] Comment: No apparent monoclonal peak Electrophoretic pattern appears similar to previous sample 02/16/2024 Reviewed and signed by Maximilian Esquivel MD 03/21/2025 Blood 03/20/2025 2:41 PM CDT 03/20/2025 3:36 PM CDT us Grabiel Carolina MD LAB BLOOD ORDERABLES Final Re sult [facility] [place] [address] * Dexa Axial Skeleton Bone Density 1 or 2 Site (05/18/2021 9:19 AM CDT) Anatomical Region Laterality Modality Body N/A Digital Radiogra phy 05/18/2021 9:22 AM CDT Impressions 05/18/2021 11:56 AM CDT [...] Most Recently Relevant to Health Maintenance Insurance [facility] MEDICARE ADVANTAGE [facility] MEDIC[facility] Address: [address] [address] [place] [address] [employer] INSURANCE COMPANY [facility] MDCR HMO REF [facility] MEDIC[facility] Address: [address] [address] [place] [address] [facility] MEDICARE ADVANTAGE [facility] Address: [address] [address] [place] [address] MEDICARE Sn[employer] [facility] MDCR HMO REF [facility] MEDICARE Address: [address] [address] [place] [address] [facility] MEDICARE ADVANTAGE Advance Directives For more information, please contact: [phone] * Full Code (Latest Code Status on [...] Communication Edilberto Castaneda Spouse Health Care Agent [email or web address] Health Care Teams Chief Growth Officer Relationship Specialty Start Date End Date Smitha Crouch PA [address] [place] [address] PCP - General Physician Commercial Loan Underwriter 10/02/24 Grabiel Carolina MD Referring Physician Cardiology 04/11/19 Richard Fontaine MD Surgeon Orthopedic Surgery 04/11/19 La Nena Leyva MD Consulting Physician Rheumatology 04/11/19 Goldie Suh MD Consulting Physician Urology 04/11/19 Kaleb Carrillo MD [address] [place] [address] Referring Physician Ophthalmology 04/11/19 Brenda Bhat MD [address] [place] [address] Referring Physician Dermatology 05/17/21 Son, Israel Tay, DEBT [address] [place] [address] Physical Therapist Physical Therapy 03/28/22
--- OUTSIDE RECORDS SUMMARY | 2025-05-26 16:43 | XMS_ITS | Clinical Summary ---
Author Organization [facility] Address [address] [place] [address] Care Team Providers Care Cutter And Presser Name Role Phone Unavailable Primary Care Provider Unavailabl e Social History Tobacco Use Types Packs/Day Years Used Date Smoking Tobacco: Never Assessed Comments Unknown Sex and Gender Information Value Date Recorded Sex Assigned at Not on file Legal Sex Female 7:08 PM CDT Gender Identity Not on file Sexual Orientation Not on file Plan of Treatment Health Maintenance Due Date Last Done Comments DTaP, Tdap and Td Vaccines ( 1 - Tdap) 1959 Pneumococcal Vaccine: 50+ Ye ars (1 of 1 - PCV) 1990 Zoster Vaccines (1 of 2) 1990 Dexa Scan (General) 2005 RSV Immunization or 60+ Years (1 - 1-dose 75+ series) 2015 COVID-19 Vaccine (2023-2 5 season) 2024 Meningococcal B Vaccine Aged Out No l onger eligible based on patient's age to complete this topic Meningococcal Vaccine Aged Out No ortiz sedrick eligible based on patient's age to complete this topic RSV Immunizations Under 20 Months Aged Out No longer eligible based on patient's age to complete this topic
--- OUTSIDE RECORDS SUMMARY | 2025-05-26 16:43 | XMS_ITS | Encounter Summary ---
Author Organization [facility] Address [address] [place] [address] Care Team Providers Care Film Processing Utility Worker Name Role Phone Grabiel Carolina MD Unavailable [phone] Richard Fontaine MD Unavailable La Nena Leyva MD Unavailable [phone] Goldie Suh MD Unavailable Kaleb Carrillo MD Unavailable [phone] Brenda Bhat MD Unavailable [phone] Son, Israel Cross DPT Unavailable [phone] Smitha Crouch [place] Primary Care Pr ovider Reason for Referral * Diagnostic Imaging (Routine) - Closed Specialty Diagnoses / Procedures Referred By Contac t Referred To Contact Diagnoses Screening mammogram, encounter for Procedures Screening Mammogram Bilateral W Kuldeep Screening Mammogram, Self [facility] Referral ID Status Reason Start Date Expiration Date Visits Re quested Visits Authorized [id number] Closed 05/17/2025 06/16/2026 1 1 * Diagnostic Imaging (Routine) - Closed Specialty Diagnoses / Procedures Referred By Contac t Referred To Contact Diagnoses Screening mammogram, encounter for Procedures Screening Mammogram Bilateral W Kuldeep Screening Mammogram, Self [facility] Referral ID Status Reason Start Date Expiration Date Visits Re quested Visits Authorized [id number] Closed 05/17/2025 06/16/2026 1 1 Reason for Visit * Diagnostic Imaging (Routine) - Closed Specialty Diagnoses / Procedures Referred By Chepe t Referred To Contact Diagnoses Screening mammogram, encounter for Procedures Screening Mammogram Bilateral W Kuldeep Screening Mammogram, Self [facility] Referral ID Status Reason Start Date Expiration Date Visits Re quested Visits Authorized [id number] Closed 05/17/2025 06/16/2026 1 1 Encounter Details Date Type Department Care Team (Latest Contact Info) Description 05/26/2025 7:39 AM CDT Hospital Encounter [facility] Breast Imaging [facility] ([facility]) [address] [place] [id number] Screening mammogram, encounter for Social History Tobacco Use Types Packs/Day Years [...] on file 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 Gender Identity Not on file Sexual Orientation Not on file 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 Not on file Not on file documented as of this encounter Last Filed Vital Signs Vital Sign Reading Time Taken Comments Blood Pressure - - Pulse - - Temperature - - Respiratory Rate - - Oxygen Saturation - - Inhaled Oxygen Concentration - - Weight 56.2 kg (124 lb) 05/26/2025 8:12 AM CDT Height 162.6 cm (5' 4) 05/26/2025 8:12 AM CDT Body Mass Index 21.28 05/26/2025 8:12 AM CDT documented in this encounter Plan of Treatment Pending Results Name Type Priority Associated Diagnoses Date /Time Screening Mammogram Bilateral W Kuldeep Imaging Schedule Routine, Read Routine (OP Routine) Screening mammogram, encounter for 05/26/2025 8:21 AM CDT Scheduled Orders Name Type Priority Associated Diagnoses Orde r Schedule Screening Mammogram Bilateral W Kuldeep Imaging Schedule Routine, Read Routine (OP Routine) Screening mammogram, encounter for Expected: 05/17/2025, Expires: 07/17/2026 Screening Mammogram Bilateral W Kuldeep Imaging Schedule Routine, Read Routine (OP Routine) Screening mammogram, encounter for Once for 1 Occurrences starting 05/26/2025 until 05/26/2025 documented as of this encounter Visit Diagnoses Diagnosis Screening mammogram, encounter for documented in this encounter Care Teams Film Processing Utility Worker Relationship Specialty Start Date End Date Smitha Crouch PA [address] [place], [place] [id number] PCP - General Physician Analyzer Sales 10/02/24 Grabiel Carolina MD Referring Physician Cardiology 04/11/19 Richard Fontaine MD Surgeon Orthopedic Surgery 04/11/19 La Nena Leyva MD Consulting Physician Rheumatology 04/11/19 Goldie Suh MD Consulting Physician Urology 04/11/19 Kaleb Carrillo MD [address] [place] [address] Referring Physician Ophthalmology 04/11/19 Brenda Bhat MD [address] [place] [address] Referring Physician Dermatology 05/17/21 Son, Israel Cross, DPT [address] [place] [address] Physical Therapist Physical Therapy 03/28/22 documented as of this encounter
[2025-05-26 18:30] VITALS: BP 152/71; PULSE 68; RESP 18; TEMP 36.6; O2SAT 100
--- OUTSIDE RECORDS SUMMARY | 2025-05-26 18:49 | XMS_ITS | Encounter Summary ---
Author Organization [facility] Address [address] [place] [address] Care Team Providers Care Die Maker Electronic Name Role Phone Grabiel Carolina MD Unavailable Richard Fontaine MD Unavailable La Nena Leyva MD Unavailable [phone] Goldie Suh MD Unavailable Kaleb Carrillo MD Unavailable [phone] Danyelle Brambila MD Primary Care Provi makayla Brenda Bhat MD Unavailable [phone] SonIsrael DPT Unavailable Odalis Palmer LPN Unavailable [phone] Bill Paris MD Primary Care Provider + Susi Magaña DYE RANGE OPERATOR CLOTH Unavailable [phone] Danyelle Brambila MD Unavailable [phone] Smitha Crouch Primary Care Pr ovider Encounter Details Date Type Department Care Team (Late st Contact Info) Description 02/18/2022 Telephone [facility] [place] [address] Danyelle Brambila MD [address] 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 Gender Identity Not on file Sexual Orientation [...] documented as of this encounter Care Teams Die Maker Electronic Relationship Specialty Start Date End Date Danyelle Brambila MD [address] [place] [address] PCP - General Internal Medicine 05/14/20 09/19/22 Bill Paris MD [address] [place] [address] [address] [place] [address] PCP - General Internal Medicine 09/20/22 10/01/24 Smitha Crouch PA [address] [place] [address] PCP - General Physician Fraternity Adviser 10/02/24 Grabiel Carolina MD Referring Physician Cardiology 04/11/19 Richard Fontaine MD Surgeon Orthopedic Surgery 04/11/19 La Nena Leyva MD Consulting Physician Rheumatology 04/11/19 Goldie Suh MD Consulting Physician Urology 04/11/19 Kaleb Carrillo MD [address] [place] [address] Referring Physician Ophthalmology 04/11/19 Brenda Bhat MD [address] [place] [address] Referring Physician Dermatology 05/17/21 SonIsrael, DPT [address] [place] [address] Physical Therapist Physical Therapy 03/28/22 Odalis Palmer, MATERIALS CLERK [address] [place] [address] [facility] [address] [place] [address] Consultant Rn 06/09/22 06/09/22 Susi Magaña, ALBINA [address] [facility] [address] [facility] [address] [place] [address] Speech Language Pathologist Speech Therapy 10/04/22 12/28/22 Danyelle Brambila MD [address] [facility], [facility] [address] [place] [address] Consulting Physician Internal Medicine 11/23/22 05/23/23 documented as of this encounter
--- OUTSIDE RECORDS SUMMARY | 2025-05-26 18:49 | XMS_ITS | Encounter Summary ---
Author Organization [facility] Address [address] [place] [address] Phone Care Team Providers Care Automatic Die Cutting Machine Operator Name Role Phone Henrique Bah MD Primary Care Provider Tosha Small MD Unavailable Grabiel Carolina MD Unavailable Richard Fontaine MD Unavailable Navjot Barron MD Unavailable La Nena Leyva MD Unavailable [phone] Goldie Suh MD Unavailable Kaleb Carrillo MD Unavailable [phone] Danyelle Brambila MD Primary Care Provi makayla Danyell Alford RECRUITMENT MANAGER Unavailable [phone] Brenda Bhat MD Unavailable [phone] SonIsrael DPT Unavailable [phone] Odalis Palmer CLINICAL RN LIAISON Unavailable [phone] Bill Paris MD Primary Care Provider + Susi Magaña RECRUITMENT MANAGER Unavailable [phone] Danyelle Brambila MD Unavailable [phone] Smitha Crouch Primary [facility] Encounter Details Date Type Department Care [...] on file Legal Sex Female 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 MANAGER Gender Identity Not on file Sexual Orientation [...] documented as of this encounter Care Teams Automatic Die Cutting Machine Operator Relationship Specialty Start Date End Date Henrique Bah MD PCP - General 01/18/17 05/13/20 Danyelle Brambila MD [address] [place] [address] PCP - General Internal Medicine 05/14/20 09/19/22 Bill Paris MD [facility] [address] Carolee MATAMOROS [address] [place] [address] PCP - General Internal Medicine 09/20/22 10/01/24 Smitha Crouch PA [address] [place] [address] PCP - General Physician Reactor Technician 10/02/24 Tosha Small MD Referring Physician Dermatology 04/11/19 05/16/21 Grabiel Carolina MD Referring Physician Cardiology 04/11/19 Richard Fontaine MD Surgeon Orthopedic Surgery 04/11/19 Navjot Barron MD Surgeon Orthopedic Surgery 04/11/19 05/16/21 La Nena Leyva MD Consulting Physician Rheumatology 04/11/19 Goldie Suh MD Consulting Physician Urology 04/11/19 Kaleb Carrillo MD [address] [place] [address] Referring Physician Ophthalmology 04/11/19 Danyell Alford SLP [address] [place] [address] Speech Language Pathologist Speech Therapy 11/21/20 11/23/20 Brenda Bhat MD [address] [place] [address] Referring Physician Dermatology 05/17/21 SonIsrael, DPT [address] [place] [address] Physical Therapist Physical Therapy 03/28/22 Odalis Palmer, CLINICAL RN LIAISON [address] [facility] [address] [place] [address] Assistant Printer Floor Covering 06/09/22 06/09/22 Susi Magaña, ALBINA [address] [facility] 120 [facility] [address] [place] [address] Speech Language Pathologist Speech Therapy 10/04/22 12/28/22 Danyelle Brambila MD [address] [facility], [facility] [address] [place] [address] Consulting Physician Internal Medicine 11/23/22 05/23/23 documented as of this encounter
--- OUTSIDE RECORDS SUMMARY | 2025-05-26 18:49 | XMS_ITS | Clinical Summary ---
Author Organization [facility] Address [address] [place] [address] Care Team Providers Care Police Pilot Name Role Phone Grabiel Carolina MD Unavailable Richard Fontaine MD Unavailable La Nena Leyva MD Unavailable Goldie Suh MD Unavailable Kaleb Carrillo MD Unavailable [phone] Brenda Bhat MD Unavailable [phone] SonIsrael DPT Unavailable [phone] Smitha Crouch Primary Care Pr ovider Allergies [...] mg total) by mouth daily Active omega 7-gjl-reo-fish oil 60-90-500 mg capsule daily Active cetirizine [...] evaluation. Assessment & Plan (11/28/2023 1:01 PM DAMAGE CUTTER): Recent hospitalization for ?bowel obstruction - records [...] well. Assessment & Plan (10/06/2024 11:16 AM DAMAGE CUTTER): She and her have both noted decline [...] things Assessment & Plan (01/21/2022 10:45 AM DAMAGE CUTTER): She reports a significant sudden step-off in terms of memory and I do think MRI is reasonable to r/o a vascular event given her sig atherosclerotic dz. Will discuss with Dr Pérez Snoring 01/19/2022 Assessment & Plan (01/21/2022 10:43 AM DAMAGE CUTTER): Encouraged to establish with sleep medicine as [...] 04/28/2021 Assessment & Plan (11/28/2023 1:01 PM DAMAGE CUTTER): Noted while in hospital, completed treatment and [...] 01/11/2021 Assessment & Plan (11/23/2022 11:35 AM DAMAGE CUTTER): Suspect this is worsening. Will have her trial short term PPI (discussed risks of cognitive impairment) 20 mg BID x 14 days. Also recommended famotidine trial and adding TUMs PRN. Since she has dysphagia, referred for EGD Counseled on cutting back on chocolates and other behavioral/lifestyle modifications Assessment & Plan (10/24/2022 2:41 PM DAMAGE CUTTER): Worsening symptoms, will have patient trial famotidine and see if any improvement. Assessment & Plan (05/17/2021 10:36 AM CDT): Not currently on meds but seems to be doing OK Assessment & Plan (01/11/2021 11:57 AM DAMAGE CUTTER): Will trial with pepcid 20 mg bid [...] worsening Assessment & Plan (01/21/2021 11:47 AM DAMAGE CUTTER): I am concerned this could represent unstable angina. Repeat EKG today. Will send trop and BNP. Will discuss with Dr Carolina. However, she also had gastritis on recent EGD and seemed to respond to PPI when symptoms first appeared. Esophageal spasm could also respond to NG. Will resume Dexilant and see if this improves her symptoms. Assessment & Plan (01/11/2021 11:57 AM DAMAGE CUTTER): Atypical chest pain She has followed with [...] up Assessment & Plan (11/23/2020 1:42 PM DAMAGE CUTTER): Low suspicion for angina but she will see Dr Carolina in the near future for re-assessment. Continue PPI for GERD. She will try Tums or Gaviscon PRN. Agree with EGD to eval further given her dysphagia. 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 Assessment & Plan (05/24/2023 2:04 PM CDT): Patient with worsening sicca symptoms, again encouraged her to follow up with rheumatology, and encouraged oral hygiene to help with dry mouth. Assessment & Plan (01/17/2023 2:54 PM DAMAGE CUTTER): Patient with worsening sicca symptoms, will refer [...] GERD. Assessment & Plan (10/06/2024 11:09 AM DAMAGE CUTTER): She has parkinsonism stage 3 characterized by [...] APDA. You can find this by searching Personal Estate Manager for verónica apda exercise or typing this address into your web browser. [email or web address]. Let me know if you ever want to repeat either OT or speech therapy for conversational talking. Assessment & Plan (11/23/2022 11:29 AM DAMAGE CUTTER): Per neuro- Assessment & Plan (08/17/2022 2:51 [...] therapy. 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 Assessment & Plan (01/11/2021 11:58 AM DAMAGE CUTTER): Discussed postural hypotension EKG today and it was reassuring Encouraged pt to follow up with Dr Ge SETH Discussed risks of avoiding testing Offered Event monitor but pt prefers to follow up with Dr Carolina Advised pt to be mindful when changing positions and also avoid lifting heavy weights Dysphagia 07/28/2017 Assessment & Plan (11/23/2022 11:28 AM DAMAGE CUTTER): Since this is red flag sx referred for EGD. Scheduled to follow up with ENT and that will also be a good idea. Working with DELINQUENCY PREVENTION OFFICER as well. Assessment & Plan (02/02/2022 11:16 PM CDT): She has dysphagia which is likely related to an underlying neurologic disorder. It is appropriate to have this evaluated by a speech language pathologist to minimize aspiration risk, with additional diagnostic testing to be ordered at the DELINQUENCY PREVENTION OFFICER's discretion. Assessment & Plan (05/17/2021 10:29 AM CDT): Manometry in 2017 showed mildly abnormal esophageal motility Assessment & Plan (04/28/2021 10:37 AM CDT): EGD was unrevealing Dr Rodriguez recommended DELINQUENCY PREVENTION OFFICER eval - will look into this Assessment & Plan (01/27/2021 8:02 PM DAMAGE CUTTER): She has dysphagia which is likely related to an underlying neurologic disorder. It is appropriate to have this evaluated by a speech language pathologist to minimize aspiration risk, with additional diagnostic testing to be ordered at the DELINQUENCY PREVENTION OFFICER's discretion. Osteopenia 04/11/2017 Assessment & Plan (05/29/2024 [...] needed Assessment & Plan (11/28/2023 1:00 PM DAMAGE CUTTER): Patient was started back on fosinopril while [...] needed Assessment & Plan (11/23/2022 11:27 AM DAMAGE CUTTER): Well controlled on current regimen. Reviewed BP [...] adjustment Assessment & Plan (01/19/2022 3:55 PM DAMAGE CUTTER): BP has looked good recently Continue current regimen- could consider CCB given her Raynaud's but she does have listed allergy to Adalat Assessment & Plan (12/08/2021 8:07 PM DAMAGE CUTTER): Bps have been high since mid-October but [...] contributor Assessment & Plan (11/09/2021 11:36 AM DAMAGE CUTTER): Suspect home bp machine may be inaccurate [...] back Assessment & Plan (11/23/2020 3:33 PM DAMAGE CUTTER): BP at goal on current regimen Polyp of colon 04/05/2014 Overview (02/24/2017): Colon polyp Assessment & Plan (05/14/2020 1:19 PM CDT): Staying upto with colonoscopy Urinary incontinence 07/06/2012 Degeneration of intervertebral disc of lumbar re gion 06/19/2011 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 Will review history to see why not on BB Consider Ranexa as next step pending workup - she will follow up with Dr Carolina for this Assessment & Plan (11/23/2020 1:49 PM DAMAGE CUTTER): On ASA and lovastatin per Dr Carolina [...] needed Assessment & Plan (11/23/2022 11:29 AM DAMAGE CUTTER): On rosuva Update FLP and LFTs Continue rosuvastatin + Mediterranean diet and regular exercise Assessment & Plan (05/18/2022 11:00 AM CDT): Rosuvastatin was increased to 40mg daily LDL recently improved to 103 Generalized anxiety disorder 06/24/1999 Assessment & Plan (10/06/2024 11:04 AM DAMAGE CUTTER): She continues to have mood symptoms including [...] results. Assessment & Plan (12/08/2021 8:07 PM DAMAGE CUTTER): I wonder if this could be contributing to her symptoms although she denies that this is any worse than her baseline Resolved Problems Problem Noted Date Diagnosed Date Resolved Date COVID-19 virus infection 12/20/2021 Assessment & Plan (12/20/2021 3:50 PM DAMAGE CUTTER): Discussed CDC guidelines for isolation Given her [...] 05/18/2022 Assessment & Plan (11/09/2021 12:06 PM DAMAGE CUTTER): Trial with magnesium +riboflavin Hydration and stress management Use migraine hcrista to track sxs and identify triggers Consider [...] 11/23/2022 Assessment & Plan (01/11/2021 11:52 AM DAMAGE CUTTER): Following with Dr Rodriguez Assessment & Plan [...] 2. Start home exercises - I sent YouCoineyube channel. 3. Our office to please send referral for PT at [facility] near [facility]. 4. Our office to please send [...] will discuss with Dr. Henry in [facility] to determine appropriate timing and [...] Description 05/26/2025 7:39 AM CDT Hospital Encounter [facility] Breast Imaging [facility] ([facility]) [address] [place] [id number] Screening mammogram, encounter for 03/21/2025 Results Follow-Up [facility] Cardiology [address] [place] [address] 8th [place] [address] [place] [address] Grabiel Carolina MD Protein electrophoresis with reflex, serum with interpretation, Immunoglobulin free light chains, Immunofixation, urine with interpretation 03/20/2025 2:35 PM CDT Lab [facility] ([facility]) [address] [place] [phone] Abnormal echocardiogram 03/20/2025 2:00 PM CDT Office Visit [facility] Cardiology [address] [place] [address] 8th [place] [address] [place] [address] Grabiel Carolina MD Atherosclerosis of chenega coronary artery of chenega heart with stable angina pectoris (Primary Dx); Abnormal echocardiogram; Pure hypercholesterolemia 03/12/2025 2:30 PM CDT Office Visit [facility] Movement Disorders [address] [place] [address] 7th [place] [address] January Issa NP Neuropathy (Primary Dx); Parkinson's [...] GI AIR CONTRAST W KUB 08/23/2021 Left AR ARTHRP KNE CONDYLE&PLATU MEDIAL&LAT COMPARTMENTS 08/20/2013 - [...] upper respiratory infection (URI) Colon polyp Cholelithiasis CO (myocardial infarction) (HCC) Family History Medical History [...] on file Legal Sex Female 11:44 PM DAMAGE CUTTER Gender Identity Not on file Sexual Orientation [...] 36.2 C (97.1 F) 10/02/2024 3:41 PM DAMAGE CUTTER Respiratory Rate 20 09/14/2023 1:30 PM CDT [...] 01/19, 11/20/2010 Medical Devices Implanted Type Area Courtesy Bus Driver Device Identifier Shelf Expiration Date Model / Serial / Lot Z80 Labs Technology Incubator Kyle/St Deshaun Medical [id number] Angio-Seal Evolution 6fr .035in Guidewire Bypass Tube Suture - [id number] Implanted:Qty: 1 on 02/11/2021 by Tera Denson MD at [facility] Collagen Right: Femoral TerumFewzion Medical Kyle 11/19/2021 [id number] / / [id number] Medtronic Usa Inc X [id number] Resolute Sheridan 3mm 2.1-2.7fr 26mm 140cm Rapid Exchange Radiopaque - [id number] Implanted:Qty: 1 on 02/04/2021 by Tera Denson MD at [facility] Stent Right: Coronary Medtronic Inc 09/08/2022 [id number] / / [id number] [place] [employer] Kyle [id number] Stent Drug Eluting S Megacortez Us Mr 3.53v49bl - [id number] Implanted:Qty: 1 on 02/11/2021 by Tera Denson MD at [facility] Stent Left: Coronary [place] Scientific Kyle 10/21/2021 [id number] / / [id number] Stent N/A: Heart Knee Replacement Knee CureSquare/St Deshaun Medical [id number] Angio-Seal Evolution 6fr .035in Guidewire Bypass Tube Suture - [id number] Implanted:Qty: 1 on 02/04/2021 by Tera Denson MD at [facility] Right: Femoral Terumo Medical Kyle 10/19/2021 [id number] / / [id number] Procedures Procedure Name Priority Date/Time Associated Diagnosis [...] light chains (03/20/2025 2:41 PM CDT) Pathologist [facility] Ludell/Lambda ratio [facility] 1.49 0.26 - 1.65 Comment: Interpretive Data The Binding Site FreeLite assay procedure was used. Results from different manufacturers or methods may not be comparable. Serial testing should be performed using the same methods and instrumentation. Current Interpretive Data was last revised on 2024. Ludell free light chain [facility] 2.46(H) 0.33 - 1.94 mg/dL [facility] Comment: Interpretive Data The Binding Site FreeLite assay procedure was used. Results from different manufacturers or methods may not be comparable. Serial testing should be performed using the same methods and instrumentation. Current Interpretive Data was last revised on 2024. Lambda free light chain BJ 1.65 0.57 - 2.63 mg/dL [facility] [...] ORDERABLES Final Re sult Performing Organization Address City/[facility]/ZIP Co de Phone Number [facility] Department [place] [address] * Immunofixation, urine with interpretation (03/20/2025 2:41 PM CDT) Pathologist [facility] Immunofixation, Ur Please see comment Comment: NO PARAPROTEIN DETECTED Reviewed and signed by Maximilian Esquivel MD 03/21/2025 Urine 03/20/2025 2:41 PM CDT 03/20/2025 3:36 PM CDT Grabiel Carolina MD LAB URINE ORDERABLES Final Re sult [facility] Department [place] [address] * Protein electrophoresis with reflex, serum with [...] Final Re sult [facility] Department [place] [address] * Dexa Axial Skeleton Bone Density 1 [...] Most Recently Relevant to Health Maintenance Insurance [facility] MEDICARE ADVANTAGE [employer] INSURANCE COMPANY [facility] MDCR HMO REF [facility] MEDICARE ADVANTAGE MEDICARE MDconnectME [facility] MDCR HMO REF [facility] MEDICARE ADVANTAGE Advance Directives For more information, please contact: [phone] * Full Code (Latest Code Status on [...] Communication Edilberto Castaneda Spouse Health Care Agent [email or web address] Care Teams Police Pilot Relationship Specialty Start Date End Date Smitha Crouch PA [address] [place] [address] PCP - General Physician Tug Boat Captain 10/02/24 Grabiel Carolina MD Referring Physician Cardiology 04/11/19 Richard Fontaine MD Surgeon Orthopedic Surgery 04/11/19 La Nena Leyva MD Consulting Physician Rheumatology 04/11/19 Goldie Suh MD Consulting Physician Urology 04/11/19 Kaleb Carrillo MD [address] [place] [address] Referring Physician Ophthalmology 04/11/19 Brenda Bhat MD [address] [place] [address] Referring Physician Dermatology 05/17/21 Son, Israel Tay, DEBT [address] [place] [address] Physical Therapist Physical Therapy 03/28/22
--- OUTSIDE RECORDS SUMMARY | 2025-05-26 18:49 | XMS_ITS | Encounter Summary ---
Author Organization [facility] Address [address] [place] [address] Care Team Providers Care Liner Reroll Tender Name Role Phone Grabiel Carolina MD Unavailable [phone] Richard Fontaine MD Unavailable La Nena Leyva MD Unavailable [phone] Goldie Suh MD Unavailable Kaleb Carrillo MD Unavailable [phone] Brenda Bhat MD Unavailable [phone] Son, Israel Cross DPT Unavailable [phone] Smitha Crouch [place] Primary Care Pr ovider Reason for Referral * Diagnostic Imaging (Routine) - Closed Specialty Diagnoses / Procedures Referred By Contac t Referred To Contact Diagnoses Screening mammogram, encounter for Procedures Screening Mammogram Bilateral W [place]deep Screening Mammogram, Self [facility] Referral ID Status Reason Start Date Expiration Date Visits Re quested Visits Authorized [id number] Closed 05/17/2025 06/16/2026 1 1 * Diagnostic Imaging (Routine) - Closed Specialty Diagnoses / Procedures Referred By Contac t Referred To Contact Diagnoses Screening mammogram, encounter for Procedures Screening Mammogram Bilateral W [place]deep Screening Mammogram, Self [facility] Referral ID Status Reason Start Date Expiration Date Visits Re quested Visits Authorized [id number] Closed 05/17/2025 06/16/2026 1 1 Reason for Visit * Diagnostic Imaging (Routine) - Closed Specialty Diagnoses / Procedures Referred By Chepe t Referred To Contact Diagnoses Screening mammogram, encounter for Procedures Screening Mammogram Bilateral W [place]deep Screening Mammogram, Self [facility] Referral ID Status Reason Start Date Expiration Date Visits Re quested Visits Authorized [id number] Closed 05/17/2025 06/16/2026 1 1 Encounter Details Date Type Department Care Team (Latest Contact Info) Description 05/26/2025 7:39 AM CDT Hospital Encounter [facility] Advanced Medicine Breast Imaging [facility] ([facility]) [address] [place] [address] Screening mammogram, encounter for Social History Tobacco [...] on file 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 Gender Identity Not on file Sexual Orientation [...] for documented in this encounter Care Teams Liner Reroll Tender Relationship Specialty Start Date End Date Smitha Crouch PA [address] [place], [place] [id number] PCP - General Physician Transit Planner 10/02/24 Grabiel Carolina MD Referring Physician Cardiology 04/11/19 Richard Fontaine MD Surgeon Orthopedic Surgery 04/11/19 La Nena Leyva MD Consulting Physician Rheumatology 04/11/19 Goldie Suh MD Consulting Physician Urology 04/11/19 Kaleb Carrillo MD [address] [place] [address] Referring Physician Ophthalmology 04/11/19 Brenda Bhat MD [address] [place] [address] Referring Physician Dermatology 05/17/21 Son, Israel Cross, DPT [address] [place] [address] Physical Therapist Physical Therapy 03/28/22 documented as of this encounter
--- OUTSIDE RECORDS SUMMARY | 2025-05-26 18:49 | XMS_ITS | Clinical Summary ---
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
--- OUTSIDE RECORDS SUMMARY | 2025-05-26 18:49 | XMS_ITS | Referral Summary ---
Author Organization [facility] Address [address] [place] [address] Care Team Providers Care District Service Manager Name Role Phone Grabiel Carolina MD Unavailable Richard Fontaine MD Unavailable La Nena Leyva MD Unavailable [phone] Goldie Suh MD Unavailable Kaleb Carrillo MD Unavailable Brenda Bhat MD Unavailable [phone] SonIsrael DPT Unavailable Smitha Crouch Primary Care Pr ovider Encounters Date Type Department Care Team Description 05/26/2025 7:39 AM CDT Hospital Encounter [facility] Advanced Medicine Breast [facility] ([facility]) [address] [place] [address] Screening mammogram, encounter for 03/21/2025 Results Follow-Up [facility] Cardiology [address] [facility] 8th [place] [address] [place] [address] Grabiel Carolina MD Protein electrophoresis with reflex, serum with interpretation, Immunoglobulin free light chains, Immunofixation, urine with interpretation 03/20/2025 2:35 PM CDT Lab [facility] ([facility]) [address] [place] [address] Abnormal echocardiogram 03/20/2025 2:00 PM CDT Office Visit [facility] Cardiology [address] [facility] 8th [place] [address] [place] [address] Grabiel Carolina MD 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 Assessment & Plan (11/28/2023 1:01 PM PUBLISHING DIRECTOR): Recent hospitalization for ?bowel obstruction - records [...] well. Assessment & Plan (10/06/2024 11:16 AM PUBLISHING DIRECTOR): She and her have both noted decline [...] things Assessment & Plan (01/21/2022 10:45 AM PUBLISHING DIRECTOR): She reports a significant sudden step-off in terms of memory and I do think MRI is reasonable to r/o a vascular event given her sig atherosclerotic dz. Will discuss with Dr Pérez Snoring 01/19/2022 Assessment & Plan (01/21/2022 10:43 AM PUBLISHING DIRECTOR): Encouraged to establish with sleep medicine as [...] 04/28/2021 Assessment & Plan (11/28/2023 1:01 PM PUBLISHING DIRECTOR): Noted while in hospital, completed treatment and [...] 01/11/2021 Assessment & Plan (11/23/2022 11:35 AM PUBLISHING DIRECTOR): Suspect this is worsening. Will have her trial short term PPI (discussed risks of cognitive impairment) 20 mg BID x 14 days. Also recommended famotidine trial and adding TUMs PRN. Since she has dysphagia, referred for EGD Counseled on cutting back on chocolates and other behavioral/lifestyle modifications Assessment & Plan (10/24/2022 2:41 PM PUBLISHING DIRECTOR): Worsening symptoms, will have patient trial famotidine and see if any improvement. Assessment & Plan (05/17/2021 10:36 AM CDT): Not currently on meds but seems to be doing OK Assessment & Plan (01/11/2021 11:57 AM PUBLISHING DIRECTOR): Will trial with pepcid 20 mg bid [...] worsening Assessment & Plan (01/21/2021 11:47 AM PUBLISHING DIRECTOR): I am concerned this could represent unstable angina. Repeat EKG today. Will send trop and BNP. Will discuss with Dr Carolina. However, she also had gastritis on recent EGD and seemed to respond to PPI when symptoms first appeared. Esophageal spasm could also respond to NG. Will resume Dexilant and see if this improves her symptoms. Assessment & Plan (01/11/2021 11:57 AM PUBLISHING DIRECTOR): Atypical chest pain She has followed with [...] up Assessment & Plan (11/23/2020 1:42 PM PUBLISHING DIRECTOR): Low suspicion for angina but she will see Dr Carolina in the near future for re-assessment. Continue PPI for GERD. She will try Tums or Gaviscon PRN. Agree with EGD to eval further given her dysphagia. Small intestinal bacterial overgrowth 11/23/2020 Assessment & Plan (11/23/2020 1:48 PM PUBLISHING DIRECTOR): Improving on erythromycin Following with Dr Singletary [...] this Assessment & Plan (11/23/2020 1:47 PM PUBLISHING DIRECTOR): Pursuing Botox for these daily migraines Appreciate neurology care Sjogren's syndrome 06/18/2019 Assessment & Plan (05/29/2024 3:53 PM CDT): Follows with rheumatology, stable. Assessment & Plan (05/24/2023 2:04 PM CDT): Patient with worsening sicca symptoms, again encouraged her to follow up with rheumatology, and encouraged oral hygiene to help with dry mouth. Assessment & Plan (01/17/2023 2:54 PM PUBLISHING DIRECTOR): Patient with worsening sicca symptoms, will refer [...] donepezil. 4. Same B12. 5. Start [place]DA [place] Illumination channel exercise. 6. Start PD voice Project. 7. May try adding low scoops of Miralax but should see GI. 8. May try over the counter omeprazole for GERD. Assessment & Plan (10/06/2024 11:09 AM PUBLISHING DIRECTOR): She has parkinsonism stage 3 characterized by [...] send a referral for you to see Chrisitne Wayne NP in memory clinic. I will [...] 3. COntinue exercise. 4. There is a AppTankube channel with exercises from the [place] chapter of the APDA. You can find this by searching [employer] for [place] apda exercise or typing this address into your web browser. [email or web address] 5. Let me know if you ever want to repeat either OT or speech therapy for conversational talking. Assessment & Plan (11/23/2022 11:29 AM PUBLISHING DIRECTOR): Per neuro- Assessment & Plan (08/17/2022 2:51 [...] therapy. 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 Assessment & Plan (01/11/2021 11:58 AM PUBLISHING DIRECTOR): Discussed postural hypotension EKG today and it was reassuring Encouraged pt to follow up with Dr Ge SETH Discussed risks of avoiding testing Offered Event monitor but pt prefers to follow up with Dr Carolina Advised pt to be mindful when changing positions and also avoid lifting heavy weights Dysphagia 07/28/2017 Assessment & Plan (11/23/2022 11:28 AM PUBLISHING DIRECTOR): Since this is red flag sx referred for EGD. Scheduled to follow up with ENT and that will also be a good idea. Working with ENVIRONMENTAL AIR SPECIALIST as well. Assessment & Plan (02/02/2022 11:16 PM CDT): She has dysphagia which is likely related to an underlying neurologic disorder. It is appropriate to have this evaluated by a speech language pathologist to minimize aspiration risk, with additional diagnostic testing to be ordered at the ENVIRONMENTAL AIR SPECIALIST's discretion. Assessment & Plan (05/17/2021 10:29 AM CDT): Manometry in 2017 showed mildly abnormal esophageal motility Assessment & Plan (04/28/2021 10:37 AM CDT): EGD was unrevealing Dr Rodriguez recommended ENVIRONMENTAL AIR SPECIALIST eval - will look into this Assessment & Plan (01/27/2021 8:02 PM PUBLISHING DIRECTOR): She has dysphagia which is likely related to an underlying neurologic disorder. It is appropriate to have this evaluated by a speech language pathologist to minimize aspiration risk, with additional diagnostic testing to be ordered at the ENVIRONMENTAL AIR SPECIALIST's discretion. Osteopenia 04/11/2017 Assessment & Plan (05/29/2024 [...] needed Assessment & Plan (11/28/2023 1:00 PM PUBLISHING DIRECTOR): Patient was started back on fosinopril while [...] needed Assessment & Plan (11/23/2022 11:27 AM PUBLISHING DIRECTOR): Well controlled on current regimen. Reviewed BP [...] adjustment Assessment & Plan (01/19/2022 3:55 PM PUBLISHING DIRECTOR): BP has looked good recently Continue current regimen- could consider CCB given her Raynaud's but she does have listed allergy to Adalat Assessment & Plan (12/08/2021 8:07 PM PUBLISHING DIRECTOR): Bps have been high since mid-October but [...] contributor Assessment & Plan (11/09/2021 11:36 AM PUBLISHING DIRECTOR): Suspect home bp machine may be inaccurate [...] back Assessment & Plan (11/23/2020 3:33 PM PUBLISHING DIRECTOR): BP at goal on current regimen Polyp of colon 04/05/2014 Overview (02/24/2017): Colon polyp Assessment & Plan (05/14/2020 1:19 PM CDT): Staying upto with colonoscopy Urinary incontinence 07/06/2012 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 Will review history to see why not on BB Consider Ranexa as next step pending workup - she will follow up with Dr Carolina for this Assessment & Plan (11/23/2020 1:49 PM PUBLISHING DIRECTOR): On ASA and lovastatin per Dr Carolina [...] needed Assessment & Plan (11/23/2022 11:29 AM PUBLISHING DIRECTOR): On rosuva Update FLP and LFTs Continue rosuvastatin + Mediterranean diet and regular exercise Assessment & Plan (05/18/2022 11:00 AM CDT): Rosuvastatin was increased to 40mg daily LDL recently improved to 103 Generalized anxiety disorder 06/24/1999 Assessment & Plan (10/06/2024 11:04 AM PUBLISHING DIRECTOR): She continues to have mood symptoms including [...] results. Assessment & Plan (12/08/2021 8:07 PM PUBLISHING DIRECTOR): I wonder if this could be contributing to her symptoms although she denies that this is any worse than her baseline Resolved Problems Problem Noted Date Diagnosed Date Resolved Date COVID-19 virus infection 12/20/2021 Assessment & Plan (12/20/2021 3:50 PM PUBLISHING DIRECTOR): Discussed CDC guidelines for isolation Given her [...] 05/18/2022 Assessment & Plan (11/09/2021 12:06 PM PUBLISHING DIRECTOR): Trial with magnesium +riboflavin Hydration and stress [...] 11/23/2022 Assessment & Plan (01/11/2021 11:52 AM PUBLISHING DIRECTOR): Following with Dr Rodriguez Assessment & Plan [...] to please send referral for PT at [facility] near [facility]. 4. Our office to please send a new referral to general neurology for headache management (she previously saw Dr. Lin but he left [facility] and she does not have follow up scheduled yet). 5. She remains concerned about her memory and thinking. Last note from Dr. Henry dated January 2018 indicated no objective deficit. I will discuss with Dr. Henry in 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 Not on file Not on file Last Filed Vital Signs Vital Sign Reading Time Taken Comments Blood Pressure 161/89 03/20/2025 1:46 PM CDT Pulse 75 03/20/2025 1:46 PM CDT Temperature 36.2 C (97.1 F) 10/02/2024 3:41 PM PUBLISHING DIRECTOR Respiratory Rate 20 09/14/2023 1:30 PM CDT Oxygen Saturation 98% 03/20/2025 1:46 PM CDT Inhaled Oxygen Concentration - - Weight 56.2 kg (124 lb) 05/26/2025 8:12 AM CDT Height 162.6 cm (5' 4) 05/26/2025 8:12 AM CDT Body Mass Index 21.28 05/26/2025 8:12 AM CDT Plan of Treatment Not on file Medical Devices Implanted Type Area Lime Kiln Tender Device Identifier Shelf Expiration Date Model / Serial / Lot Daig Kyle/St [employer]haun [employer] [id number] Angio-Seal Evolution 6fr .035in Guidewire Bypass Tube Suture - [id number] Implanted:Qty: 1 on 02/11/2021 by Tera Denson MD at [facility] Collagen Right: Femoral Terumo Medical Kyle 11/19/2021 [id number] / / [id number] Medtronic Usa Inc X [id number] Resolute [place] 3mm 2.1-2.7fr 26mm 140cm Rapid Exchange Radiopaque - [id number] Implanted:Qty: 1 on 02/04/2021 by Tera Denson MD at [facility] Stent Right: Coronary Medtronic Inc 09/08/2022 [id number] / / [id number] Coburn Scientific Kyle [id number] Stent Drug Eluting S [facility] Insanetron Mr 3.49j32ds - [id number] Implanted:Qty: 1 on 02/11/2021 by Tera Denson MD at [facility] Stent Left: Coronary [employer]urn [employer] Kyle 10/21/2021 [id number] / / [id number] Stent N/A: Heart Knee Replacement Knee Daig Kyle/St [employer]haun [employer] [id number] Angio-Seal Evolution 6fr .035in Guidewire Bypass Tube Suture - [id number] Implanted:Qty: 1 on 02/04/2021 by Tera Denson MD at [facility] Right: Femoral Terumo Medical Kyle 10/19/2021 [id number] / / [id number] Procedures Procedure Name Priority Date/Time Associated Diagnosis [...] free light chains (03/20/2025 2:41 PM CDT) [place]/Lambda ratio [facility] 1.49 0.26 - 1.65 Comment: Interpretive Data The Binding Site FreeLite assay procedure was used. Results from different manufacturers or methods may not be comparable. Serial testing should be performed using the same methods and instrumentation. Current Interpretive Data was last revised on 2024. [place] free light chain [facility] 2.46(H) 0.33 - 1.94 mg/dL [facility] Comment: Interpretive Data The Binding Site FreeLite assay procedure was used. Results from different manufacturers or methods may not be comparable. Serial testing should be performed using the same methods and instrumentation. Current Interpretive Data was last revised on 2024. [place] free light chain [facility] 1.65 0.57 - 2.63 mg/dL [facility] Comment: Interpretive Data The Binding Site FreeLite assay procedure was used. Results from different manufacturers or methods may not be comparable. Serial testing should be performed using the same methods and instrumentation. Current Interpretive Data was last revised on 2024. Blood 03/20/2025 2:41 PM CDT 03/20/2025 3:36 PM CDT us Grabiel Carolina MD LAB BLOOD ORDERABLES Final Re sult [facility] Department [place] [address] * Immunofixation, urine with interpretation (03/20/2025 2:41 PM CDT) Pathologist [facility] Immunofixation, Ur Please see comment Comment: NO PARAPROTEIN DETECTED Reviewed and signed by Maximilian Esquivel MD 03/21/2025 Urine 03/20/2025 2:41 PM CDT 03/20/2025 3:36 PM CDT Grabiel Carolina MD LAB URINE ORDERABLES Final Re sult Performing Organization Address [facility] Co de Phone Number [facility] [place] [address] * Protein electrophoresis with reflex, serum with interpretation (03/20/2025 2:41 PM CDT) [facility] Protein, sr 6.9 6.2 - 8.2 g/dL Albumin 4.2 3.2 - 5.0 g/dL [facility] Alpha-1 globulin 0.3 0.2 - 0.4 g/dL [facility] Alpha-2 globulin 0.7 0.5 - 1.0 g/dL [facility] Beta-1 globulin 0.3 0.3 - 0.6 g/dL [facility] Beta-2 globulin 0.3 0.2 - 0.6 g/dL [facility] Gamma globulin 1.1 0.5 - 1.7 g/dL [facility] SPEP interp Please see comment [facility] Comment: No apparent monoclonal peak Electrophoretic pattern appears similar to previous sample 02/16/2024 Reviewed and signed by Maximilian Esquivel MD 03/21/2025 Blood 03/20/2025 2:41 PM CDT 03/20/2025 3:36 PM CDT Grabiel Carolina MD LAB BLOOD ORDERABLES Final Re sult Performing Organization Address [facility]/ZIP Co de Phone Number [facility] [place] [address] * Dexa Axial Skeleton Bone Density 1 [...] Most Recently Relevant to Health Maintenance Insurance [facility] MEDICARE ADVANTAGE [facility]IC[facility] Address: [address] [address] [place] [address] [facility] MDCR HMO REF [facility] MEDIC[facility] Address: [address] [address] [place] [address] [facility] MEDICARE ADVANTAGE [facility] MEDIC[facility] Address: [address] [address] [place] [address] MEDICARE [employer] [facility] MDCR HMO REF [facility] MEDICARE ADVANTAGE Advance Directives For more information, please contact: [phone] * Full Code (Latest Code Status on [...] Communication Edilberto Castaneda Spouse Health Care Agent [email or web address] Care Teams District Service Manager Relationship Specialty Start Date End Date Smitha Crouch PA [address] [place] [address] PCP - General Physician Battery Charger 10/02/24 Grabiel Carolina MD Referring Physician Cardiology 04/11/19 Richard Fontaine MD Surgeon Orthopedic Surgery 04/11/19 La Nena Leyva MD Consulting Physician Rheumatology 04/11/19 Goldie Suh MD Consulting Physician Urology 04/11/19 Kaleb Carrillo MD [address] [place] [address] Referring Physician Ophthalmology 04/11/19 Brenda Bhat MD [address] [place] [address] Referring Physician Dermatology 05/17/21 Son, Israel Cross, DPT [address] [place] [address] Physical Therapist Physical Therapy 03/28/22
--- OUTSIDE RECORDS SUMMARY | 2025-05-26 18:49 | XMS_ITS | Clinical Summary ---
Author Organization [facility] Address [address] [place] [address] Care Team Providers Care Instructor Apparel Manufacture Name Role Phone Unavailable Primary Care Provider [...]
[2025-05-26 19:54] LABS: Hematocrit 38.9 % (37.0-47.0); Hemoglobin 12.3 g/dL (12.0-15.0); Immature Granulocyte Percent A 0.2 % (0-0.5); Lymphocytes Absolute Auto 2.53 K/mm3 (0.9-3.2); Mean Corpuscular HGB Conc 31.6 g/dl (32-36); Mean Corpuscular Hemoglobin 30.8 pg (26-34); Mean Corpuscular Volume 97.5 fl (80-100); Nucleated Red Blood Cells Absolute Auto 0.000 K/mm3 (0.0-0.012); Nucleated Red Blood Cells Perc 0.0 % (0.0-0.2); Platelet Count Result 210 k/mm3 (150-375); Red Blood Count 3.99 M/mm3 (4.2-5.4); White Blood Count 6.1 K/mm3 (4.5-10.0)
[2025-05-26 20:05] LABS: Alanine Aminotransferase 12 U/L (6-35); Albumin Level 4.5 g/dL (3.5-5.1); Alkaline Phosphatase 68 U/L (38-126); Anion Gap 6 mmol/L (4-12); Aspartate Amino Transferase 15 U/L (14-36); Bilirubin,Total 0.3 mg/dL (0.2-1.3); Blood Urea Nitrogen 15 mg/dL (7-17); Calcium 9.4 mg/dL (8.4-10.2); Carbon Dioxide 32 mmol/L (22-30); Chloride 103 mmol/L (98-107); Estimated CRCL calculation 45 ml/min; Estimated Glomerular Filt Rate > 60; Glucose 89 mg/dL (65-110); Lipase 161 U/L (23-300); Potassium 4.3 mmol/L (3.4-5.0); Sodium 141 mmol/L (137-145); Total Protein 7.8 g/dL (6.3-8.2)
[2025-05-26 21:09] LABS: Add Urine Microscopic? YES; Appearance Urine Clear (Clear); Glucose Urine UA Negative (Negative); Leukocyte Esterase Ur Trace LEU/UL (Negative); Nitrate Urine Negative (Negative); Non Pathogenic Casts 0-2; Specific Grav Ur 1.007 (1.001-1.035)
[2025-05-26] MEDS: SODIUM CHLORIDE 0.9% IV 1,000 ML 999 ML IV CONT (21:28)
[2025-05-26] MEDS: ACETAMINOPHEN 325 MG TABLET 650 MG PO (21:59)
[2025-05-26] MEDS: FAMOTIDINE 20 MG/2 ML VIAL IV PUSH (22:00)
[2025-05-26 22:38] VITALS: BP 132/80; PULSE 69; RESP 16; O2SAT 99
[2025-05-26 22:39] VITALS: BP 132/80; PULSE 69; RESP 16; O2SAT 99
== END 2025-05-26 22:41 | disposition home or self-care (01) ==
PROVIDERS: Physician Assistant; Emergency Provider Emergency Medicine; PCP Physician Assistant
DX: K29.00 Acute gastritis without bleeding (principal); R10.13 Epigastric pain; G89.29 Other chronic pain; F03.90 Unspecified dementia, unspecified severity, without behavioral disturbance, psychotic disturbance, mood disturbance, and anxiety; I10 Essential (primary) hypertension; I25.10 Atherosclerotic heart disease of native coronary artery without angina pectoris; I73.00 Raynaud's syndrome without gangrene; E78.5 Hyperlipidemia, unspecified; M32.9 Systemic lupus erythematosus, unspecified; M79.7 Fibromyalgia; M19.90 Unspecified osteoarthritis, unspecified site; F41.9 Anxiety disorder, unspecified; F32.A Depression, unspecified; Z96.652 Presence of left artificial knee joint; Z95.5 Presence of coronary angioplasty implant and graft; Z86.0100 Personal history of colon polyps, unspecified; Z87.440 Personal history of urinary (tract) infections; Z90.49 Acquired absence of other specified parts of digestive tract; Z98.49 Cataract extraction status, unspecified eye; R93.41 Abnormal radiologic findings on diagnostic imaging of renal pelvis, ureter, or bladder; Z79.899 Other long term (current) drug therapy; Z79.02 Long term (current) use of antithrombotics/antiplatelets; Z79.82 Long term (current) use of aspirin
CPT/HCPCS: 36415; 74177; 80053; 81001; 83690; 85025; 96361; 96374; 99284; A9270; J7030; Q9967

== ENCOUNTER 2025-06-18 11:49 | Outpatient (CLI) | payer MEDICARE, SELFPAY ==
--- NOTE | ~2025-06-18 | XR_ITS ---
MODIFIED ESOPHAGRAM HISTORY: Dysphagia. TECHNIQUE: Modified barium esophagram was performed on 06/18/2025. I administered fluoroscopy and perf ormed the exam with speech pathologist. Patient was seated for lateral fluoroscopic imaging for janessa stion of thin liquids, pudding, solids and quantified amounts, followed by thin liquids in uncontroll ed amounts. This was recorded on tape. A single fluoroscopic spot image was also recorded. The DAP fo r this procedure was 1.316 Gycm2. The amount of fluoroscopy time used during this procedure was 2.4 m inutes. FINDINGS: Oral stage: Adequate function. Pharyngeal stage: Reduced laryngeal elevation and tongue base retraction. There is vallecular residue . There is laryngeal penetration secondary to reduced laryngeal elevation and spillage of thin liquid s from the vallecula after the swallow. No aspiration. Cervical/esophageal stage: Adequate function. IMPRESSION: Pharyngeal dysphagia with laryngeal penetration after the swallow. Please correlate with speech pathologist findings and specific feeding recommendations. Reviewed, dictated and finalized at location A. IMPRESSION: Pharyngeal dysphagia with laryngeal penetration after the swallow. Please correlate with speech pathologist findings and specific feeding recomme ndations.
--- OUTSIDE RECORDS SUMMARY | 2025-06-18 11:59 | XMS_ITS | Encounter Summary ---
Author Organization [facility] Address [address] [place] [address] Care Team Providers Care Photographer News Name Role Phone Grabiel Carolina MD Unavailable Richard Fontaine MD Unavailable La Nena Leyva MD Unavailable Goldie Suh MD Unavailable Kaleb Carrilol MD Unavailable [phone] Danyelle Brambila MD Primary Care Provi makayla Brenda Bhat MD Unavailable [phone] SonIsrael DPT Unavailable Odalis Palmer LPN Unavailable [phone] Bill Paris MD Primary Care Provider + Susi Magaña PETROGRAPHY TEACHER Unavailable [phone] Danyelle Brambila MD Unavailable [phone] Smitha Crouch Primary Care Pr ovider Encounter Details Date Type Department Care Team (Late st Contact Info) Description 02/18/2022 Telephone [facility] [place] [address] Danyelle Brambila MD [address] [facility] [address] [place] [address] Social History Tobacco Use Types Packs/Day Years [...] on file 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 Gender Identity Not on file Sexual [...] documented as of this encounter Care Teams Photographer News Relationship Specialty Start Date End Date Danyelle Brambila MD [address] [place] [address] PCP - General Internal Medicine 05/14/20 09/19/22 Bill Paris MD [address] [place] [address] [address] [place] [address] PCP - General Internal Medicine 09/20/22 10/01/24 Smitha Crouch PA [address] [place] [address] PCP - General Physician Equalizer Operator 10/02/24 Grabiel Carolina MD Referring Physician Cardiology 04/11/19 Richard Fontaine MD Surgeon Orthopedic Surgery 04/11/19 La Nena Leyva MD Consulting Physician Rheumatology 04/11/19 Goldie Suh MD Consulting Physician Urology 04/11/19 Kaleb Carrillo MD [address] [place] [address] Referring Physician Ophthalmology 04/11/19 Brenda Bhat MD [address] [place] [address] Referring Physician Dermatology 05/17/21 SonIsrael, DPT [address] [place] [address] Physical Therapist Physical Therapy 03/28/22 Odalis Palmer, HARDWOOD FLOOR REFINISHER [address] [place] [address] [facility] [address] [place] [address] Biometrics Analyst 06/09/22 06/09/22 Susi Magaña, ALBINA [address] [facility] [address] [facility] [address] [place] [address] Speech Language Pathologist Speech Therapy 10/04/22 12/28/22 Danyelle Brambila MD [address] [facility] [address] [place] [address] Consulting Physician Internal Medicine 11/23/22 05/23/23 documented as of this encounter
--- OUTSIDE RECORDS SUMMARY | 2025-06-18 11:59 | XMS_ITS | Encounter Summary ---
Author Organization [facility] Address [address] [place] [address] Phone Care Team Providers Care Sail Finisher Machine Name Role Phone Henrique Bah MD Primary Care Provider Tosha Small MD Unavailable Grabiel Carolina MD Unavailable Richard Fontaine MD Unavailable Navjot Barron MD Unavailable La Nena Leyva MD Unavailable [phone] Goldie Suh MD Unavailable Kaleb Carrillo MD Unavailable [phone] Danyelle Brambila MD Primary Care Provi makayla Danyell Alford COVER SEAMER Unavailable [phone] Brenda Bhat MD Unavailable [phone] SonIsrael DPT Unavailable [phone] Odalis Palmer CERTIFIED REGISTERED NURSE ANESTHETIST Unavailable [phone] Bill Paris MD Primary Care Provider + Susi Magaña COVER SEAMER Unavailable [phone] Danyelle Brambila MD Unavailable [phone] Smitha Crouch Primary Care Pr [facility] Encounter Details Date Type Department Care [...] on file 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 Gender Identity Not on file Sexual Orientation [...] documented as of this encounter Care Teams Sail Finisher Machine Relationship Specialty Start Date End Date Henrique Bah MD PCP - General 01/18/17 05/13/20 Danyelle Brambila MD [address] [place] [address] PCP - General Internal Medicine 05/14/20 09/19/22 Bill Paris MD [facility] [address] Carolee MATAMOROS [address] [place] [address] PCP - General Internal Medicine 09/20/22 10/01/24 Smitha Crouch PA [address] [place] [address] PCP - General Physician Service Or Work Dispatcher Chief 10/02/24 Tosha Small MD Referring Physician Dermatology 04/11/19 05/16/21 Grabiel Carolina MD Referring Physician Cardiology 04/11/19 Richard Fontaine MD Surgeon Orthopedic Surgery 04/11/19 Navjot Barron MD Surgeon Orthopedic Surgery 04/11/19 05/16/21 La Nena Leyva MD Consulting Physician Rheumatology 04/11/19 Goldie Suh MD Consulting Physician Urology 04/11/19 Kaleb Carrillo MD [address] [place] [address] Referring Physician Ophthalmology 04/11/19 Danyell Alford SLP [address] [place] [address] Speech Language Pathologist Speech Therapy 11/21/20 11/23/20 Brenda Bhat MD [address] [place] [address] Referring Physician Dermatology 05/17/21 SonIsrael, DPT [address] [place] [address] Physical Therapist Physical Therapy 03/28/22 Odalis Palmer, CERTIFIED REGISTERED NURSE ANESTHETIST [address] [facility] [address] [place] [address] Manager Urology 06/09/22 06/09/22 Susi Magaña, ALBINA [address] [facility] [address] [facility] [address] [place] [address] Speech Language Pathologist Speech Therapy 10/04/22 12/28/22 Danyelle Brambila MD [address] [facility], [facility] [address] [place] [address] Consulting Physician Internal Medicine 11/23/22 05/23/23 documented as of this encounter
--- OUTSIDE RECORDS SUMMARY | 2025-06-18 12:00 | XMS_ITS ---
Author Organization [facility] [employer] ([address]) Address [address] [place] [address] Care Team Providers Care Buzzsaw Operator Helper Name Role Phone Bill Paris Primary Care Provider UnavailDemi Rothman Unavailable [phone] ZZ-Migration, Provider Unavailable Unavailab le Allergies Allergen (clinical drug ingredient) Drug/Non Drug Allergy documented on EMR Reaction Allergy Type Onset Date Status Substance with sulfonamide structure and antibacterial mechanism of action (substance) SULFA (uncoded) rash Allergy Active Ciprofloxacin hives Drug Allergy Act charleen Kiwi throat tightness Allergy Active REASON FOR VISIT [facility] To [facility] Conversion Encounter Medications Medication SIG (Take, Route, [...] review and pick correct strength-formulat ion from [employer] options. If intended option is not shown, [...] Not-Taking Encounters Encounter Location Date Provider Diagnosis [address] [address] 05/04/2024 Provider Natalia Migraine without aura, not [...] 03/28/2024 Progress Notes * Cheri DRAKEDOB:1940 ( 85 yo F)Acc No.[id number]:05/04/2024 Patient: Cheri CAMP Provider: Dang Harris :1940 A ge:83 Y S ex:Female Date:05/04/2024 Address:[address] [place] [address] [facility] Pcp:Bill Paris Subjective: * Chief Complaints: [...] *Please review and pick correct strength-formulation from [facility] options. If intended option is not shown, [...] * Electronic signature of Robinson MALIK-Migration on 06/18/2025 at 12:00 PM CDT Sign off status: Pending * Provider: Dang parra Migration Date: 05/04/2024 Generated for Eleazar olivares/Klever/Ezio on: 06/18/2025 12:00 PM CDT
--- OUTSIDE RECORDS SUMMARY | 2025-06-18 12:00 | XMS_ITS | Clinical Summary ---
Author Organization [facility] Address [address] [place] [address] Care Team Providers Care Contract Coordinator Name Role Phone Grabiel Carolina MD Unavailable Richard Fontaine MD Unavailable La Nena Leyva MD Unavailable Goldie Suh MD Unavailable Kaleb Carrillo MD Unavailable [phone] Brenda Bhat MD Unavailable [phone] SonIsrael DPT Unavailable Smitha Crouch Primary [...] mg total) by mouth daily Active omega 0-eof-okf-fish oil 60-90-500 mg capsule daily Active cetirizine [...] evaluation. Assessment & Plan (11/28/2023 1:01 PM MOLD MECHANIC): Recent hospitalization for ?bowel obstruction - records [...] well. Assessment & Plan (10/06/2024 11:16 AM MOLD MECHANIC): She and her have both noted decline [...] things Assessment & Plan (01/21/2022 10:45 AM MOLD MECHANIC): She reports a significant sudden step-off in terms of memory and I do think MRI is reasonable to r/o a vascular event given her sig atherosclerotic dz. Will discuss with Dr Pérez Snoring 01/19/2022 Assessment & Plan (01/21/2022 10:43 AM MOLD MECHANIC): Encouraged to establish with sleep medicine as [...] 04/28/2021 Assessment & Plan (11/28/2023 1:01 PM MOLD MECHANIC): Noted while in hospital, completed treatment and [...] 01/11/2021 Assessment & Plan (11/23/2022 11:35 AM MOLD MECHANIC): Suspect this is worsening. Will have her trial short term PPI (discussed risks of cognitive impairment) 20 mg BID x 14 days. Also recommended famotidine trial and adding TUMs PRN. Since she has dysphagia, referred for EGD Counseled on cutting back on chocolates and other behavioral/lifestyle modifications Assessment & Plan (10/24/2022 2:41 PM MOLD MECHANIC): Worsening symptoms, will have patient trial famotidine and see if any improvement. Assessment & Plan (05/17/2021 10:36 AM CDT): Not currently on meds but seems to be doing OK Assessment & Plan (01/11/2021 11:57 AM MOLD MECHANIC): Will trial with pepcid 20 mg bid [...] worsening Assessment & Plan (01/21/2021 11:47 AM MOLD MECHANIC): I am concerned this could represent unstable angina. Repeat EKG today. Will send trop and BNP. Will discuss with Dr Carolina. However, she also had gastritis on recent EGD and seemed to respond to PPI when symptoms first appeared. Esophageal spasm could also respond to NG. Will resume Dexilant and see if this improves her symptoms. Assessment & Plan (01/11/2021 11:57 AM MOLD MECHANIC): Atypical chest pain She has followed with [...] up Assessment & Plan (11/23/2020 1:42 PM MOLD MECHANIC): Low suspicion for angina but she will see Dr Carolina in the near future for re-assessment. Continue PPI for GERD. She will try Tums or Gaviscon PRN. Agree with EGD to eval further given her dysphagia. 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 Assessment & Plan (05/24/2023 2:04 PM CDT): Patient with worsening sicca symptoms, again encouraged her to follow up with rheumatology, and encouraged oral hygiene to help with dry mouth. Assessment & Plan (01/17/2023 2:54 PM MOLD MECHANIC): Patient with worsening sicca symptoms, will refer [...] GERD. Assessment & Plan (10/06/2024 11:09 AM MOLD MECHANIC): She has parkinsonism stage 3 characterized by [...] APDA. You can find this by searching fsboWOW for verónica apda exercise or typing this address into your web browser. https://[email or web address]. Let me know if you ever want to repeat either OT or speech therapy for conversational talking. Assessment & Plan (11/23/2022 11:29 AM MOLD MECHANIC): Per neuro- Assessment & Plan (08/17/2022 2:51 [...] therapy. 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 Assessment & Plan (01/11/2021 11:58 AM MOLD MECHANIC): Discussed postural hypotension EKG today and it was reassuring Encouraged pt to follow up with Dr Ge SETH Discussed risks of avoiding testing Offered Event monitor but pt prefers to follow up with Dr Carolina Advised pt to be mindful when changing positions and also avoid lifting heavy weights Dysphagia 07/28/2017 Assessment & Plan (11/23/2022 11:28 AM MOLD MECHANIC): Since this is red flag sx referred for EGD. Scheduled to follow up with ENT and that will also be a good idea. Working with SHORE WORKING SUPERVISOR as well. Assessment & Plan (02/02/2022 11:16 PM CDT): She has dysphagia which is likely related to an underlying neurologic disorder. It is appropriate to have this evaluated by a speech language pathologist to minimize aspiration risk, with additional diagnostic testing to be ordered at the SHORE WORKING SUPERVISOR's discretion. Assessment & Plan (05/17/2021 10:29 AM CDT): Manometry in 2017 showed mildly abnormal esophageal motility Assessment & Plan (04/28/2021 10:37 AM CDT): EGD was unrevealing Dr Rodriguez recommended SHORE WORKING SUPERVISOR eval - will look into this Assessment & Plan (01/27/2021 8:02 PM MOLD MECHANIC): She has dysphagia which is likely related to an underlying neurologic disorder. It is appropriate to have this evaluated by a speech language pathologist to minimize aspiration risk, with additional diagnostic testing to be ordered at the SHORE WORKING SUPERVISOR's discretion. Osteopenia 04/11/2017 Assessment & Plan (05/29/2024 [...] needed Assessment & Plan (11/28/2023 1:00 PM MOLD MECHANIC): Patient was started back on fosinopril while [...] needed Assessment & Plan (11/23/2022 11:27 AM MOLD MECHANIC): Well controlled on current regimen. Reviewed BP [...] adjustment Assessment & Plan (01/19/2022 3:55 PM MOLD MECHANIC): BP has looked good recently Continue current regimen- could consider CCB given her Raynaud's but she does have listed allergy to Adalat Assessment & Plan (12/08/2021 8:07 PM MOLD MECHANIC): Bps have been high since mid-October but [...] contributor Assessment & Plan (11/09/2021 11:36 AM MOLD MECHANIC): Suspect home bp machine may be inaccurate [...] back Assessment & Plan (11/23/2020 3:33 PM MOLD MECHANIC): BP at goal on current regimen Polyp of colon 04/05/2014 Overview (02/24/2017): Colon polyp Assessment & Plan (05/14/2020 1:19 PM CDT): Staying upto with colonoscopy Urinary incontinence 07/06/2012 Degeneration of intervertebral disc of lumbar re gion 06/19/2011 Atherosclerosis of [place] co ronary artery of [place] heart with stable angina pectoris 06/07/2005 Overview [...] Carolina Assessment & Plan (01/21/2021 11:43 AM MOLD MECHANIC): Eval for ACS as above On ASA, statin. Will review history to see why not on BB Consider Ranexa as next step pending workup - she will follow up with Dr Carolina for this Assessment & Plan (11/23/2020 1:49 PM MOLD MECHANIC): On ASA and lovastatin per Dr Carolina [...] needed Assessment & Plan (11/23/2022 11:29 AM MOLD MECHANIC): On rosuva Update FLP and LFTs Continue rosuvastatin + Mediterranean diet and regular exercise Assessment & Plan (05/18/2022 11:00 AM CDT): Rosuvastatin was increased to 40mg daily LDL recently improved to 103 Generalized anxiety disorder 06/24/1999 Assessment & Plan (10/06/2024 11:04 AM MOLD MECHANIC): She continues to have mood symptoms including [...] results. Assessment & Plan (12/08/2021 8:07 PM MOLD MECHANIC): I wonder if this could be contributing to her symptoms although she denies that this is any worse than her baseline Resolved Problems Problem Noted Date Diagnosed Date Resolved Date COVID-19 virus infection 12/20/2021 Assessment & Plan (12/20/2021 3:50 PM MOLD MECHANIC): Discussed CDC guidelines for isolation Given her [...] 05/18/2022 Assessment & Plan (11/09/2021 12:06 PM MOLD MECHANIC): Trial with magnesium +riboflavin Hydration and stress [...] 11/23/2022 Assessment & Plan (01/11/2021 11:52 AM MOLD MECHANIC): Following with Dr Rodriguez Assessment & Plan [...] 2. Start home exercises - I sent [employer] channel. 3. Our office to please send referral for PT at [facility] near [facility]. 4. Our office to please send a new referral to general neurology for headache management (she previously saw Dr. Lin but he left [facility] and she does not have follow up scheduled yet). 5. She remains concerned about her memory and thinking. Last note from Dr. Henry dated January 2018 indicated no objective deficit. I will discuss with Dr. Henry in [facility] to determine appropriate timing [...] Care Team Description 05/26/2025 7:39 AM CDT - 05/26/2025 11:59 PM CDT Hospital Encounter [facility] Breast Imaging [facility] ([facility]) [address] [place] [address] Screening mammogram, encounter for Discharge Disposition: Discharge to home or self care 03/21/2025 Results Follow-Up [facility] [address] [place] [address] 8[address] [place] [address] [place] [address] Grabiel Carolina MD Protein electrophoresis with reflex, serum with interpretation, Immunoglobulin free light chains, Immunofixation, urine with interpretation 03/20/2025 2:35 PM CDT Lab [facility] ([facility]) [address] [place] [address] Abnormal echocardiogram 03/20/2025 2:00 PM CDT Office Visit [facility] [address] [place] [address] 8[address] [place] [address] [place] [address] Grabiel Carolina MD Atherosclerosis of [place] coronary artery of [place] heart with stable angina pectoris (Primary Dx); Abnormal echocardiogram; Pure hypercholesterolemia from Last 3 Months Immunizations Immunization Administration [...] GI AIR CONTRAST W KUB 08/23/2021 Left RI ARTHRP KNE CONDYLE&PLATU MEDIAL&LAT COMPARTMENTS 08/20/2013 - [...] upper respiratory infection (URI) Colon polyp Cholelithiasis DC (myocardial infarction) (HCC) Family History Medical History [...] Nallely Relation Name Status Comments Brother 1 Donnie Alive Brother 2 Nino Alive Brother 3 [...] on file Legal Sex Female 11:44 PM MOLD MECHANIC Gender Identity Not on file Sexual [...] 36.2 C (97.1 F) 10/02/2024 3:41 PM MOLD MECHANIC Respiratory Rate 20 09/14/2023 1:30 PM CDT [...] 04/11/2019, 04/11/2017, Additional history exists Covid-19 Vaccine (2023-2 5 season) 2024 03/15/2022, 10/09/2021, 08/30/2021, Additional history exists Depression Screening 05/29/2025 05/29/2024, 05/24/2023, 05/18/2022, Additional history exists Fall Risk Assessment 05/29/2025 05/29/2024, 05/24/2023, 12/08/2022, Additional history exists Well Visit 65+ 05/29/2025 05/29/2024, 0703/2023, 05/18/2022, Additional history exists Influenza Vaccine (#1) 2025 , 08/25/2021, 08/08/2020, Additional history exists DTaP/Tdap/Td Vaccine (3 - Td or Tdap) 07/29/2033 07/29/2023, 08/09/2011 Pneumococcal vaccine 65+ Completed 09/21/2018, 10/20 Zoster Vaccine Completed 07/07/2022, 01/19, 11/20/2010 Medical Devices Implanted Type Area Shield Installer Device Identifier Shelf Expiration Date Model / Serial / Lot Daig Kyle/St Deshaun [employer] [id number] Angio-Seal Evolution 6fr .035in Guidewire Bypass Tube Suture - [id number] Implanted:Qty: 1 on 02/11/2021 by Tera Denson MD at [facility] Collagen Right: Femoral Terumo [employer] Kyle 11/19/2021 [id number] / / [id number] Medtronic Usa Inc X [id number] Resolute Rene 3mm 2.1-2.7fr 26mm 140cm Rapid Exchange Radiopaque - [id number] Implanted:Qty: 1 on 02/04/2021 by Tera Denson MD at [facility] Stent Right: Coronary Medtronic Inc 09/08/2022 [id number] / / [id number] [employer] Kyle [id number] Stent Drug Eluting S Chucky Can Mr [id number] - [id number] Implanted:Qty: 1 on 02/11/2021 by Tera Denson MD at [facility] Stent Left: Coronary [employer] Kyle 10/21/2021 [id number] / / [id number] Stent N/A: Heart Knee Replacement Knee EGEN/St Deshaun Medical [id number] Angio-Seal Evolution 6fr .035in Guidewire Bypass Tube Suture - [id number] Implanted:Qty: 1 on 02/04/2021 by Tera Denson MD at [facility] Right: Femoral [employer] Kyle 10/19/2021 [id number] / / [id number] Procedures Procedure Name Priority Date/Time Associated Diagnosis Comments SCREENING MAMMOGRAM BILATERAL W KULDEEP Schedule Routine, Read Routine (OP Routine) 05/26/2025 8:21 AM CDT Screening mammogram, encounter for IMMUNOFIXATION, URINE Routine 03/20/2025 2:41 PM CDT [...] Recently Relevant to Health Maintenance Results * Screening Mammogram Bilateral W Kuldeep (05/26/2025 8:21 AM CDT) Anatomical Region Laterality Modality Breast Bilateral Mammography Impressions 05/27/2025 1:53 PM CDT Bilateral No evidence of malignancy in either breast. OVERALL BI-RADS FINAL ASSESSMENT: 2 - Benign RECOMMENDATION: Recommend bilateral annual screening mammography. Narrative 05/27/2025 1:53 PM CDT EXAMINATION: Screening Mammogram Bilateral W Kuldeep: 05/26/2025 COMPARISON: Relevent prior studies available at the time of interpretation were reviewed, including the most recent mammogram on: 03/25/2024, 01/12/2023, and 12/08/2021. TECHNIQUE: Mammography was performed with 2D and digital breast tomosynthesis (DBT) images. CAD was utilized. BREAST PARENCHYMAL COMPOSITION: The breasts are extremely dense, which lowers the sensitivity of mammography. FINDINGS: Bilateral There is no suspicious mass, calcification, or architectural distortion in either breast. There have been no significant interval changes from prior studies. Self Screening Mammogram IMG MAMMO PROCEDURES Fi nal Result * (ABNORMAL) Immunoglobulin free light chains (03/20/2025 2:41 PM CDT) [place]/Lambda ratio BJ 1.49 0.26 - 1.65 Comment: Interpretive Data The Binding Site FreeLite assay procedure was used. Results from different manufacturers or methods may not be comparable. Serial testing should be performed using the same methods and instrumentation. Current Interpretive Data was last revised on 2024. [place] free light chain BJ 2.46(H) 0.33 - 1.94 mg/dL [facility] Comment: Interpretive Data The Binding Site FreeLite assay procedure was used. Results from different manufacturers or methods may not be comparable. Serial testing should be performed using the same methods and instrumentation. Current Interpretive Data was last revised on 2024. Lambda free light chain BJ 1.65 0.57 - 2.63 mg/dL [facility] Comment: Interpretive Data The Binding Site FreeLite assay procedure was used. Results from different manufacturers or methods may not be comparable. Serial testing should be performed using the same methods and instrumentation. Current Interpretive Data was last revised on 2024. Blood 03/20/2025 2:41 PM CDT 03/20/2025 3:36 PM CDT Grabiel Carolina MD LAB BLOOD ORDERABLES Final Re sult CONI MORATAYA [facility] Department [place] [address] * Immunofixation, urine with interpretation (03/20/2025 2:41 PM CDT) [facility] Immunofixation, Ur Please see comment Comment: NO PARAPROTEIN DETECTED Reviewed and signed by Maximilian Esquivel MD 03/21/2025 Urine 03/20/2025 2:41 PM CDT 03/20/2025 3:36 PM CDT Grabiel Carolina MD LAB URINE ORDERABLES Final Re sult Performing Organization Address [facility] Co de Phone Number CONI MORATAYA [facility] [place] [address] * Protein electrophoresis with reflex, serum with interpretation (03/20/2025 2:41 PM CDT) [facility] Protein, sr 6.9 6.2 - 8.2 g/dL Albumin 4.2 3.2 - 5.0 g/dL [facility] Alpha-1 globulin 0.3 0.2 - 0.4 g/dL [facility] Alpha-2 globulin 0.7 0.5 - 1.0 g/dL [facility] Beta-1 globulin 0.3 0.3 - 0.6 g/dL [facility] Beta-2 globulin 0.3 0.2 - 0.6 g/dL [facility] Gamma globulin 1.1 0.5 - 1.7 g/dL [facility] SPEP interp Please see comment [facility] Comment: No apparent monoclonal peak Electrophoretic pattern appears similar to previous sample 02/16/2024 Reviewed and signed by Maximilian Esquivel MD 03/21/2025 Blood 03/20/2025 2:41 PM CDT 03/20/2025 3:36 PM CDT Grabiel Carolina MD LAB BLOOD ORDERABLES Final Re sult Performing Organization Address [facility] Co de Phone Number [facility] Department [place] [address] * Dexa Axial Skeleton Bone Density 1 [...] Most Recently Relevant to Health Maintenance Insurance [facility] MEDICARE ADVANTAGE [facility] Address: [facility] [address] [place] [address] Insync [facility] MDCR HMO REF [facility] Address: [address] [address] [place] [address] UHC MEDICARE ADVANTAGE [facility] Address: [address] [address] [place] [address] MEDICARE Insync [facility] MDCR HMO REF [facility] Address: [address] [place] [address] [facility] MEDICARE ADVANTAGE [facility] Address: [address] [address] Advance Directives For more information, please contact: [phone] * Full Code (Latest Code Status on [...] Communication Edilberto Castaneda Spouse Health Care Agent [email or web address] Care Teams Contract Coordinator Relationship Specialty Start Date End Date MenSmitha rogers PA [address] [place] [address] PCP - General Physician Rfid Developer 10/02/24 Grabiel Carolina MD Referring Physician Cardiology 04/11/19 Richard Fontaine MD Surgeon Orthopedic Surgery 04/11/19 La Nena Leyva MD Consulting Physician Rheumatology 04/11/19 Goldie Suh MD Consulting Physician Urology 04/11/19 Kaleb Carrillo MD [address] [place] [address] Referring Physician Ophthalmology 04/11/19 Brenda Bhat MD [address] [place] [address] Referring Physician Dermatology 05/17/21 Son, Israel Cross, ALEX [address] [place] [address] Physical Therapist Physical Therapy 03/28/22
--- OUTSIDE RECORDS SUMMARY | 2025-06-18 12:00 | XMS_ITS ---
Author Organization [facility] [employer] [place] ([address]) Address [address] [place] [address] Care Team Providers Care Guest Attendant Name Role Phone Bill Paris Primary Care Provider Demi Chew Unavailable [phone] Dr. Kaleb Perez Unavailable [phone] Allergies Allergen (clinical drug ingredient) Drug/Non Drug [...] review and pick correct strength-formulat ion from [employer] options. If intended option is not shown, [...] Nonsmoker Encounters Encounter Location Date Provider Diagnosis [facility] [address] [facility] [address] [place] [address] 05/30/2024 Kaleb Perez Plan Of Treatment Next Appt Details Follow Up: 4 Weeks, Reason: Evaluation and Management Progress Notes * Cheri DRAKEDOB:1940 ( 85 yo F)Acc No.[id number]:05/30/2024 Neuro follow-up Patient: Cheri CMAP Provider: Agnes Perez MD :1940 A ge:83 Y S ex:Female Date:05/30/2024 Address:[address] [place], [place] [id number] Pcp:Bill Paris Subjective: * Chief Complaints: * [...] hypertension, Hyperlipidemia, unspecified, Atherosclerotic heart disease of [place] coronary artery with unspecified angina pectoris, Raynaud's [...] your bedroom? N o Do you have [id number] carpeting? N o What is the age [...] *Please review and pick correct strength-formulation from [employer] options. If intended option is not shown, [...] signature of Dr. Kaleb Perez MD on 06/18/2025 at 12:00 PM CDT Sign off status: Pending * Provider: Agnes Perez MD Date: 05/30/2024 Generated for Eleazar olivares/Klever/Lucienitting on: 06/18/2025 12:00 PM CDT History and Physical Notes * Examination [...]
--- OUTSIDE RECORDS SUMMARY | 2025-06-18 12:00 | XMS_ITS | Patient Health Record ---
Author Organization [facility] [employer] [place] ([address]) Address [address] [place] [address] Care Team Providers Care Latin American Studies Professor Name Role Phone Bill Paris Primary Care Provider Demi Chew Unavailable [phone] Allergies Allergen (clinical drug ingredient) Drug/Non Drug Allergy documented on EMR Reaction Allergy Type Onset Date Status Substance with sulfonamide structure and antibacterial mechanism of action (substance) SULFA (uncoded) rash Allergy Active Ciprofloxacin hives Drug Allergy Act charelen Kiwi throat tightness Allergy Active Reason For [...] review and pick correct strength-formulat ion from [employer] options. If intended option is not [...] Problem Chronic migraine without aura, non-refractory (disorder) (073649187698873) Migraine without aura, not intractable, without status migrainosus (G43.009) Active confirmed Problem Migraine with aura (6291189) Migraine with aura, not intractable, without status migrainosus (G43.109) Active confirmed Problem Chronic migraine without aura, non-intractable (441624469539914) Chronic migraine without aura, not intractable, without status migrainosus (G43.709) Active confirmed Problem Chronic tension-type headache (305307218) Chronic tension-type headache, intractable (G44.221) Active confirmed Problem Chronic allergic conjunctivitis (91757579) Other chronic allergic conjunctivitis (H10.45) Active confirmed Problem Allergic rhinitis caused by pollen (disorder) (16131484) Allergic rhinitis due to pollen (J30.1) Active confirmed Problem Allergic rhinitis (06219870) Other allergic rhinitis (J30.89) Active confirmed Problem Degeneration of cervical intervertebral disc (15192848) Other cervical disc degeneration, unspecified cervical region (M50.30) Active confirmed Problem Cervicalgia (16214499) Cervicalgia (M54.2) Active confirmed Problem Occipital neuralgia (87023505) Occipital neuralgia (M54.81) Active confirmed Problem Adverse reaction caused by drug (05294426) Adverse effect of other drugs, medicaments and biological substances, initial encounter (T50.995A) Active confirmed Problem Allergic rhinitis caused by animal hair and dander (037401427497872) Allergic rhinitis due to animal (cat) (dog) hair and dander (J30.81) Active confirmed Problem Cough (04117246) Cough (R05) Active confirmed Problem Muscle pain (50130737) Myalgia, unspecified site (M79.10) Active confirmed Problem Cervicogenic headache (120375560) Cervicogenic headache (G44.86) Active confirmed Plan Of Treatment Pending Test Test Name Order Date MRI : Spine, Cervical (without gadoliniu m) 02/28/2024 Insurance Providers Payer Name Payer Address Payer Phone Subscriber Number Group Number Insured Name Patient Relationship to Insured Coverage Start Date Coverage End Date [employer] Medicare [address] [address] [place] [address] [id number] Cheri Castaneda Self - patient is the insured 4 Medical (General) History Medical History History ICD Code Systemic lupus erythematosus, unspecifie d M32.9 Essential (primary) hypertension I10 Hyperlipidemia, unspecified E78.5 Atherosclerotic heart diseas e of [place] coronary artery with unspecified angina pectoris I25.119 Raynaud's Phenomenon Neuropathy Fibromyalgia Coronary artery disease Benign breast lump Parkinson's Disease Cervical DDD Lumbar DDD Migraine Surgical History Surgery Date(Month/Year) urethral suspension bowel obstruction section hysterectomy cholecystectomy rectocele/enterocele total knee replacement Hospitalization History Reason Date(Month/Year) Same as above
--- OUTSIDE RECORDS SUMMARY | 2025-06-18 12:00 | XMS_ITS | Patient Health Record ---
Author Organization [place] Address [address] [facility] 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 Name Role Phone Smitha Crouch Primary Care Provider UnavailRonald Tejeda Unavailable [phone] Bill Paris Unavailable Unavailable Danyell Zhang Unavailable [phone] Allergies Allergen (clinical drug ingredient) Drug/Non Drug [...] Duration) Notes Start Date End Date Status Plavix Active Cephalexin Active Zoloft 25 MG Orally Once a day Active Rosuvastatin Calcium Active OTC/Vitamins Vit C, Vit E, Zyrtec, ASA Active Methenamine Hippurate 1 GM Once a day Active Methenamine Mandelate Active Donepezil HCl Active Social History Tobacco Use: Social History Observation Description Date Details (start date - stop date) Never Smoker NA - NA Tobacco Use/Smoking Question Answer Notes Are you a nonsmoker Problems Problem Type SNOMED Code ICD Code Onset Dates Problem Status W/U Status Risk Notes Problem 321894269 Irritable bowel syndrome with diarrhea (K58.0) Active confirmed Problem 07537387 Heartburn (R12) Active confirmed Problem Irritable bowel syndrome (86550797) IBS (irritable bowel syndrome) (K58.9) Active confirmed Problem 976899285 Bloating (R14.0) Active confirmed She has noticed significant gas and bloating. Differential diagnosis include SIBO, food sensitivities, celiac disease, IBS, or others. Problem 986731668 History of colon polyps (Z86.010) Active confirmed Problem Dysphagia (29542912) Dysphagia (R13.10) Active confirmed Problem 23520129 Epigastric abdominal pain (R10.13) Active confirmed Problem 320287022 Change in bowel habits (R19.4) Active confirmed Problem 487617856 Colon, diverticulosis (K57.30) Active confirmed Problem 452022096 Periumbilical abdominal pain (R10.33) Active confirmed Problem 868078274 Left lower quadrant abdominal tenderness without rebound tenderness (R10.814) Active confirmed Problem 4965652 Antritis (stomach) (K29.60) Active confirmed Problem 310497120 Irregular bowel habits (R19.8) Active confirmed Problem 236801885 Non-cardiac chest pain (R07.89) Active confirmed Problem Abdominal discomfort (99179684) Abdominal discomfort (R10.9) Active confirmed Problem 816027110 Benign colon polyp (K63.5) Active confirmed Problem 68081590 Esophageal dysphagia (R13.10) Active confirmed Problem 45991870 Periumbilical discomfort (R10.33) Active confirmed About 3 [...] includes SIBO, IBS, scar tissue, or others. Vital Signs Height 64 in 06/11/2025 Weight 124 lbs 06/11/2025 BMI 21.28 kg/m2 06/11/2025 Encounters Encounter Location Date Provider Diagnosis [facility] [address] [place] [address] 08/01/2024 Ronald Singletary Heartburn R12 [facility] [place] [address] 06/11/2025 Danyell Zhang Abdominal pain R10.9 ; Abdominal bloating R14.0 ; Black stool K92.1 ; Nausea R11.0 ; Heartburn R12 ; Chest pain, non-cardiac R07.89 and Dysphagia R13.[address] [place] [address] 07/30/2024 Ronald Singletary [address] [place] [address] 08/25/2024 Ronald Singletary [address] [place] [address] 06/11/2025 Ronald Singletary Assessments Encounter Date Diagnosis (ICD Code) Assessment Notes Treatment Notes Treatment Clinical Notes Section Notes 08/01/2024 Heartburn (ICD-10 - R12) 06/11/2025 Abdominal pain (ICD-10 - R10.9) ABDOMINAL PAIN, BLOATING: She complains of generalized abdominal pain rated 5-6/10 in severity with pasty, soft bowel movements. She has not been on fiber. Reviewed recent CT scan. She is felt more constipated in the last few days. Mild tenderness on exam. She reports history of multiple abdominal surgeries including ureteral suspension, appendectomy, , cholecystectomy, surgery for a pelvic abscess, and bowel resection. Differentials include IBS, secondary to adhesions, food sensitivities, and others. BLACK SPECS IN STOOLS: She reports of black spots in her stools. She denies melena and hematochezia. Recent CBC showed normal hemoglobin. Low likelihood of GI bleed. NAUSEA, HEARTBURN, NON CARDIAC CHEST PAIN: She complains of nausea, heartburn in the mornings, epigastric pain and noncardiac chest pain that resolves with Tums. Recent CT scan showed moderate esophageal and gastric wall edema. Differentials include uncontrolled GERD, gastritis, esophagitis, malignancy, and others. DYSPHAGIA: She complains of intermittent dysphagia in the mornings. UGI revealed laryngeal penetration with 1 episode of silent reflux. She is scheduled to complete barium swallow test. Differentials include esophageal dysmotility, esophageal stricture, Schatzki's ring, secondary to Parkinson's disease and others. 06/11/2025 Abdominal bloating (ICD-10 - R14.0) ABDOMINAL PAIN, BLOATING: She complains of generalized abdominal pain rated 5-6/10 in severity with pasty, soft bowel movements. She has not been on fiber. Reviewed recent CT scan. She is felt more constipated in the last few days. Mild tenderness on exam. She reports history of multiple abdominal surgeries including ureteral suspension, appendectomy, , cholecystectomy, surgery for a pelvic abscess, and bowel resection. Differentials include IBS, secondary to adhesions, food sensitivities, and others. BLACK SPECS IN STOOLS: She reports of black spots in her stools. She denies melena and hematochezia. Recent CBC showed normal hemoglobin. Low likelihood of GI bleed. NAUSEA, HEARTBURN, NON CARDIAC CHEST PAIN: She complains of nausea, heartburn in the mornings, epigastric pain and noncardiac chest pain that resolves with Tums. Recent CT scan showed moderate esophageal and gastric wall edema. Differentials include uncontrolled GERD, gastritis, esophagitis, malignancy, and others. DYSPHAGIA: She complains of intermittent dysphagia in the mornings. UGI revealed laryngeal penetration with 1 episode of silent reflux. She is scheduled to complete barium swallow test. Differentials include esophageal dysmotility, esophageal stricture, Schatzki's ring, secondary to Parkinson's disease and others. 06/11/2025 Black stool (ICD-10 - K92.1) ABDOMINAL PAIN, BLOATING: She complains of generalized abdominal pain rated 5-6/10 in severity with pasty, soft bowel movements. She has not been on fiber. Reviewed recent CT scan. She is felt more constipated in the last few days. Mild tenderness on exam. She reports history of multiple abdominal surgeries including ureteral suspension, appendectomy, , cholecystectomy, surgery for a pelvic abscess, and bowel resection. Differentials include IBS, secondary to adhesions, food sensitivities, and others. BLACK SPECS IN STOOLS: She reports of black spots in her stools. She denies melena and hematochezia. Recent CBC showed normal hemoglobin. Low likelihood of GI bleed. NAUSEA, HEARTBURN, NON CARDIAC CHEST PAIN: She complains of nausea, heartburn in the mornings, epigastric pain and noncardiac chest pain that resolves with Tums. Recent CT scan showed moderate esophageal and gastric wall edema. Differentials include uncontrolled GERD, gastritis, esophagitis, malignancy, and others. DYSPHAGIA: She complains of intermittent dysphagia in the mornings. UGI revealed laryngeal penetration with 1 episode of silent reflux. She is scheduled to complete barium swallow test. Differentials include esophageal dysmotility, esophageal stricture, Schatzki's ring, secondary to Parkinson's disease and others. 06/11/2025 Nausea (ICD-10 - R11.0) ABDOMINAL PAIN, BLOATING: She complains of generalized abdominal pain rated 5-6/10 in severity with pasty, soft bowel movements. She has not been on fiber. Reviewed recent CT scan. She is felt more constipated in the last few days. Mild tenderness on exam. She reports history of multiple abdominal surgeries including ureteral suspension, appendectomy, , cholecystectomy, surgery for a pelvic abscess, and bowel resection. Differentials include IBS, secondary to adhesions, food sensitivities, and others. BLACK SPECS IN STOOLS: She reports of black spots in her stools. She denies melena and hematochezia. Recent CBC showed normal hemoglobin. Low likelihood of GI bleed. NAUSEA, HEARTBURN, NON CARDIAC CHEST PAIN: She complains of nausea, heartburn in the mornings, epigastric pain and noncardiac chest pain that resolves with Tums. Recent CT scan showed moderate esophageal and gastric wall edema. Differentials include uncontrolled GERD, gastritis, esophagitis, malignancy, and others. DYSPHAGIA: She complains of intermittent dysphagia in the mornings. UGI revealed laryngeal penetration with 1 episode of silent reflux. She is scheduled to complete barium swallow test. Differentials include esophageal dysmotility, esophageal stricture, Schatzki's ring, secondary to Parkinson's disease and others. 06/11/2025 Heartburn (ICD-10 - R12) ABDOMINAL PAIN, BLOATING: She complains of generalized abdominal pain rated 5-6/10 in severity with pasty, soft bowel movements. She has not been on fiber. Reviewed recent CT scan. She is felt more constipated in the last few days. Mild tenderness on exam. She reports history of multiple abdominal surgeries including ureteral suspension, appendectomy, , cholecystectomy, surgery for a pelvic abscess, and bowel resection. Differentials include IBS, secondary to adhesions, food sensitivities, and others. BLACK SPECS IN STOOLS: She reports of black spots in her stools. She denies melena and hematochezia. Recent CBC showed normal hemoglobin. Low likelihood of GI bleed. NAUSEA, HEARTBURN, NON CARDIAC CHEST PAIN: She complains of nausea, heartburn in the mornings, epigastric pain and noncardiac chest pain that resolves with Tums. Recent CT scan showed moderate esophageal and gastric wall edema. Differentials include uncontrolled GERD, gastritis, esophagitis, malignancy, and others. DYSPHAGIA: She complains of intermittent dysphagia in the mornings. UGI revealed laryngeal penetration with 1 episode of silent reflux. She is scheduled to complete barium swallow test. Differentials include esophageal dysmotility, esophageal stricture, Schatzki's ring, secondary to Parkinson's disease and others. 06/11/2025 Chest pain, non-cardiac (ICD-10 - R07.89) ABDOMINAL PAIN, BLOATING: She complains of generalized abdominal pain rated 5-6/10 in severity with pasty, soft bowel movements. She has not been on fiber. Reviewed recent CT scan. She is felt more constipated in the last few days. Mild tenderness on exam. She reports history of multiple abdominal surgeries including ureteral suspension, appendectomy, , cholecystectomy, surgery for a pelvic abscess, and bowel resection. Differentials include IBS, secondary to adhesions, food sensitivities, and others. BLACK SPECS IN STOOLS: She reports of black spots in her stools. She denies melena and hematochezia. Recent CBC showed normal hemoglobin. Low likelihood of GI bleed. NAUSEA, HEARTBURN, NON CARDIAC CHEST PAIN: She complains of nausea, heartburn in the mornings, epigastric pain and noncardiac chest pain that resolves with Tums. Recent CT scan showed moderate esophageal and gastric wall edema. Differentials include uncontrolled GERD, gastritis, esophagitis, malignancy, and others. DYSPHAGIA: She complains of intermittent dysphagia in the mornings. UGI revealed laryngeal penetration with 1 episode of silent reflux. She is scheduled to complete barium swallow test. Differentials include esophageal dysmotility, esophageal stricture, Schatzki's ring, secondary to Parkinson's disease and others. 06/11/2025 Dysphagia (ICD-10 - R13.10) ABDOMINAL PAIN, BLOATING: She complains of generalized abdominal pain rated 5-6/10 in severity with pasty, soft bowel movements. She has not been on fiber. Reviewed recent CT scan. She is felt more constipated in the last few days. Mild tenderness on exam. She reports history of multiple abdominal surgeries including ureteral suspension, appendectomy, , cholecystectomy, surgery for a pelvic abscess, and bowel resection. Differentials include IBS, secondary to adhesions, food sensitivities, and others. BLACK SPECS IN STOOLS: She reports of black spots in her stools. She denies melena and hematochezia. Recent CBC showed normal hemoglobin. Low likelihood of GI bleed. NAUSEA, HEARTBURN, NON CARDIAC CHEST PAIN: She complains of nausea, heartburn in the mornings, epigastric pain and noncardiac chest pain that resolves with Tums. Recent CT scan showed moderate esophageal and gastric wall edema. Differentials include uncontrolled GERD, gastritis, esophagitis, malignancy, and others. DYSPHAGIA: She complains of intermittent dysphagia in the mornings. UGI revealed laryngeal penetration with 1 episode of silent reflux. She is scheduled to complete barium swallow test. Differentials include esophageal dysmotility, esophageal stricture, Schatzki's ring, secondary to Parkinson's disease and others. 06/11/2025 Other After my visit with Cheri, I recommended the followin. Restart fiber supplement daily.2. Trial IBgard for abdominal pain. She will call in 1 month with symptom update. At this time, we will try to avoid antispasmodics given history. I do not believe MRI would help show adhesions.3. Start pantoprazole 40 mg daily for 8 to 12-week trial. Medication profile reviewed.4. Continue antireflux diet and lifestyle modifications.5. Discussed option of completing EGD however reviewed risks given comorbidities. She will send copies of barium swallow test once completed, and we will further make determination on proceeding with EGD.6. She may trial OTC Preparation H for rectal pain. Cheri and her verbalized understanding of the plan and recommendations. All questions answered. The patient may call our office for new GI complaints or alarm symptoms as needed. ABDOMINAL PAIN, BLOATING: She complains of generalized abdominal pain rated 5-6/10 in severity with pasty, soft bowel movements. She has not been on fiber. Reviewed recent CT scan. She is felt more constipated in the last few days. Mild tenderness on exam. She reports history of multiple abdominal surgeries including ureteral suspension, appendectomy, , cholecystectomy, surgery for a pelvic abscess, and bowel resection. Differentials include IBS, secondary to adhesions, food sensitivities, and others. BLACK SPECS IN STOOLS: She reports of black spots in her stools. She denies melena and hematochezia. Recent CBC showed normal hemoglobin. Low likelihood of GI bleed. NAUSEA, HEARTBURN, NON CARDIAC CHEST PAIN: She complains of nausea, heartburn in the mornings, epigastric pain and noncardiac chest pain that resolves with Tums. Recent CT scan showed moderate esophageal and gastric wall edema. Differentials include uncontrolled GERD, gastritis, esophagitis, malignancy, and others. DYSPHAGIA: She complains of intermittent dysphagia in the mornings. UGI revealed laryngeal penetration with 1 episode of silent reflux. She is scheduled to complete barium swallow test. Differentials include esophageal dysmotility, esophageal stricture, Schatzki's ring, secondary to Parkinson's disease and others. Plan Of Treatment Pending Test Test Name Order Date CT Scan : Abd & Pelvis with IV and oral contrast 05/08/2018 EGD 12/24/2020 Colonoscopy 08/19/2021 Colonoscopy 05/11/2018 Next Appt Details Provider Name:Ronald mina, 09/09/2025 10:40:00 AM, [address] [facility] , [address], [place], [address], Insurance Providers Payer Name Payer Address Payer Phone Subscriber Number Group Number Insured Name Patient Relationship to Insured Coverage Start Date Coverage End Date [employer] Advantage HMO-POS [address] [address] [place], [place] [id number] [phone] [id number] Cheri Castaneda Self - patient is the insured Medical (General) History Medical History History ICD Code Colon Polyps Diverticulosis IBS SIBO Esophageal Stenosis Cardiac Stents Raynaud's Syndrome Migraines Anxiety Coronary Artery Disease Parkinson's Disease Heart Disease/Stents Parkinson's Disease CHF Hypertension Surgical History Surgery Date(Month/Year) EGD Colonoscopy 09/2021 Bowel Obstruction Cholecystectomy Cardiac stent X3 Lumpectomy: Benign Hysterectomy Rectocele/Enterocele Total Knee Replacement Cataract Surgery Bladder Suspension Pelvic Abscess Removal Hospitalization History Reason Date(Month/Year) Child X4 Chest Pain
--- OUTSIDE RECORDS SUMMARY | 2025-06-18 12:00 | XMS_ITS | Clinical Summary ---
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
--- OUTSIDE RECORDS SUMMARY | 2025-06-18 12:00 | XMS_ITS | Referral Summary ---
Author Organization [facility] Address [address] [place] [address] Care Team Providers Care Synchro Assembler Name Role Phone Grabiel Carolina MD Unavailable [phone] Richard Fontaine MD Unavailable La Nena Leyva MD Unavailable Goldie Suh MD Unavailable Kaleb Carrillo MD Unavailable Brenda Bhat MD Unavailable [phone] SonIsrael DPT Unavailable [phone] Smitha Crouch Primary Care Pr ovider Encounters Date Type Department Care Team Description 05/26/2025 7:39 AM CDT - 05/26/2025 11:59 PM CDT Hospital Encounter [facility] Advanced [facility] Breast [facility] [address] [place] [address] Screening mammogram, encounter for Discharge Disposition: Discharge to home or self care 03/21/2025 Results Follow-Up [facility] Cardiology [address] [facility] Advanced Medicine [address] [place] [address] [place] [id number] Grabiel Carolina MD Protein electrophoresis with reflex, serum with interpretation, Immunoglobulin free light chains, Immunofixation, urine with interpretation 03/20/2025 2:35 PM CDT Lab [facility] Advanced [facility] ([facility]) [address] [place] [address] Abnormal echocardiogram 03/20/2025 2:00 PM CDT Office Visit [facility] Cardiology [address] [facility] [address] [place] [address] [place] [address] Grabiel Carolina MD 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 Assessment & Plan (11/28/2023 1:01 PM REPAIR DEPARTMENT SUPERVISOR): Recent hospitalization for ?bowel obstruction - records [...] well. Assessment & Plan (10/06/2024 11:16 AM REPAIR DEPARTMENT SUPERVISOR): She and her have both noted decline [...] things Assessment & Plan (01/21/2022 10:45 AM REPAIR DEPARTMENT SUPERVISOR): She reports a significant sudden step-off in terms of memory and I do think MRI is reasonable to r/o a vascular event given her sig atherosclerotic dz. Will discuss with Dr Beto Vargas 01/19/2022 Assessment & Plan (01/21/2022 10:43 AM REPAIR DEPARTMENT SUPERVISOR): Encouraged to establish with sleep medicine as [...] 04/28/2021 Assessment & Plan (11/28/2023 1:01 PM REPAIR DEPARTMENT SUPERVISOR): Noted while in hospital, completed treatment and [...] 01/11/2021 Assessment & Plan (11/23/2022 11:35 AM REPAIR DEPARTMENT SUPERVISOR): Suspect this is worsening. Will have her trial short term PPI (discussed risks of cognitive impairment) 20 mg BID x 14 days. Also recommended famotidine trial and adding TUMs PRN. Since she has dysphagia, referred for EGD Counseled on cutting back on chocolates and other behavioral/lifestyle modifications Assessment & Plan (10/24/2022 2:41 PM REPAIR DEPARTMENT SUPERVISOR): Worsening symptoms, will have patient trial famotidine and see if any improvement. Assessment & Plan (05/17/2021 10:36 AM CDT): Not currently on meds but seems to be doing OK Assessment & Plan (01/11/2021 11:57 AM REPAIR DEPARTMENT SUPERVISOR): Will trial with pepcid 20 mg bid [...] worsening Assessment & Plan (01/21/2021 11:47 AM REPAIR DEPARTMENT SUPERVISOR): I am concerned this could represent unstable angina. Repeat EKG today. Will send trop and BNP. Will discuss with Dr Carolina. However, she also had gastritis on recent EGD and seemed to respond to PPI when symptoms first appeared. Esophageal spasm could also respond to NG. Will resume Dexilant and see if this improves her symptoms. Assessment & Plan (01/11/2021 11:57 AM REPAIR DEPARTMENT SUPERVISOR): Atypical chest pain She has followed with [...] up Assessment & Plan (11/23/2020 1:42 PM REPAIR DEPARTMENT SUPERVISOR): Low suspicion for angina but she will see Dr Carolina in the near future for re-assessment. Continue PPI for GERD. She will try Tums or Gaviscon PRN. Agree with EGD to eval further given her dysphagia. 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 Assessment & Plan (05/24/2023 2:04 PM CDT): Patient with worsening sicca symptoms, again encouraged her to follow up with rheumatology, and encouraged oral hygiene to help with dry mouth. Assessment & Plan (01/17/2023 2:54 PM REPAIR DEPARTMENT SUPERVISOR): Patient with worsening sicca symptoms, will refer [...] GERD. Assessment & Plan (10/06/2024 11:09 AM REPAIR DEPARTMENT SUPERVISOR): She has parkinsonism stage 3 characterized by [...] Plan (05/24/2023 2:05 PM CDT): Follows with neurologyalexis. Assessment & Plan (03/08/2023 11:34 PM CDT): [...] 3. COntinue exercise. 4. There is a Travel[employer] channel with exercises from the [place] chapter of the APDA. You can find this by searching Travelmenu for [place] apda exercise or typing this address into your web browser. [email or web address] 5. Let me know if you ever want to repeat either OT or speech therapy for conversational talking. Assessment & Plan (11/23/2022 11:29 AM REPAIR DEPARTMENT SUPERVISOR): Per neuro- Assessment & Plan (08/17/2022 2:51 [...] 4. Start ST as planned. 5. Start [employer] channel exercise. 6. Start PD voice Project. [...] therapy. 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 Assessment & Plan (01/11/2021 11:58 AM REPAIR DEPARTMENT SUPERVISOR): Discussed postural hypotension EKG today and it was reassuring Encouraged pt to follow up with Dr Ge SETH Discussed risks of avoiding testing Offered Event monitor but pt prefers to follow up with Dr Carolina Advised pt to be mindful when changing positions and also avoid lifting heavy weights Dysphagia 07/28/2017 Assessment & Plan (11/23/2022 11:28 AM REPAIR DEPARTMENT SUPERVISOR): Since this is red flag sx referred for EGD. Scheduled to follow up with ENT and that will also be a good idea. Working with BACK TUFTER as well. Assessment & Plan (02/02/2022 11:16 PM CDT): She has dysphagia which is likely related to an underlying neurologic disorder. It is appropriate to have this evaluated by a speech language pathologist to minimize aspiration risk, with additional diagnostic testing to be ordered at the BACK TUFTER's discretion. Assessment & Plan (05/17/2021 10:29 AM CDT): Manometry in 2017 showed mildly abnormal esophageal motility Assessment & Plan (04/28/2021 10:37 AM CDT): EGD was unrevealing Dr Rodriguez recommended BACK TUFTER eval - will look into this Assessment & Plan (01/27/2021 8:02 PM REPAIR DEPARTMENT SUPERVISOR): She has dysphagia which is likely related to an underlying neurologic disorder. It is appropriate to have this evaluated by a speech language pathologist to minimize aspiration risk, with additional diagnostic testing to be ordered at the BACK TUFTER's discretion. Osteopenia 04/11/2017 Assessment & Plan (05/29/2024 [...] needed Assessment & Plan (11/28/2023 1:00 PM REPAIR DEPARTMENT SUPERVISOR): Patient was started back on fosinopril while [...] needed Assessment & Plan (11/23/2022 11:27 AM REPAIR DEPARTMENT SUPERVISOR): Well controlled on current regimen. Reviewed BP [...] adjustment Assessment & Plan (01/19/2022 3:55 PM REPAIR DEPARTMENT SUPERVISOR): BP has looked good recently Continue current regimen- could consider CCB given her Raynaud's but she does have listed allergy to Adalat Assessment & Plan (12/08/2021 8:07 PM REPAIR DEPARTMENT SUPERVISOR): Bps have been high since mid-October but [...] contributor Assessment & Plan (11/09/2021 11:36 AM REPAIR DEPARTMENT SUPERVISOR): Suspect home bp machine may be inaccurate [...] back Assessment & Plan (11/23/2020 3:33 PM REPAIR DEPARTMENT SUPERVISOR): BP at goal on current regimen Polyp of colon 04/05/2014 Overview (02/24/2017): Colon polyp Assessment & Plan (05/14/2020 1:19 PM CDT): Staying upto with colonoscopy Urinary incontinence 07/06/2012 Degeneration of intervertebral disc of lumbar re gion 06/19/2011 Atherosclerosis of [place] co ronary artery of te[place] heart with stable angina pectoris 06/07/2005 Overview [...] Carolina Assessment & Plan (01/21/2021 11:43 AM REPAIR DEPARTMENT SUPERVISOR): Eval for ACS as above On ASA, statin. Will review history to see why not on BB Consider Ranexa as next step pending workup - she will follow up with Dr Carolina for this Assessment & Plan (11/23/2020 1:49 PM REPAIR DEPARTMENT SUPERVISOR): On ASA and lovastatin per Dr Carolina [...] needed Assessment & Plan (11/23/2022 11:29 AM REPAIR DEPARTMENT SUPERVISOR): On rosuva Update FLP and LFTs Continue rosuvastatin + Mediterranean diet and regular exercise Assessment & Plan (05/18/2022 11:00 AM CDT): Rosuvastatin was increased to 40mg daily LDL recently improved to 103 Generalized anxiety disorder 06/24/1999 Assessment & Plan (10/06/2024 11:04 AM REPAIR DEPARTMENT SUPERVISOR): She continues to have mood symptoms including [...] results. Assessment & Plan (12/08/2021 8:07 PM REPAIR DEPARTMENT SUPERVISOR): I wonder if this could be contributing to her symptoms although she denies that this is any worse than her baseline Resolved Problems Problem Noted Date Diagnosed Date Resolved Date COVID-19 virus infection 12/20/2021 Assessment & Plan (12/20/2021 3:50 PM REPAIR DEPARTMENT SUPERVISOR): Discussed CDC guidelines for isolation Given her [...] 05/18/2022 Assessment & Plan (11/09/2021 12:06 PM REPAIR DEPARTMENT SUPERVISOR): Trial with magnesium +riboflavin Hydration and stress [...] 11/23/2022 Assessment & Plan (01/11/2021 11:52 AM REPAIR DEPARTMENT SUPERVISOR): Following with Dr Rodriguez Assessment & Plan [...] to please send referral for PT at [facility] near [facility]. 4. Our office to please send a [...] I will discuss with Dr. 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 Not on file Not on file Last Filed Vital Signs Vital Sign Reading Time Taken Comments Blood Pressure 161/89 03/20/2025 1:46 PM CDT Pulse 75 03/20/2025 1:46 PM CDT Temperature 36.2 C (97.1 F) 10/02/2024 3:41 PM REPAIR DEPARTMENT SUPERVISOR Respiratory Rate 20 09/14/2023 1:30 PM CDT Oxygen Saturation 98% 03/20/2025 1:46 PM CDT Inhaled Oxygen Concentration - - Weight 56.2 kg (124 lb) 05/26/2025 8:12 AM CDT Height 162.6 cm (5' 4) 05/26/2025 8:12 AM CDT Body Mass Index 21.28 05/26/2025 8:12 AM CDT Plan of Treatment Not on file Medical Devices Implanted Type Area Filteration Operator Device Identifier Shelf Expiration Date Model / Serial / Lot Daig Kyle/St [employer]ha[employer] [id number] Angio-Seal Evolution 6fr .035in Guidewire Bypass Tube Suture - [id number] Implanted:Qty: 1 on 02/11/2021 by Tera Denson MD at [facility] Collagen Right: Femoral Terumo Medical Kyle 11/19/2021 [id number] / / [id number] Medtronic Usa Inc X [id number] Resolute [place] 3mm 2.1-2.7fr 26mm 140cm Rapid Exchange Radiopaque - [id number] Implanted:Qty: 1 on 02/04/2021 by Tera Denson MD at [facility] Stent Right: Coronary Medtronic Inc 09/08/2022 [id number] / / [id number] Warren Scientific Kyle [id number] Stent Drug Eluting S Megatron Us Mr 3.38b08ey - [id number] Implanted:Qty: 1 on 02/11/2021 by Tera Denson MD at [facility] Stent Left: Coronary Warren Scientific Kyle 10/21/2021 [id number] / / [id number] Stent N/A: Heart Knee Replacement Knee Daig Kyle/St Deshaun Medical [id number] Angio-Seal Evolution 6fr .035in Guidewire Bypass Tube Suture - [id number] Implanted:Qty: 1 on 02/04/2021 by Tera Denson MD at [facility] Right: Femoral Terumo Medical Kyle 10/19/2021 [id number] / / [id number] Procedures Procedure Name Priority Date/Time Associated Diagnosis [...] no significant interval changes from prior studies. us Self Screening Mammogram IMG MAMMO PROCEDURES Fi nal Result * (ABNORMAL) Immunoglobulin free light chains (03/20/2025 2:41 PM CDT) Briar/Lambda ratio [facility] 1.49 0.26 - 1.65 Comment: Interpretive Data The Binding Site FreeLite assay procedure was used. Results from different manufacturers or methods may not be comparable. Serial testing should be performed using the same methods and instrumentation. Current Interpretive Data was last revised on 2024. Briar free light chain [facility] 2.46(H) 0.33 - 1.94 mg/dL [facility] Comment: Interpretive Data The Binding Site FreeLite assay procedure was used. Results from different manufacturers or methods may not be comparable. Serial testing should be performed using the same methods and instrumentation. Current Interpretive Data was last revised on 2024. Lambda free light chain [facility] 1.65 0.57 - 2.63 mg/dL [facility] Comment: Interpretive Data The Binding Site FreeLite assay procedure was used. Results from different manufacturers or methods may not be comparable. Serial testing should be performed using the same methods and instrumentation. Current Interpretive Data was last revised on 2024. Blood 03/20/2025 2:41 PM CDT 03/20/2025 3:36 PM CDT Grabiel Carolina MD LAB BLOOD ORDERABLES Final Re sult Performing Organization Address [facility] Co de Phone Number [facility] Department [place] [address] * Immunofixation, urine with interpretation (03/20/2025 2:41 PM CDT) [facility] Immunofixation, Ur Please see comment Comment: NO PARAPROTEIN DETECTED Reviewed and signed by Maximilian Esquivel MD 03/21/2025 Urine 03/20/2025 2:41 PM CDT 03/20/2025 3:36 PM CDT Grabiel Carolina MD LAB URINE ORDERABLES Final Re sult Performing Organization Address [facility] Co de Phone Number [facility] Department [place] [address] * Protein electrophoresis with reflex, serum with interpretation (03/20/2025 2:41 PM CDT) [facility] Protein, sr 6.9 6.2 - 8.2 g/dL Albumin 4.2 3.2 - 5.0 g/dL [facility] Alpha-1 globulin 0.3 0.2 - 0.4 g/dL [facility] Alpha-2 globulin 0.7 0.5 - 1.0 g/dL [facility] Beta-1 globulin 0.3 0.3 - 0.6 g/dL [facility] Beta-2 globulin 0.3 0.2 - 0.6 g/dL [facility] Gamma globulin 1.1 0.5 - 1.7 g/dL [facility] SPEP interp Please see comment [facility] Comment: No apparent monoclonal peak Electrophoretic pattern appears similar to previous sample 02/16/2024 Reviewed and signed by Maximilian Esquivel MD 03/21/2025 Blood 03/20/2025 2:41 PM CDT 03/20/2025 3:36 PM CDT us Grabiel Carolina MD LAB BLOOD ORDERABLES Final Re sult [facility] Department [place] [address] * Dexa Axial Skeleton Bone Density 1 [...] Most Recently Relevant to Health Maintenance Insurance [facility] MEDICARE ADVANTAGE [employer] [facility] MDCR HMO REF MEDICARE ADVANTAGE MEDICARE [employer] INSURANCE COMPANY [facility] MDCR HMO REF [facility] MEDICARE ADVANTAGE Advance Directives For more information, please contact: [phone] * Full Code (Latest Code Status on [...] Communication Edilberto Castaneda Spouse Health Care Agent .Parso Care Teams Synchro Assembler Relationship Specialty Start Date End Date Smitha Crouch PA [address] [place] [address] PCP - General Physician Advertisement Distributor 10/02/24 Grabiel Carolina MD Referring Physician Cardiology 04/11/19 Richard Fontaine MD Surgeon Orthopedic Surgery 04/11/19 La Nena Leyva MD Consulting Physician Rheumatology 04/11/19 Goldie Suh MD Consulting Physician Urology 04/11/19 Kaleb Carrillo MD [address] [place] [address] Referring Physician Ophthalmology 04/11/19 Brenda Bhat MD [address] [place] [address] Referring Physician Dermatology 05/17/21 Son, Israel Cross, DPT [address] [place] [address] Physical Therapist Physical Therapy 03/28/22
--- OUTSIDE RECORDS SUMMARY | 2025-06-18 12:00 | XMS_ITS | Clinical Summary ---
Author Organization [facility] Address [address] [place] [id number] Care Team Providers Care Technical Sales Consultant Name Role Phone Unavailable Primary Care Provider [...]
--- NOTE | 2025-06-18 13:23 | REHSTMBS ---
Assessment and note entered by Ally Rowe, FUEL ATTENDANT Modified Barium Swallow Evaluation Feeding Type Recommended Oral Food Consistency Regular, Level 7 Liquid Consistency Thin (0) Treatment Recommendations Effortful Swallow,Laryngeal Elevation Exercise, Tongue Base Exercise,Vocal Fold Adduction Exercise ST Clinical Summary The patient is an 85 year old female referred for an outpatient MBS study due to persistent abdominal pain for the past 6 months and questionable aspiration. The patient reports a diagnosis of Parkinson's and states that she has noticed coughing with liquids and solids at times. The patient was positioned in a lateral view and provided the following consistencies: 5cc/tsp thin liquid barium , cup trials thin liquid barium, pudding mixed with barium paste, and cracker coated with barium paste. Oral Stage: Timely oral preparation and transit for all consistencies provided. Pharyngeal Stage: When presented cup amounts of thin liquid barium mild laryngeal penetration was viewed during the swallow secondary to reduced laryngeal elevation. Additional laryngeal penetration was viewed after the swallow secondary to mild residual remaining in the vallecula. Mild residual was viewed to remain in the vallecula following trials of cup thin liquid barium, pudding mixed with barium paste, and cracker coated with barium paste due to reduced lingual pressure. When instructed to utilize a chin tuck posture with small drinks thin liquid barium laryngeal penetration was no longer viewed. In addition, when instructed to perform a repeat swallow for all consistencies presented the patient was able to clear residual remaining within the vallecula. Recommend the following compensatory dysphagia strategies: 1. Regular Diet/ Level 7 2. Thin liquid/ Level 0 3. Chin -tuck posture with all drinks 4. Repeat swallow with bites and drinks 5. No straw 6. Small bites and drinks 7. Outpatient speech Therapy services to educate with dysphagia strategies and provide training with the following exercises program for maintaining swallow function given Parkinson's Diagnosis. Exercises to include: 1. Laury 2. Laryngeal Elevation 3. Effortful Swallow 4. Tongue Base Retraction and 5. Chin-tuck Resistance.
== END 2025-06-18 11:50 | disposition home or self-care (01) ==
PROVIDERS: PCP Physician Assistant; Visit Provider Physician Assistant
DX: R13.13 Dysphagia, pharyngeal phase (principal)
CPT/HCPCS: 74230; 92611

== ENCOUNTER 2025-07-23 12:30 | Outpatient (RCR) | payer MEDICARE, SELFPAY ==
--- NOTE | 2025-07-10 12:06 | STOPEVAL1 ---
Assessment and note entered by Bernie Finney ACCOUNTING OFFICER Evaluation Information Assessment Status Evaluation ICD-10 Condition Codes (ST) Dysphagia, unspecified R13.1 Reported Pain Level Pain Score 0: Self Report Assessment ST Clinical Summary Patient is a 85-year-old female who was referred by her physician following recent MBS results to receive outpatient ST services to address dysphasia concerns noted in the MBS and considerations for voice therapy due to Parkinson' s disease. The patient reports inconsistently following precautions since MBS, but states she has not noticed any additional difficulties. Patient reports she has to have forceful speech to be heard by communication partners, resulting in her not talking as often as she would like. The patient was presented with the following consistencies cup sip (uncontrolled thin 1), mixed consistency (fruit cocktail), and solid (cracker) . Patient readily accepts PO trials and self-feeds throughout. Patient demonstrated good containment of bolus and timely oral manipulate and transport . No significant oral residue is noted. No overt signs or symptoms of aspiration is observed. Important to note that patient displayed a delayed cough at end of PO trials. The patient's vocal quality was assessed due to new Parkinson's diagnosis and patient reporting being poorly audible by others and feeling she has to produced forceful speech. The patient was able to sustain ah for 5-7 seconds at 55db. Vocal volume for phrases at 60dB with cues to increase volume. Recommendations: 1) Chin tuck posture with all drinks 2) Repeat swallow with bites and drinks 3) Small bites and drinks 4) Speech therapy services to provide exercises to include: Laury, Laryngeal Elevation, Effortful Swallow, Tongue Base Retraction, CTAR. In addition, ST services to implement Parkinson's voice program. Plan of Care Interventions Treatment of Swallowing Dysfunction,Treatment of Voice ST Services Indicated Yes Treatment Frequency and 1x/week for 10 weeks Duration These treatments will address the objective and functional deficits as defined above. The patient will be advanced safely and appropriately in order for the patient to progress towards his/her prior level of function. Additional exercises will be introduced and as well as a comprehensive home exercise program upon discharge, if needed, ?to ensure carryover of functional gains achieved in the clinic. This treatment plan has been reviewed and agreement upon by the patient.
--- NOTE | 2025-07-10 12:06 | OPREHPOC ---
Outpatient Therapy Plan of Care This is a Multidisciplinary Plan of Care that may contain components documented by all disciplines (PT, OT, and ST.) ST Problem 1 ST Problem #[address] Goal 1 Goal / Goal Update Patient will participate in home programming to improve carryover/generalization of skills to home environment. Target Visit [address] Problem #[address] Goal 1 Goal / Goal Update Dysphagia: 1) Patient will utilize compensatory strategies for safe swallow function with 85% min cues. 2) The patient will complete dysphagia exercises to include Laury, Laryngeal Elevation, Effortful Swallow, Tongue Base Retraction, CTAR with 85% min cues. Target Visit [address] Problem #[address] Goal 1 Goal / Goal Update Voice: 1) The patient will produce phrase/sentence length information audible at 65 decibels as measured by a voice meter with compensatory techniques 85% of the time and minimal cues. 2) The patient produce conversation exchanges 5-7 audible at 65 decibels as measured by a voice meter with compensatory techniques 85% of the time and minimal cues. 3) The patient will complete a HEP for improved vocal strength and carry over of techniques outside treatment. Target Visit 10
--- NOTE | 2025-07-23 13:59 | STOPDC ---
Assessment and note entered by ALBINA Ricks Evaluation Information Assessment Status Discharge Reported Pain Level Pain Score 0: Self Report Assessment ST Clinical Summary Initial Evaluation: Patient is a 85-year-old female who was referred by her physician following recent MBS results to receive outpatient ST services to address dysphasia concerns noted in the MBS and considerations for voice therapy due to Parkinson' s disease. The patient reports inconsistently following precautions since MBS, but states she has not noticed any additional difficulties. Patient reports she has to have forceful speech to be heard by communication partners, resulting in her not talking as often as she would like. The patient was presented with the following consistencies cup sip (uncontrolled thin 1), mixed consistency (fruit cocktail), and solid (cracker) . Patient readily accepts PO trials and self-feeds throughout. Patient demonstrated good containment of bolus and timely oral manipulate and transport . No significant oral residue is noted. No overt signs or symptoms of aspiration is observed. Important to note that patient displayed a delayed cough at end of PO trials. The patient's vocal quality was assessed due to new Parkinson's diagnosis and patient reporting being poorly audible by others and feeling she has to produced forceful speech. The patient was able to sustain ah for 5-7 seconds at 55dB (dcd: 65 dB). Vocal volume for phrases at 60dB (dcd: 65 dB) with cues to increase volume. Recommendations: 1) Chin tuck posture with all drinks 2) Repeat swallow with bites and drinks 3) Small bites and drinks 4) Speech therapy services to provide exercises to include: Laury, Laryngeal Elevation, Effortful Swallow, Tongue Base Retraction, CTAR. In addition, ST services to implement Parkinson's voice program. Discharge 07/23/2025: The patient has made noted progress over the course of the past 3 dysphagia and voice treatment sessions implementing the recommended compensatory techniques. Upon discharge the patient was presented with a cup sip of thin liquid on this date. Patient readily accepts PO trials and self-feeds throughout. Patient demonstrated good containment of bolus and timely oral manipulate and transport. Patient demonstrates the ability to independently utilized compensatory strategy, chin tuck posture, for safe swallow function. No overt signs or symptoms of aspiration is observed. Patient is able to independently carryout dysphagia home exercise program including the following exercises: Laury, Laryngeal Elevation, Effortful Swallow, Tongue Base Retraction. PRESS BUCKER also provided e words for vocal fold adduction for patient to use as part of HEP. After participating in Parkinson's Voice Program, she is producing phrase and sentences with an average of 65 dB in 80% of opportunities, and conversation exchanges at an average of 60 dB in 75% of opportunities. Noted that some voice objectives are partially met. Patient may have benefit from additional skilled ST sessions, although patient requested discharge on this date. Patient has discussed and PRESS BUCKER is agreeable with discharge plans at this time with a provided home exercise program (HEP) to continue on her own for the above areas. The PRESS BUCKER provided and reviewed with the patient a written HEP and materials. Plan of Care ST Services Indicated No
== END 2025-07-23 16:33 | disposition home or self-care (01) ==
LOC: ANHST 12:30
PROVIDERS: PCP Physician Assistant; Visit Provider Physician Assistant
DX: R13.10 Dysphagia, unspecified (principal)
CPT/HCPCS: 92507; 92526; 92610